=== PATIENT | female | born 1955 | race Caucasian/White ===

== ENCOUNTER → 2020-10-10 11:52 | Outpatient (CLI) | payer OTHER, SELFPAY ==
--- NOTE | ~2020-10-10 | MM_ITS ---
EXAMINATION: MM screening [facility] BI w otis HISTORY: Screening TECHNIQUE: Craniocaudal and mediolateral oblique 3-D tomosynthesis images were obtained and synthetic 2-D images were generated. CAD analysis was submitted and interpreted. COMPARISON: Comparison to multiple prior studies sequentially, with oldest reviewed study dated 05/08. BREAST PARENCHYMAL COMPOSITION: There are scattered areas of fibroglandular density. FINDINGS: Bilateral breast masses are stable or decreased in size compared with prior studies, consis tent with benign masses. There is no evidence of suspicious mass, calcification, or architectural dis tortion to suggest malignancy in either breast. There has been no suspicious interval change. IMPRESSION: 1. No mammographic evidence of malignancy. 2. Recommend routine screening mammography in one year. BI-RADS Category 2: Benign finding(s). Reviewed, dictated and finalized at location A. [employer]ER [employer] POLISHER
== END ==
PROVIDERS: PCP Family Medicine Adolescent Medicine; Visit Provider Family Medicine Adolescent Medicine
DX: Z12.31 Encounter for screening mammogram for malignant neoplasm of breast (principal)
CPT/HCPCS: 77063; 77067

== ENCOUNTER 2021-02-16 10:46 | Outpatient (CLI) | payer OTHER, SELFPAY ==
--- NOTE | ~2021-02-16 | XR_ITS ---
EXAMINATION: XR chest 2V DATE: 02/16/2021 11:40 INDICATION: Dyspnea. Left chest pain. TECHNIQUE: Frontal and lateral views of the chest were obtained. COMPARISON: Chest 2 views 10/03/2017 FINDINGS: There is mild atelectasis at the lung bases. No pleural effusion or pneumothorax. The heart size is normal. There is an old healed fracture of left eighth rib. IMPRESSION: 1. Mild atelectasis at the lung bases. Reviewed, dictated and finalized at location A.
== END 2021-02-16 10:47 ==
PROVIDERS: PCP Family Medicine Adolescent Medicine; Visit Provider Family Medicine Adolescent Medicine
DX: R06.00 Dyspnea, unspecified (principal); J45.909 Unspecified asthma, uncomplicated; M79.89 Other specified soft tissue disorders; J98.11 Atelectasis
CPT/HCPCS: 71046

== ENCOUNTER 2021-06-26 12:03 | Outpatient (CLI) | payer OTHER, SELFPAY ==
--- NOTE | ~2021-06-26 | XR_ITS ---
XR wrist RT w scaphoid DATE: 06/26/2021 13:01 INDICATION: Right wrist injury TECHNIQUE: 5 views COMPARISON: None FINDINGS: The uterus is osteoarthritis at the first carpometacarpal and triscaphe joint. No fracture or dislocation, periosteal reaction or bone destruction, erosive change or chondrocalcino sis. IMPRESSION: Osteoarthritis Reviewed, dictated and finalized at location A. [employer] SALES REPRESENTATIVE IMPRESSION: Osteoarthritis
--- NOTE | ~2021-06-26 | XR_ITS ---
XR hand RT min 3V DATE: 06/26/2021 12:59 INDICATION: Right wrist and hand injury TECHNIQUE: 3 views COMPARISON: None FINDINGS: Diffuse osteopenia. There is osteoarthritic joint space narrowing at the triscaphe joint and joint space narrowing and mi ld spurring at the first carpometacarpal joint. There is osteoarthritic change at some of the interph alangeal joints. No fracture or dislocation, periosteal reaction or bone destruction, erosive change or chondrocalcino sis. IMPRESSION: Osteopenia Polyarticular osteoarthritis No fracture or dislocation Reviewed, dictated and finalized at location A. [employer]
== END 2021-06-26 12:04 ==
PROVIDERS: PCP Family Medicine Adolescent Medicine; Visit Provider Physician Assistant
DX: S69.91XA Unspecified injury of right wrist, hand and finger(s), initial encounter (principal); M19.041 Primary osteoarthritis, right hand; M19.071 Primary osteoarthritis, right ankle and foot; M85.841 Other specified disorders of bone density and structure, right hand
CPT/HCPCS: 73110; 73130

== ENCOUNTER 2021-11-18 13:48 | Outpatient (CLI) | payer OTHER, SELFPAY ==
--- NOTE | ~2021-11-18 | XR_ITS ---
EXAM: XR_[id number]_CR HISTORY: W19.XXXA - Unspecified fall, initial encounter COMPARISON: 02/16/2021 FINDINGS: Bibasilar scarring. Stable cardiomediastinal silhouette. Old healed left eighth posterolat eral rib fracture. No acute rib or other fracture detected. Lumbar scoliosis. Lateral listhesis/rotat ion of L2 on L3. IMPRESSION: No acute rib fracture. Lumbar scoliosis and lateral listhesis/rotation of L2 on L3, presumably on a d egenerative basis, unless accompanied by acute pain or tenderness. Reviewed, dictated and finalized at location K. IMPRESSION: No acute rib fracture. Lumbar scoliosis and lateral listhesis/rotation of L2 on L3, presumably on a degenerative basis, unless accompanied by acute pain or te nderness.
--- NOTE | ~2021-11-18 | XR_ITS ---
EXAM: XR_CERV2-3V_CR HISTORY: W19.XXXA - Unspecified fall, initial encounter COMPARISON: None available FINDINGS: Moderate degenerative change at the atlantoaxial joint. Craniocervical association and tasha antoaxial joint are aligned. No prevertebral soft tissue swelling. 2 mm anterolisthesis of C3 on C4 a nd C4 on C5. 4 mm retrolisthesis of C5 on C6. Multilevel disc space narrowing most severe at C5-6. Mu ltilevel facet hypertrophy. No fracture or dislocation. IMPRESSION: Multilevel grade 1 degenerative listheses. Multilevel degenerative disc disease and facet arthropathy . Reviewed, dictated and finalized at location K. IMPRESSION: Multilevel grade 1 degenerative listheses. Multilevel degenerative disc disease and facet arthropathy.
--- NOTE | ~2021-11-18 | CT_ITS ---
EXAMINATION: CT brain wo con EXAM DATE: 11/18/2021 14:16 INDICATION: W19.XXXA - Unspecified fall, initial encounter , left-sided head injury, left-sided heada jacky. Uterine and cervical cancer. TECHNIQUE: Spiral CT of the head was performed without contrast. Axial, coronal and sagittal images were reviewed. The dose-length product (DLP) for this examination was 599.57 mGy-cm. The exposure w as tailored according to patient size, and iterative reconstruction (ASIR) was used as additional dos e reduction technique. There is no prior study for comparison. FINDINGS: There is no acute intraparenchymal hemorrhage. No evidence of intraparenchymal brain mass lesion. No evidence of acute infarction. Please note that initial head CT has limited sensitivity f or small or acute infarctions. There is mild periventricular and subcortical hypodensity, nonspecific but probably related to small vessel ischemic disease. There is mild prominence of the sulci and v entricles related to cerebral atrophy. There is intracranial carotid arteriosclerosis. There are n o extra-axial collections. There is no mass effect or midline shift. The orbits are unremarkable. Soft tissue is unremarkable. The visualized sinuses and mastoid air cells are well aerated. IMPRESSION: Mild chronic age related findings. Reviewed, dictated and finalized at location B.
== END 2021-11-18 13:49 ==
PROVIDERS: PCP Family Medicine Adolescent Medicine; Visit Provider Physician Assistant
DX: T14.90XA Injury, unspecified, initial encounter (principal); M41.86 Other forms of scoliosis, lumbar region; M50.30 Other cervical disc degeneration, unspecified cervical region
CPT/HCPCS: 70450; 71101; 72040

== ENCOUNTER 2022-03-31 10:09 | Observation (INO) | payer OTHER, SELFPAY ==
[2022-03-31] VITALS (24 sets, daily range): BP systolic 118–162; BP diastolic 56–100; PULSE 77–104; RESP 10–22; TEMP 36.4–37; O2SAT 91–99; BMI 51.6; BMI 52.4
--- NOTE | ~2022-03-31 | XR_ITS ---
EXAMINATION: XR chest 2V DATE: 03/31/2022 10:54 INDICATION: Chest tightness and dizziness TECHNIQUE: frontal and lateral views of the chest were obtained. COMPARISON: Chest radiograph dated 02/16/2021 FINDINGS: Unchanged linear bands of discoid atelectasis/scarring at the bilateral lung bases. No other airspace opacities, pulmonary edema, pleural effusion or pneumothorax. The cardiomediastinal silhouette is no rmal. Mild lower thoracic levocurvature with moderate spondylosis. Old healed left eighth rib fractur e. IMPRESSION: 1. Unchanged discoid atelectasis/scarring at the lung bases. Reviewed, dictated and finalized at location A.
--- NOTE | ~2022-03-31 | CT_ITS ---
EXAMINATION: CT abdomen pelvis w con DATE: 03/31/2022 11:52 INDICATION: Abdominal pain TECHNIQUE: Computed tomography (CT) of the abdomen and pelvis was performed with 100 mL Omnipaque-350 intravenous contrast. Automated exposure control and iterative reconstruction technique were employe d. The dose-length product was 1423.17 mGy-cm. COMPARISON: 07/24/2015 FINDINGS: Atelectasis in the bilateral lower lung zones involving the lingula, right middle lobe and bilateral lower lobes. Heart size is normal. No pericardial or pleural effusion. Cholecystectomy clips at the g allbladder fossa. Liver, spleen, pancreas, bilateral adrenal glands and kidneys are normal. Prominent ventral diastases with portions of the stomach, transverse colon and multiple loops of small bowel e xtending into the widened space between the bilateral rectus abdominis muscles. There are postoperati ve change of prior ventral hernia mesh repair along the left side of the region of the diastases. If further left lung the lateral margin of the region of ventral hernia repair is unchanged large left l ower quadrant ventral hernia arising from the left side of the region of diastases which contains the descending colon and multiple loops of nonobstructed small bowel. The orifice measures approximately 9.8 x 5.1 cm. Anastomotic suture line along one of the loops of herniated small bowel. There is mode rate colonic diverticulosis with sigmoid and descending colon predominance and without adjacent infla mmatory change to suggest diverticulitis. The appendix is not visualized. No pericecal inflammatory c hange to suggest acute appendicitis.. Bladder is normal. The uterus is not identified and has likely been surgically resected. No free intraperitoneal gas or fluid. No pathologically enlarged abdominal or pelvic lymphadenopathy. There is calcified atherosclerosis of the aorta and many of the other art eries. Severe lumbar spondylosis. 6 mm anterolisthesis L2 on L3 and 3 mm anterolisthesis L3 on L4. IMPRESSION: 1. No acute intra-abdominal/pelvic process. 2. Portions of the colon and multiple loops of nonobstructed small bowel extend into a large left low er quadrant ventral hernia which arises from the left side of a large region of ventral diastases. Th is does not appear significantly changed. 3. Diverticulosis. Reviewed, dictated and finalized at location A. IMPRESSION: 1. No acute intra-abdominal/pelvic process. 2. Portions of the colon and multiple loops of nonobstructed small bowel extend into a large left lower quadrant ventral hernia which arises from the left sam e of a large region of ventral diastases. This does not appear significantly ch anged. 3. Diverticulosis.
--- NOTE | ~2022-03-31 | US_ITS ---
EXAMINATION:US venous doppler LE BI INDICATION:Leg edema. TECHNIQUE: Multiple grayscale, color flow and Doppler images of the right and left lower extremity de ep venous systems were obtained and reviewed. COMPARISON:No prior studies for comparison. FINDINGS: The common femoral, superficial femoral and popliteal veins demonstrate normal respiratory variation, augmentation and compressibility. Color flow is also seen within the posterior tibial, pe roneal, greater saphenous and profunda veins. IMPRESSION: 1: No lower extremity deep venous thrombosis. Reviewed, dictated and finalized at location A.
--- NOTE | 2022-03-31 10:26 | ECG_ITS ---
Measurements Intervals [place] Rate: 99 P: 57 WY: 156 QRS: 51 QRSD: 82 T: 51 QT: 354 QTc: 455 Interpretive Statements SINUS RHYTHM NORMAL ECG NO PREVIOUS ECG AVAILABLE FOR COMPARISON Electronically Signed On 03-31-2022 16:08:49 CDT by Faheem Cortez M.D.
[2022-03-31 11:09] LABS: Basophils Absolute Auto 0.1 K/mm3 (0.0-0.1); Basophils Percent Auto 1.5 % (0.2-1.2); Eosinophils Absolute Auto 0.2 K/mm3 (0-0.3); Eosinophils Percent Auto 5.2 % (0-4.4); Hematocrit 44.2 % (37.0-47.0); Hemoglobin 15.3 g/dL (12.0-15.0); Lymphocytes Absolute Auto 1.73 K/mm3 (0.9-3.2); Lymphocytes Percent Auto 37.4 % (18.3-44.2); Mean Corpuscular HGB Conc 34.6 g/dl (32-36); Mean Corpuscular Hemoglobin 35.3 pg (26-34); Mean Corpuscular Volume 102.1 fl (80-100); Mean Platelet Volume 9.7 fl (7.4-10.4); Monocytes Absolute Auto 0.5 K/mm3 (0.1-0.6); Monocytes Percent Auto 11.7 % (2.6-8.5); Neutrophils Absolute Auto 2.1 K/mm3 (1.3-6.7); Neutrophils Percent Auto 44.2 % (45.5-73.1); Platelet Count Result 237 k/mm3 (150-375); Red Blood Count 4.33 M/mm3 (4.2-5.4); Red Cell Distribution Width 13.4 % (11.5-14.5); White Blood Count 4.6 K/mm3 (4.5-10.0)
--- NOTE | 2022-03-31 11:12 | ED.SOB ---
HPI - SOB/Dyspnea General Chief Complaint: Shortness of Breath/Dyspnea Stated Complaint: Shortness of breath Time Seen by Provider: 03/31/22 10:39 History of Present Illness HPI Narrative: This is a 66-year-old female with past medical history of COPD, CHF, who presents to the emergency department complaining of shortness of breath with past several days, associated with epigastric abdominal pain. Patient states has been going on for several days, she has epigastric abdominal pain, described as dull, intermittently sharp, 4 out of 10 at baseline, increasing to 7 out of 10, aggravated by physical and emotional exertion. She also notes some nausea associated with this. But denies vomiting. She states she is passing nonbloody stool and gas without difficulty. Related Data Allergies Allergy/AdvReac Type Severity Reaction Status Date / Time adhesive tape Allergy Intermediate BLISTER/REDNESS/SWELLING Verified 03/31/22 13:26 AT SITE fentanyl Allergy Intermediate Itching Verified 03/31/22 13:26 amoxicillin Allergy Unknown Unknown Verified 03/31/22 13:26 azithromycin Allergy Unknown unknown Verified 03/31/22 13:26 erythromycin base Allergy Unknown unknow Verified 03/31/22 13:26 Penicillins Allergy Unknown unknown Verified 03/31/22 13:26 Review of Systems Review of Systems: CONSTITUTIONAL: Denies fever, chills, or sweats. EYES: Denies visual changes, redness, or discharge. ENT: Denies rhinorrhea, congestion, sore throat, or otalgia. CARDIOVASCULAR: +chest pain, palpitations, Denies edema. RESPIRATORY: +dyspnea. Denies cough or GASTROINTESTINAL: Denies abdominal pain, nausea, vomiting, or diarrhea. GENITOURINARY: Denies dysuria or hematuria. SKIN: Denies rash or itching. MUSCULOSKELETAL: Denies back pain, joint pain, or myalgia. NEUROLOGIC: Denies headache, numbness, dizziness, or weakness. PSYCHIATRIC: Denies anxiety or depression. [facility] Past Medical History Medical History Abdominal pain Adhesive capsulitis Arthritis COPD (chronic obstructive pulmonary disease) Dizziness Hair loss HTN (hypertension) Kidney infection Left shoulder pain Rotator cuff tendinitis SOB (shortness of breath) Vertigo Wheezing Surgical History Surgical History History of appendectomy History of back surgery 1984 and 1985 History of bladder suspension procedure x2 History of History of cholecystectomy History of hernia repair History of total hysterectomy History of total knee arthroplasty bilateral Family History Family History Sibling Family history of thyroid disease Mother Family history of lung cancer Father Family history of heart disease in male family member before age 55 Other Diabetes mellitus Family history of allergic disorder Family history of cardiovascular disease Hypertension Social History Social History (Updated 03/30/22 @ 12:39 by Mandy Pham MA) Smoking packs per day: 2 Smoking cigarettes per day: 40.0 Years smoked: 30 Smoking pack-years: 60.00 Smoking status: Former smoker Tobacco type: cigarettes Second hand tobacco smoke exposure: No Smoking end date: 10/19/06 Alcohol intake: never Substance use: never Substance use type: does not use Gender identity (if verbalized by the patient): Female Sexual Orientation (if Verbalized by the Patient): Straight or Heterosexual Spiritual care concerns: No Agree to blood products: Yes Course Course Emergency Course: Troponins negative. Patient's pain improved with morphine, dyspnea improved slightly with nebs. CT scan not concerning for acute intra-abdominal process. Patient's heart score is 6. Discussed patient with hospitalist, WALT Crawford, who accepts admission. Vital Signs Vital signs: Vital Signs Temperature 97.6 F 03/31/22 10:27
[2022-03-31 11:19] LABS: INR 1.1; Partial Thromboplastin Time 29.1 SECONDS (22.3-36.8); Prothrombin Time 13.6 Seconds (11.1-14.7)
[2022-03-31 11:21] LABS: Alanine Aminotransferase 22 U/L (6-35); Albumin Level 4.6 g/dL (3.5-5.1); Alkaline Phosphatase 77 U/L (38-126); Anion Gap 10 mmol/L (8-16); Aspartate Amino Transferase 31 U/L (14-36); Bilirubin,Total 0.6 mg/dL (0.2-1.3); Blood Urea Nitrogen 18 mg/dL (7-17); Calcium 9.2 mg/dL (8.4-10.2); Carbon Dioxide 24 mmol/L (22-30); Chloride 104 mmol/L (98-107); Estimated Glomerular Filt Rate > 60; Glucose 133 mg/dL (65-110); Lipase 34 U/L (23-300); Potassium 3.9 mmol/L (3.4-5.0); Sodium 138 mmol/L (137-145)
[2022-03-31] MEDS: MORPHINE SULFATE (*CRX) 4 MG/ML INJ IV PUSH (11:30)
[2022-03-31 11:32] LABS: Troponin I < 0.012 ng/mL (0.000-0.034)
[2022-03-31] MEDS: IPRATROPIUM BR 0.02% INH SOLN 0.5 MG/2.5 ML VIAL INHALATION (12:30)
[2022-03-31] MEDS: ALBUTEROL SULFATE NEB 2.5 MG/3 ML INH 5 MG INHALATION ×2 (12:30→14:56)
[2022-03-31 14:02] LABS: Troponin I < 0.012 ng/mL (0.000-0.034)
[2022-03-31] MEDS: ASPIRIN 81 MG CHEWABLE TABLET 324 MG PO (15:07)
[2022-03-31] MEDS: MORPHINE SULFATE (*CRX) 4 MG/ML INJ 8 MG IV PUSH (15:08)
--- NOTE | 2022-03-31 15:30 | PM.IMHP ---
H&P: HPI History of Present Illness Date/Time: 03/31/22 15:30 Chief Complaint: Shortness of breath and chest pain. Narrative: This is a 58-year-old female with morbid obesity, COPD, GERD, and poorly documented history of congestive heart failure who presented to the emergency department from home with complaints of shortness of breath and chest pain. She was previously evaluated by her primary care provider earlier this week which time she had multiple complaints including chronic shortness of breath, dry cough for a month, occasional ?gurgling? all in the chest, frequent episodes of lightheadedness and vertigo with history of falls secondary to poor balance, and more recently she has been experiencing nonradiating and self-limiting midsternal chest pressure. She admits to having quite a bit of anxiety and she has thus far been attributing the chest discomfort to anxiety. An echocardiogram done in December of 2021 showed normal LV systolic size and function with an EF of 71%. Additionally she has a large ventral hernia which seems to be giving her more grief recently, with intermittent pain and occasional nausea but no vomiting. Review of Systems Review of Systems: Twelve systems were reviewed. No fever, chills, or sweats. She denies cold and flu symptoms. She has been having balance issues with intermittent episodes of what sounds like both lightheadedness and vertigo. No vomiting or diarrhea. Except as documented, all other systems were reviewed and are negative. [facility] Past Medical History Medical History (Updated 03/31/22 @ 15:52 by Clarice Crawford PA-C) Aortic atherosclerosis (07/2015) Noted on CT of the abdomen and pelvis. Arthritis Chronic obstructive pulmonary disease Deep venous thrombosis (1973) Following an ankle fracture. Gastroesophageal reflux disease Hiatal hernia Hypertension Ventral hernia Surgical History Surgical History (Updated 03/31/22 @ 15:38 by Clarice Crawford PA-C) History of 2 sections History of appendectomy History of back surgery 1984 and 1985 History of bilateral knee arthroplasty History of bladder suspension procedure x2 History of cholecystectomy History of hernia repair History of total hysterectomy Family History Family History Sibling Family history of thyroid disease Mother Family history of lung cancer Father Family history of heart disease in male family member before age 55 Other Diabetes mellitus Family history of allergic disorder Family history of cardiovascular disease Hypertension Social History Social History (Updated 03/31/22 @ 15:50 by Clarice Crawford PA-C) Social History: Surrogate medical decision maker: Franchesca Bonilla, daughter. Code status: Full code. Smoking packs per day: 2 Smoking cigarettes per day: 40.0 Years smoked: 30 Smoking pack-years: 60.00 Smoking status: Former smoker Tobacco type: cigarettes Second hand tobacco smoke exposure: No Smoking end date: 10/29/16 Alcohol intake: never Substance use: never Substance use type: does not use Spiritual care concerns: No Agree to blood products: Yes Meds Home Medications and Allergies Home Medications Medication Instructions Recorded Confirmed Type baclofen 10 mg tablet 10 mg PO Q8H PRN pain #30 tabs 11/06/21 03/31/22 Rx meclizine 25 mg tablet 25 mg PO TID PRN dizziness #30 tabs 11/19/21 03/31/22 Rx montelukast 10 mg tablet 10 mg PO DAILY #90 tabs 11/19/21 03/31/22 Rx omeprazole 20 mg capsule,delayed 20 mg PO BID #180 caps 11/23/21 03/31/22 Rx release meloxicam 15 mg tablet 15 mg PO DAILY #90 tabs 12/17/21 03/31/22 Rx furosemide 20 mg tablet 20 mg PO DAILY #90 tabs 01/11/22 03/31/22 Rx estradiol 0.5 mg tablet 0.5 mg PO DAILY #30 tabs 03/03/22 03/31/22 Rx lisinopril 20 mg tablet 20 mg PO DAILY #90 tabs 03/03/22 03/31/22 Rx theophylline 300 mg 300 mg PO Q12H #60 tabs 03/26/22
--- NOTE | 2022-03-31 16:20 | ADMGEN ---
This patient, Em Hernandez, was admitted to IMU Room 232-01. Patient/family oriented to hospital policies and general routines including ID bracelet, bed and alarms, visiting hours, pain management, procedures, bathroom and other care routines, personal items, smoking policy, room service/diet, and visiting hours. Information on how to activate the Rapid Response Team has been discussed. Patient/Family are encouraged to report perceived risks to care and to ask questions if they do not understand what they are told or what they should do.
[2022-03-31 17:24] LABS: Troponin I < 0.012 ng/mL (0.000-0.034)
[2022-03-31] MEDS: ALBUTEROL SULFATE (*SP) AEROSOL 1 PUFF INHALATION (21:42)
[2022-03-31] MEDS: THEOPHYLLINE 300 MG ER 12 HR TABLET PO (22:37)
[2022-03-31] MEDS: ACETAMINOPHEN 325 MG TABLET 650 MG PO (23:58)
[2022-04-01] VITALS (10 sets, daily range): BP systolic 115–155; BP diastolic 67–80; PULSE 66–118; RESP 18–20; TEMP 36–36.4; O2SAT 94–97
[2022-04-01 05:25] LABS: Base Excess ABG 0.2 mEq/l (+/-2.0); Carboxyhemoglobin 0.4 % THb (0-2.0); Device ROOM AIR; Fractional Inspired Oxygen 21 %; HCO3 ABG 24.8 mEq/l (22.0-26.0); Methemoglobin ABG 0.1 %THb (0-1.5); Modified Allen's Test Pass; Oxygen Content ABG 20.6 %vol (16.0-22.0); Oxygen Saturation ABG 95.7 % (95.0-100.0); Oxyhemoglobin 94.7 % THb (90.0-100.0); PCO2 ABG 40.3 mmHg (35.0-45.0); PO2 ABG 78.5 mmHg (80.0-100.0); PO2 FiO2 Ratio Arterial Blood 3.74 %; Reduced Hemoglobin 4.8 %THb (0-5.0); Site Drawn LEFT RADIAL; Total Hemoglobin 15.5 g/dL (12.0-18.0); pH ABG 7.407 (7.350-7.450)
[2022-04-01] MEDS: THEOPHYLLINE 300 MG ER 12 HR TABLET PO (10:11)
[2022-04-01] MEDS: MELOXICAM 7.5 MG TABLET 15 MG PO (10:11)
[2022-04-01] MEDS: estradioL 0.5 MG TABLET PO (10:12)
[2022-04-01] MEDS: lisinopriL 20 MG TABLET PO (10:12)
[2022-04-01] MEDS: MONTELUKAST SODIUM 10 MG TABLET PO (10:12)
[2022-04-01] MEDS: FAMOTIDINE 20 MG TABLET PO (10:12)
[2022-04-01] MEDS: FUROSEMIDE 20 MG TABLET PO (10:13)
[2022-04-01] MEDS: ACETAMINOPHEN 325 MG TABLET 650 MG PO (11:03)
--- NOTE | 2022-04-01 11:43 | PM.DS ---
DS: Admitting Diagnosis Discharge Date April 01, 2022 Admitting Diagnosis Chest pain, abdominal pain DS: Discharge Diagnosis Discharge Diagnosis (1) Chest pain: Code(s): R07.9 - Chest pain, unspecified Status: Acute Assessment and Plan: Atypical as this is been ongoing for quite some time. She has rule out for acute coronary syndrome by serial troponins. Echocardiogram in December of 2021 showed normal LV size and function with a EF of 71%. Troponins negative. Chest pain does not sound cardiac. I think this is referral pain from her ventral hernia. (2) Ventral hernia: Code(s): K43.9 - Ventral hernia without obstruction or gangrene Status: Chronic Assessment and Plan: Patient is a follow-up to tertiary care center. There is no emergent need for transfer. She is tolerating a diet and just having some localized abdominal pain. CT noted. (3) Gastroesophageal reflux disease: Code(s): K21.9 - Gastro-esophageal reflux disease without esophagitis Status: Acute (4) Chronic obstructive pulmonary disease: Code(s): J44.9 - Chronic obstructive pulmonary disease, unspecified Status: Acute Assessment and Plan: She has chronic shortness of breath and with mild polycythemia labs today, she may very well have chronic hypoxia thus will check an ABG. She will need a home O2 evaluation prior to discharge. Apnea link ordered for this evening for screening purposes. She likely has underlying sleep apnea with orthopnea and paroxysmal nocturnal dyspnea. (5) Hypertension: Code(s): I10 - Essential (primary) hypertension Status: Acute DS: Summary Hospital Course Hospital Course: Patient was admitted for chest pain abdominal pain. Most likely this was related to her ventral hernia that needs to be repaired. This is a chronic issue and nothing emergent. She can be follow-up with a surgeon as an outpatient. Time Spent with Patient Time attestation: Total time spent providing and/or coordinating discharge services: Exam Narrative: General: Chronically ill-appearing female lying on her left side in bed. Weight: 126 kg. BMI: 52.5. HEENT: PERRL, EOMI. Sclerae anicteric. Oral mucosa moist. Oropharynx is crowded and poorly visualized. Neck: Supple. Exam limited due to neck circumference. No obvious JVD or bruits. Respiratory: She gets a bit short of breath even when moving around in the bed. Lung sounds are diminished due to body habitus but are otherwise clear to auscultation. Cardiovascular: Regular rate and rhythm with S1-S2. Gastrointestinal: Abdomen is morbidly obese with positive bowel sounds. She has scars from multiple prior abdominal surgeries. There is a large ventral hernia that is not tender to palpation. No guarding or rebound tenderness. Skin: Warm and dry. No rash or lesions on limited exam. Extremities: No cyanosis or clubbing. Trace grant ankle edema bilaterally. No palpable knots or cords. Negative Piero sign. Neurological: Alert and oriented Cranial nerves 2-12 are grossly intact. No gross focal deficits to casual conversation. Psychiatric: Pleasant and cooperative. Appropriate mood and affect. DS: Data Data Completed and Pending Labs on day of discharge: Labs from last 24 hours 04/01/22 03/31/22 03/31/22 05:07 16:48 13:32 Puncture Site Left radial ABG pH 7.407 ABG pCO2 40.3 ABG pO2 78.5 L ABG PO2/FiO2 Ratio 3.74 ABG HCO3 24.8 ABG O2 Saturation 95.7 ABG O2 Content 20.6 ABG Base Excess 0.2 A-a Gradient 23.0 Oxyhemoglobin 94.7 Carboxyhemoglobin 0.4 Methemoglobin 0.1 Reduced Hemoglobin 4.8 Total Hemoglobin 15.5 O2 Delivery Device Room air O2 Liters/Min Not Reportable FiO2 21 Troponin I < 0.012 < 0.012 Discharge Plan Discharge Attending physician on discharge: Husam Navarrete Discharging Clinician: Husam Navarrete Patient Disposition: Home, Self-Care
== END 2022-04-01 13:32 | disposition home or self-care (01) ==
LOC: ANHED 14:59 → ANHIMU 15:49
PROVIDERS: Physician Assistant; Admitting Provider Chiropractor; Emergency Provider Preventive Medicine Aerospace Medicine; PCP Family Medicine Adolescent Medicine; Visit Provider Chiropractor
DX: R07.9 Chest pain, unspecified (principal); K43.9 Ventral hernia without obstruction or gangrene; K21.9 Gastro-esophageal reflux disease without esophagitis; J44.9 Chronic obstructive pulmonary disease, unspecified; D75.1 Secondary polycythemia; I11.0 Hypertensive heart disease with heart failure; I50.9 Heart failure, unspecified; R10.13 Epigastric pain; R11.0 Nausea; R00.2 Palpitations; R06.00 Dyspnea, unspecified; J98.11 Atelectasis; I70.0 Atherosclerosis of aorta; R46.89 Other symptoms and signs involving appearance and behavior; M19.90 Unspecified osteoarthritis, unspecified site; E66.01 Morbid (severe) obesity due to excess calories; Z68.43 Body mass index [BMI] 50.0-59.9, adult; Z90.710 Acquired absence of both cervix and uterus; Z90.49 Acquired absence of other specified parts of digestive tract; Z86.718 Personal history of other venous thrombosis and embolism; Z87.891 Personal history of nicotine dependence; Z79.51 Long term (current) use of inhaled steroids; Z79.899 Other long term (current) drug therapy; Z82.49 Family history of ischemic heart disease and other diseases of the circulatory system
CPT/HCPCS: 36415; 36600; 71046; 74177; 80053; 82375; 82805; 83050; 83690; 84484; 85025; 85610; 85730; 93005; 93970; 94618; 94640; 94762; 96374; 96376; 99285; A9270; G0378; J2270; Q9967

== ENCOUNTER 2022-09-08 12:02 | Outpatient (CLI) | payer OTHER, SELFPAY ==
--- NOTE | ~2022-09-08 | CT_ITS ---
EXAMINATION:CT diagnostic chest wo con DATE: 09/08/2022 11:02 INDICATION: Dyspnea. TECHNIQUE: Computed tomography (CT) of the chest was performed without intravenous contrast. Automate d exposure control and iterative reconstruction technique were employed. The dose-length product (DLP ) was 933.18 mGy-cm. COMPARISON: CT abdomen and pelvis 03/31/22 FINDINGS: There is mild emphysema. There is mild atelectasis bilaterally. No pleural effusion. The he art size is normal. There are coronary artery calcifications. No pericardial effusion. There are hurtado ges of cholecystectomy. There is a large ventral hernia containing stomach and bowel. There is modera te thoracic spondylosis and severe lumbar spondylosis. IMPRESSION: 1. Mild emphysema. 2. Mild atelectasis again seen in the lungs bilaterally. Reviewed, dictated and finalized at location A. CIATE PROFESSOR OF SOCIOLOGY
== END 2022-09-08 12:03 | disposition home or self-care (01) ==
PROVIDERS: PCP Emergency Medicine; Visit Provider Physician Assistant
DX: J43.9 Emphysema, unspecified (principal); J98.11 Atelectasis
CPT/HCPCS: 71250

== ENCOUNTER 2022-09-23 09:20 | Outpatient (CLI) | payer OTHER, SELFPAY ==
[2022-09-23 09:30] VITALS: PULSE 92; O2SAT 96
[2022-09-23 09:35] VITALS: PULSE 122; O2SAT 94
[2022-09-23 09:45] VITALS: PULSE 96; O2SAT 96
--- NOTE | 2022-09-23 11:19 | HOMEO2EVAL ---
Evaluation was performed at [facility] Home Oxygen Evaluation RC: Home Oxygen (O2) Evaluation Start: 09/23/22 11:17 Freq: Status: Active Protocol: RPE Activity Type Activity Date Activity User E-sign Co-sign Detail Recorded Client Recorded Date Recorded By Document 09/23/22 09:30 LUKE [email or web address] 09/23/22 11:19 LUKE Document 09/23/22 09:35 LUKE [email or web address] 09/23/22 11:19 LUKE Document 09/23/22 09:45 LUKE [email or web address] 09/23/22 11:19 LUKE 09/23/22 09/23/22 09/23/22 09:30 09:35 09:45 Home O2 Evaluation [Oxygen] -Test Phase Resting Exercise Resting -Oxygen Delivery Room Air Room Air Room Air [Pulse Oximetry] -Pulse Oximetry (90-100 %) 96 94 96 [Pulse Rate] -Pulse Rate (60-100 beats/min) 92 122 H 96 [Exercise] -Ambulation Distance (feet) 100 -Ambulation Distance (meters) 30.47 [Comments] -Home Oxygen Evaluation Comments PT DOES NOT REQUIRE HOME O2 AT THIS TIME. [Charges] -Treatment Charges O2 Evaluation - Outpatient
--- NOTE | 2022-09-23 11:20 | PCRCNOTE ---
HOME O2 EVAL FXED TO OFFICE STAFF, NO HOME O2 NEEDED.
--- NOTE | 2022-09-23 13:26 | WPDPFTINT ---
PFT Procedure Performed PFT Procedure Performed Spirometry with Pre/Post Bronchodilator Plethysmography (Lung Vol) Diffusing Cap (DLCO) Flow Vol Loop PFT Interpretation This is a pulmonary function test with pre and post-bronchodilator spirometry, plethysmography and diffusing capacity. The test was performed and results interpreted in accordance with the 2019 and 2005 ATS/ERS Task Force guidelines respectively using the Global Lung Function Initiative-2012 reference equations. Patient demonstrated good effort and cooperation. Reproducibility criteria were met. The quality of the pre bronchodilator spirometry maneuver was Grade E and post bronchodilator spirometry maneuver was Grade A. Of note only 1 pre bronchodilator spirometry was performed due to pain. Findings: Spirometry: There is decreased maximal expiratory airflow at all lung volumes with concave expiratory flow tracing. The contour the inspiratory flow tracing is normal. The pre bronchodilator FVC is 1.84 L, 71% predicted. The pre bronchodilator FEV1 is 1.17 L, 58% predicted. The pre bronchodilator FEV1: FVC ratio 63%. The post bronchodilator FVC is 1.99 L, representing an 8% increase. The post bronchodilator FEV1 is 1.34 L, representing a 170 mL increase which corresponds to a 15% increase. The post bronchodilator FEV1: FVC ratio 67%. Plethysmography: The total lung capacity is 3.47 L, 76% predicted. The functional residual capacity is 1.79 L, 70% predicted. The residual volume is 1.51 L, 76% predicted. Diffusing capacity: The diffusing capacity unadjusted for hemoglobin and carboxyhemoglobin is 15.9, 82% predicted. The diffusing capacity adjusted for alveolar volume is 5.06, 113% predicted. Impression: Pre bronchodilator spirometry was not reproduced as the patient was having pain. The interpretation used data from this one maneuver and is therefore limited. There is a combined obstructive and restrictive ventilatory abnormality. There are no guidelines to assign the severity of obstruction and restriction with a combined abnormality. In my opinion, given the moderately concave expiratory flow tracing and moderately decreased FEV1:FVC ratio and mild restrictive abnormality, I would state there is a moderate obstructive abnormality and a mild restrictive abnormality resulting in a moderately severe decrease in the FEV1. There is no significant improvement after inhaling a single dose of albuterol as the absolute increase in post bronchodilator FEV1 is less than 200 mL. The diffusing capacity is normal. There are no prior studies for comparison
--- NOTE | 2022-09-24 13:18 | HOMEO2EVAL ---
Evaluation was performed at [facility]
== END 2022-09-23 09:21 | disposition home or self-care (01) ==
LOC: ANHPFT 09:22
PROVIDERS: PCP Emergency Medicine; Visit Provider Physician Assistant
DX: R06.09 Other forms of dyspnea (principal)
CPT/HCPCS: 94060; 94618; 94726; 94729

== ENCOUNTER 2023-03-07 09:56 | Outpatient (CLI) | payer OTHER, SELFPAY ==
--- NOTE | ~2023-03-07 | CT_ITS ---
CT of the Abdomen and Pelvis: Indication: Abdominal hernia Technique: 2.5 mm axial scans were obtained through the abdomen and pelvis following intravenous adm inistration of 100 cc of Omnipaque 350. Dose reduction technique was used on this scan by utilizing a utomated exposure control and iterative reconstruction technique. The dose-length product (DLP) was 1 566.91 mGy-cm. COMPARISON: 03/31/2022 Findings: Scans through the lung bases are unremarkable. The liver, spleen, pancreas, adrenals and kidneys are within normal limits. Cholecystectomy clips are present. There are atherosclerotic calcifications of the aorta. No lymphadenopathy. There is a large left-sided ventral hernia, containing a large portion of the descending colon, large amount of mesenteric fat, as well as numerous small bowel loops. No definite bowel obstruction or ever wel wall thickening seen. There is diastases of the rectus abdominis musculature, with protrusion of portion of the stomach, transverse colon, and small bowel loops into the ventral defect. Images through the pelvis were performed. Urinary bladder unremarkable. Patient is status post hyster ectomy. No adnexal mass seen. Ascites. Impression: Overall, no significant change from prior exam. Large left-sided ventral hernia containing a large portion of the descending colon, as well as eufemia us small bowel loops and large amount of mesenteric fat. Diastasis of the rectus abdominis musculature, with protrusion of portion of the stomach, transverse colon, and small bowel loops into the ventral defect. No bowel wall thickening or bowel obstruction evident. Reviewed, dictated and finalized at [facility]. Impression: Overall, no significant change from prior exam. Large left-sided ventral hernia containing a large portion of the descending co stone, as well as numerous small bowel loops and large amount of mesenteric fat. Diastasis of the rectus abdominis musculature, with protrusion of portion of th e stomach, transverse colon, and small bowel loops into the ventral defect. No bowel wall thickening or bowel obstruction evident.
[2023-03-07 10:27] LABS: Estimated Glomerular Filt Rate > 60
== END 2023-03-07 09:57 ==
LOC: MICIMG 09:58
PROVIDERS: PCP Emergency Medicine; Visit Provider Emergency Medicine
DX: K46.9 Unspecified abdominal hernia without obstruction or gangrene (principal)
CPT/HCPCS: 74177; Q9967

== ENCOUNTER 2023-08-29 13:45 | Outpatient (CLI) | payer OTHER, SELFPAY ==
--- NOTE | ~2023-08-29 | MM_ITS ---
EXAMINATION: MM screening [facility] BI w otis HISTORY: Screening mammogram TECHNIQUE: Craniocaudal and mediolateral oblique 3-D tomosynthesis images were obtained and synthetic 2-D images were generated. CAD analysis was submitted and interpreted. COMPARISON: 10/10/2020, 09/08/2017, 05/29/2015, 05/23/2015 BREAST PARENCHYMAL COMPOSITION: There are scattered areas of fibroglandular density. FINDINGS: RIGHT BREAST: No suspicious mass, calcification, or architectural distortion are identified to sugges t malignancy. There has been no suspicious interval change. LEFT BREAST: An asymmetry is present in the middle third of the outer breast 10 cm from the nipple on the craniocaudal view. IMPRESSION: 1. Left breast asymmetry on the craniocaudal view. 2. Additional mammographic views and possible breast ultrasound are recommended. BI-RADS Category 0: Incomplete: Needs additional imaging evaluation. Reviewed, dictated and finalized at location A. PUMP ATTENDANT IMPRESSION: 1. Left breast asymmetry on the craniocaudal view. 2. Additional mammographic views and possible breast ultrasound are recommended . BI-RADS Category 0: Incomplete: Needs additional imaging evaluation.
== END 2023-08-29 13:46 ==
LOC: MICIMG 13:49
PROVIDERS: PCP Emergency Medicine; Visit Provider Emergency Medicine
DX: Z12.31 Encounter for screening mammogram for malignant neoplasm of breast (principal); R92.8 Other abnormal and inconclusive findings on diagnostic imaging of breast
CPT/HCPCS: 77063; 77067

== ENCOUNTER 2023-09-07 16:03 | Outpatient (CLI) | payer OTHER, SELFPAY ==
--- NOTE | ~2023-09-07 | XR_ITS ---
XR chest 2V DATE: 09/07/2023 16:30 INDICATION: Dyspnea TECHNIQUE: 2 views COMPARISON: September 08, 2022 CT chest March 31, 2022 2 view chest FINDINGS: There is cardiomegaly, pulmonary vascular congestion and redistribution. There are mild inf iltrates in the mid and lower lungs and right basilar discoid atelectasis or scarring. Aortic arch calcification, mild aortic unfolding. Diffuse osteopenia. Diffuse idiopathic skeletal hyperostosis of the thoracic spine. IMPRESSION: Cardiomegaly, congestive heart failure Bibasilar discoid atelectasis or scarring Reviewed, dictated and finalized at location B. DDED SOFTWARE DESIGN ENGINEER
== END 2023-09-07 16:04 ==
LOC: MICIMG 16:04
PROVIDERS: PCP Emergency Medicine; Visit Provider Emergency Medicine
DX: R06.00 Dyspnea, unspecified (principal); I51.7 Cardiomegaly; I50.9 Heart failure, unspecified; R91.8 Other nonspecific abnormal finding of lung field
CPT/HCPCS: 71046

== ENCOUNTER 2023-09-13 10:57 | Outpatient (CLI) | payer OTHER, SELFPAY ==
[2023-09-13 12:09] LABS: NT Pro B Type Natriuretic Pept 542 pg/mL (19.9-100); Troponin I 0.028 ng/mL (0.000-0.034)
== END 2023-09-13 10:58 | disposition home or self-care (01) ==
LOC: ANHGOSHLAB 10:58
PROVIDERS: PCP Emergency Medicine; Visit Provider Emergency Medicine
DX: I50.9 Heart failure, unspecified (principal)
CPT/HCPCS: 36415; 83880; 84484

== ENCOUNTER 2023-09-19 10:51 | Outpatient (CLI) | payer OTHER, SELFPAY ==
--- NOTE | ~2023-09-19 | CT_ITS ---
CT Scan of the Chest without Contrast: Clinical Indication: Lung cancer screening, smoking history Technique: Contiguous sections were acquired throughout the chest without intravenous contrast. Dose reduction technique was used on this scan by utilizing automated exposure control and iterative recon struction technique. The dose-length product (DLP) was 432.34 mGy-cm. COMPARISON: 09/08/2022 Findings: There is no evidence of any significant mediastinal, hilar or axillary lymphadenopathy. The mediastin al soft tissues appear normal. There is no evidence of pleural or pericardial effusion. There is bibasilar scarring or atelectasis. Several subcentimeter irregular nodular densities are pre sent the lung apices bilaterally. There is a 7 mm probable groundglass nodule right upper lobe (axial image 41). Images through the upper abdomen reveal partially imaged upper ventral hernia containing portion of t he stomach. Impression: Lung RADS 3: Probably benign. Six-month follow-up screening CT advised. Reviewed, dictated and finalized at location . ICAL LAW PROFESSOR Impression: Lung RADS 3: Probably benign. Six-month follow-up screening CT advised.
== END 2023-09-19 10:52 | disposition home or self-care (01) ==
PROVIDERS: Visit Provider Physician Assistant
DX: Z12.2 Encounter for screening for malignant neoplasm of respiratory organs (principal); Z87.891 Personal history of nicotine dependence
CPT/HCPCS: 71271

== ENCOUNTER 2023-09-20 09:26 | Outpatient (CLI) | payer OTHER, SELFPAY ==
--- NOTE | ~2023-09-20 | MM_ITS ---
EXAMINATION: MM diagnostic aron LT w otis HISTORY: Left breast asymmetry on screening mammogram TECHNIQUE: Additional 3-D tomosynthesis images of the left breast were performed and synthetic 2-D im ages were generated. CAD analysis was submitted and interpreted. COMPARISON: 08/29/2023, 10/10/2020, 09/08/2017, 05/29/2015, 05/23/2015 FINDINGS: There is a return to baseline fibroglandular appearance with spot compression of the left b reast in the area questioned on screening mammogram. IMPRESSION: 1. No mammographic evidence of malignancy. 2. Recommend routine screening mammography in one year. BI-RADS Category 1: Negative Reviewed, dictated and finalized at location A. E ERECTOR SUPERVISOR
== END 2023-09-20 09:27 ==
LOC: MICIMG 09:27
PROVIDERS: PCP Physician Assistant; Visit Provider Physician Assistant
DX: R92.8 Other abnormal and inconclusive findings on diagnostic imaging of breast (principal)
CPT/HCPCS: 77061; 77065; G0279

== ENCOUNTER 2023-09-28 09:41 | Outpatient (CLI) | payer OTHER, SELFPAY ==
--- NOTE | 2023-09-28 09:49 | ECHO_ITS ---
Patient Info Name: Em Hernandez Age: 67 years : 1955 Gender: Female Ht: 61 in Wt: 285 lbs BSA: 2.45 m2 HR: 95 bpm BP: 142 / 80 mmHg Technical Quality: Fair Exam Date: 09/28/2023 10:00 AM Exam Location: Echo Lab Patient Status: Outpatient Admit Date: 09/28/2023 Staff Ordering Physician: Darnell Almanza MD Electrician Journeyman Wireman: Attending Provider: Darnell Almanza MD Referring Physician: Archie CAMPBELL; Exam Type: CA echo dop color flow w con Study Info Indications I50.9 - Heart failure, unspecified Complete two-dimensional, color flow and Doppler transthoracic echocardiogram is performed with contrast to opacify the left ventricle and to improve the deliniation of the left ventricle endocardial borders. Contrast/Agitated Saline Contrast/Ag. Saline: Definity Amount: 2.00 ml Existing IV Access: Yes IV Access Condition: patent with no signs of infiltration New IV Access: Antecubital Space and Left Site Condition: IV removed Summary 1. Technically difficult study with limited views. 2. Left ventricular chamber dimension is normal. 3. Left ventricular systolic function is moderately reduced, estimated at 35-40%. 4. The left ventricular diastolic function is grade I diastolic dysfunction. 5. Right ventricular systolic function is normal. 6. There is mild mitral valve regurgitation. Left Ventricle Left ventricular chamber dimension is normal. Left ventricular systolic function is moderately reduced, estimated at 35-40%. There is no increased left ventricular wall thickness. The left ventricular diastolic function is grade I diastolic dysfunction. Right Ventricle Right ventricular chamber dimension is normal. Right ventricular systolic function is normal. Left Atria Left atrial chamber dimension is normal. Right Atria Right atrial chamber dimension is normal. Atrial Septum Intact interatrial septum visualized by color flow imaging. Aortic Valve The aortic valve is not well visualized. There is no aortic valve regurgitation. Pulmonic Valve The pulmonic valve is not well visualized. Mitral Valve There is mild mitral valve regurgitation. Tricuspid Valve There is trace tricuspid valve regurgitation. Pericardium/Pleural There is no pericardial effusion. Inferior Vena Cava Dilated inferior vena cava with <50% collapse upon inspiration consistent with elevated right atrial pressure, 15 mmHg. Aorta The aortic root size at the sinus of Valsalva is normal. Left Ventricular Outflow Tract Name Value Normal LVOT 2D LVOT Diameter 1.97 cm LVOT Doppler LVOT Peak Gradient 3 mmHg LVOT Mean Gradient 2 mmHg LVOT VTI 16.46 cm LVOT VTI/AV VTI Ratio 0.44 LVOT Stroke Volume 50.15 ml LVOT CO 3.99 l/min LVOT CI 1.63 L/min/m2 Pulmonic Valve Name Value Normal LUCY Bhatti
--- NOTE | 2023-09-28 11:40 | IVDEFINITY ---
Prior to administration of IV Definity the patient was educated on the risks and benefits of the imaging enhancing agent including potential adverse side effects. The patient verbalized understanding. Allergies were verified. No exclusion criteria were identified and at least one of the following inclusion criteria were met: 1) physician request, 2) patient technically difficult to image (per the [place] [employer] Echocardi[employer] guidelines of two or more segments not discernable within the apical view), or 3) questionable left ventricular function. ?
[2023-09-28] MEDS: PERFLUTREN LIPID MICROSPHERES 1.5 ML VIAL DILUTED TO 10 ML TOTAL VOLUME IV PUSH (11:41)
== END 2023-09-28 09:42 | disposition home or self-care (01) ==
LOC: ANHCARD 09:41
PROVIDERS: PCP Physician Assistant; Visit Provider Emergency Medicine
DX: R93.1 Abnormal findings on diagnostic imaging of heart and coronary circulation (principal); I34.0 Nonrheumatic mitral (valve) insufficiency
CPT/HCPCS: C8929; Q9957

== ENCOUNTER 2023-10-12 10:50 | Inpatient (IN) | payer OTHER, SELFPAY ==
[2023-10-12] VITALS (22 sets, daily range): BP systolic 106–161; BP diastolic 69–116; PULSE 89–106; RESP 14–24; TEMP 36.3–36.9; O2SAT 90–100; BMI 54.0
--- NOTE | 2023-10-12 | ECG_ITS ---
Measurements Intervals [place] Rate: 102 P: 55 WI: 163 QRS: -23 QRSD: 131 T: 95 QT: 408 QTc: 533 Interpretive Statements SINUS TACHYCARDIA ATRIAL AND VENTRICULAR PREMATURE COMPLEXES POSSIBLE LEFT ATRIAL ENLARGEMENT LEFT BUNDLE BRANCH BLOCK ABNORMAL ECG COMPARED TO ECG 10/12/2023 10:57:43 VENTRICULAR ECTOPICS NOW PRESENT Electronically Signed On 10-13-2023 14:04:47 CORROSION CONTROL ENGINEER by Boyd Pina D.O.
--- NOTE | ~2023-10-12 | US_ITS ---
EXAMINATION: US venous doppler [facility] DATE: 10/13/2023 21:39 INDICATION: Lower limb edema. TECHNIQUE: Grayscale ultrasound images without and with compression and Doppler ultrasound images of the bilateral lower extremity veins were obtained. COMPARISON: Ultrasound 04/01/2022 FINDINGS: The visualized portions of right common femoral vein, profunda (deep) femoral vein, femoral vein, pop liteal vein, peroneal veins, posterior tibial veins, and greater saphenous vein outflow are patent. The visualized portions of left common femoral vein, profunda femoral vein, femoral vein, popliteal v ein, peroneal veins, posterior tibial veins, and greater saphenous vein outflow are patent. IMPRESSION: 1. No deep venous thrombosis. Reviewed, dictated and finalized at location E. MECHANICAL ENGINEER
--- NOTE | ~2023-10-12 | XR_ITS ---
EXAMINATION: XR chest 2V DATE: 10/12/2023 13:32 INDICATION: Chest pain and shortness of breath TECHNIQUE: Frontal and lateral views of the chest are obtained COMPARISON: 09/07/2023; CT from today FINDINGS: There is mild atelectasis of the lung bases. No pleural effusion or pneumothorax. Cardiomeg rico is noted. There is severe thoracic spondylosis. IMPRESSION: 1. Mild atelectasis of the lung bases. 2. Cardiomegaly. Reviewed, dictated and finalized at location B. MIGRATION LEAD
--- NOTE | ~2023-10-12 | CT_ITS ---
Clinical Indication: Pulmonary embolus CT Scan of the Chest with Contrast: Technique: Contiguous sections were acquired throughout the chest after intravenous administration of 100 cc of Omnipaque 350. Dose reduction technique was used on this scan by utilizing automated expos ure control and iterative reconstruction technique. The dose-length product (DLP) was 985.87 mGy-cm. COMPARISON: 09/19/2023 Findings: There is no evidence of any significant mediastinal, hilar or axillary lymphadenopathy. There is no f illing defect in the pulmonary arterial tree to suggest pulmonary embolus. There is no evidence of ao rtic dissection or aneurysm. There is no evidence of pleural or pericardial effusion. The lungs are clear, aside from mild bibasilar atelectasis or scarring. Images through the upper abdomen reveal an upper ventral hernia containing a portion of the gastric d istal body and antrum.. Impression: No evidence of pulmonary embolus, aortic dissection, or aortic aneurysm. No significant pulmonary abnormality. Superior ventral hernia containing a portion of the stomach, as detailed above. Reviewed, dictated and finalized at location M. EDITATION MANAGER Impression: No evidence of pulmonary embolus, aortic dissection, or aortic aneurysm. No significant pulmonary abnormality. Superior ventral hernia containing a portion of the stomach, as detailed above.
--- NOTE | 2023-10-12 10:51 | ECG_ITS ---
Measurements Intervals [place] Rate: 103 P: 51 HI: 136 QRS: -45 QRSD: 129 T: 91 QT: 391 QTc: 513 Interpretive Statements SINUS TACHYCARDIA ATRIAL PREMATURE COMPLEX LEFT AXIS DEVIATION LEFT BUNDLE BRANCH BLOCK BASELINE ARTIFACT- AVR ABNORMAL ECG COMPARED TO ECG 03/31/2022 10:22:04 SINUS TACHYCARDIA NOW PRESENT LEFT-AXIS DEVIATION NOW PRESENT LEFT BUNDLE-BRANCH BLOCK NOW PRESENT Electronically Signed On 10-12-2023 11:15:19 PHOTOVOLTAIC POWER SYSTEMS ENGINEER by Boyd Pina D.O.
--- NOTE | 2023-10-12 11:16 | ED.CHESTPAIN ---
HPI - Chest Pain General Chief Complaint: Chest Pain Stated Complaint: SOB, Chest pain Time Seen by Provider: 10/12/23 11:13 History of Present Illness HPI narrative: Patient is a 68-year-old female with history of COPD, CHF, PUD, multiple prior back surgeries here with multiple complaints. She notes that she has been having worsening generalized weakness and fatigue over the last couple of months. This seems to be associated with worsening shortness of breath. She notes that she has difficulty even standing for very long because she gets so short of breath. She did have a recent outpatient echo for these symptoms and was found to have an EF of 35-40%. She was prescribed Lasix which patient endorses that she is taking. She has had continued shortness of breath and lower extremity swelling despite taking her medications. She is additionally complaining of some midsternal chest pain which has been intermittent for several weeks. It is located in the epigastric region and associated with some worsening dyspepsia which began today. She does note a history of prior peptic ulcer disease and is scheduled for an outpatient EGD next month. She has been referred to Cardiology, Gastroenterology, pulmonology through her primary care doctor however given her significantly worsening symptoms and ongoing debility family was concerned about her being safe at their house and waiting for the slow outpatient process. Related Data Home Medications Medication Instructions Recorded Confirmed furosemide 40 mg tablet 20 mg PO QAM 09/22/23 10/12/23 albuterol sulfate 2.5 mg/3 mL 2.5 mg inhalation BID PRN 10/12/23 10/12/23 (0.083 %) solution for nebulization shortness of breath or wheezing Allergies Allergy/AdvReac Type Severity Reaction Status Date / Time adhesive tape Allergy Intermediate BLISTER/REDNESS/SWELLING Verified 10/12/23 09:10 AT SITE fentanyl Allergy Intermediate Itching Verified 10/12/23 09:10 amoxicillin Allergy Unknown Unknown Verified 10/12/23 09:10 azithromycin Allergy Unknown unknown Verified 10/12/23 09:10 erythromycin base Allergy Unknown unknow Verified 10/12/23 09:10 Penicillins Allergy Unknown unknown Verified 10/12/23 09:10 Review of Systems Review of Systems: All systems reviewed & are unremarkable except as noted in HPI and below PMFSH Past Medical History Medical History Aortic atherosclerosis (07/2015) Noted on CT of the abdomen and pelvis. Arthritis Deep venous thrombosis (1973) Following an ankle fracture. Hiatal hernia Hypertension Ventral hernia Surgical History Surgical History History of 2 sections History of appendectomy History of back surgery 1984 and 1985 History of bilateral knee arthroplasty History of bladder suspension procedure x2 History of cholecystectomy History of hernia repair History of total hysterectomy Family History Family History Sibling Family history of thyroid disease Mother Family history of lung cancer Father Family history of heart disease in male family member before age 55 Other Diabetes mellitus Family history of allergic disorder Family history of cardiovascular disease Hypertension Social History Social History Social History: Surrogate medical decision maker: Franchesca Bonilla, daughter. Code status: Full code. Smoking packs per day: 2 Smoking cigarettes per day: 40.0 Years smoked: 30 Smoking pack-years: 60.00 Smoking status: Former smoker (Quit smoking in 2006. Was smoking 1.5-4 ppd for 30+ years) Tobacco type: cigarettes Second hand tobacco smoke exposure: No Smoking end date: 10/29/16 Alcohol intake: never Substance use: never Substance use type: does not use Do You Feel Safe in your Home?: Ye
[2023-10-12] MEDS: ASPIRIN 81 MG CHEWABLE TABLET 324 MG PO (11:41)
[2023-10-12 11:43] LABS: Basophils Absolute Auto 0.1 K/mm3 (0.0-0.1); Basophils Percent Auto 1.1 % (0.2-1.2); Eosinophils Absolute Auto 0.2 K/mm3 (0-0.3); Eosinophils Percent Auto 3.4 % (0-4.4); Hematocrit 42.7 % (37.0-47.0); Hemoglobin 14.4 g/dL (12.0-15.0); Immature Granulocyte Absolute 0.02 K/mm3 (0.00-0.031); Immature Granulocyte Percent A 0.3 % (0-0.5); Lymphocytes Percent Auto 25.7 % (18.3-44.2); Mean Corpuscular HGB Conc 33.7 g/dl (32-36); Mean Corpuscular Hemoglobin 34.8 pg (26-34); Mean Corpuscular Volume 103.1 fl (80-100); Mean Platelet Volume 10.1 fl (7.4-10.4); Monocytes Absolute Auto 0.9 K/mm3 (0.1-0.6); Neutrophils Absolute Auto 3.5 K/mm3 (1.3-6.7); Neutrophils Percent Auto 55.5 % (45.5-73.1); Platelet Count Result 189 k/mm3 (150-375); Red Blood Count 4.14 M/mm3 (4.2-5.4); Red Cell Distribution Width 13.8 % (11.5-14.5); White Blood Count 6.2 K/mm3 (4.5-10.0)
[2023-10-12 11:53] LABS: INR 1.2; Prothrombin Time 15.3 Seconds (11.1-14.7)
[2023-10-12 11:54] LABS: Partial Thromboplastin Time 31.3 SECONDS (22.3-36.8)
[2023-10-12 12:56] LABS: Alanine Aminotransferase 29 U/L (6-35); Albumin Level 4.1 g/dL (3.5-5.1); Alkaline Phosphatase 76 U/L (38-126); Anion Gap 7 mmol/L (8-16); Aspartate Amino Transferase 50 U/L (14-36); Blood Urea Nitrogen 11 mg/dL (7-17); Calcium 9.8 mg/dL (8.4-10.2); Carbon Dioxide 29 mmol/L (22-30); Chloride 105 mmol/L (98-107); Estimated CRCL calculation 91 ml/min; Estimated Glomerular Filt Rate > 60; Glucose 115 mg/dL (65-110); Lipase 38 U/L (23-300); Potassium 2.8 mmol/L (3.4-5.0); Sodium 141 mmol/L (137-145)
[2023-10-12] MEDS: IPRATROPIUM 0.5 MG/ALBUTEROL SULFATE 2.5 MG AMPUL.NEB 3 ML INHALATION (12:59)
[2023-10-12] MEDS: PANTOPRAZOLE SODIUM IV 40 MG VIAL IV PUSH (12:59)
[2023-10-12] MEDS: ONDANSETRON INJ 4 MG/2 ML VIAL IV PUSH (13:00)
[2023-10-12] MEDS: MORPHINE SULFATE (*CRX) 4 MG/ML INJ IV PUSH (13:00)
[2023-10-12 13:06] LABS: NT Pro B Type Natriuretic Pept 490 pg/mL (19.9-100)
[2023-10-12 13:08] LABS: Troponin I 0.042 ng/mL (0.000-0.034)
[2023-10-12 13:45] LABS: Influenza A QL RT-PCR Negative (Negative); Influenza B QL RT-PCR Negative (Negative); RSV RNA, RT-PCR Negative (Negative); SARS-CoV-2 RNA PCR Negative (Negative)
[2023-10-12 15:24] LABS: Appearance Urine Clear (Clear); Bacteria Urine 4+ /hpf; Bilirubin Urine Negative (Negative); Color Urine Dark Yellow (Yellow); Glucose Urine UA Negative (Negative); Ketones Urine Negative (Negative); Leukocyte Esterase Ur Negative LEU/UL (Negative); Nitrate Urine Positive (Negative); Non Pathogenic Casts 0-2; Protein Urine 1+ mg/dL (Negative); Squamous Epithelial Cell Urine None seen /hpf (Few); WBC Urine 0-5 /hpf; pH Urine 6.5 (5.0-9.0)
[2023-10-12 15:27] LABS: Add Urine Microscopic? YES; Specific Grav Ur 1.053 (1.001-1.035)
--- NOTE | 2023-10-12 16:16 | PM.IMHP ---
H&P: HPI History of Present Illness Date/Time: 10/12/23 16:30 Chief Complaint: Chest pain, shortness of breath, weakness. Narrative: This is a 68-year-old female with history of heart failure with reduced ejection fraction, hypertension, chronic obstructive pulmonary disease, deep venous thrombosis, gastroesophageal reflux disease, and morbid obesity who presented to the emergency department for evaluation of chest pain, shortness of breath, and weakness. The patient provides the following history. She saw her doctor at the end of August for routine chronic disease follow-up at which time she reported shortness of breath with exertion, fatigue, and orthopnea. EKG showed findings concerning for congestive heart failure for which she was started on furosemide. Echocardiogram showed an ejection fraction of 35 to 40% and she was referred to a entry level chemist however has not yet had an appointment. It does not sound as though she is totally compliant with the furosemide due to several urinary accidents and she did not take it today. In any event, she had a follow-up appointment with her primary care provider today and was directed to the emergency department given worsening symptomatology. She has had occasional lightheadedness and sweats with intermittent mid chest discomfort which she describes as a weight sitting on her chest. She sees no pattern as to when it occurs and denies alleviating and aggravating factors. She has some nausea tonight which she attributes to the potassium pills that she received.She denies pleuritic pain, racing heart, palpitations, syncope, calf pain, and vomiting. In the ED: She was afebrile on arrival with stable blood pressures. SpO2 has been in the low to mid 90s on room air. Labs were significant for a potassium of 2.8, troponin 0.042, proBNP 490. She tested negative for influenza, RSV, and COVID. Chest x-ray showed mild atelectasis of the lung bases and cardiomegaly. Chest CTA was negative for pulmonary embolus. EKG showed sinus tachycardia, left axis deviation, and a left bundle branch block which is new compared to EKG obtained in March 2022. Potassium was replenished and she was given aspirin 324 mg. She is being admitted in this setting for treatment of CHF exacerbation and Cardiology consultation. Review of Systems Review of Systems: Twelve systems were reviewed and are negative except for as per HPI. [facility] Past Medical History Medical History (Updated 03/06/24 @ 16:30 by Clarice Crawford PA-C) Aortic atherosclerosis (07/2015) Noted on CT of the abdomen and pelvis. Arthritis Chronic obstructive pulmonary disease Deep venous thrombosis (1973) Following an ankle fracture. Heart failure with reduced ejection fraction Echocardiogram in September 2023; moderately reduced LV systolic function with an EF estimated at 35 to 40% and grade 1 diastolic dysfunction. Hiatal hernia Hypertension Ventral hernia Surgical History Surgical History History of 2 sections History of appendectomy History of back surgery 1984 and 1985 History of bilateral knee arthroplasty History of bladder suspension procedure x2 History of cholecystectomy History of hernia repair History of total hysterectomy Family History Family History Sibling Family history of thyroid disease Mother Family history of lung cancer Father Family history of heart disease in male family member before age 55 Other Diabetes mellitus Family history of allergic disorder Family history of cardiovascular disease Hypertension Social History Social History Social History: Surrogate medical decision maker: Franchesca Bonilla, daughter. Code status: Full code. Smoking packs per day: 2.5 Smoking cigarettes per day: 50.0 Years smoked: 35 Smoking pack-years: 87
--- NOTE | 2023-10-12 17:16 | ADMGEN ---
This patient, Em Hernandez, was admitted to IMU Room 214-01. Patient/family oriented to hospital policies and general routines including ID bracelet, bed and alarms, visiting hours, pain management, procedures, bathroom and other care routines, personal items, smoking policy, room service/diet, and visiting hours. Information on how to activate the Rapid Response Team has been discussed. Patient/Family are encouraged to report perceived risks to care and to ask questions if they do not understand what they are told or what they should do.
[2023-10-12] MEDS: KCL 20 MEQ/SW 100 ML 100 ML 50 MEQ IVPB (17:36)
[2023-10-12] MEDS: FUROSEMIDE INJ 40 MG/4 ML VIAL IV PUSH (18:57)
[2023-10-12] MEDS: POTASSIUM BICARBONATE 25 MEQ TABEF 50 MEQ PO (20:49)
[2023-10-12] MEDS: ACETAMINOPHEN 500 MG TABLET 1000 MG PO (21:45)
[2023-10-12 22:08] LABS: Potassium 3.8 mmol/L (3.4-5.0)
[2023-10-12] MEDS: MELOXICAM 7.5 MG TABLET 15 MG PO (23:15)
[2023-10-12] MEDS: THEOPHYLLINE 300 MG ER 12 HR TABLET PO (23:15)
[2023-10-13] VITALS (28 sets, daily range): BP systolic 92–164; BP diastolic 47–100; PULSE 84–108; RESP 14–24; TEMP 36.3–36.8; O2SAT 91–97
[2023-10-13 05:23] LABS: Hematocrit 39.5 % (37.0-47.0); Hemoglobin 13.1 g/dL (12.0-15.0); Mean Corpuscular HGB Conc 33.2 g/dl (32-36); Mean Corpuscular Hemoglobin 34.7 pg (26-34); Mean Corpuscular Volume 104.8 fl (80-100); Mean Platelet Volume 10.5 fl (7.4-10.4); Platelet Count Result 184 k/mm3 (150-375); Red Blood Count 3.77 M/mm3 (4.2-5.4); White Blood Count 5.2 K/mm3 (4.5-10.0)
[2023-10-13 05:51] LABS: Anion Gap 5 mmol/L (8-16); Blood Urea Nitrogen 15 mg/dL (7-17); Carbon Dioxide 31 mmol/L (22-30); Chloride 102 mmol/L (98-107); Cholesterol 152 mg/dL (0-200); Estimated CRCL calculation 57 ml/min; Estimated Glomerular Filt Rate 55; Glucose 114 mg/dL (65-110); HDL Direct 52 mg/dL; Magnesium 1.9 mg/dL (1.6-2.3); Potassium 3.4 mmol/L (3.4-5.0); Sodium 138 mmol/L (137-145); Triglycerides 122 mg/dL (<150)
[2023-10-13 06:04] LABS: LDL Cholesterol Direct 82 mg/dL
[2023-10-13] MEDS: MONTELUKAST SODIUM 10 MG TABLET PO (09:08)
[2023-10-13] MEDS: ASPIRIN 81 MG ENTERIC TABLET PO (09:09)
[2023-10-13] MEDS: PANTOPRAZOLE 40 MG TABLET PO ×2 (09:09→17:13)
[2023-10-13] MEDS: THEOPHYLLINE 300 MG ER 12 HR TABLET PO ×2 (09:09→20:16)
[2023-10-13] MEDS: FAMOTIDINE 20 MG TABLET PO ×2 (09:09→17:13)
[2023-10-13] MEDS: FUROSEMIDE INJ 40 MG/4 ML VIAL IV PUSH ×2 (09:10→17:13)
[2023-10-13] MEDS: ENOXAPARIN 40 MG/0.4 ML SYRINGE SUB-Q (09:10)
[2023-10-13] MEDS: lisinopriL 20 MG TABLET PO (09:11)
[2023-10-13] MEDS: FLUTICASONE/UMECLIDIN/VILANTER 100-62.5-25 MCG ELLIPTA 1 PUFF INHALATION (10:45)
--- NOTE | 2023-10-13 12:02 | PM.CNCAR ---
Assessment and Plan Assessment and plan (1) Heart failure with reduced ejection fraction: Code(s): I50.20 - Unspecified systolic (congestive) heart failure Status: Acute Assessment and Plan: EF recently shows an ejection fraction 35-40%. Uncertain if this is related to ischemia, left bundle-branch block or other nonischemic etiology. Will discontinue her lisinopril and transition to Entresto 24/26 mg 1 tablet p.o. b.i.d.. Given her significant COPD, will hold off on beta-blockade at this point. Will add spironolactone 25 mg p.o. daily. Eventually add Jardiance or Farxiga. Follow BMPs. I talked to her about the risks, benefits alternatives of cardiac catheterization to define her coronary anatomy. She verbalized understanding and is agreeable. Will reduce her furosemide down to 20 mg IV b.i.d.. Continue aspirin 81 mg p.o. daily. Further workup and evaluation depend on the results of her cardiac catheterization. (2) Hypokalemia: Code(s): E87.6 - Hypokalemia Status: Acute Assessment and Plan: Replace KCl 40 mEq p.o. x1 (3) Chronic obstructive pulmonary disease: Code(s): J44.9 - Chronic obstructive pulmonary disease, unspecified Status: Acute (4) Elevated troponin: Code(s): R79.89 - Other specified abnormal findings of blood chemistry Status: Acute Assessment and Plan: Likely related heart failure (5) Left bundle branch block: Code(s): I44.7 - Left bundle-branch block, unspecified Status: Acute Assessment and Plan: New onset as compared to previous ECG (6) Morbid obesity with BMI of 50.0-59.9, adult: Code(s): E66.01 - Morbid (severe) obesity due to excess calories; Z68.43 - Body mass index [BMI] 50.0-59.9, adult Status: Acute Assessment and Plan: Dietary and lifestyle modifications for weight loss (7) Hypertension: Code(s): I10 - Essential (primary) hypertension Status: Acute Assessment and Plan: Up and down History of Present Illness History of Present Illness Consult date/time: 10/13/23 12:02 Requesting physician: Luz Maria Quigley MD Consult reason: congestive heart failure Reason For Visit: HYPOKALEMIA,CHEST PAIN,CHF Narrative: Date of service 10/13/2023 Reason for consultation: CHF Requesting provider: Dr. Quigley: History: Patient is a 68-year-old female with history of cardiomyopathy diagnosed by echocardiogram recently with an ejection fraction 35-40%. Patient has been progressively more short of breath over the past month or so. She describes dyspnea even with laying flat. She has paroxysmal nocturnal dyspnea, orthopnea. She also has been coughing when lying flat. She does have some anterior chest pressure and tightness also is usually worse with exertion better with rest. She has had lower extremity swelling as well. This all progressed to the point that an echocardiogram was ordered as above. Due to worsening symptoms though she came to the hospital for further workup and evaluation. She has been started on diuretics his breathing of little bit easier at this point. Troponins were initially elevated but are unchanged upon subsequent checks. she denies any palpitations, syncope, presyncope Review of Systems Review of Systems: All systems reviewed & are unremarkable except as noted in HPI and below Constitutional: Constitutional: Reports no additional constitutional complaints and Reports difficulty sleeping Eyes: Eyes: Denies blurry vision ENT: Reports Normal hearing present Cardiovascular: Cardiovascular: Reports chest pain and Reports leg edema Respiratory: Respiratory: Reports dyspnea Gastrointestinal: Gastrointestinal: Denies abdominal pain Genitourinary: Genitourinary: Denies hematuria Musculoskeletal: Musculoskeletal: Denies myalgias Integumentary/Breasts: Skin/Breast: Denies erythema Neurologic: Denies Abnormal speech present Psychiatric: Psychiatric: Denie
--- NOTE | 2023-10-13 13:35 | WPDHPUPDATE1 ---
History and Physical Update Update Date/Time: 10/13/23 13:35 History and Physical has been reviewed, including an updated exam of the patient. There are NO changes in the patient's condition. Risks, benefits, and alternatives have been discussed and questions answered. Patient agrees to proceed with procedure.
--- NOTE | 2023-10-13 13:35 | WPDMODSED ---
Moderate Sedation Note-Pt Data Patient Data Diagnosis: Heart failure with reduced ejection fraction Present Complaint: Heart failure with reduced ejection fraction Procedure to be performed/Plan: Coronary angiography, left heart cath, +/- PCI Allergies Allergy/AdvReac Type Severity Reaction Status Date / Time adhesive tape Allergy Intermediate BLISTER/REDNESS/SWELLING Verified 10/12/23 09:10 AT SITE fentanyl Allergy Intermediate Itching Verified 10/12/23 09:10 amoxicillin Allergy Unknown Unknown Verified 10/12/23 09:10 azithromycin Allergy Unknown unknown Verified 10/12/23 09:10 erythromycin base Allergy Unknown unknow Verified 10/12/23 09:10 Penicillins Allergy Unknown unknown Verified 10/12/23 09:10 Home Medications Medication Instructions Recorded Confirmed Type budesonide 160 mcg-glycopyr 9 2 inh inhalation QAM AND QPM #10.7 10/04/22 10/12/23 Rx mcg-formot 4.8 mcg/actuation HFA grams inhaler (Breztri Aerosphere) theophylline 300 mg 300 mg PO Q12H #60 tabs 05/18/23 10/12/23 Rx tablet,extended release,12 hr lisinopril 20 mg tablet 20 mg PO DAILY #90 tabs 07/25/23 10/12/23 Rx albuterol sulfate 90 mcg/actuation 1 puff inhalation QID #18 grams 09/13/23 10/12/23 Rx aerosol inhaler furosemide 40 mg tablet 20 mg PO QAM 09/22/23 10/12/23 History estradiol 0.5 mg tablet 0.5 mg PO DAILY #90 tabs 10/03/23 10/12/23 Rx famotidine 20 mg tablet 20 mg PO BID #180 tabs 10/03/23 10/12/23 Rx acetaminophen 500 mg tablet 100 mg PO QID PRN Pain 10/12/23 10/12/23 History (Tylenol Extra Strength) albuterol sulfate 2.5 mg/3 mL 2.5 mg inhalation BID PRN 10/12/23 10/12/23 History (0.083 %) solution for nebulization shortness of breath or wheezing meloxicam 15 mg tablet 15 mg PO HS 10/12/23 10/12/23 History montelukast 10 mg tablet 10 mg PO DAILY 10/12/23 10/12/23 History omeprazole 20 mg capsule,delayed 20 mg PO BID 10/12/23 10/12/23 History release Current Medications: Active Medications Acetaminophen (Acetaminophen 500 Mg Tablet) 1,000 mg PO Q6H PRN PRN Reason: Pain Last Admin: 10/12/23 21:45 Dose: 1,000 mg Albuterol (Albuterol Sulfate Neb 2.5 Mg/3 Ml Inh) 2.5 mg INHALATION BID PRN PRN Reason: shortness of breath or wheezing Aspirin (Aspirin 81 Mg Enteric Tablet) 81 mg PO QAM [facility] Last Admin: 10/13/23 09:09 Dose: 81 mg Enoxaparin Sodium (Enoxaparin 40 Mg/0.4 Ml Syringe) 40 mg SUB-Q DAILY [facility] Last Admin: 10/13/23 09:10 Dose: 40 mg Famotidine (Famotidine 20 Mg Tablet) 20 mg PO BID [facility] Last Admin: 10/13/23 09:09 Dose: 20 mg Fluticasone/Umeclidinium/Vilanterol (Fluticasone/Umeclidin/Vilanter 100-62.5-25 Mcg Ellipta) 1 puff INHALATION DAILYRT [facility] Last Admin: 10/13/23 10:45 Dose: 1 puff Furosemide (Furosemide Inj 40 Mg/4 Ml Vial) 20 mg IV PUSH BID [facility] Meloxicam (Meloxicam 7.5 Mg Tablet) 15 mg PO HS [facility] Last Admin: 10/12/23 23:15 Dose: 15 mg Montelukast Sodium (Montelukast Sodium 10 Mg Tablet) 10 mg PO DAILY [facility] Last Admin: 10/13/23 09:08 Dose: 10 mg Pantoprazole Sodium (Pantoprazole 40 Mg Tablet) 40 mg PO BID [facility] Last Admin: 10/13/23 09:09 Dose: 40 mg Sacubitril/Valsartan (Sacubitril/Valsartan 24-26 Mg Tablet) 1 tab PO Q12HR [facility] Spironolactone (Spironolactone 25 Mg Tablet) 25 mg PO QAM [facility] Theophylline (Theophylline 300 Mg Er 12 Hr Tablet) 300 mg PO Q12HR [facility] Last Admin: 10/13/23 09:09 Dose: 300 mg Sedation/Anesthesia: No previous sedation/anesthesia problems (including family history). [facility] Past Medical History Medical History Aortic atherosclerosis (07/2015) Noted on CT of the abdomen and pelvis. Arthritis Chronic obstructive pulmonary disease Deep venous thrombosis (1973) Following an ankle fracture. Heart failure with reduced ejection fraction Echocardiogram in September 2023; moderately reduced LV systolic function with an EF estimated at 35 to 40% and grade 1 diastolic dysfunction. Hiatal hernia Hy
--- NOTE | 2023-10-13 13:36 | WPDCARDPROC ---
Cardiac Cath Procedure Note Date of procedure:: 10/13/23 Performing physician:: CATHETERIZATION LABORATORY REPORT Procedure Date: 10/13/2023 Pay Station Department Manager: Cookie Bender M.D., [facility]? Referring Physician: Cleve Schrader M.D. ? Anesthesia: Versed and Fentanyl were ordered and given in my presence at 13:04, procedure ended at 13:31. Supervision of nurse monitored moderate sedation with Versed and Fentanyl was provided for 27 minutes. Total of Versed 1mg and Morphine 1mg were administered by the Band Machine Operator RN Rossy Hill. Pre-op Diagnosis: Coronary artery disease, heart failure with reduced ejection fraction Post-op Diagnosis: 1. Non-obstructive coronary artery disease 2. Left-dominant coronary artery system 3. Severely elevated left ventricular end-diastolic pressure of 31mmHg 4. Non-ischemic cardiomyopathy Procedure(s): 1. Moderate sedation 2. Ultrasound-guided access of the right radial artery 3. Coronary angiography 4. Left heart cath Access Site: Right radial artery Brief History and Clinical Indications: Patient is a 68 year old female who is referred for [facility] for ischemic evaluation for new diagnosis of heart failure with reduced ejection fraction. All risks, benefits and alternatives to left heart catheterization with or without percutaneous coronary intervention was discussed at length with the patient. Risk of complications including but not limited to bleeding, infection, arrhythmia, stroke, worsening kidney function, blood loss, groin hematoma, limb loss, emergency coronary artery bypass grafting, and even were discussed with the patient and all questions were answered. The patient understood and wished to proceed. Time out called, patient name, date of , medical record number, allergies, procedure performed, identify Pay Station Department Manager, patient and staff member concurred with accurate data, procedure carried on. Findings: LEFT HEART CATHETERIZATION FINDINGS: 1. Left main: The left main coronary artery is widely patent without any significant obstructive disease. 2. Left anterior descending: The LAD has luminal irregularities without any significant obstructive angiographic disease. The first diagonal branch is a small caliber vessel with moderate disease in the mid portion. 3. Left circumflex: The left circumflex artery is the dominant vessel. The proximal portion has mild diffuse disease. Remainder of LCX has luminal irregularities. OM-1 has mild diffuse disease in its proximal portion. 4. Right coronary artery: The RCA is the non-dominant vessel. The RCA has luminal irregularities. No significant obstructive angiographic disease. 5. Left ventricle: A. End-diastolic pressure 31 mmHg. B. LV gram deferred. C. No significant gradient across aortic valve on catheter pullback. Description of Procedure: Informed consent signed and placed in the chart. Patient transferred to rn labor and delivery room. Prepped and draped in usual sterile fashion. 2% lidocaine injected subcutaneously in right wrist area. 22-gauge venipuncture catheter used to access the right radial artery under ultrasound guidance. 6-FR slender sheath placed in right radial artery. Nitroglycerine and Verapamil were given intraarterial through the sheath. Versacore wire advanced under fluoroscopy 5F Tig 4 diagnostic catheter engaged Left Main Coronary Artery. 5F Tig 4 diagnostic catheter engaged Right Coronary Artery Multiple orthogonal angiogram obtained and reviewed 5F Pigtail diagnostic catheter crossed aortic valve to obtain LVEDP, LV angiogram deferred. Hemostasis was achieved by application of TR band. Post Operative Condition: Stable No significant blood loss Disposition: Floor Plan: The patient will be monitored in the recovery area. The above findings were discussed with the referring physician. Continue aggressive medical therapy and risk factor modification. ? Cookie Bender M.D. Interventional Cardiology
--- NOTE | 2023-10-13 13:59 | PM.IMPN ---
Progress Note: A&P Assessment and Plan (1) Acute exacerbation of congestive heart failure: Code(s): I50.9 - Heart failure, unspecified Status: Acute (2) Hypokalemia: Code(s): E87.6 - Hypokalemia Status: Acute (3) Chronic obstructive pulmonary disease: Code(s): J44.9 - Chronic obstructive pulmonary disease, unspecified Status: Acute (4) Hypertension: Code(s): I10 - Essential (primary) hypertension Status: Acute (5) Morbid obesity with BMI of 50.0-59.9, adult: Code(s): E66.01 - Morbid (severe) obesity due to excess calories; Z68.43 - Body mass index [BMI] 50.0-59.9, adult Status: Acute Plan The patient presented to the emergency department for evaluation of increasing dyspnea on exertion, orthopnea, and lower extremity edema Her potassium was 2.8 Troponin is mildly elevated but has remained flat. EKG does however show a new left bundle branch block echocardiogram showed an EF of 35 to 40% with no wall motion abnormalities. Cardiology consulted. [facility], 10/13/23 Time Spent With Patient Time: 10/13/23: Underwent a cardiac cath today Time with patient: 25 - 35 minutes Subjective Date/time seen: 10/13/23 13:59 Interval history: 10/13/23: Seen and examined; chest pain is improved. Review of Systems Review of Systems: Twelve systems were reviewed and are negative except for as per HPI. Exam Narrative: General:?Chronically ill-appearing female in the semi-Bell position in bed. Weight: 125.5 kg. BMI: 54. HEENT:???PERRL, EOMI. Sclerae anicteric. Oral mucosa moist.? Oropharynx is crowded and poorly visualized. Neck:??Supple. Exam limited due to neck circumference. No obvious JVD or bruits. Respiratory:?She gets a bit short of breath even when moving around in the bed. Mild conversational dyspnea. Lung sounds are diminished due to body habitus but are otherwise clear to auscultation. Cardiovascular:??Regular rate and rhythm with S1-S2. Gastrointestinal:??Abdomen is morbidly obese with positive bowel sounds. She has scars from multiple prior abdominal surgeries. There is a large, left-sided ventral hernia that is not tender to palpation. No guarding or rebound tenderness. Skin:??Warm and dry.? No rash or lesions on limited exam. Extremities:??No cyanosis or clubbing. 1+ bilateral lower extremity edema, left greater than right. No palpable knots or cords. Negative Piero sign. Neurological:??Alert and oriented? Cranial nerves 2-12 are grossly intact. No gross focal deficits to casual conversation. Psychiatric:?Cooperative with appropriate mood and affect. Objective Data Vital Signs Vital Signs: Vital Signs - 24 hr 10/12/23 14:16 10/12/23 14:31 10/12/23 15:01 Temperature Pulse Rate 100 99 Respiratory Rate 14 14 Blood Pressure 121/71 106/78 117/77 Pulse Oximetry 91 92 Oxygen Delivery 10/12/23 15:15 10/12/23 15:31 10/12/23 17:29 Temperature 98.5 F Pulse Rate 100 97 100 Respiratory Rate 21 H 16 18 Blood Pressure 130/87 127/75 145/94 H Pulse Oximetry 94 92 95 Oxygen Delivery 10/12/23 18:00 10/12/23 20:16 10/12/23 23:21 Temperature 97.7 F 98.0 F Pulse Rate 92 92 99 Respiratory Rate 16 18 Blood Pressure 110/69 122/85 Pulse Oximetry 93 92 Oxygen Delivery 10/12/23 20:00 10/12/23 22:00 10/12/23 20:00 Temperature Pulse Rate 92 89 Respiratory Rate Blood Pressure Pulse Oximetry Oxygen Delivery Room Air 10/13/23 00:00 10/13/23 00:00 10/13/23 02:00 Temperature Pulse Rate 93 86 Respiratory Rate Blood Pressure Pulse Oximetry Oxygen Delivery Room Air 10/13/23 03:42 10/13/23 04:00 10/13/23 04:00 Temperature 98.3 F Pulse Rate 86 85 Respiratory Rate 18 Blood Pressure 92/47 L Pulse Oximetry 91 Oxygen Delivery Room Air 10/13/23 06:00 10/13/23 07:27 10/13/23 10:45 Temperature 98 F Pulse Rate 90 84 Respiratory Rate 18 Blood Pressure 102/47 L Pulse Oxime
[2023-10-13] MEDS: MELOXICAM 7.5 MG TABLET 15 MG PO (20:15)
[2023-10-14] VITALS (20 sets, daily range): BP systolic 113–144; BP diastolic 59–82; PULSE 88–111; RESP 18–22; TEMP 36.3–36.8; O2SAT 92–100
--- NOTE | 2023-10-14 00:11 | ECG_ITS ---
Measurements Intervals [place] Rate: 99 P: 61 FL: 144 QRS: 69 QRSD: 127 T: 76 QT: 389 QTc: 501 Interpretive Statements SINUS RHYTHM LEFT BUNDLE BRANCH BLOCK AND INTERMITTENT NARROW COMPLEX QRS ANTEROSEPTAL INFARCT, AGE INDETERMINATE BASELINE ARTIFACT- I, II, III, AVR, AVL, AVF ABNORMAL ECG COMPARED TO ECG 10/12/2023 13:54:09 SINUS RHYTHM NOW PRESENT Electronically Signed On 10-14-2023 6:38:03 [employer]AM [employer]ATT[employer] by Boyd Pina D.O.
[2023-10-14] MEDS: ONDANSETRON INJ 4 MG/2 ML VIAL IV PUSH ×2 (00:31→10:23)
[2023-10-14] MEDS: MORPHINE SULFATE (*CRX) 2 MG/ML INJ 1 MG IV PUSH (00:31)
--- NOTE | 2023-10-14 00:42 | PC.NURSE ---
Pt called out with radiating pain underneath her left breast and nausea. Ordered EKG. Called Dr. Garrison, ordered 4 mg zofran and 1 mg morphine. Will report to [facility] and monitor for continuing symptoms.
[2023-10-14] MEDS: HYDROmorphone HCL INJ (*CRX) 1 MG/ML SYR IV PUSH (01:23)
[2023-10-14] MEDS: FLUTICASONE/UMECLIDIN/VILANTER 100-62.5-25 MCG ELLIPTA 1 PUFF INHALATION (07:25)
[2023-10-14] MEDS: MONTELUKAST SODIUM 10 MG TABLET PO (08:54)
[2023-10-14] MEDS: SPIRONOLACTONE 25 MG TABLET PO (08:54)
[2023-10-14] MEDS: FUROSEMIDE INJ 40 MG/4 ML VIAL IV PUSH (08:54)
[2023-10-14] MEDS: FAMOTIDINE 20 MG TABLET PO ×2 (08:54→17:11)
[2023-10-14] MEDS: ASPIRIN 81 MG ENTERIC TABLET PO (08:54)
[2023-10-14] MEDS: PANTOPRAZOLE 40 MG TABLET PO ×2 (08:54→17:12)
[2023-10-14] MEDS: THEOPHYLLINE 300 MG ER 12 HR TABLET PO ×2 (08:54→20:29)
[2023-10-14] MEDS: ENOXAPARIN 40 MG/0.4 ML SYRINGE SUB-Q (08:54)
--- NOTE | 2023-10-14 09:21 | PM.PNCARD ---
Progress Note: A&P Assessment and Plan (1) Heart failure with reduced ejection fraction: Code(s): I50.20 - Unspecified systolic (congestive) heart failure Status: Acute Assessment and Plan: EF recently shows an ejection fraction 35-40%. NOCAD on cardiac cath yesterday, nonischemic etiology. GDMT with Entresto (first dose tonight) and spironolactone Will avoid beta leigh given her significant COPD Will add jardiance today. Hopefully this will be affordable LVEDP 31 mmHg, so kept furosemide at 40mg b.i.d. yesterday. Will shift to p.o. furosemide today, 40mg b.i.d. Anticipate discharge in the next 24-48 hours (2) Hypokalemia: Code(s): E87.6 - Hypokalemia Status: Acute Assessment and Plan: Replace KCl 40 mEq p.o. x1 (3) Chronic obstructive pulmonary disease: Code(s): J44.9 - Chronic obstructive pulmonary disease, unspecified Status: Acute (4) Elevated troponin: Code(s): R79.89 - Other specified abnormal findings of blood chemistry Status: Acute Assessment and Plan: Likely related heart failure (5) Left bundle branch block: Code(s): I44.7 - Left bundle-branch block, unspecified Status: Acute Assessment and Plan: New onset as compared to previous ECG (6) Morbid obesity with BMI of 50.0-59.9, adult: Code(s): E66.01 - Morbid (severe) obesity due to excess calories; Z68.43 - Body mass index [BMI] 50.0-59.9, adult Status: Acute Assessment and Plan: Dietary and lifestyle modifications for weight loss (7) Hypertension: Code(s): I10 - Essential (primary) hypertension Status: Acute Assessment and Plan: More stable today. Monitor closely with addition of Entresto today. Subjective Date/time seen: 10/14/23 09:21 Interval history: Cardiology follow up for cardiomyopathy, CHF Date of service 10/14/2023: She feels okay. Had some trouble sleeping last night because of back discomfort. Breathing is better today. Denies chest pain or palpitations. Review of Systems Review of Systems: All systems reviewed & are unremarkable except as noted in HPI and below Constitutional: Constitutional: Reports no additional constitutional complaints, Reports difficulty sleeping and Denies excessive sweating Eyes: Eyes: Denies blurry vision ENT: Reports Normal hearing present Cardiovascular: Cardiovascular: Reports chest pain, Reports leg edema and Reports dyspnea Respiratory: Respiratory: Reports dyspnea Gastrointestinal: Gastrointestinal: Denies abdominal pain Genitourinary: Genitourinary: Denies hematuria Musculoskeletal: Musculoskeletal: Denies myalgias Integumentary/Breasts: Skin/Breast: Denies erythema Neurologic: Reports Normal hearing present and Denies Abnormal speech present Psychiatric: Psychiatric: Denies anxiety Endocrine: Endocrine: Denies excessive sweating Hematologic/Lymphatic: Hematologic/Lymphatic: Denies easy bleeding Allergic/Immunologic: Allergic/Immunologic: Denies GI upset with certain foods Exam Narrative: Awake alert oriented appears stated age Const: General: comfortable HENMT: Face/Nose/Sinus: Normal nares present Mouth: Yes moist mucous membranes Eyes: General: appearance normal, both eyes and all related structures Sclera: sclerae normal Neck: Neck: supple and no JVD Chest: Other: No reproducible chest wall pain to palpation Resp: Effort & Inspection: normal respiratory effort Auscultation: diminished lung sounds Cardio: Rate: regular rate Rhythm: regular rhythm Heart sounds: no murmurs GI: Inspection: non-distended Auscultation: normal bowel sounds Skin: General skin exam: normal color Neuro: Cranial nerves: Yes Normal hearing present Speech: normal speech and No Abnormal speech present Sensory Exam: normal sensation Extrem: General: edema Psych: Mental Status: mental status grossly normal Affect: normal affect O
[2023-10-14] MEDS: POTASSIUM CHLORIDE 20 MEQ PACKET (FOR LIQUID) 40 MEQ PO (10:23)
[2023-10-14] MEDS: ACETAMINOPHEN 500 MG TABLET 1000 MG PO ×2 (14:10→20:29)
--- NOTE | 2023-10-14 17:38 | PM.IMPN ---
Progress Note: A&P Assessment and Plan (1) Acute exacerbation of congestive heart failure: Code(s): I50.9 - Heart failure, unspecified Status: Acute Assessment and Plan: 10/14/23: cardiology: EF recently shows an ejection fraction 35-40%.? NOCAD on cardiac cath yesterday, nonischemic etiology. GDMT with Entresto (first dose tonight) and spironolactone Will avoid beta leigh given her significant COPD Will add jardiance today.? Hopefully this will be affordable LVEDP 31 mmHg, so kept furosemide at 40mg b.i.d. yesterday.? Will shift to p.o. furosemide today, 40mg b.i.d. Anticipate discharge in the next 24-48 hours (2) Hypokalemia: Code(s): E87.6 - Hypokalemia Status: Acute (3) Chronic obstructive pulmonary disease: Code(s): J44.9 - Chronic obstructive pulmonary disease, unspecified Status: Acute Assessment and Plan: Bronchodilators PRN (4) Hypertension: Code(s): I10 - Essential (primary) hypertension Status: Acute Assessment and Plan: On Entresto (5) Morbid obesity with BMI of 50.0-59.9, adult: Code(s): E66.01 - Morbid (severe) obesity due to excess calories; Z68.43 - Body mass index [BMI] 50.0-59.9, adult Status: Acute (6) Elevated troponin: Code(s): R79.89 - Other specified abnormal findings of blood chemistry Status: Acute Assessment and Plan: 10/14/23: cardiology: EF recently shows an ejection fraction 35-40%.? NOCAD on cardiac cath yesterday, nonischemic etiology. GDMT with Entresto (first dose tonight) and spironolactone Will avoid beta leigh given her significant COPD Will add jardiance today.? Hopefully this will be affordable LVEDP 31 mmHg, so kept furosemide at 40mg b.i.d. yesterday.? Will shift to p.o. furosemide today, 40mg b.i.d. Anticipate discharge in the next 24-48 hours (7) Congestive heart failure: Code(s): I50.9 - Heart failure, unspecified Status: Acute Assessment and Plan: 10/14/23: cardiology: EF recently shows an ejection fraction 35-40%.? NOCAD on cardiac cath yesterday, nonischemic etiology. GDMT with Entresto (first dose tonight) and spironolactone Will avoid beta leigh given her significant COPD Will add jardiance today.? Hopefully this will be affordable LVEDP 31 mmHg, so kept furosemide at 40mg b.i.d. yesterday.? Will shift to p.o. furosemide today, 40mg b.i.d. Anticipate discharge in the next 24-48 hours (8) GERD (gastroesophageal reflux disease): Code(s): K21.9 - Gastro-esophageal reflux disease without esophagitis Status: Acute (9) Moderate persistent asthma: Code(s): J45.40 - Moderate persistent asthma, uncomplicated Status: Acute Plan The patient presented to the emergency department for evaluation of increasing dyspnea on exertion, orthopnea, and lower extremity edema Her potassium was 2.8 Troponin is mildly elevated but has remained flat. EKG does however show a new left bundle branch block echocardiogram showed an EF of 35 to 40% with no wall motion abnormalities. Cardiology consulted. [facility], 10/13/23 Time Spent With Patient Time with patient: 25 - 35 minutes Subjective Date/time seen: 10/14/23 17:38 Interval history: 10/13/23: Seen and examined; chest pain is improved. 10/14/23: Chest pain has improved; eager to be discharged Review of Systems Review of Systems: Twelve systems were reviewed and are negative except for as per HPI. Exam Narrative: General:?Chronically ill-appearing female in the semi-Bell position in bed. Weight: 125.5 kg. BMI: 54. HEENT:???PERRL, EOMI. Sclerae anicteric. Oral mucosa moist.? Oropharynx is crowded and poorly visualized. Neck:??Supple. Exam limited due to neck circumference. No obvious JVD or bruits. Respiratory:?She gets a bit short of breath even when moving around in the bed. Mild conversational dyspnea. Lung sounds are diminished due to body habitus but are otherwise cleve
[2023-10-14] MEDS: MELOXICAM 7.5 MG TABLET 15 MG PO (20:29)
[2023-10-14] MEDS: SACUBITRIL/VALSARTAN 24-26 MG TABLET 1 TAB PO (20:29)
[2023-10-15] VITALS (9 sets, daily range): BP systolic 123–131; BP diastolic 75–82; PULSE 86–98; RESP 18; TEMP 36.4–37; O2SAT 92–94
[2023-10-15] MEDS: ONDANSETRON INJ 4 MG/2 ML VIAL IV PUSH (00:09)
[2023-10-15 04:55] LABS: Basophils Absolute Auto 0.1 K/mm3 (0.0-0.1); Basophils Percent Auto 1.1 % (0.2-1.2); Eosinophils Absolute Auto 0.3 K/mm3 (0-0.3); Eosinophils Percent Auto 5.5 % (0-4.4); Hematocrit 40.2 % (37.0-47.0); Hemoglobin 13.4 g/dL (12.0-15.0); Immature Granulocyte Absolute 0.01 K/mm3 (0.00-0.031); Immature Granulocyte Percent A 0.2 % (0-0.5); Lymphocytes Absolute Auto 1.63 K/mm3 (0.9-3.2); Lymphocytes Percent Auto 31.1 % (18.3-44.2); Mean Corpuscular HGB Conc 33.3 g/dl (32-36); Mean Corpuscular Hemoglobin 34.6 pg (26-34); Mean Corpuscular Volume 103.9 fl (80-100); Mean Platelet Volume 10.1 fl (7.4-10.4); Monocytes Absolute Auto 0.6 K/mm3 (0.1-0.6); Monocytes Percent Auto 11.8 % (2.6-8.5); Neutrophils Absolute Auto 2.6 K/mm3 (1.3-6.7); Neutrophils Percent Auto 50.3 % (45.5-73.1); Platelet Count Result 176 k/mm3 (150-375); Red Blood Count 3.87 M/mm3 (4.2-5.4); Red Cell Distribution Width 13.4 % (11.5-14.5); White Blood Count 5.2 K/mm3 (4.5-10.0)
[2023-10-15 05:06] LABS: Alanine Aminotransferase 23 U/L (6-35); Albumin Level 3.6 g/dL (3.5-5.1); Alkaline Phosphatase 65 U/L (38-126); Anion Gap 2 mmol/L (8-16); Aspartate Amino Transferase 40 U/L (14-36); Bilirubin,Total 0.7 mg/dL (0.2-1.3); Blood Urea Nitrogen 14 mg/dL (7-17); Calcium 9.3 mg/dL (8.4-10.2); Carbon Dioxide 33 mmol/L (22-30); Chloride 101 mmol/L (98-107); Estimated CRCL calculation 79 ml/min; Estimated Glomerular Filt Rate > 60; Glucose 117 mg/dL (65-110); Potassium 3.5 mmol/L (3.4-5.0); Sodium 136 mmol/L (137-145)
[2023-10-15] MEDS: FLUTICASONE/UMECLIDIN/VILANTER 100-62.5-25 MCG ELLIPTA 1 PUFF INHALATION (07:48)
[2023-10-15] MEDS: PANTOPRAZOLE 40 MG TABLET PO (08:33)
[2023-10-15] MEDS: SPIRONOLACTONE 25 MG TABLET PO (08:34)
[2023-10-15] MEDS: ASPIRIN 81 MG ENTERIC TABLET PO (08:34)
[2023-10-15] MEDS: SACUBITRIL/VALSARTAN 24-26 MG TABLET 1 TAB PO (08:34)
[2023-10-15] MEDS: EMPAGLIFLOZIN 10 MG TABLET PO (08:34)
[2023-10-15] MEDS: MONTELUKAST SODIUM 10 MG TABLET PO (08:34)
[2023-10-15] MEDS: ENOXAPARIN 40 MG/0.4 ML SYRINGE SUB-Q (08:34)
[2023-10-15] MEDS: FAMOTIDINE 20 MG TABLET PO (08:34)
[2023-10-15] MEDS: THEOPHYLLINE 300 MG ER 12 HR TABLET PO (08:35)
--- NOTE | 2023-10-15 09:30 | PM.PNCARD ---
Progress Note: A&P Assessment and Plan (1) Heart failure with reduced ejection fraction: Code(s): I50.20 - Unspecified systolic (congestive) heart failure Status: Acute Assessment and Plan: EF recently shows an ejection fraction 35-40%. NOCAD on cardiac cath yesterday, nonischemic etiology. GDMT with Entresto, Spironolactone, Jardiance. Will avoid beta leigh given her significant COPD LVEDP 31 mmHg, will have her on Lasix 40mg BID. Okay to discharge home today. (2) Hypokalemia: Code(s): E87.6 - Hypokalemia Status: Acute Assessment and Plan: Replace as needed (3) Chronic obstructive pulmonary disease: Code(s): J44.9 - Chronic obstructive pulmonary disease, unspecified Status: Acute Assessment and Plan: Management as per primary team (4) Elevated troponin: Code(s): R79.89 - Other specified abnormal findings of blood chemistry Status: Acute Assessment and Plan: Likely related heart failure (5) Left bundle branch block: Code(s): I44.7 - Left bundle-branch block, unspecified Status: Acute Assessment and Plan: New onset as compared to previous ECG (6) Morbid obesity with BMI of 50.0-59.9, adult: Code(s): E66.01 - Morbid (severe) obesity due to excess calories; Z68.43 - Body mass index [BMI] 50.0-59.9, adult Status: Acute Assessment and Plan: Dietary and lifestyle modifications for weight loss (7) Hypertension: Code(s): I10 - Essential (primary) hypertension Status: Acute Assessment and Plan: Stable. Subjective Date/time seen: 10/15/23 09:30 Interval history: Reason for visit: Heart failure with reduced ejection fraction Patient is feeling well today. No chest pain, shortness of breath. Review of Systems Review of Systems: All systems reviewed & are unremarkable except as noted in HPI and below (HPI) Exam Const: General: comfortable and no acute distress HENMT: Mouth: Yes moist mucous membranes Eyes: General: appearance normal, both eyes and all related structures Sclera: sclerae normal Neck: Neck: supple Resp: Effort & Inspection: normal respiratory effort Cardio: Rate: regular rate Rhythm: regular rhythm Skin: General skin exam: normal color Neuro: Speech: normal speech Psych: Mental Status: mental status grossly normal Affect: normal affect Objective Data Vital Signs Vital Signs: Vital Signs - 24 hr 10/14/23 10:00 10/14/23 12:17 10/14/23 12:00 Temperature 36.3 C L Pulse Rate 92 105 H 109 H Respiratory Rate 22 H Blood Pressure 143/81 H Pulse Oximetry 95 Oxygen Delivery 10/14/23 12:00 10/14/23 14:00 10/14/23 16:33 Temperature 36.8 C Pulse Rate 111 H 100 Respiratory Rate 18 Blood Pressure 144/78 H Pulse Oximetry 93 Oxygen Delivery Room Air 10/14/23 16:00 10/14/23 16:00 10/14/23 18:00 Temperature Pulse Rate 96 103 H Respiratory Rate Blood Pressure Pulse Oximetry Oxygen Delivery Room Air 10/14/23 20:22 10/14/23 20:00 10/14/23 22:59 Temperature 36.6 C 36.7 C Pulse Rate 94 97 Respiratory Rate 18 18 Blood Pressure 122/59 L 125/66 Pulse Oximetry 100 100 Oxygen Delivery Room Air 10/15/23 00:00 10/14/23 20:00 10/14/23 22:00 Temperature Pulse Rate 97 92 Respiratory Rate Blood Pressure Pulse Oximetry Oxygen Delivery Room Air 10/15/23 00:00 10/15/23 02:00 10/15/23 04:15 Temperature 36.6 C Pulse Rate 98 94 98 Respiratory Rate 18 Blood Pressure 123/75 Pulse Oximetry 92 Oxygen Delivery 10/15/23 04:00 10/15/23 04:00 10/15/23 06:00 Temperature Pulse Rate 86 90 Respiratory Rate Blood Pressure Pulse Oximetry Oxygen Delivery Room Air 10/15/23 07:18 10/15/23 07:50 10/15/23 08:00 Temperature 36.4 C Pulse Rate 95 95 Respiratory Rate 18 Blood Pressure 128/82 Pulse Oximetry 93 93 Oxygen Delivery Room
--- NOTE | 2023-10-15 11:16 | PM.DS ---
DS: Admitting Diagnosis Discharge Date 10/15/23 Admitting Diagnosis Acute CHF exacerbation with reduced ejection fraction DS: Discharge Diagnosis Discharge Diagnosis (1) Left bundle branch block: Code(s): I44.7 - Left bundle-branch block, unspecified Status: Acute (2) Elevated troponin: Code(s): R79.89 - Other specified abnormal findings of blood chemistry Status: Acute (3) Chronic obstructive pulmonary disease: Code(s): J44.9 - Chronic obstructive pulmonary disease, unspecified Status: Acute (4) Acute exacerbation of congestive heart failure: Code(s): I50.9 - Heart failure, unspecified Status: Acute (5) Heart failure with reduced ejection fraction: Code(s): I50.20 - Unspecified systolic (congestive) heart failure Status: Acute (6) Nonischemic cardiomyopathy: Code(s): I42.8 - Other cardiomyopathies Status: Acute DS: Summary Hospital Course Reason for hospitalization: Heart failure exacerbation, dyspnea, elevated troponin Hospital Course: Patient is a 68-year-old woman with past medical history of heart failure reduced ejection fraction EF 35-40%, isn't hypertension, COPD, DVT history, GERD, morbid obesity presents the ED complaints of chest pain and dyspnea. Chest x-ray shows some mild atelectasis, CTA negative for PE. She had a mildly elevated troponin and what appeared to be a new left bundle-branch block on EKG. Patient had heart catheterization 10/13/[address] Bender with no CAD finding. Patient's cardiomyopathy is likely nonischemic. Recommendation from principal android developer for goal-directed medical therapy. She has been started on Entresto, Jardiance, spironolactone, increase Lasix to 40 mg b.i.d., started on aspirin 81mg. She needed some potassium repleted. Cardiology would like to avoid beta-leigh with her COPD history. She will follow-up with cardiology clinic for ongoing management heart failure. Patient follow-up PCP in 1 week for post hospital visit. At time of discharge patient's labs are stable, vitals stable, patient is stable for discharge home. Patient understands and agrees with plan. Status at Discharge Cognitive/behavioral status at discharge: Stable, improved Time Spent with Patient Time attestation: Total time spent providing and/or coordinating discharge services: 40 minutes Exam Narrative: - GENERAL: Pleasant obese woman in no acute distress. - EYES: EOMI. Anicteric. - HENT: Moist mucous membranes. - LUNGS: Clear to auscultation bilaterally, no wheezing, rhonchi, or rales. - CARDIOVASCULAR: Regular rate and rhythm. No murmur. No JVD. - ABDOMEN: Soft, non-tender and non-distended. No palpable masses. - EXTREMITIES: No edema. Peripheral pulses 2+. Non-tender. - NEUROLOGIC: No focal neurological deficits. CN II-XII grossly intact. - PSYCHIATRIC: Awake, Alert and oriented x 3. Appropriate mood and affect. - SKIN: No rashes or lesions. Warm. - LYMPH: No cervical lymphadenopathy. DS: Data Data Completed and Pending Labs on day of discharge: Labs from last 24 hours 10/15/23 04:46 WBC 5.2 RBC 3.87 L Hgb 13.4 Hct 40.2 MCV 103.9 H MCH 34.6 H MCHC 33.3 RDW 13.4 Plt Count 176 MPV 10.1 Immature Gran % (Auto) 0.2 Neut % (Auto) 50.3 Lymph % (Auto) 31.1 [place] % (Auto) 11.8 H Eos % (Auto) 5.5 H Baso % (Auto) 1.1 Lymph # (Auto) 1.63 [place] # (Auto) 0.6 Eos # (Auto) 0.3 Baso # (Auto) 0.1 Abs Immat Gran (auto) 0.01 Absolute Neuts (auto) 2.6 Absolute Nucleated RBC 0.0 Nucleated RBC % 0.0 Sodium 136 L Potassium 3.5 Chloride 101 Carbon Dioxide 33 H Anion Gap 2 L BUN 14 Creatinine 0.70 Estim Creat Clear Calc 79 Estimated GFR > 60 Glucose 117 H Calcium 9.3 Total Bilirubin 0.7 AST 40 H ALT 23 Alkaline Phosphatase 65 Total Protein 6.0 L Albumin 3.6 Procedures/Treatments: [facility] 10/13/[address] Cookie Bender LEFT HEART CATHETERIZATION FINDINGS: 1. Left main: The left ma
[2023-10-15] MEDS: FUROSEMIDE 40 MG TABLET PO (12:58)
== END 2023-10-15 11:08 | disposition home or self-care (01) | DRG 286 ==
LOC: ANHED 15:27 → ANHIMU 17:05
PROVIDERS: Internal Medicine; Physician Assistant; Admitting Provider Internal Medicine; Emergency Provider Student in an Organized Health Care Education/Training Program; PCP Internal Medicine; Visit Provider Student in an Organized Health Care Education/Training Program
PROC: 4A023N7 Measurement of Cardiac Sampling and Pressure, Left Heart, Percutaneous Approach (ICD-10-PCS; CPT 93452; principal; 2023-10-13 12:00)
DX: I11.0 Hypertensive heart disease with heart failure (principal); I50.23 Acute on chronic systolic (congestive) heart failure; Z68.43 Body mass index [BMI] 50.0-59.9, adult; I42.8 Other cardiomyopathies; I25.10 Atherosclerotic heart disease of native coronary artery without angina pectoris; I44.7 Left bundle-branch block, unspecified; I70.0 Atherosclerosis of aorta; J44.9 Chronic obstructive pulmonary disease, unspecified; E87.6 Hypokalemia; E66.01 Morbid (severe) obesity due to excess calories; K43.9 Ventral hernia without obstruction or gangrene; K27.9 Peptic ulcer, site unspecified, unspecified as acute or chronic, without hemorrhage or perforation; M19.90 Unspecified osteoarthritis, unspecified site; K44.9 Diaphragmatic hernia without obstruction or gangrene; Z96.653 Presence of artificial knee joint, bilateral; Z20.822 Contact with and (suspected) exposure to COVID-19; Z87.891 Personal history of nicotine dependence
CPT/HCPCS: 36415; 71046; 71275; 80048; 80053; 80061; 81001; 83690; 83735; 83880; 84132; 84484; 85025; 85027; 85610; 85730; 87637; 93005; 93458; 93970; 94640; 96365; 96366; 96372; 96375; 99285; A9270; C1769; C1887; C1894; C9113; G0378; J1170; J1644; J1650; J1940; J2250; J2270; J2305; J2405; J3480; J7040; Q9967

== ENCOUNTER 2023-10-31 13:33 | Emergency (ER) | payer OTHER, SELFPAY ==
[2023-10-31] VITALS (19 sets, daily range): BP systolic 104–147; BP diastolic 69–93; PULSE 82–97; RESP 17–31; TEMP 36.4–36.6; O2SAT 96–100
--- NOTE | ~2023-10-31 | XR_ITS ---
XR chest 2V 10/31/2023 14:15 Indication: Shortness of breath. CHF. Procedure: 2 view chest Comparison: 10/12/2023 Findings: Heart size normal. Bibasilar atelectasis. No focal pneumonia, edema, pleural effusion or pn eumothorax. No acute osseous abnormality. The lungs are hyperinflated which is consistent with, but not diagnostic of chronic obstructive pulmo nary disease. Impression: 1: Bibasilar atelectasis. Reviewed, dictated and finalized at location B. Impression: 1: Bibasilar atelectasis.
--- NOTE | 2023-10-31 13:36 | ECG_ITS ---
Measurements Intervals [place] Rate: 97 P: 57 DC: 154 QRS: 34 QRSD: 83 T: 73 QT: 371 QTc: 471 Interpretive Statements SINUS RHYTHM POSSIBLE LEFT ATRIAL ENLARGEMENT ANTEROSEPTAL INFARCT, AGE INDETERMINATE BASELINE ARTIFACT- I, II, III, AVR, AVL, AVF, V1 ABNORMAL ECG COMPARED TO ECG 10/14/2023 00:22:27 NO SIGNIFICANT CHANGES Electronically Signed On 10-31-2023 13:48:23 CDT by Boyd Pina D.O.
[2023-10-31 14:17] LABS: Basophils Absolute Auto 0.1 K/mm3 (0.0-0.1); Basophils Percent Auto 1.3 % (0.2-1.2); Eosinophils Absolute Auto 0.2 K/mm3 (0-0.3); Eosinophils Percent Auto 3.3 % (0-4.4); Immature Granulocyte Absolute 0.01 K/mm3 (0.00-0.031); Immature Granulocyte Percent A 0.2 % (0-0.5); Lymphocytes Absolute Auto 1.84 K/mm3 (0.9-3.2); Lymphocytes Percent Auto 29.9 % (18.3-44.2); Mean Corpuscular HGB Conc 33.3 g/dl (32-36); Mean Corpuscular Hemoglobin 34.1 pg (26-34); Mean Corpuscular Volume 102.4 fl (80-100); Mean Platelet Volume 9.9 fl (7.4-10.4); Monocytes Absolute Auto 0.7 K/mm3 (0.1-0.6); Monocytes Percent Auto 11.5 % (2.6-8.5); Neutrophils Absolute Auto 3.3 K/mm3 (1.3-6.7); Neutrophils Percent Auto 53.8 % (45.5-73.1); Platelet Count Result 244 k/mm3 (150-375); Red Blood Count 4.98 M/mm3 (4.2-5.4); Red Cell Distribution Width 13.4 % (11.5-14.5); White Blood Count 6.2 K/mm3 (4.5-10.0)
[2023-10-31 14:32] LABS: Alanine Aminotransferase 27 U/L (6-35); Albumin Level 4.5 g/dL (3.5-5.1); Alkaline Phosphatase 92 U/L (38-126); Anion Gap 9 mmol/L (8-16); Aspartate Amino Transferase 45 U/L (14-36); Bilirubin,Total 0.9 mg/dL (0.2-1.3); Blood Urea Nitrogen 15 mg/dL (7-17); Carbon Dioxide 27 mmol/L (22-30); Chloride 101 mmol/L (98-107); Estimated CRCL calculation 87 ml/min; Estimated Glomerular Filt Rate > 60; Glucose 99 mg/dL (65-110); Potassium 3.9 mmol/L (3.4-5.0); Sodium 137 mmol/L (137-145)
[2023-10-31 17:20] LABS: NT Pro B Type Natriuretic Pept 109 pg/mL (19.9-100); Troponin I < 0.012 ng/mL (0.000-0.034)
--- NOTE | 2023-10-31 18:31 | ED.GENADULT ---
HPI - General Adult General Chief complaint: Shortness of Breath/Dyspnea Stated complaint: SOB/back pain Time Seen by Provider: 10/31/23 16:25 History of Present Illness HPI narrative: 68-year-old female presenting to the emergency department for evaluation of left shoulder and left trapezius pain. Patient had a recent hospital admission for anterior chest pain last week. At that time patient had elevated troponins. Patient had a negative cardiac cath at that time. Patient states over last 2 days she has developed left shoulder left trapezius pain that is worsened with movement. Related Data Home Medications Medication Instructions Recorded Confirmed acetaminophen 500 mg tablet 100 mg PO QID PRN Pain 10/12/23 10/31/23 (Tylenol Extra Strength) albuterol sulfate 2.5 mg/3 mL 2.5 mg inhalation BID PRN 10/12/23 10/31/23 (0.083 %) solution for nebulization shortness of breath or wheezing montelukast 10 mg tablet 10 mg PO DAILY 10/12/23 10/31/23 omeprazole 20 mg capsule,delayed 20 mg PO BID 10/12/23 10/31/23 release furosemide 40 mg tablet 40 mg PO DAILY 10/31/23 10/31/23 Allergies Allergy/AdvReac Type Severity Reaction Status Date / Time adhesive tape Allergy Intermediate BLISTER/REDNESS/SWELLING Verified 10/27/23 09:13 AT SITE fentanyl Allergy Intermediate Itching Verified 10/27/23 09:13 amoxicillin Allergy Unknown Unknown Verified 10/27/23 09:13 azithromycin Allergy Unknown unknown Verified 10/27/23 09:13 erythromycin base Allergy Unknown unknow Verified 10/27/23 09:13 Penicillins Allergy Unknown unknown Verified 10/27/23 09:13 Review of Systems Review of Systems: All systems reviewed & are unremarkable except as noted in HPI and below PMFSH Past Medical History Medical History Aortic atherosclerosis (07/2015) Noted on CT of the abdomen and pelvis. Arthritis Chronic obstructive pulmonary disease Deep venous thrombosis (1973) Following an ankle fracture. Heart failure with reduced ejection fraction Echocardiogram in September 2023; moderately reduced LV systolic function with an EF estimated at 35 to 40% and grade 1 diastolic dysfunction. Hiatal hernia Hypertension Ventral hernia Surgical History Surgical History History of 2 sections History of appendectomy History of back surgery 1984 and 1985 History of bilateral knee arthroplasty History of bladder suspension procedure x2 History of cholecystectomy History of hernia repair History of total hysterectomy Family History Family History Sibling Family history of thyroid disease Mother Family history of lung cancer Father Family history of heart disease in male family member before age 55 Other Diabetes mellitus Family history of allergic disorder Family history of cardiovascular disease Hypertension Social History Social History Social History: Surrogate medical decision maker: Franchesca Bonilla, daughter. Code status: Full code. Smoking packs per day: 2.5 Smoking cigarettes per day: 50.0 Years smoked: 35 Smoking pack-years: 87.50 Smoking status: Former smoker Tobacco type: cigarettes Second hand tobacco smoke exposure: No Smoking end date: 10/29/16 Alcohol intake: never Substance use: never Substance use type: does not use Do You Feel Safe in your Home?: Yes Lack of Transportation: No Lack of Food: Never True Current Housing: I Have Housing Concerned About Future Housing: No Difficulty Paying Gas/Electric Bills: No Difficulty Paying for Meds: No Currently Unemployed: No Education: Associate Degree Difficulty w/ Childcare or Family Care: No Living arrangements: alone Occupation/Education: retired Spiritual care concerns: No Agree to blood pro
[2023-10-31 18:54] LABS: Troponin I 0.013 ng/mL (0.000-0.034)
== END 2023-10-31 19:36 | disposition home or self-care (01) ==
PROVIDERS: Emergency Medicine; Emergency Provider Emergency Medicine; PCP Internal Medicine
DX: M25.512 Pain in left shoulder (principal); S16.1XXA Strain of muscle, fascia and tendon at neck level, initial encounter; I70.0 Atherosclerosis of aorta; I50.9 Heart failure, unspecified; I11.0 Hypertensive heart disease with heart failure; J44.9 Chronic obstructive pulmonary disease, unspecified; M19.90 Unspecified osteoarthritis, unspecified site; Z96.653 Presence of artificial knee joint, bilateral; Z86.718 Personal history of other venous thrombosis and embolism; Z87.891 Personal history of nicotine dependence; Z90.49 Acquired absence of other specified parts of digestive tract; Z90.710 Acquired absence of both cervix and uterus; Z79.82 Long term (current) use of aspirin; Z79.84 Long term (current) use of oral hypoglycemic drugs; R94.31 Abnormal electrocardiogram [ECG] [EKG]; X58.XXXA Exposure to other specified factors, initial encounter
CPT/HCPCS: 36415; 71046; 80053; 83880; 84484; 85025; 93005; 99284

== ENCOUNTER 2023-11-16 00:45 | Day surgery (SDC) | payer OTHER, SELFPAY ==
[2023-11-01 11:13] VITALS: BMI 48.9
[2023-11-16 10:19] VITALS: BP 144/91; PULSE 91; RESP 26; TEMP 36.1; O2SAT 98; BMI 49.8
[2023-11-16 10:38] LABS: Glucose Point of Care 114 mg/dl (65-105)
--- NOTE | 2023-11-16 10:45 | WPDANESEPPF ---
Anes - Initial Pre Proc Eval Procedure: Operation Date: 11/16/23 11:30 Proposed Procedures p Esophagogastroduodenoscopy - Hakeem Garcia MD Date/Time: 11/16/23 10:45 Surgeon: Hakeem Garcia MD Pre Op Diagnosis: GERD,hx peptic ulcer disease Patient Data Age: 68 Gender: F Height: 1.55 m Weight: 119.6 kg Last Vital Signs Temp 96.9 F L 11/16/23 10:19 Pulse 91 11/16/23 10:19 Resp 26 H 11/16/23 10:19 BP 144/91 H 11/16/23 10:19 Pulse Ox 98 11/16/23 10:19 O2 Del Method Room Air 11/16/23 10:19 Allergies Allergy/AdvReac Type Severity Reaction Status Date / Time adhesive tape Allergy Intermediate BLISTER/REDNESS/SWELLING Verified 11/16/23 10:14 AT SITE amoxicillin Allergy Unknown Unknown Verified 11/16/23 10:14 azithromycin Allergy Unknown unknown Verified 11/16/23 10:14 erythromycin base Allergy Unknown unknow Verified 11/16/23 10:14 Penicillins Allergy Unknown unknown Verified 11/16/23 10:14 morphine AdvReac Itching Verified 11/16/23 10:14 Home Medications Medication Instructions Recorded Confirmed Type budesonide 160 mcg-glycopyr 9 2 inh inhalation QAM AND QPM #10.7 10/04/22 11/16/23 Rx mcg-formot 4.8 mcg/actuation HFA grams inhaler (Breztri Aerosphere) albuterol sulfate 90 mcg/actuation 1 puff inhalation QID #18 grams 09/13/23 11/16/23 Rx aerosol inhaler estradiol 0.5 mg tablet 0.5 mg PO DAILY #90 tabs 10/03/23 11/16/23 Rx acetaminophen 500 mg tablet 100 mg PO QID PRN Pain 10/12/23 11/16/23 History (Tylenol Extra Strength) aspirin 81 mg chewable tablet 81 mg PO DAILY 30 days #30 tabs 10/15/23 11/16/23 Rx empagliflozin 10 mg tablet 10 mg PO DAILY CHrEF 35% 30 days 10/15/23 11/16/23 Rx (Jardiance) #30 tabs spironolactone 25 mg tablet 25 mg PO QAM 30 days #30 tabs 10/15/23 11/16/23 Rx meloxicam 15 mg tablet 15 mg PO HS #90 tabs 10/21/23 11/16/23 Rx furosemide 40 mg tablet 40 mg PO DAILY 10/31/23 11/16/23 History sacubitril 24 mg-valsartan 26 mg 1 tablet PO Q12H heart failure 11/01/23 11/16/23 History tablet (Entresto) cyclobenzaprine 5 mg tablet 5 mg PO TID PRN muscle spasm #20 11/11/23 11/16/23 Rx tabs famotidine 20 mg tablet 20 mg PO BID #180 tabs 11/11/23 11/16/23 Rx montelukast 10 mg tablet 10 mg PO DAILY #90 tabs 11/11/23 11/16/23 Rx omeprazole 20 mg capsule,delayed 20 mg PO BID #180 caps 11/11/23 11/16/23 Rx release theophylline 300 mg 300 mg PO Q12H #180 tabs 11/11/23 11/16/23 Rx tablet,extended release,12 hr levalbuterol HCl 1.25 mg/3 mL 1.25 mg (3 mL) inhalation Q6H PRN 11/14/23 11/16/23 Rx solution for nebulization shortness of breath or wheezing #180 mL Laboratory Tests 11/16/23 10:35 POC Capillary Glucose 114 H mg/dl (65-105) Patient hx anesthesia problems: none Family hx anesthesia problems: none Results Review: All pre-operative results and documents have been reviewed as part of the pre-operative evaluation. [facility] Past Medical History Medical History Aortic atherosclerosis (07/2015) Noted on CT of the abdomen and pelvis. Arthritis Chronic obstructive pulmonary disease Deep venous thrombosis (1973) Following an ankle fracture. Heart failure with reduced ejection fraction Echocardiogram in September 2023; moderately reduced LV systolic function with an EF estimated at 35 to 40% and grade 1 diastolic dysfunction. Hiatal hernia Hypertension Ventral hernia Surgical History Surgical History History of 2 sections History of appendectomy History of back surgery 1984 and 1985 History of bilateral knee arthroplasty History of bladder suspension procedure x2 History of cholecystectomy History of hernia repair History of total hysterectomy Family History Family History Sibling Family history of
[2023-11-16] MEDS: LACTATED RINGERS 1,000 ML 150 ML IV CONT (10:52)
--- NOTE | 2023-11-16 11:01 | PM.HPGS ---
History of Present Illness History of Present Illness Consent: Risks, benefits, and alternatives have been discussed and questions answered. Patient agrees to proceed with procedure. Chief complaint: GERD,hx peptic ulcer disease Narrative: Em Hernandez is a 68 year old female here for egd, morbid obesity with poor mobility using WC, previous abdominal surgeries with ventral hernias, GERD. She is here because GERD symptoms much worse lately, she has been taking omeprazole bid for over 7 years and famotidine, egd but years ago. Review of Systems Review of Systems: All systems reviewed & are unremarkable except as noted in HPI and below PMFSH Past Medical History Medical History (Updated 11/16/23 @ 11:03 by Hakeem Garcia MD) Aortic atherosclerosis (07/2015) Noted on CT of the abdomen and pelvis. Arthritis Chronic obstructive pulmonary disease Deep venous thrombosis (1973) Following an ankle fracture. Heart failure with reduced ejection fraction Echocardiogram in September 2023; moderately reduced LV systolic function with an EF estimated at 35 to 40% and grade 1 diastolic dysfunction. Hiatal hernia Hypertension Morbid obesity Ventral hernia Surgical History Surgical History History of 2 sections History of appendectomy History of back surgery 1984 and 1985 History of bilateral knee arthroplasty History of bladder suspension procedure x2 History of cholecystectomy History of hernia repair History of total hysterectomy Family History Family History Sibling Family history of thyroid disease Mother Family history of lung cancer Father Family history of heart disease in male family member before age 55 Other Diabetes mellitus Family history of allergic disorder Family history of cardiovascular disease Hypertension Social History Social History Social History: Surrogate medical decision maker: Franchesca Bonilla, daughter. Code status: Full code. Smoking packs per day: 2.5 Smoking cigarettes per day: 50.0 Years smoked: 35 Smoking pack-years: 87.50 Smoking status: Former smoker Tobacco type: cigarettes Second hand tobacco smoke exposure: No Smoking end date: 10/29/16 Alcohol intake: never Substance use: never Substance use type: does not use Do You Feel Safe in your Home?: Yes Lack of Transportation: No Lack of Food: Never True Current Housing: I Have Housing Concerned About Future Housing: No Difficulty Paying Gas/Electric Bills: No Difficulty Paying for Meds: No Currently Unemployed: No Education: Associate Degree Difficulty w/ Childcare or Family Care: No Living arrangements: with family Occupation/Education: retired Spiritual care concerns: No Agree to blood products: Yes Meds Home Medications and Allergies Home Medications Medication Instructions Recorded Confirmed Type budesonide 160 mcg-glycopyr 9 2 inh inhalation QAM AND QPM #10.7 10/04/22 11/16/23 Rx mcg-formot 4.8 mcg/actuation HFA grams inhaler (Breztri Aerosphere) albuterol sulfate 90 mcg/actuation 1 puff inhalation QID #18 grams 09/13/23 11/16/23 Rx aerosol inhaler estradiol 0.5 mg tablet 0.5 mg PO DAILY #90 tabs 10/03/23 11/16/23 Rx acetaminophen 500 mg tablet 100 mg PO QID PRN Pain 10/12/23 11/16/23 History (Tylenol Extra Strength) aspirin 81 mg chewable tablet 81 mg PO DAILY 30 days #30 tabs 10/15/23 11/16/23 Rx empagliflozin 10 mg tablet 10 mg PO DAILY CHrEF 35% 30 days 10/15/23 11/16/23 Rx (Jardiance) #30 tabs spironolactone 25 mg tablet 25 mg PO QAM 30 days #30 tabs 10/15/23 11/16/23 Rx meloxicam 15 mg tablet 15 mg PO HS #90 tabs 10/21/23 11/16/23 Rx furosemide 40 mg tablet 40 mg PO DAILY 10/31/23 11/16/23 History sacubitril 24 mg-valsartan 26 mg 1 table
[2023-11-16] MEDS: BENZOCAINE (*SP) 60 ML SPRAY CAN (HURRICAINE) 1 SPRAY MUCOUS MEM (11:11)
[2023-11-16 11:21] VITALS: BP 134/65; PULSE 88; RESP 16; O2SAT 97
[2023-11-16 11:31] VITALS: BP 127/68; PULSE 90; RESP 18; O2SAT 98
[2023-11-16 11:41] VITALS: BP 126/89; PULSE 81; RESP 18; O2SAT 99
== END 2023-11-16 11:54 | disposition home or self-care (01) ==
PROVIDERS: PCP Internal Medicine; Visit Provider Internal Medicine Gastroenterology
PROC: 0DJ08ZZ Inspection of Upper Intestinal Tract, Via Natural or Artificial Opening Endoscopic (ICD-10-PCS; CPT 43235; principal; 2023-11-16 11:30)
DX: K29.50 Unspecified chronic gastritis without bleeding (principal); K21.9 Gastro-esophageal reflux disease without esophagitis; J44.9 Chronic obstructive pulmonary disease, unspecified; I11.0 Hypertensive heart disease with heart failure; Z86.718 Personal history of other venous thrombosis and embolism; Z87.891 Personal history of nicotine dependence; E66.01 Morbid (severe) obesity due to excess calories; Z68.42 Body mass index [BMI] 45.0-49.9, adult; Z79.51 Long term (current) use of inhaled steroids; Z79.84 Long term (current) use of oral hypoglycemic drugs; Z79.82 Long term (current) use of aspirin
CPT/HCPCS: 43239; 82948; 88305; J2704; J7120

== ENCOUNTER 2024-02-27 12:10 | Outpatient (CLI) | payer OTHER, SELFPAY ==
--- NOTE | ~2024-02-27 | XR_ITS ---
XR ankle RT min 3V Ordering provider: RASHAWN Corona History: . No injury ankle pain for 2 weeks . Comparison: None. FINDINGS: BONES: No acute fracture or dislocation. Calcaneus spur. JOINT SPACES: Narrowing more medially. SOFT TISSUES: Normal. IMPRESSION: No acute osseous abnormality of the right ankle. Reviewed, dictated and finalized at location A.
== END 2024-02-27 12:11 ==
PROVIDERS: PCP Internal Medicine; Visit Provider Clinical Nurse Specialist
DX: M25.571 Pain in right ankle and joints of right foot (principal)
CPT/HCPCS: 73610

== ENCOUNTER 2024-05-10 11:57 | Outpatient (CLI) | payer OTHER, SELFPAY ==
--- NOTE | ~2024-05-10 | XR_ITS ---
XR wrist LT 2V Ordering provider: KEVIN Corona-C History: . no injury ulnar side pain for a couple months . Comparison: None. FINDINGS: BONES: No acute fracture or dislocation. No definite scaphoid fracture. JOINT SPACES: Well maintained. Chondrocalcinosis in the TFCC. SOFT TISSUES: Normal. IMPRESSION: No acute osseous abnormality left wrist. Reviewed, dictated and finalized at location A.
== END 2024-05-10 11:58 | disposition home or self-care (01) ==
PROVIDERS: PCP Internal Medicine; Visit Provider Clinical Nurse Specialist
DX: M25.532 Pain in left wrist (principal)
CPT/HCPCS: 73100

== ENCOUNTER 2024-07-24 16:34 | Emergency (ER) | payer OTHER, SELFPAY ==
[2024-07-24] VITALS (12 sets, daily range): BP systolic 108–149; BP diastolic 56–91; PULSE 0–100; RESP 8–21; TEMP 36.5; O2SAT 95–99
--- NOTE | ~2024-07-24 | XR_ITS ---
EXAMINATION: XR chest 1V portable DATE: 07/24/2024 17:39 INDICATION: Chest pain. TECHNIQUE: A single frontal view of the chest was obtained. COMPARISON: Chest 2 views 10/31/2023, chest CT 10/12/2023 FINDINGS: There is mild atelectasis at the lung bases. No pleural effusion or pneumothorax. Cardiomeg rico is noted. IMPRESSION: 1. Mild atelectasis at the lung bases. 2. Cardiomegaly. Reviewed, dictated and finalized at location A. NING AND DEVELOPMENT HEAD
--- NOTE | ~2024-07-24 | CT_ITS ---
EXAMINATION: CTA chest abdomen pelvis DATE: 07/24/2024 20:27 INDICATION: Dyspnea. TECHNIQUE: Computed tomographic angiography (CTA) of the chest, abdomen, and pelvis was performed wit h 100 mL Omnipaque-350 intravenous contrast. Automated exposure control and iterative reconstruction technique were employed. The dose-length product was 1755.74 mGy-cm. Maximum intensity projection 3D- reconstructions of the aorta and other arteries were constructed by the technologist on a separate wo rkstation. COMPARISON: Chest CT 10/12/23, CT abdomen and pelvis 03/07/2023 FINDINGS: CHEST CTA: The lungs demonstrate mild atelectasis. No pleural effusion. Cardiomegaly is noted. There are coronar y artery calcifications. No pericardial effusion. There is no pulmonary embolus. Aortic atheroscleros is is noted. There is severe cervical and thoracic spondylosis. ABDOMEN AND PELVIS CTA: The liver demonstrates surface nodularity, consistent with cirrhosis. There are changes of cholecyste ctomy. The spleen, pancreas, adrenal glands, and kidneys are normal. There is a large ventral hernia containing nonobstructed small and large bowel. There is diverticulosis of the colon without evidence of diverticulitis. The appendix is not visualized. There are no pathologically enlarged lymph nodes. There is no free intraperitoneal fluid. Aortic atherosclerosis is noted. There is no significant jose nosis of celiac axis, superior mesenteric artery, the renal arteries, or inferior mesenteric artery. There is severe lumbar spondylosis. IMPRESSION: 1. Cirrhosis of the liver. 2. Large ventral hernia containing nonobstructed small and large bowel. 3. Aortic atherosclerosis. No aneurysm or dissection. Reviewed, dictated and finalized at location A. HANDLER
--- NOTE | 2024-07-24 16:35 | ECG_ITS ---
Test Date: 2024-07-24 16:49:31 Measurements Intervals [place] Rate: 70 P: 46 NE: 173 QRS: 30 QRSD: 140 T: 74 QT: 412 QTc: 445 Interpretive Statements SINUS RHYTHM LEFT BUNDLE BRANCH BLOCK [120+ ms QRS DURATION, 80+ ms Q/S IN V1/V2, 85+ ms R IN I/aVL/V5/V6] No previous ECG available for comparison Electronically Signed On 07-25-2024 14:18:37 BANKING SPECIALIST by Cookie Bender M.D.
[2024-07-24 17:53] LABS: Basophils Absolute Auto 0.1 K/mm3 (0.0-0.1); Basophils Percent Auto 1.6 % (0.2-1.2); Eosinophils Absolute Auto 0.2 K/mm3 (0-0.3); Eosinophils Percent Auto 3.8 % (0-4.4); Hemoglobin 15.8 g/dL (12.0-15.0); Immature Granulocyte Absolute 0.01 K/mm3 (0.00-0.031); Immature Granulocyte Percent A 0.2 % (0-0.5); Lymphocytes Absolute Auto 1.93 K/mm3 (0.9-3.2); Lymphocytes Percent Auto 31.5 % (18.3-44.2); Mean Corpuscular HGB Conc 34.3 g/dl (32-36); Mean Corpuscular Hemoglobin 35.9 pg (26-34); Mean Corpuscular Volume 104.5 fl (80-100); Monocytes Absolute Auto 0.8 K/mm3 (0.1-0.6); Monocytes Percent Auto 13.1 % (2.6-8.5); Neutrophils Absolute Auto 3.1 K/mm3 (1.3-6.7); Neutrophils Percent Auto 49.8 % (45.5-73.1); Platelet Count Result 219 k/mm3 (150-375); Red Cell Distribution Width 13.9 % (11.5-14.5); White Blood Count 6.1 K/mm3 (4.5-10.0)
[2024-07-24 18:07] LABS: Alanine Aminotransferase 30 U/L (6-35); Albumin Level 4.4 g/dL (3.5-5.1); Alkaline Phosphatase 80 U/L (38-126); Anion Gap 3 mmol/L (4-12); Aspartate Amino Transferase 44 U/L (14-36); Bilirubin,Total 0.8 mg/dL (0.2-1.3); Blood Urea Nitrogen 21 mg/dL (7-17); Calcium 9.6 mg/dL (8.4-10.2); Carbon Dioxide 30 mmol/L (22-30); Chloride 104 mmol/L (98-107); Estimated CRCL calculation 75 ml/min; Estimated Glomerular Filt Rate > 60; Glucose 99 mg/dL (65-110); Sodium 137 mmol/L (137-145)
[2024-07-24 18:10] LABS: INR 1.1; Prothrombin Time 14.4 Seconds (11.1-14.7)
[2024-07-24 18:11] LABS: Partial Thromboplastin Time 30.9 Seconds (22.3-36.8)
[2024-07-24 18:17] LABS: NT Pro B Type Natriuretic Pept 41 pg/mL (19.9-100); Troponin I < 0.012 ng/mL (0.000-0.034)
[2024-07-24 19:51] LABS: Troponin I < 0.012 ng/mL (0.000-0.034)
[2024-07-24 20:10] LABS: Influenza A QL RT-PCR Negative (Negative); Influenza B QL RT-PCR Negative (Negative); RSV RNA, RT-PCR Negative (Negative); SARS-CoV-2 RNA PCR Negative (Negative)
--- NOTE | 2024-07-24 22:10 | ED_ITS ---
HPI - General Adult General Chief complaint: Shortness of Breath/Dyspnea Stated complaint: multiple complaints Time Seen by Provider: 07/24/24 16:54 History of Present Illness HPI narrative: This is a 68-year-old female with history of CHF, COPD, depression, anxiety, large ventral hernia and morbid obesity presenting for chest pain and shortness of breath. She went and saw her primary care physician earlier today. After she had walked into the room she was very winded having trouble catching her breath. She is also concerned because she gained 5 lb over the last week. She has not developed any edema of her lower extremities, and she has been taking all her medications as directed. patient states she has been having intermittent sharp pain in the center of her chest that has been going on and off for quite some time. She does not have any fevers, productive cough, lower extremity edema or abdominal pain. Related Data Home Medications ?Medication ?Instructions ?Recorded ?Confirmed ?Last Taken ?Type acetaminophen 500 mg tablet 100 mg PO QID PRN Pain 10/12/23 07/24/24 11/15/23 History (Tylenol Extra Strength) furosemide 40 mg tablet 40 mg PO DAILY 10/31/23 07/24/24 11/15/23 History sacubitril 49 mg-valsartan 51 mg 1 tablet PO BID 03/12/24 07/24/24 Unknown History tablet Allergies Allergy/AdvReac Type Severity Reaction Status Date / Time adhesive tape Allergy Intermediate BLISTER/REDNESS/SWELLING Verified 07/24/24 15:13 AT SITE amoxicillin Allergy Unknown Unknown Verified 07/24/24 15:13 azithromycin Allergy Unknown unknown Verified 07/24/24 15:13 erythromycin base Allergy Unknown unknow Verified 07/24/24 15:13 Penicillins Allergy Unknown unknown Verified 07/24/24 15:13 morphine AdvReac Itching Verified 07/24/24 15:13 [facility] Past Medical History Medical History Morbid obesity Chronic obstructive pulmonary disease Heart failure with reduced ejection fraction Echocardiogram in September 2023; moderately reduced LV systolic function with an EF estimated at 35 to 40% and grade 1 diastolic dysfunction. Deep venous thrombosis (1973) Following an ankle fracture. Hiatal hernia Hypertension Aortic atherosclerosis (07/2015) Noted on CT of the abdomen and pelvis. Ventral hernia Arthritis Surgical History Surgical History History of 2 sections History of bilateral knee arthroplasty History of back surgery 1984 and 1985 History of appendectomy History of bladder suspension procedure x2 History of total hysterectomy History of cholecystectomy History of hernia repair Family History Family History Sibling Family history of thyroid disease Mother Family history of lung cancer Father Family history of heart disease in male family member before age 55 Other Diabetes mellitus Family history of allergic disorder Family history of cardiovascular disease Hypertension Social History Social History Social History: Surrogate medical decision maker: Franchesca Bonilla, daughter. Code status: Full code. Smoking packs per day: 2.5 Smoking cigarettes per day: 50.0 Years smoked: 35 Smoking pack-years: 87.50 Smoking status: Former smoker Tobacco type: cigarettes Second hand tobacco smoke exposure: No Smoking end date: 10/29/16 Alcohol intake: never Substance use: never Substance use type: does not use Do You Feel Safe in your Home?: Yes Lack of Transportation: No Lack of Food: Never True Current Housing: I Have Housing Concerned About Future Housing: No Difficulty Paying Gas/Electric Bills: No Difficulty Paying for Meds: No Currently Unemployed: No Education: Associate Degree Difficulty w/ Childcare or Family Care: No Living arrangements: with family Occupation/Education: retired Spiritual care concerns: No Agree to blood products: Yes Exam 2 Narrative: APPEARANCE: No apparent distress. Head: atraumatic. EYES: EOMI, NOSE: Atraumatic NECK: Trachea midline RESPIRATORY: 98% on room air, normal respiratory rate, clear lung sounds w/ minimal rales in the bases CARDIOVASCULAR: RRR, no peripheral edema ABDOMINAL: large ventral hernia, nontender Skin changes MUSCULOSKELETAl: No obvious deformities NEURO: Alert. Moving 4/4 extremities SKIN:: Warm, dry. Normal color PSYCHIATRIC: Normal affect Course Vital Signs Vital signs: Vital Signs Temperature 97.7 F 07/24/24 16:25 Pulse Rate 89 07/24/24 16:25 Respiratory Rate 16 07/24/24 16:25 Blood Pressure 149/91 H 07/24/24 16:25 Pulse Oximetry 98 07/24/24 16:25 Oxygen Delivery Room Air 07/24/24 16:25 Temperature 97.7 F 07/24/24 16:25 Pulse Rate 85 07/24/24 20:02 Respiratory Rate 19 07/24/24 20:02 Blood Pressure 139/61 07/24/24 20:02 Pulse Oximetry 96 07/24/24 20:02 Oxygen Delivery Room Air 07/24/24 16:30 Medical Decision Making MDM Narrative Medical decision making narrative: -Course: 68-year-old female sent in the ED for chest pain and shortness of breath. Call patient does have some subjective dyspnea when she walks I can find no objective signs of dyspnea. She has normal respiratory rate, she is saturating well on room air. Her lungs are clear. patient is speaking in full sentences and appears to be in good spirits. Chest x-ray showed cardiomegaly but no significant fluid overload. BNP 49. Trop negative x2. CTA chest abdomen pelvis did not reveal any causative findings. Review of her primary care office visits and her air hammer stripper office visit shows that she has very poor respiratory status at baseline which is complicated by her COPD/CHF/morbid obesity/ventral hernia. I discussed all this with the patient and her family. Shared decision making: Discussed the risks and benefits of admission versus discharge and patient will go home. She will return if anything is to worsen. Family is in agreement with the plan. -DDX includes but is not limited to: COPD, CHF, viral syndrome, pneumonia, COPD exacerbation -Co-morbidities complicating care:COPD, CHF, morbid obesity -External Chart Review: review of primary care visit and pulmonary office visits. -Hx from independent Sources:Family at bedside -Independent interpretation of studies: labs and imaging reviewed Independent EKG interpretation: Rhythm [sinus], Rate [70], [place] -[normal], ID -[normal], QRS [wide], QTC [normal], T waves -[negative for concerning inversions], ST Segments -no concerning elevations Final interpretations: NSR w/ lbbb -Shared decision making / Disposition:discharged Vital Signs Vital Signs: Vital Signs Temperature 97.7 F 07/24/24 16:25 Pulse Rate 89 07/24/24 16:25 Respiratory Rate 16 07/24/24 16:25 Blood Pressure 149/91 H 07/24/24 16:25 Pulse Oximetry 98 07/24/24 16:25 Oxygen Delivery Room Air 07/24/24 16:25 Temperature 97.7 F 07/24/24 16:25 Pulse Rate 85 07/24/24 20:02 Respiratory Rate 19 07/24/24 20:02 Blood Pressure 139/61 07/24/24 20:02 Pulse Oximetry 96 07/24/24 20:02 Oxygen Delivery Room Air 07/24/24 16:30 Lab Data 07/24/24 17:35 07/24/24 17:35 Labs: Lab Results 07/24/24 07/24/24 Range/Units 17:35 19:13 WBC 6.1 (4.5-10.0) K/mm3 RBC 4.40 (4.2-5.4) M/mm3 Hgb 15.8 H (12.0-15.0) g/dL Hct 46.0 (37.0-47.0) % MCV 104.5 H (80-100) fl MCH 35.9 H (26-34) pg MCHC 34.3 (32-36) g/dl RDW 13.9 (11.5-14.5) % Plt Count 219 (150-375) k/mm3 MPV 10.0 (7.4-10.4) fl Immature Gran % (Auto) 0.2 (0-0.5) % Neut % (Auto) 49.8 (45.5-73.1) % Lymph % (Auto) 31.5 (18.3-44.2) % [place] % (Auto) 13.1 H (2.6-8.5) % Eos % (Auto) 3.8 (0-4.4) % Baso % (Auto) 1.6 H (0.2-1.2) % Lymph # (Auto) 1.93 (0.9-3.2) K/mm3 [place] # (Auto) 0.8 H (0.1-0.6) K/mm3 Eos # (Auto) 0.2 (0-0.3) K/mm3 Baso # (Auto) 0.1 (0.0-0.1) K/mm3 Abs Immat Gran (auto) 0.01 (0.00-0.031) K/mm3 Absolute Neuts (auto) 3.1 (1.3-6.7) K/mm3 Absolute Nucleated RBC 0.000 (0.0-0.012) K/mm3 Nucleated RBC % 0.0 (0.0-0.2) % PT 14.4 (11.1-14.7) Seconds INR 1.1 APTT 30.9 (22.3-36.8) Seconds Sodium 137 (137-145) mmol/L Potassium 4.0 (3.4-5.0) mmol/L Chloride 104 (98-107) mmol/L Carbon Dioxide 30 (22-30) mmol/L Anion Gap 3 L (4-12) mmol/L BUN 21 H (7-17) mg/dL Creatinine 0.70 (0.7-1.0) mg/dL Estim Creat Clear Calc 75 ml/min Estimated GFR > 60 (59 - ) Glucose 99 (65-110) mg/dL Calcium 9.6 (8.4-10.2) mg/dL Total Bilirubin 0.8 (0.2-1.3) mg/dL AST 44 H (14-36) U/L ALT 30 (6-35) U/L Alkaline Phosphatase 80 (38-126) U/L Troponin I < 0.012 < 0.012 (0.000-0.034) ng/mL NT-Pro-B Natriuret Pep 41 (19.9-100) pg/mL Total Protein 7.0 (6.3-8.2) g/dL Albumin 4.4 (3.5-5.1) g/dL Influenza A (RT-PCR) Negative (Negative) Influenza B (RT-PCR) Negative (Negative) RSV (RT-PCR) Negative (Negative) SARS-CoV-2 RNA (RT-PCR) Negative (Negative) Discharge Plan Discharge Clinical Impression: IRIZARRY (dyspnea on exertion) Patient Disposition: Home, Self-Care Condition: Stable Instructions: Antibiotic Form, Dyspnea (ED) Additional Instructions: You were seen in the emergency department for dyspnea on exertion. Your workup here was reassuring. please follow-up with your primary care physician and your air hammer stripper for further management. If you develop fevers, chest pain worsening shortness of breath please return to the ED immediately. Patient Language: Lithuanian Prescriptions: No Action escitalopram oxalate [Lexapro] 5 mg tablet 5 mg PO DAILY Qty: 30 1RF furosemide 40 mg tablet 40 mg PO DAILY Patient Comments: Prescribed by cardiology. sacubitril-valsartan 49-51 mg tablet 1 tablet PO BID albuterol sulfate 90 mcg/actuation HFA aerosol inhaler 1 - 2 puff inhalation Q4-6H PRN (Reason: shortness of breath or wheezing) Qty: 8.5 3RF levalbuterol HCl 1.25 mg/3 mL solution for nebulization 1.25 mg inhalation Q6H PRN (Reason: shortness of breath or wheezing) Qty: 180 3RF prednisone 10 mg tablet See Rx Instructions PO DAILY Qty: 34 0RF Rx Instructions: 4 tabs daily x 4 days; then 3 tabs daily x 3 days, then 2 tabs daily x 3 days, then 1 tab daily x 3 days. acetaminophen [Tylenol Extra Strength] 500 mg Tablet 100 mg PO QID PRN (Reason: Pain) Jardiance 10 mg Tablet 10 mg PO DAILY 30 Days Qty: 30 0RF aspirin 81 mg tablet,chewable 81 mg PO DAILY 30 Days Qty: 30 0RF spironolactone 25 mg Tablet 25 mg PO QAM 30 Days Qty: 30 0RF (DME) blood-glucose meter Misc See Rx Instructions .ROUTE .MEDSUPPLY Qty: 1 0RF Rx Instructions: To check glucose three times daily (DME) lancets 31 gauge misc See Rx Instructions .ROUTE .MEDSUPPLY Qty: 100 0RF Rx Instructions: To check glucose three time per day Brekathietri Aerosphere 160-9-4.8 mcg/actuation HFA aerosol inhaler See Rx Instructions .ROUTE .COMPLEX Qty: 10.7 11RF Dose Instruction: INHALE 2 PUFFS EVERY DAY IN THE MORNING AND IN THE EVENING RINSE AND SPIT. Rx Instructions: INHALE 2 PUFFS EVERY DAY IN THE MORNING AND IN THE EVENING RINSE AND SPIT. (DME) Blood Glucose Test Strip See Rx Instructions .ROUTE .MEDSUPPLY Qty: 50 0RF Rx Instructions: To check glucose three times per day estradiol 0.5 mg tablet 0.5 mg PO DAILY Qty: 90 1RF theophylline 300 mg tablet extended release 12 hr 300 mg PO Q12H Qty: 180 1RF famotidine 20 mg tablet 20 mg PO BID Qty: 180 1RF montelukast 10 mg tablet 10 mg PO DAILY Qty: 90 1RF omeprazole 20 mg capsule,delayed release(DR/EC) 20 mg PO BID Qty: 180 0RF meloxicam 15 mg tablet 15 mg PO HS Qty: 90 1RF Follow-up/Referrals: Aayush Contreras DO [Primary Care Provider] -
== END 2024-07-24 22:42 | disposition home or self-care (01) ==
PROVIDERS: Emergency Medicine; Emergency Provider Emergency Medicine; PCP Internal Medicine
DX: R06.00 Dyspnea, unspecified (principal); Z20.822 Contact with and (suspected) exposure to COVID-19; J44.9 Chronic obstructive pulmonary disease, unspecified; I11.0 Hypertensive heart disease with heart failure; I50.9 Heart failure, unspecified; I70.0 Atherosclerosis of aorta; E66.01 Morbid (severe) obesity due to excess calories; Z68.43 Body mass index [BMI] 50.0-59.9, adult; K43.9 Ventral hernia without obstruction or gangrene; M19.90 Unspecified osteoarthritis, unspecified site; Z86.718 Personal history of other venous thrombosis and embolism; Z87.891 Personal history of nicotine dependence; Z96.653 Presence of artificial knee joint, bilateral; Z90.710 Acquired absence of both cervix and uterus; Z90.49 Acquired absence of other specified parts of digestive tract; I44.7 Left bundle-branch block, unspecified
CPT/HCPCS: 36415; 71045; 71275; 74174; 80053; 83880; 84484; 85025; 85610; 85730; 87637; 93005; 99284; Q9967

== ENCOUNTER 2024-11-24 11:07 | Outpatient (CLI) | payer OTHER, SELFPAY ==
--- NOTE | ~2024-11-24 | CT_ITS ---
CT Scan of the Chest without Contrast: Clinical Indication: Nicotine dependence Technique: Contiguous sections were acquired throughout the chest without intravenous contrast. Dose reduction technique was used on this scan by utilizing automated exposure control and iterative recon struction technique. The dose-length product (DLP) was 245.00 mGy-cm. COMPARISON: 07/24/2024 Findings: There is no evidence of any significant mediastinal, hilar or axillary lymphadenopathy. The mediastin al soft tissues appear normal. There is no evidence of pleural or pericardial effusion. There is curvilinear bibasilar atelectasis or scarring. No discrete pulmonary nodule evident. Images through the upper abdomen reveal no abnormalities. Impression: Curvilinear bibasilar atelectasis or scarring. No discrete pulmonary nodule seen. Reviewed, dictated and finalized at [facility]. Impression: Curvilinear bibasilar atelectasis or scarring. No discrete pulmonary nodule see n.
--- OUTSIDE RECORDS SUMMARY | 2024-11-24 11:12 | XMS_ITS | Clinical Summary ---
Author Organization [facility] Address [address] [place] [address] Care Team Providers Care Rehabilitation Services Aide Name Role Phone Aayush Contreras DO Primary Care Provider [phone] Allergies Active Allergy Reactions Criticality Noted Date Comments Amoxicillin Shortness of breath High 04/27/2023 Azithromycin Shortness of breath High 04/27/2023 Erythromycin Shortness of breath High 04/27/2023 Iodine Headache Low 12/08/2021 Penicillin G Shortness of breath High 04/27/2023 Medications albuterol HFA (PROVENTIL HFA,VENTOLIN HFA,PROAIR HFA) 90 mcg/actuation inhaler INHALE 1 PUFF FOUR TIMES DAILY 3 Active albuterol 2.5 mg /3 mL (0.083 %) nebulizer solution 2.5 MG (3 ML) INHALED EVERY 4 - 6 HOURS NEEDED FOR SHORTNESS OF BREATH OR WHEEZING 3 Active Breztri Aerosphere 160-9-4.8 mcg/actuation HFA aerosol inhaler INHALE 2 PUFFS EVERY DAY IN THE MORNING AND IN THE EVENING RINSE AND SPIT. 3 Active estradioL (ESTRACE) 0.5 mg tablet Take 1 tablet (0.5 mg total) by mouth daily 3 Active famotidine (PEPCID) 20 mg tablet 20 MG ORALLY TWICE A DAY 3 Active meloxicam (MOBIC) 15 mg tablet Take 1 tablet (15 mg total) by mouth daily 3 Active montelukast (SINGULAIR) 10 mg tablet Take 1 tablet (10 mg total) by mouth daily 3 Active omeprazole (PriLOSEC) 20 mg capsule Take 1 capsule (20 mg total) by mouth 2 (two) times a day 3 Active theophylline (THEODUR) 300 mg 12 hr tablet Take 1 tablet (300 mg total) by mouth every 12 (twelve) hours 3 Active ascorbic acid, vitamin C, (VITAMIN C) 1,000 mg CR tablet Take 1 tablet (1,000 mg total) by mouth daily Active calcium carbonate-vitam in D3 1,500 mg (600mg elemental) -800 unit per tablet Take 1 tablet by mouth daily Active multivit with min-folic acid 200 mcg tablet,chewable Take by mouth Active vitamin B complex capsule Take 1 capsule by mouth daily Active vitamin E 400 unit capsule Take 1 capsule (400 Units total) by mouth Active cholecalciferol (VITAMIN D-3) 5,000 unit tablet Active sacubitriL-vals maxwell (ENTRESTO) 49-51 mg tabletIndicatio ns:chronic heart failure Take 1 tablet by mouth 2 (two) times a day 60 tablet 11 4 Active furosemide (LASIX) 40 mg tablet Take 1 tablet (40 mg total) by mouth daily 90 tablet 2 4 Active spironolactone (ALDACTONE) 25 mg tablet TAKE 1 TABLET (25 MG TOTAL) BY MOUTH DAILY. 90 tablet 3 4 Active aspirin 81 mg chewable tablet TAKE 1 TABLET BY MOUTH EVERY DAY 90 tablet 3 4 Active Jardiance 10 mg tabletIndicatio ns:Unspecified systolic (congestive) heart failure (HCC) TAKE 1 TABLET BY MOUTH EVERY DAY 90 tablet 3 5 Active Active Problems Problem Noted Date Diagnosed Date Essential hypertension 03/06/2024 Nonischemic cardiomyopathy 03/06/2024 LBBB (left bundle branch block) 03/06/2024 Chronic obstructive pulmonary disease 03/06/2024 Heart failure with reduced e jection fraction due to cardiomyopathy 03/06/2024 Body mass index (BMI) of 50-59.9 in adult 2023 Morbidly obese 03/06/2024 Surgical History Surgery Date Site/Laterality Comments SECTION HYSTERECTOMY HERNIA REPAIR ADHESIOLYSIS Medical History Medical History Date Comments COPD (chronic obstructive pulmonary disease) (HC C) Morbid obesity (HCC) GERD (gastroesophageal reflux disease) Hypertension Cervical cancer (HCC) Social History Tobacco Use Types Packs/Day Years Used Date Smoking Tobacco: Former Cigarettes 2 30 0 10/19/1976 - 10/19/2006 Smokeless Tobacco: Never Tobacco Cessation:Counseling Given: Not Answered Personal Safety Answer Date Recorded Getting School Help Needed Not on file 09/14 Comments Unknown Sex and Gender Information Value Date Recorded Sex Assigned at Not on file 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 Gender Identity Not on file Sexual Orientation Not on file Obstetrics History Last Filed Vital Signs Vital Sign Reading Time Taken Comments Blood Pressure 120/78 03/06/2024 1:42 PM CDT Pulse 84 03/06/2024 1:42 PM CDT Temperature - - Respiratory Rate 16 03/06/2024 1:42 PM CDT Oxygen Saturation 95% 10/20/2023 10:07 AM CDT Inhaled Oxygen Concentration - - Weight 117 kg (258 lb) 03/06/2024 1:42 PM CDT Height 152.4 cm (5') 03/06/2024 1:42 PM CDT Body Mass Index 50.39 03/06/2024 1:42 PM CDT Plan of Treatment Health Maintenance Due Date Last Done Comments Breast Cancer Screening-Mammogram 1953 Colon Cancer Screening-Colonoscopy 1953 Depression Screening 1953 Fall Risk Assessment 1953 Hepatitis C Screening 1953 Osteoporosis Screening-Bone Density Scan 1953 DTaP/Tdap/Td Vaccine (1 - Tdap) 1964 Hepatitis B Screening 1971 Pneumococcal vaccine 65+ (1 of 2 - PCV) 1972 Zoster Vaccine (1 of 2) 2003 Well Visit 65+ 2018 Covid-19 Vaccine (3 - season) 2024, 10/14/2020 Influenza Vaccine (Season Ended) 2025 Insurance [facility] Care Teams Rehabilitation Services Aide Relationship Specialty Start Date End Date Aayush Contreras DO PCP - General Internal Medicine 10/20/23
--- OUTSIDE RECORDS SUMMARY | 2024-11-24 11:12 | XMS_ITS | Clinical Summary ---
Author Organization [facility] Address [address] [place] [address] Care Team Providers Care Heater Tender Name Role Phone Unavailable Primary Care Provider Unavailabl e Source Comments [facility],non-owned Affiliates and Associated Physician Practices is amultiple site organization consisting of ambulatory clinics and hospital sitesin [place], [place], [place] and [place]. This disclosure is being madepursuant to the Care Everywhere program and may not contain all information available regarding this patient. 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 Gender Identity Not on file Sexual Orientation Not on file Plan of Treatment Health Maintenance Due Date Last Done Comments BONE DENSITY TESTING 1953 COLOGUARD (AGES 45-75) - COL ON CA SCREENING 1953 COLON MONITORING 1953 COLONOSCOPY - COLON CA SCREENING 1953 CT COLONOGRAPHY - COLON CA SCREENING 1953 Colorectal Cancer Screening 1953 FIT - COLON CA SCREENING 1953 FLEX SIG - COLON CA SCREENING 1953 LIPID TESTING 1953 MAMMOGRAM 1953 MEDICARE AWV 12 MONTHS 1953 HEPATITIS C SCREENING 09/25/1971 DTAP/TDAP/TD VACCINES (1 - Tdap) 1972 PNEUMOCOCCAL VACCINE 50+ (1 of 1 - PCV) 2003 ZOSTER VACCINE (1 of 2) 2003 COVID-19 VACCINE ( - 2023-2 5 season) 2024 DEPRESSION SCREENING 08/08/2024 INFLUENZA VACCINE (Season Ended) 2025 Respiratory Syncytial Virus (RSV) Vaccine Pt: or over 60 yrs (1 - 1-dose 75+ series) 2028 HEPATITIS B VACCINE Aged Out No longe r eligible based on patient's age to complete this topic HIB VACCINE Aged Out No longer eligi ble based on patient's age to complete this topic HPV VACCINE Aged Out No longer eligi ble based on patient's age to complete this topic MENINGOCOCCAL (Group B) VACC INE SHARED DECISION-MAKING Aged Out No longer eligibl e based on patient's age to complete this topic MENINGOCOCCAL GROUPS A/C/Y/W VACCINE Aged Out No longer eligible b ased on patient's age to complete this topic Insurance [facility] [place]IC[place] [address] [address] [place] [phone] SELF PAY NO INSURANCE Member Subscriber Plan / Payer (Ef fective for All Dates) Name:Jordy Hernandez Member ID:Not on file Relation to Subscriber:Not on file Name:JORDY HERNANDEZ Subscriber ID:Not on file Address: [address] [place] [address] Payer ID:Not on file Group ID:Not on file Type:Self Pay Address: [place], [place] [facility] SELF PAY NO INSURANCE Member Subscriber Plan / Payer (Ef fective for All Dates) Name:MaryJordy thurston Member ID:Not on file Relation to Subscriber:Not on file Name:MARYJORDY TUHRSTON Subscriber ID:Not on file Address: [address] [place] [address] Payer ID:Not on file Group ID:Not on file Type:Self Pay Address: [place], [place] [facility] MED[facility] SELF PAY NO INSURANCE Member Subscriber Plan / Payer (Ef fective for All Dates) Name:Jordy Hernandez Member ID:Not on file Relation to Subscriber:Not on file Name:JORDY HERNANDEZ Subscriber ID:Not on file Address: [address] [place] [address] Payer ID:Not on file Group ID:Not on file Type:Self Pay Address: [place], [place]
--- OUTSIDE RECORDS SUMMARY | 2024-11-24 11:12 | XMS_ITS | Referral Summary ---
Author Organization [facility] Address [address] [place] [address] Care Team Providers Care Certified Hearing Instrument Dispenser Name Role Phone Aayush Contreras DO Primary Care Provider [phone]- [phone] Allergies Active Allergy Reactions Criticality Noted Date [...] 50-59.9 in adult 2023 Morbidly obese 03/06/2024 Social History Tobacco Use Types Packs/Day Years Used Date Smoking Tobacco: Former Cigarettes 2 30 0 10/19/1976 - 10/19/2006 Smokeless Tobacco: Never Tobacco Cessation:Counseling Given: Not Answered Personal Safety Answer Date Recorded Getting School Help Needed Not on file 09/14 Comments Unknown Sex and Gender Information Value Date Recorded Sex Assigned at Not on file 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
== END 2024-11-24 11:08 | disposition home or self-care (01) ==
PROVIDERS: PCP Internal Medicine; Visit Provider Physician Assistant
DX: R91.8 Other nonspecific abnormal finding of lung field (principal); Z87.891 Personal history of nicotine dependence
CPT/HCPCS: 71250

== ENCOUNTER 2024-12-13 11:59 | Outpatient (CLI) | payer OTHER, SELFPAY ==
--- NOTE | ~2024-12-13 | MM_ITS ---
EXAMINATION: MM screening aron BI w otis HISTORY: Screening TECHNIQUE: Craniocaudal and mediolateral oblique 3-D tomosynthesis images were obtained and synthetic 2-D images were generated. CAD analysis was submitted and interpreted. COMPARISON: Comparison to multiple prior studies sequentially, with oldest reviewed study dated 05/08. BREAST PARENCHYMAL COMPOSITION: Not dense: There are scattered areas of fibroglandular density. FINDINGS: There is no evidence of suspicious mass, calcification, or architectural distortion to sugg est malignancy in either breast. There has been no suspicious interval change. IMPRESSION: 1. No mammographic evidence of malignancy. 2. Recommend routine screening mammography in one year. BI-RADS Category 1: Negative Reviewed, dictated and finalized at location A.
== END 2024-12-13 12:00 | disposition home or self-care (01) ==
LOC: MICIMG 11:59
PROVIDERS: PCP Internal Medicine; Visit Provider Clinical Nurse Specialist
DX: Z12.31 Encounter for screening mammogram for malignant neoplasm of breast (principal)
CPT/HCPCS: 77063; 77067

== ENCOUNTER 2024-12-25 09:10 | Outpatient (CLI) | payer OTHER, SELFPAY ==
--- NOTE | ~2024-12-25 | US_ITS ---
EXAM: ABDOMEN ULTRASOUND HISTORY: K74.60 - Unspecified cirrhosis of liver COMPARISON: Reference is made to CT examination of the chest abdomen and pelvis dated 07/24/2024 FINDINGS: LIVER: The liver is increased in echogenicity and size. What is designated on the submitted images as the portal vein is patent, demonstrating markedly phasi c, hepatopedal flow. The contour of the liver surface is smooth. GALLBLADDER: The gallbladder is surgically absent. BILE DUCTS: Common bile duct measures 7.3mm. PANCREAS: Limited evaluation of the pancreas secondary to overlying bowel gas IMPRESSION: Fatty infiltration of an enlarged liver. Reviewed, dictated and finalized at location A.
== END 2024-12-25 09:11 | disposition home or self-care (01) ==
LOC: MICIMG 09:10
PROVIDERS: PCP Internal Medicine; Visit Provider Clinical Nurse Specialist
DX: K76.0 Fatty (change of) liver, not elsewhere classified (principal); K74.60 Unspecified cirrhosis of liver
CPT/HCPCS: 76705

== ENCOUNTER 2025-02-11 12:11 | Emergency (ER) | payer OTHER, SELFPAY ==
[2025-02-11] VITALS (13 sets, daily range): BP systolic 109–135; BP diastolic 46–75; PULSE 69–91; RESP 13–20; TEMP 36.5; O2SAT 94–98
--- NOTE | ~2025-02-11 | XR_ITS ---
EXAM/PROCEDURE: XR chest 2V - 02/11/2025 13:15 CDT HISTORY: 69 years old Female with chest pain TECHNIQUE: Two view(s) of the chest. COMPARISON: None available. FINDINGS: LUNGS/ PLEURA: No focal consolidation. No appreciable pneumothorax or large pleural effusion. HEART/ MEDIASTINUM: Heart appears normal in size. Atherosclerotic calcifications are seen. BONES: Degenerative changes. OTHER: Visualized upper abdomen is unremarkable. IMPRESSION: No acute process. Reviewed, dictated and finalized at location A. IMPRESSION: No acute process.
--- NOTE | ~2025-02-11 | CT_ITS ---
EXAMINATION: CT brain wo con DATE: 02/11/2025 13:15 INDICATION: confusion . TECHNIQUE: Computed tomography (CT) of the head was performed without intravenous contrast. The mA wa s adjusted according to patient size. Iterative reconstruction technique was employed. The dose-lengt h product was 605.33 mGy-cm. COMPARISON: 11/18/2021. FINDINGS: Notified by Adilia Mendiola about a late report on this examination. This examination was ordered/ performed under routine status. Although showing on the work list as dictated, I could not find a rep ort in the dictating Radiologist's cue, and therefore will dictate now. Technical issues were occurri ng with work lists and transverse speeds at that time. No acute intracranial hemorrhage or extra-axial fluid collection. No hydrocephalus, mass, or herniation. No acute ischemic infarct. Unremarkable dural venous sinus attenuation. No acute osseous abnormality. The aerated spaces are clear. Mild atrophy and chronic white matter change. Atherosclerotic intracranial calcification. IMPRESSION: No acute intracranial process. Results reported telephonically to SALINA Mirza by Dr. Sims at 6:53 PM on 02/11/2025. Reviewed, dictated and finalized at location K. IMPRESSION: No acute intracranial process. Results reported telephonically to SALINA Mirza by Dr. Sims at 6:5 3 PM on 02/11/2025.
--- OUTSIDE RECORDS SUMMARY | 2025-02-11 12:14 | XMS_ITS | Clinical Summary ---
Author Organization [facility] Address [address] [place] [address] Care Team Providers Care Cinder Dump Crane Operator Name Role Phone Aayush Contreras DO Primary Care Provider [phone] Allergies Active Allergy Reactions Criticality Noted Date Comments Amoxicillin Shortness of breath High 04/27/2023 Azithromycin Shortness of breath High 04/27/2023 Erythromycin Shortness of breath High 04/27/2023 Iodine Headache Low 12/08/2021 Penicillin G Shortness of breath High 04/27/2023 Medications albuterol HFA (PROVENTIL HFA,VENTOLIN HFA,PROAIR HFA) 90 mcg/actuation inhaler INHALE 1 PUFF FOUR TIMES DAILY 04/12/20 23 Active albuterol 2.5 mg /3 mL (0.083 %) nebulizer solution 2.5 MG (3 ML) INHALED EVERY 4 - 6 HOURS NEEDED FOR SHORTNESS OF BREATH OR WHEEZING 04/13/20 23 Active Breztri Aerosphere 160-9-4.8 mcg/actuation HFA aerosol inhaler INHALE 2 PUFFS EVERY DAY IN THE MORNING AND IN THE EVENING RINSE AND SPIT. 04/09/20 23 Active estradioL (ESTRACE) 0.5 mg tablet Take 1 tablet (0.5 mg total) by mouth daily 04/12/20 23 Active famotidine (PEPCID) 20 mg tablet 20 MG ORALLY TWICE A DAY 04/12/20 23 Active meloxicam (MOBIC) 15 mg tablet Take 1 tablet (15 mg total) by mouth daily 03/27/20 23 Active montelukast (SINGULAIR) 10 mg tablet Take 1 tablet (10 mg total) by mouth daily 03/27/20 23 Active theophylline (THEODUR) 300 mg 12 hr tablet Take 1 tablet (300 mg total) by mouth every 12 (twelve) hours 02/21/20 23 Active ascorbic acid, vitamin C, (VITAMIN C) 1,000 mg CR tablet Take 1 tablet (1,000 mg total) by mouth daily Active calcium carbonate-brittni min D3 1,500 mg (600mg elemental) -800 unit per tablet Take 1 tablet by mouth daily Active multivit with min-folic acid 200 mcg tablet,chewabl e Take by mouth Active vitamin B complex capsule Take 1 capsule by mouth daily Active vitamin E 400 unit capsule Take 1 capsule (400 Units total) by mouth Active cholecalcifero l (VITAMIN D-3) 5,000 unit tablet Active spironolactone (ALDACTONE) 25 mg tablet TAKE 1 TABLET (25 MG TOTAL) BY MOUTH DAILY. 90 tablet 3 06/11/20 24 Active aspirin 81 mg chewable tablet TAKE 1 TABLET BY MOUTH EVERY DAY 90 tablet 3 06/11/20 24 Active Jardiance 10 mg tabletIndicati ons:Unspecifie d systolic (congestive) heart failure (HCC) TAKE 1 TABLET BY MOUTH EVERY DAY 90 tablet 3 08/21/19 25 Active furosemide (LASIX) 40 mg tablet TAKE 1 TABLET BY MOUTH EVERY DAY 90 tablet 2 01/02/[address] (PROTONIX) 40 mg EC tablet Take 1 tablet (40 mg total) by mouth daily 01/16/20 25 Active escitalopram (LEXAPRO) 5 mg tablet Take 1 tablet (5 mg total) by mouth daily 01/05/20 25 Active Entresto 49-51 mg tablet TAKE 1 TABLET BY MOUTH TWICE A DAY 180 tablet 3 01/18/20 25 Active omeprazole (PriLOSEC) 20 mg capsule Take 1 capsule (20 mg total) by mouth 2 (two) times a day 03/02/20 23 025 Discontinued( erapy completed) sacubitriL-dodie sartan (ENTRESTO) 49-51 mg tabletIndicati ons:chronic heart failure Take 1 tablet by mouth 2 (two) times a day 60 tablet 11 01/23/20 24 025 Discontinued Active Problems Problem Noted Date Diagnosed Date Hypersomnolence 01/15/2025 Morbid obesity with BMI of 45.0-49.9, adult 01/06 Essential hypertension 03/06/2024 Nonischemic cardiomyopathy 03/06/2024 LBBB (left bundle branch block) 03/06/2024 Chronic obstructive pulmonary disease 03/06/2024 Heart failure with reduced e jection fraction due to cardiomyopathy 03/06/2024 Morbidly obese 03/06/2024 Resolved Problems Problem Noted Date Diagnosed Date Resolved Date Body mass index (BMI) of 50-59.9 in adult 03/06/2024 01/15/2025 Encounters Date Type Department Care Team Description 01/15/2025 11:15 AM CDT Office Visit [facility] Cardiology at [address] [place] [address] Amadeo Schrader MD Heart failure with reduced ejection fraction due to cardiomyopathy (HCC) (Primary Dx); Heart failure, unspecified (HCC); LBBB (left bundle branch block); Nonischemic cardiomyopathy (HCC); Hypersomnolence; Morbid obesity with BMI of 45.0-49.9, adult (HCC) from Last 3 Months Surgical History Surgery Date Site/Laterality Comments SECTION HYSTERECTOMY HERNIA REPAIR ADHESIOLYSIS Medical History Medical History Date Comments COPD (chronic obstructive pulmonary disease) (HC C) Morbid obesity (HCC) GERD (gastroesophageal reflux disease) Hypertension Cervical cancer (HCC) Social History Tobacco Use Types Packs/Day Years Used Date Smoking Tobacco: Former Cigarettes 2 30 0 10/19/1976 - 10/19/2006 Smokeless Tobacco: Never Tobacco Cessation:Counseling Given: Not Answered Comments Unknown Sex and Gender Information Value Date Recorded Sex Assigned at Not on file 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 Gender Identity Not on file Sexual Orientation Not on file Obstetrics History Last Filed Vital Signs Vital Sign Reading Time Taken Comments Blood Pressure 108/72 01/15/2025 11:38 AM CDT Pulse 98 01/15/2025 11:38 AM CDT Temperature - - Respiratory Rate 16 03/06/2024 1:42 PM CDT Oxygen Saturation 98% 01/15/2025 11:38 AM CDT Inhaled Oxygen Concentration - - Weight 112.5 kg (248 lb) 01/15/2025 11:38 AM CDT Height 152.4 cm (5') 01/15/2025 11:38 AM CDT Body Mass Index 48.43 01/15/2025 11:38 AM CDT Plan of Treatment Health Maintenance Due [...] (3 - season) 2024, 10/14/2020 Influenza Vaccine (#1) 2025 Procedures Procedure Name Priority Date/Time Associated Diagnosis Comments POCT LIPID PANEL Routine 01/15/2025 11:3 8 AM CDT Heart failure with reduced ejection fraction due to cardiomyopathy (HCC) from Last 3 Months Results * POCT lipid panel (01/15/2025 11:38 AM CDT) Cholesterol, POC 160 <200 MG/DL Triglycerides, POC 135 <=149 mg/dL Cholesterol Total, POC 160 30 - 199 mg/dL Capillary blood 01/15/2025 1 1:38 AM CDT us Amadeo Schrader MD POINT OF CARE TEST ORDERA BLES Final Result from Last 3 Months Insurance [facility] Member Subscriber Plan / Payer (Ef fective 2022-Present) Name:Em Hernandez Relation to Subscriber:Self Name:Em Hernandez Payer ID:[id number] (NAIC) Type:MEDICARE RISK OTHER Address: [address] [place] [id number] [facility] Care Teams Cinder Dump Crane Operator Relationship Specialty Start Date End Date Aayush Contreras DO PCP - General Internal Medicine 10/20/23
--- OUTSIDE RECORDS SUMMARY | 2025-02-11 12:14 | XMS_ITS | Referral Summary ---
Author Organization [facility] Address [address] [place] [address] Care Team Providers Care Pit Shovel Operator Name Role Phone Aayush Contreras DO Primary Care Provider [phone]- [phone] Encounters Date Type Department Care Team Description 01/15/2025 11:15 AM CDT Office Visit [facility] Cardiology at [address] [place] [address] Amadeo Schrader MD Heart failure with reduced ejection fraction due to cardiomyopathy (HCC) (Primary Dx); Heart failure, unspecified (HCC); LBBB (left bundle branch block); Nonischemic cardiomyopathy (HCC); Hypersomnolence; Morbid obesity with BMI of 45.0-49.9, adult (HCC) from Last 3 Months Allergies Active Allergy Reactions Criticality Noted Date [...] NEEDED FOR SHORTNESS OF BREATH OR WHEEZING 09/06/20 23 Active Breztri Aerosphere 160-9-4.8 mcg/actuation HFA aerosol inhaler INHALE 2 PUFFS EVERY DAY IN THE MORNING AND IN THE EVENING RINSE AND SPIT. 04/09/20 Active estradioL (ESTRACE) 0.5 mg tablet Take 1 tablet (0.5 mg total) by mouth daily 04/12/20 Active famotidine (PEPCID) 20 mg tablet 20 MG ORALLY TWICE A DAY 04/12/20 Active meloxicam (MOBIC) 15 mg tablet Take 1 tablet (15 mg total) by mouth daily 03/27/20 Active montelukast (SINGULAIR) 10 mg tablet Take 1 tablet (10 mg total) by mouth daily 03/27/20 Active theophylline (THEODUR) 300 mg 12 hr tablet Take 1 tablet (300 mg total) by mouth every 12 (twelve) hours 02/21/20 Active ascorbic acid, vitamin C, (VITAMIN C) [...] (two) times a day 03/02/20 23 025 Discontinued(Th erapy completed) sacubitriL-dodie sartan (ENTRESTO) 49-51 mg [...] (BMI) of 50-59.9 in adult 03/06/2024 01/15/2025 Social History Tobacco Use Types Packs/Day Years Used Date Smoking Tobacco: Former Cigarettes 2 30 0 10/19/1976 - 10/19/2006 Smokeless Tobacco: Never Tobacco Cessation:Counseling Given: Not Answered Comments Unknown Sex and Gender Information Value Date Recorded Sex Assigned at Not on file 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 Care Teams Pit Shovel Operator Relationship Specialty Start Date End Date Aayush Contreras DO PCP - General Internal Medicine 10/20/23
--- OUTSIDE RECORDS SUMMARY | 2025-02-11 12:14 | XMS_ITS | Clinical Summary ---
Author Organization [facility] Address [address] [place] [address] Care Team Providers Care Security System Sales Consultant Name Role Phone Unavailable Primary Care Provider Unavailabl e Source Comments [facility],non-owned Affiliates and Associated Physician Practices is amultiple site organization consisting of ambulatory clinics and hospital sitesin [place], [place], [place] and [place]. This disclosure is being madepursuant to the Care Everywhere program and may not contain all information available regarding this patient. Last updated 18.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 SELF PAY NO INSURANCE Member Subscriber Plan / Payer (Ef fective for All Dates) Name:Jordy Hernandez Member ID:Not on file Relation to Subscriber:Not on file Name:JORDY HERNANDEZ Subscriber ID:Not on file Address: [address] [place] [address] Payer ID:Not on file Group ID:Not on file Type:Self Pay Address: [place], [place] [facility] SELF PAY NO INSURANCE Member Subscriber Plan / Payer (Ef fective for All Dates) Name:MaryJordy thurston Member ID:Not on file Relation to Subscriber:Not on file Name:MARYJORDY THURSTON Subscriber ID:Not on file Address: [address] [place] [address] Payer ID:Not on file Group ID:Not on file Type:Self Pay Address: [place], [place] [facility] SELF PAY NO INSURANCE Member Subscriber Plan / Payer (Ef fective for All Dates) Name:Jordy Hernandez Member ID:Not on file Relation to Subscriber:Not on file Name:JORDY HERNANDEZ Subscriber ID:Not on file Address: [address] [place] [address] Payer ID:Not on file Group ID:Not on file Type:Self Pay Address: [place], [place]
--- NOTE | 2025-02-11 12:36 | ECG_ITS ---
Test Date: 2025-02-11 12:54:14 Measurements Intervals [place] Rate: 89 P: 52 [place]: 161 QRS: 15 QRSD: 134 T: 78 QT: 395 QTc: 481 Interpretive Statements SINUS RHYTHM LEFT BUNDLE BRANCH BLOCK [120+ ms QRS DURATION, 80+ ms Q/S IN V1/V2, 85+ ms R IN I/aVL/V5/V6] Compared to ECG 07/24/2024 16:49:31 No significant changes Electronically Signed On 02-11-2025 22:15:28 CDT by Perry Yi M.D.
--- NOTE | 2025-02-11 12:38 | ED.AMS ---
HPI - Altered Mental Status General Chief Complaint: Altered Mental Status <Lynsey Ham PA-C - Last Filed: 02/12/25 09:34> Stated Complaint: I've been sleeping all weekend, balance trouble <Lynsey Ham PA-C - Last Filed: 02/12/25 09:34> Time Seen by Provider: 02/11/25 12:38 <SARAH Erazo Last Filed: 02/12/25 09:34> Focused HPI: This is a 69 year old female that presents to the ER for weakness. Reports decreased appetite. Reports chest tightness. Reports left shoulder pain. Reports her family members feel she has been slurring her speech. She has been having these symptoms for the last 4 days. Family reports she has been confused. She has been off balance. GENERAL: Elderly, well-nourished, and in no acute distress. HEAD: Normocephalic, atraumatic. CHEST: Clear to auscultation. ?No respiratory distress. HEART: Regular rate and rhythm.? NEURO: ?Alert and oriented x3. Patient screened in triage and initial orders placed.? ?Additional care and disposition to be based upon?diagnostic testing and treatment. <Lynsey Ham PA-C - Last Filed: 02/12/25 09:34> Focused HPI: This is a 69 year old female that presents to the ER for weakness. Reports decreased appetite. Reports chest tightness. Reports left shoulder pain. Reports her family members feel she has been slurring her speech. She has been having these symptoms for the last 4 days. Family reports she has been confused. She has been off balance. GENERAL: Elderly, well-nourished, and in no acute distress. HEAD: Normocephalic, atraumatic. CHEST: Clear to auscultation. ?No respiratory distress. HEART: Regular rate and rhythm.? NEURO: ?Alert and oriented x3. Patient screened in triage and initial orders placed.? ?Additional care and disposition to be based upon?diagnostic testing and treatment. <SARAH Mccullough Last Filed: 02/11/25 19:44> Source: patient <SARAH Mccullough Last Filed: 02/11/25 19:44> Mode of arrival: ambulatory <SARAH Mccullough Last Filed: 02/11/25 19:44> Limitations: no limitations <SARAH Mccullough Last Filed: 02/11/25 19:44> History of Present Illness HPI narrative: Agree with above HPI. Daughter at bedside assisted in providing information. Patient lives with daughter. Patient uses a walker for assistance with ambulation. Patient denies focal numbness or weakness. She states she has been getting up to use the bathroom and has been eating/drinking when she is awake. She states she just feels tired. She also reports having intermittent chest pain and shortness of breath since Tuesday. Has history of congestive heart failure, COPD. Supposed to see her neurology teacher, Dr. Schrader, tomorrow. She is also supposed to have a sleep study performed soon. Denies lower extremity swelling, cough, fevers. <SARAH Mccullough Last Filed: 02/11/25 19:44> Related Data Home Medications: Home Medications ?Medication ?Instructions ?Recorded ?Confirmed ?Last Taken ?Type acetaminophen 500 mg tablet 100 mg PO QID PRN Pain 10/12/23 02/07/25 11/15/23 History (Tylenol Extra Strength) furosemide 40 mg tablet 40 mg PO DAILY 10/31/23 02/07/25 11/15/23 History sacubitril 49 mg-valsartan 51 mg 1 tablet PO BID 03/12/24 02/07/25 Unknown History tablet <SARAH Erazo Last Filed: 02/12/25 09:34> Allergies/Adverse Reactions: Allergies Allergy/AdvReac Type Severity Reaction Status Date / Time adhesive tape Allergy Intermediate BLISTER/REDNESS/SWELLING Verified 02/07/25 12:57 AT SITE amoxicillin Allergy Unknown Unknown Verified 02/07/25 12:57 azithromycin Allergy Unknown unknown Verified 02/07/25 12:57 erythromycin base Allergy Unknown unknow Verified 02/07/25 12:57 Penicillins Allergy Unknown unknown Verified 02/07/25 12:57 doxycycline AdvReac Mild Diarrhea Verified 02/07/25 12:57 morphine AdvReac Itching Verified 02/07/25 12:57 <SARAH Erazo Last Filed: 02/12/25 09:34> Review of Systems Review of Systems: All systems reviewed & are unremarkable except as noted in HPI. <China Mendiola PA-C - Last Filed: 02/11/25 19:44> All systems reviewed & are unremarkable except as noted in HPI and below <China Mendiola PA-C - Last Filed: 02/11/25 19:44> [facility] Past Medical History Medical History: Medical History (Updated 02/12/25 @ 09:34 by Lynsey Ham PA-C) Cirrhosis Cirrhosis of liver without ascites Personal history of nicotine dependence Hospital discharge follow-up Encounter to establish care Dizziness Localized swelling, mass and lump, left upper limb Right ankle pain Hypokalemia Urinary frequency Abdominal pain, epigastric Morbid obesity with BMI of 50.0-59.9, adult Hyperglycemia Bruising, spontaneous Left bundle branch block Chest pain Elevated troponin Chest pain Heart failure, unspecified Acute exacerbation of congestive heart failure Morbid obesity Chronic obstructive pulmonary disease Heart failure with reduced ejection fraction Echocardiogram in September 2023; moderately reduced LV systolic function with an EF estimated at 35 to 40% and grade 1 diastolic dysfunction. Deep venous thrombosis (1973) Following an ankle fracture. Hiatal hernia Hypertension Aortic atherosclerosis (07/2015) Noted on CT of the abdomen and pelvis. Ventral hernia Arthritis <Lynsey Ham PA-C - Last Filed: 02/12/25 09:34> Surgical History Surgical History: Surgical History History of 2 sections History of bilateral knee arthroplasty History of back surgery 1984 and 1985 History of appendectomy History of bladder suspension procedure x2 History of total hysterectomy History of cholecystectomy History of hernia repair <Lynsey Ham PA-C - Last Filed: 02/12/25 09:34> Family History Family History: Family History Sibling Family history of thyroid disease Lung cancer Mother Family history of lung cancer Father Family history of heart disease in male family member before age 55 Other Diabetes mellitus Family history of allergic disorder Family history of cardiovascular disease Hypertension <Lynsey Ham PA-C - Last Filed: 02/12/25 09:34> Social History Social History: Social History Social History: Caffeine-diet soda/coffee Surrogate medical decision maker: Franchesca Bonilla, daughter. Code status: Full code. Smoking packs per day: 2.5 Smoking cigarettes per day: 50.0 Years smoked: 35 Smoking pack-years: 87.50 Smoking status: Former smoker Tobacco type: cigarettes Second hand tobacco smoke exposure: No Smoking end date: 10/29/16 Alcohol intake: never Substance use: never Substance use type: does not use Do You Feel Safe in your Home?: Yes Lack of Transportation: No Lack of Food: Never True Current Housing: I Have Housing Concerned About Future Housing: No Difficulty Paying Gas/Electric Bills: No Difficulty Paying for Meds: No Currently Unemployed: No Education: Associate Degree Difficulty w/ Childcare or Family Care: No Living arrangements: with family Occupation/Education: retired Spiritual care concerns: No Agree to blood products: Yes <Lynsey Ham PA-C - Last Filed: 02/12/25 09:34> Exam Narrative: GENERAL: Chronically ill-appearing, elderly, morbidly obese with BMI of 48.1, non-toxic, in no acute distress. HEAD: Normocephalic, atraumatic. RESPIRATORY: Airway patent, respirations nonlabored. Clear to auscultation bilaterally, no rales, rhonchi, wheezing. No significant focal lung sounds. CARDIOVASCULAR: Regular rate and rhythm without murmurs, rubs, or gallops. ABDOMINAL: Soft, nontender, nondistended. Normoactive BS. MUSCULOSKELETAL: Moves all extremities. No gross deformities. No significant peripheral edema. SKIN: Warm, dry, normal color. NEURO: A&O X3. Speech clear. Cranial nerves II-XII grossly intact. Steady gait. No ataxic movements. Strength 5 of 5 in upper and lower extremities bilaterally. Equal utility operator strength bilaterally. No pronator drift. PSYCHIATRIC: Appropriate mood and affect. Normal interaction. <China Mendiola PA-C - Last Filed: 02/11/25 19:44> Course Vital Signs Vital signs: Vital Signs Temperature 97.7 F 02/11/25 12:29 Pulse Rate 91 02/11/25 12:29 Respiratory Rate 17 02/11/25 12:29 Blood Pressure 124/75 02/11/25 12:29 Pulse Oximetry 96 02/11/25 12:29 Temperature 97.7 F 02/11/25 12:29 Pulse Rate 83 02/11/25 19:17 Respiratory Rate 16 02/11/25 19:17 Blood Pressure 135/51 L 02/11/25 19:17 Pulse Oximetry 96 02/11/25 19:17 Oxygen Delivery Room Air 02/11/25 17:20 <Lynsey Ham PA-C - Last Filed: 02/12/25 09:34> Vital Signs Temperature 97.7 F 02/11/25 12:29 Pulse Rate 91 02/11/25 12:29 Respiratory Rate 17 02/11/25 12:29 Blood Pressure 124/75 02/11/25 12:29 Pulse Oximetry 96 02/11/25 12:29 Temperature 97.7 F 02/11/25 12:29 Pulse Rate 83 02/11/25 19:17 Respiratory Rate 16 02/11/25 19:17 Blood Pressure 135/51 L 02/11/25 19:17 Pulse Oximetry 96 02/11/25 19:17 Oxygen Delivery Room Air 02/11/25 17:20 <China Mendiola PA-C - Last Filed: 02/11/25 19:44> MDM - Altered Mental Status MDM Narrative Medical decision making narrative: Patient presented to ED with several day history of lethargy, fatigue, intermittent chest pain. Vital signs are stable upon arrival. Patient is in no acute distress. Neurologically intact. No appreciable focal deficits. No slurred speech or dysarthria. Strength equal. CT brain w/o acute findings. Laboratory studies are otherwise fairly unremarkable. No leukocytosis. Hemoglobin 16.3. Possibly hemoconcentrated, though this appears consistent with previous records. Given small amount of fluids in the ED. CMP is unremarkable. Stable electrolytes. Stable kidney function. Blood glucose within normal range. TSH WNL. UA is clear, no signs of infection. Viral swabs negative. Chest x-ray is clear. EKG with chronic left bundle, no concerning ST changes. Troponin negative x3. Very low suspicion for ACS at this time. BNP WNL. D-dimer WNL. Overall workup is reassuring/non revealing. Discussed lab and imaging findings extensively with patient and family at bedside. Utilized shared decision-making regarding discharge versus admission for further workup. Patient would prefer to go home. Does not want to be admitted at this time. Feels comfortable going home. Family is in agreement with this plan. I encouraged very close follow-up with her primary care doctor, neurology teacher, and follow-up with her sleep study. Discussed possibility of VALENTINA causing less restful sleep throughout the night, increased fatigue throughout the day. Discussed very strict return precautions. Patient and family voiced understanding. They are in agreement with plan. Discharged in stable condition. <China Mendiola PA-C - Last Filed: 02/11/25 19:44> Medical Records Attestation: I reviewed the patient's medical records. <SARAH Mccullough Last Filed: 02/11/25 19:44> Lab Data Attestation: I reviewed the patient's lab results. <China Mendiola PA-C - Last Filed: 02/11/25 19:44> Result diagrams: 02/11/25 13:01 02/11/25 13:01 <Lynsey Ham PA-C - Last Filed: 02/12/25 09:34> Labs: Lab Results 02/11/25 02/11/25 02/11/25 Range/Units 13:00 13:01 15:43 WBC 4.4 L (4.5-10.0) K/mm3 RBC 4.69 (4.2-5.4) M/mm3 Hgb 16.3 H (12.0-15.0) g/dL Hct 47.7 H (37.0-47.0) % MCV 101.7 H (80-100) fl MCH 34.8 H (26-34) pg MCHC 34.2 (32-36) g/dl RDW 13.2 (11.5-14.5) % Plt Count 229 (150-375) k/mm3 MPV 10.1 (7.4-10.4) fl Immature Gran % (Auto) 0.2 (0-0.5) % Neut % (Auto) 32.0 L (45.5-73.1) % Lymph % (Auto) 44.8 H (18.3-44.2) % [place] % (Auto) 12.8 H (2.6-8.5) % Eos % (Auto) 7.9 H (0-4.4) % Baso % (Auto) 2.3 H (0.2-1.2) % Lymph # (Auto) 1.99 (0.9-3.2) K/mm3 [place] # (Auto) 0.6 (0.1-0.6) K/mm3 Eos # (Auto) 0.4 H (0-0.3) K/mm3 Baso # (Auto) 0.1 (0.0-0.1) K/mm3 Abs Immat Gran (auto) 0.01 (0.00-0.031) K/mm3 Absolute Neuts (auto) 1.4 (1.3-6.7) K/mm3 Absolute Nucleated RBC 0.000 (0.0-0.012) K/mm3 Nucleated RBC % 0.0 (0.0-0.2) % PT 14.6 (11.1-14.7) Seconds INR 1.2 APTT 26.9 (22.3-36.8) Seconds D-Dimer (<0.48) ug/mL Sodium 138 (137-145) mmol/L Potassium 3.9 (3.4-5.0) mmol/L Chloride 101 (98-107) mmol/L Carbon Dioxide 27 (22-30) mmol/L Anion Gap 10 (4-12) mmol/L BUN 18 H (7-17) mg/dL Creatinine 0.83 (0.7-1.0) mg/dL Estim Creat Clear Calc 62 ml/min Estimated GFR > 60 (59 - ) Glucose 122 H (65-110) mg/dL Calcium 10.0 (8.4-10.2) mg/dL Magnesium 2.2 (1.6-2.3) mg/dL Total Bilirubin 0.8 (0.2-1.3) mg/dL AST 38 H (14-36) U/L ALT 22 (6-35) U/L Alkaline Phosphatase 76 (38-126) U/L Troponin I < 0.012 < 0.012 (0.000-0.034) ng/mL NT-Pro-B Natriuret Pep 34 (19.9-100) pg/mL Total Protein 7.7 (6.3-8.2) g/dL Albumin 4.3 (3.5-5.1) g/dL Lipase 40 (23-300) U/L TSH (Reflex) 3.430 (0.465-4.68) uIU/mL Urine Color Yellow (Yellow) Urine Appearance Clear (Clear) Urine pH 7.0 (5.0-9.0) Ur Specific [place] 1.007 (1.001-1.035) Urine Protein Negative (Negative) mg/dL Urine Glucose (UA) 1+ H (Negative) mg/dL Urine Ketones Negative (Negative) mg/dL Ur Blood (Man) Negative (Negative) Urine Nitrate Negative (Negative) Urine Bilirubin Negative (Negative) Urine Urobilinogen 0.2 (<2.0) mg/dL Leukocyte Esterase Rfl Negative (Negative) MATTHEW/UL Influenza A (RT-PCR) (Negative) Influenza B (RT-PCR) (Negative) RSV (RT-PCR) (Negative) SARS-CoV-2 RNA (RT-PCR) (Negative) 02/11/25 02/11/25 Range/Units 17:58 18:37 WBC (4.5-10.0) K/mm3 RBC (4.2-5.4) M/mm3 Hgb (12.0-15.0) g/dL Hct (37.0-47.0) % MCV (80-100) fl MCH (26-34) pg MCHC (32-36) g/dl RDW (11.5-14.5) % Plt Count (150-375) k/mm3 MPV (7.4-10.4) fl Immature Gran % (Auto) (0-0.5) % Neut % (Auto) (45.5-73.1) % Lymph % (Auto) (18.3-44.2) % [place] % (Auto) (2.6-8.5) % Eos % (Auto) (0-4.4) % Baso % (Auto) (0.2-1.2) % Lymph # (Auto) (0.9-3.2) K/mm3 [place] # (Auto) (0.1-0.6) K/mm3 Eos # (Auto) (0-0.3) K/mm3 Baso # (Auto) (0.0-0.1) K/mm3 Abs Immat Gran (auto) (0.00-0.031) K/mm3 Absolute Neuts (auto) (1.3-6.7) K/mm3 Absolute Nucleated RBC (0.0-0.012) K/mm3 Nucleated RBC % (0.0-0.2) % PT (11.1-14.7) Seconds INR APTT (22.3-36.8) Seconds D-Dimer 0.43 (<0.48) ug/mL Sodium (137-145) mmol/L Potassium (3.4-5.0) mmol/L Chloride (98-107) mmol/L Carbon Dioxide (22-30) mmol/L Anion Gap (4-12) mmol/L BUN (7-17) mg/dL Creatinine (0.7-1.0) mg/dL Estim Creat Clear Calc ml/min Estimated GFR (59 - ) Glucose (65-110) mg/dL Calcium (8.4-10.2) mg/dL Magnesium (1.6-2.3) mg/dL Total Bilirubin (0.2-1.3) mg/dL AST (14-36) U/L ALT (6-35) U/L Alkaline Phosphatase (38-126) U/L Troponin I < 0.012 (0.000-0.034) ng/mL NT-Pro-B Natriuret Pep (19.9-100) pg/mL Total Protein (6.3-8.2) g/dL Albumin (3.5-5.1) g/dL Lipase (23-300) U/L TSH (Reflex) (0.465-4.68) uIU/mL Urine Color (Yellow) Urine Appearance (Clear) Urine pH (5.0-9.0) Ur Specific [place] (1.001-1.035) Urine Protein (Negative) mg/dL Urine Glucose (UA) (Negative) mg/dL Urine Ketones (Negative) mg/dL Ur Blood (Man) (Negative) Urine Nitrate (Negative) Urine Bilirubin (Negative) Urine Urobilinogen (<2.0) mg/dL Leukocyte Esterase Rfl (Negative) MATTHEW/UL Influenza A (RT-PCR) Negative (Negative) Influenza B (RT-PCR) Negative (Negative) RSV (RT-PCR) Negative (Negative) SARS-CoV-2 RNA (RT-PCR) Negative (Negative) <Lynsey Ham PA-C - Last Filed: 02/12/25 09:34> Lab Results 02/11/25 02/11/25 02/11/25 Range/Units 13:00 13:01 15:43 WBC 4.4 L (4.5-10.0) K/mm3 RBC 4.69 (4.2-5.4) M/mm3 Hgb 16.3 H (12.0-15.0) g/dL Hct 47.7 H (37.0-47.0) % MCV 101.7 H (80-100) fl MCH 34.8 H (26-34) pg MCHC 34.2 (32-36) g/dl RDW 13.2 (11.5-14.5) % Plt Count 229 (150-375) k/mm3 MPV 10.1 (7.4-10.4) fl Immature Gran % (Auto) 0.2 (0-0.5) % Neut % (Auto) 32.0 L (45.5-73.1) % Lymph % (Auto) 44.8 H (18.3-44.2) % [place] % (Auto) 12.8 H (2.6-8.5) % Eos % (Auto) 7.9 H (0-4.4) % Baso % (Auto) 2.3 H (0.2-1.2) % Lymph # (Auto) 1.99 (0.9-3.2) K/mm3 [place] # (Auto) 0.6 (0.1-0.6) K/mm3 Eos # (Auto) 0.4 H (0-0.3) K/mm3 Baso # (Auto) 0.1 (0.0-0.1) K/mm3 Abs Immat Gran (auto) 0.01 (0.00-0.031) K/mm3 Absolute Neuts (auto) 1.4 (1.3-6.7) K/mm3 Absolute Nucleated RBC 0.000 (0.0-0.012) K/mm3 Nucleated RBC % 0.0 (0.0-0.2) % PT 14.6 (11.1-14.7) Seconds INR 1.2 APTT 26.9 (22.3-36.8) Seconds D-Dimer (<0.48) ug/mL Sodium 138 (137-145) mmol/L Potassium 3.9 (3.4-5.0) mmol/L Chloride 101 (98-107) mmol/L Carbon Dioxide 27 (22-30) mmol/L Anion Gap 10 (4-12) mmol/L BUN 18 H (7-17) mg/dL Creatinine 0.83 (0.7-1.0) mg/dL Estim Creat Clear Calc 62 ml/min Estimated GFR > 60 (59 - ) Glucose 122 H (65-110) mg/dL Calcium 10.0 (8.4-10.2) mg/dL Magnesium 2.2 (1.6-2.3) mg/dL Total Bilirubin 0.8 (0.2-1.3) mg/dL AST 38 H (14-36) U/L ALT 22 (6-35) U/L Alkaline Phosphatase 76 (38-126) U/L Troponin I < 0.012 < 0.012 (0.000-0.034) ng/mL NT-Pro-B Natriuret Pep 34 (19.9-100) pg/mL Total Protein 7.7 (6.3-8.2) g/dL Albumin 4.3 (3.5-5.1) g/dL Lipase 40 (23-300) U/L TSH (Reflex) 3.430 (0.465-4.68) uIU/mL Urine Color Yellow (Yellow) Urine Appearance Clear (Clear) Urine pH 7.0 (5.0-9.0) Ur Specific [place] 1.007 (1.001-1.035) Urine Protein Negative (Negative) mg/dL Urine Glucose (UA) 1+ H (Negative) mg/dL Urine Ketones Negative (Negative) mg/dL Ur Blood (Man) Negative (Negative) Urine Nitrate Negative (Negative) Urine Bilirubin Negative (Negative) Urine Urobilinogen 0.2 (<2.0) mg/dL Leukocyte Esterase Rfl Negative (Negative) MATTHEW/UL Influenza A (RT-PCR) (Negative) Influenza B (RT-PCR) (Negative) RSV (RT-PCR) (Negative) SARS-CoV-2 RNA (RT-PCR) (Negative) 02/11/25 02/11/25 Range/Units 17:58 18:37 WBC (4.5-10.0) K/mm3 RBC (4.2-5.4) M/mm3 Hgb (12.0-15.0) g/dL Hct (37.0-47.0) % MCV (80-100) fl MCH (26-34) pg MCHC (32-36) g/dl RDW (11.5-14.5) % Plt Count (150-375) k/mm3 MPV (7.4-10.4) fl Immature Gran % (Auto) (0-0.5) % Neut % (Auto) (45.5-73.1) % Lymph % (Auto) (18.3-44.2) % [place] % (Auto) (2.6-8.5) % Eos % (Auto) (0-4.4) % Baso % (Auto) (0.2-1.2) % Lymph # (Auto) (0.9-3.2) K/mm3 [place] # (Auto) (0.1-0.6) K/mm3 Eos # (Auto) (0-0.3) K/mm3 Baso # (Auto) (0.0-0.1) K/mm3 Abs Immat Gran (auto) (0.00-0.031) K/mm3 Absolute Neuts (auto) (1.3-6.7) K/mm3 Absolute Nucleated RBC (0.0-0.012) K/mm3 Nucleated RBC % (0.0-0.2) % PT (11.1-14.7) Seconds INR APTT (22.3-36.8) Seconds D-Dimer 0.43 (<0.48) ug/mL Sodium (137-145) mmol/L Potassium (3.4-5.0) mmol/L Chloride (98-107) mmol/L Carbon Dioxide (22-30) mmol/L Anion Gap (4-12) mmol/L BUN (7-17) mg/dL Creatinine (0.7-1.0) mg/dL Estim Creat Clear Calc ml/min Estimated GFR (59 - ) Glucose (65-110) mg/dL Calcium (8.4-10.2) mg/dL Magnesium (1.6-2.3) mg/dL Total Bilirubin (0.2-1.3) mg/dL AST (14-36) U/L ALT (6-35) U/L Alkaline Phosphatase (38-126) U/L Troponin I < 0.012 (0.000-0.034) ng/mL NT-Pro-B Natriuret Pep (19.9-100) pg/mL Total Protein (6.3-8.2) g/dL Albumin (3.5-5.1) g/dL Lipase (23-300) U/L TSH (Reflex) (0.465-4.68) uIU/mL Urine Color (Yellow) Urine Appearance (Clear) Urine pH (5.0-9.0) Ur Specific [place] (1.001-1.035) Urine Protein (Negative) mg/dL Urine Glucose (UA) (Negative) mg/dL Urine Ketones (Negative) mg/dL Ur Blood (Man) (Negative) Urine Nitrate (Negative) Urine Bilirubin (Negative) Urine Urobilinogen (<2.0) mg/dL Leukocyte Esterase Rfl (Negative) MATTHEW/UL Influenza A (RT-PCR) Negative (Negative) Influenza B (RT-PCR) Negative (Negative) RSV (RT-PCR) Negative (Negative) SARS-CoV-2 RNA (RT-PCR) Negative (Negative) <China Mendiola PA-C - Last Filed: 02/11/25 19:44> Imaging Data Attestation: I personally reviewed and interpreted this imaging study as follows: <SARAH Mccullough Last Filed: 02/11/25 19:44> Radiologist's impression: ITS Impressions Chest X-Ray 02/11/25 13:49 IMPRESSION: No acute process. Head CT 02/11/25 18:48 IMPRESSION: No acute intracranial process. Results reported telephonically to SALINA Mirza by Dr. Sims at 6:53 PM on 02/11/2025. <SARAH Mccullough Last Filed: 02/11/25 19:44> ECG Data EKG #1: Attestation: I personally reviewed and interpreted this ECG as follows: <SARAH Mccullough Last Filed: 02/11/25 19:44> ECG completion date: 02/11/25 <SARAH Mccullough Last Filed: 02/11/25 19:44> ECG completion time: 12:54 <SARAH Mccullough Last Filed: 02/11/25 19:44> EKG Interpretation: normal rate (89), sinus rhythm, non-specific ST changes and LBBB (Chronic) <SARAH Mccullough Last Filed: 02/11/25 19:44> Discharge Plan Discharge Clinical Impression: Atypical chest pain Fatigue Qualifiers: Fatigue type: unspecified Qualified Code(s): R53.83 - Other fatigue <SARAH Erazo Last Filed: 02/12/25 09:34> Patient Disposition: Home <SARAH Erazo Last Filed: 02/12/25 09:34> Condition: Stable <SARAH Erazo Last Filed: 02/12/25 09:34> Instructions: Antibiotic Form, Chest Pain (ED), Dehydration (ED), Fatigue (ED) <SARAH Erazo Last Filed: 02/12/25 09:34> Additional Instructions: Your workup here was overall reassuring. There were no concerning findings on your workup. Continue to follow-up with your primary care doctor, your neurology teacher, and with your sleep study. Return to the ED if you experience worsening or severe symptoms, fall or injury, numbness or weakness of one-sided arm or leg, severe dizziness, passing out, worsening or severe chest pain or shortness of breath, unable to keep down food or drink, persistent fevers, severe swelling in legs, slurred speech, confusion, or any other symptoms of concern. <SARAH Erazo Last Filed: 02/12/25 09:34> Patient Language: Samoan <SARAH Erazo Last Filed: 02/12/25 09:34> Prescriptions: No Action furosemide 40 mg tablet 40 mg PO DAILY Patient Comments: Prescribed by cardiology. sacubitril-valsartan 49-51 mg tablet 1 tablet PO BID albuterol sulfate 90 mcg/actuation HFA aerosol inhaler 1 - 2 puff inhalation Q4-6H PRN (Reason: shortness of breath or wheezing) Qty: 8.5 3RF levalbuterol HCl 1.25 mg/3 mL solution for nebulization 1.25 mg inhalation Q6H PRN (Reason: shortness of breath or wheezing) Qty: 180 3RF acetaminophen [Tylenol Extra Strength] 500 mg Tablet 100 mg PO QID PRN (Reason: Pain) Jardiance 10 mg Tablet 10 mg PO DAILY 30 Days Qty: 30 0RF aspirin 81 mg tablet,chewable 81 mg PO DAILY 30 Days Qty: 30 0RF spironolactone 25 mg Tablet 25 mg PO QAM 30 Days Qty: 30 0RF Breztri Aerosphere 160-9-4.8 mcg/actuation HFA aerosol inhaler See Rx Instructions .ROUTE .COMPLEX Qty: 10.7 11RF Dose Instruction: INHALE 2 PUFFS EVERY DAY IN THE MORNING AND IN THE EVENING RINSE AND SPIT. Rx Instructions: INHALE 2 PUFFS EVERY DAY IN THE MORNING AND IN THE EVENING RINSE AND SPIT. (DME) blood-glucose meter [FreeStyle Lite Meter] Kit See Rx Instructions .Route Qty: 1 0RF Rx Instructions: Use to check BS BID (DME) FreeStyle Lite Strips Strip See Rx Instructions .Route Qty: 100 3RF Rx Instructions: Use to check BS BID (DME) lancets [FreeStyle Lancets] 28 gauge misc See Rx Instructions .Route Qty: 100 3RF Rx Instructions: Use to check BS BID theophylline 300 mg tablet extended release 12 hr 300 mg PO Q12H Qty: 180 1RF famotidine 20 mg tablet 20 mg PO BID Qty: 180 1RF montelukast 10 mg tablet 10 mg PO DAILY Qty: 90 1RF escitalopram oxalate [Lexapro] 5 mg tablet 5 mg PO DAILY Qty: 90 1RF furosemide 20 mg tablet 20 mg PO QAM PRN (Reason: fluid rentention) Qty: 90 0RF Rx Instructions: Take as directed meloxicam 15 mg tablet 15 mg PO HS Qty: 90 1RF pantoprazole [Protonix] 40 mg tablet,delayed release (DR/EC) 40 mg PO QAM Qty: 90 1RF <Lynsey Ham PA-C - Last Filed: 02/12/25 09:34> Follow-up/Referrals: Aayush Contreras, DO [Primary Care Provider] - <Lynsey Ham PA-C - Last Filed: 02/12/25 09:34> Time of Disposition: 19:43 <Lynsey Ham PA-C - Last Filed: 02/12/25 09:34> 19:43 <China Mendiola PA-C - Last Filed: 02/11/25 19:44>
--- OUTSIDE RECORDS SUMMARY | 2025-02-11 13:05 | XMS_ITS | Referral Summary ---
Author Organization [facility] Address [address] [place] [address] Care Team Providers Care Subsorter Name Role Phone Aayush Contreras DO Primary Care Provider [phone] Encounters Date Type Department Care Team Description 01/15/2025 11:15 AM CDT Office Visit [facility] Cardiology at [address] [place] [address] Amadeo Schrader MD Heart failure with reduced [...] on file Legal Sex Female 8:35 AM [employer] Gender Identity Not on file Sexual Orientation [...] Final Result from Last 3 Months Insurance [facility] Care Teams Subsorter Relationship Specialty Start Date End Date Aayush Contreras DO PCP - General Internal Medicine 10/20/23
--- OUTSIDE RECORDS SUMMARY | 2025-02-11 13:05 | XMS_ITS | Clinical Summary ---
Author Organization 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
--- OUTSIDE RECORDS SUMMARY | 2025-02-11 13:05 | XMS_ITS | Clinical Summary ---
Author Organization [facility] Address [address] [place] [address] Care Team Providers Care Air Grinder Name Role Phone Unavailable Primary Care Provider Unavailabl e Source Comments [facility],non-owned Affiliates and Associated Physician Practices is amultiple site organization consisting of ambulatory clinics and hospital sitesin [place], [place], [place] and [place]. This disclosure is being madepursuant to the Care Everywhere program and may not contain all information available regarding this patient. 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 Gender Identity Not on file Sexual Orientation [...] patient's age to complete this topic Insurance MEDICARE SELF PAY NO INSURANCE Member Subscriber Plan / Payer (Ef fective for All Dates) Name:Jordy Hernandez Member ID:Not on file Relation to Subscriber:Not on file Name:JORDY HERNANDEZ Subscriber ID:Not on file Address: [address] [place] [place] [address] Payer ID:Not on file Group ID:Not on file Type:Self Pay Address: [place], [place] MEDICARE SELF PAY NO INSURANCE Member Subscriber Plan / Payer (Ef fective for All Dates) Name:MaryJordy thurston Member ID:Not on file Relation to Subscriber:Not on file Name:MARYJORDY THURSTON Subscriber ID:Not on file Address: [address] [place] [address] Payer ID:Not on file Group ID:Not on file Type:Self Pay Address: [place], [place] MEDICARE SELF PAY NO INSURANCE Member Subscriber Plan / Payer (Ef fective for All Dates) Name:Jordy Hernandez Member ID:Not on file Relation to Subscriber:Not on file Name:JORDY HERNANDEZ Subscriber ID:Not on file Address: [address] [place] [address] Payer ID:Not on file Group ID:Not on file Type:Self Pay Address: [place], [place]
[2025-02-11 13:18] LABS: Add Urine Microscopic? NO; Appearance Urine Clear (Clear); Glucose Urine UA 1+ mg/dL (Negative); Leukocyte Esterase Ur Negative LEU/UL (Negative); Nitrate Urine Negative (Negative); Specific Grav Ur 1.007 (1.001-1.035)
[2025-02-11 13:19] LABS: Hematocrit 47.7 % (37.0-47.0); Hemoglobin 16.3 g/dL (12.0-15.0); Immature Granulocyte Percent A 0.2 % (0-0.5); Lymphocytes Absolute Auto 1.99 K/mm3 (0.9-3.2); Mean Corpuscular HGB Conc 34.2 g/dl (32-36); Mean Corpuscular Hemoglobin 34.8 pg (26-34); Mean Corpuscular Volume 101.7 fl (80-100); Nucleated Red Blood Cells Absolute Auto 0.000 K/mm3 (0.0-0.012); Nucleated Red Blood Cells Perc 0.0 % (0.0-0.2); Platelet Count Result 229 k/mm3 (150-375); Red Blood Count 4.69 M/mm3 (4.2-5.4); White Blood Count 4.4 K/mm3 (4.5-10.0)
[2025-02-11 13:26] LABS: Alanine Aminotransferase 22 U/L (6-35); Albumin Level 4.3 g/dL (3.5-5.1); Alkaline Phosphatase 76 U/L (38-126); Anion Gap 10 mmol/L (4-12); Aspartate Amino Transferase 38 U/L (14-36); Bilirubin,Total 0.8 mg/dL (0.2-1.3); Blood Urea Nitrogen 18 mg/dL (7-17); Calcium 10.0 mg/dL (8.4-10.2); Carbon Dioxide 27 mmol/L (22-30); Chloride 101 mmol/L (98-107); Estimated CRCL calculation 62 ml/min; Estimated Glomerular Filt Rate > 60; Glucose 122 mg/dL (65-110); Lipase 40 U/L (23-300); Potassium 3.9 mmol/L (3.4-5.0); Sodium 138 mmol/L (137-145); Total Protein 7.7 g/dL (6.3-8.2)
[2025-02-11 13:35] LABS: INR 1.2; Prothrombin Time 14.6 Seconds (11.1-14.7)
[2025-02-11 13:36] LABS: Partial Thromboplastin Time 26.9 Seconds (22.3-36.8)
[2025-02-11 13:37] LABS: Troponin I < 0.012 ng/mL (0.000-0.034)
--- NOTE | 2025-02-11 15:29 | ECG_ITS ---
Test Date: 2025-02-11 15:40:13 Measurements Intervals [place] Rate: 73 P: 53 NH: 157 QRS: 25 QRSD: 131 T: 67 QT: 427 QTc: 473 Interpretive Statements SINUS RHYTHM LEFT BUNDLE BRANCH BLOCK [120+ ms QRS DURATION, 80+ ms Q/S IN V1/V2, 85+ ms R IN I/aVL/V5/V6] Compared to ECG 02/11/2025 12:54:14 No significant changes Electronically Signed On 02-11-2025 22:11:15 CDT by Perry Yi M.D.
[2025-02-11 16:10] LABS: Troponin I < 0.012 ng/mL (0.000-0.034)
[2025-02-11] MEDS: ASPIRIN 81 MG CHEWABLE TABLET 324 MG PO (17:19)
--- NOTE | 2025-02-11 17:49 | ED_ITS ---
HPI - Altered Mental Status General Chief Complaint: Altered Mental Status Stated Complaint: I've been sleeping all weekend, balance trouble Time Seen by Provider: 02/11/25 12:38 Source: patient and family Mode of arrival: ambulatory Related Data Home Medications ?Medication ?Instructions ?Recorded ?Confirmed ?Last Taken ?Type acetaminophen 500 mg tablet 100 mg PO QID PRN Pain 10/12/23 02/07/25 11/15/23 History (Tylenol Extra Strength) furosemide 40 mg tablet 40 mg PO DAILY 10/31/23 02/07/25 11/15/23 History sacubitril 49 mg-valsartan 51 mg 1 tablet PO BID 03/12/24 02/07/25 Unknown History tablet Allergies Allergy/AdvReac Type Severity Reaction Status Date / Time adhesive tape Allergy Intermediate BLISTER/REDNESS/SWELLING Verified 02/07/25 12:57 AT SITE amoxicillin Allergy Unknown Unknown Verified 02/07/25 12:57 azithromycin Allergy Unknown unknown Verified 02/07/25 12:57 erythromycin base Allergy Unknown unknow Verified 02/07/25 12:57 Penicillins Allergy Unknown unknown Verified 02/07/25 12:57 doxycycline AdvReac Mild Diarrhea Verified 02/07/25 12:57 morphine AdvReac Itching Verified 02/07/25 12:57 PMFSH Past Medical History Medical History Personal history of nicotine dependence Hospital discharge follow-up Encounter to establish care Dizziness Localized swelling, mass and lump, left upper limb Right ankle pain Hypokalemia Urinary frequency Abdominal pain, epigastric Morbid obesity with BMI of 50.0-59.9, adult Hyperglycemia Bruising, spontaneous Left bundle branch block Chest pain Elevated troponin Chest pain Heart failure, unspecified Acute exacerbation of congestive heart failure Morbid obesity Chronic obstructive pulmonary disease Heart failure with reduced ejection fraction Echocardiogram in September 2023; moderately reduced LV systolic function with an EF estimated at 35 to 40% and grade 1 diastolic dysfunction. Deep venous thrombosis (1973) Following an ankle fracture. Hiatal hernia Hypertension Aortic atherosclerosis (07/2015) Noted on CT of the abdomen and pelvis. Ventral hernia Arthritis Surgical History Surgical History History of 2 sections History of bilateral knee arthroplasty History of back surgery 1984 and 1985 History of appendectomy History of bladder suspension procedure x2 History of total hysterectomy History of cholecystectomy History of hernia repair Family History Family History (Updated 02/07/25 @ 13:04 by Edyta Lynn MA) Sibling Family history of thyroid disease Lung cancer Mother Family history of lung cancer Father Family history of heart disease in male family member before age 55 Other Diabetes mellitus Family history of allergic disorder Family history of cardiovascular disease Hypertension Social History Social History Social History: Caffeine-diet soda/coffee Surrogate medical decision maker: Franchesca Bonilla, daughter. Code status: Full code. Smoking packs per day: 2.5 Smoking cigarettes per day: 50.0 Years smoked: 35 Smoking pack-years: 87.50 Smoking status: Former smoker Tobacco type: cigarettes Second hand tobacco smoke exposure: No Smoking end date: 10/29/16 Alcohol intake: never Substance use: never Substance use type: does not use Do You Feel Safe in your Home?: Yes Lack of Transportation: No Lack of Food: Never True Current Housing: I Have Housing Concerned About Future Housing: No Difficulty Paying Gas/Electric Bills: No Difficulty Paying for Meds: No Currently Unemployed: No Education: Associate Degree Difficulty w/ Childcare or Family Care: No Living arrangements: with family Occupation/Education: retired Spiritual care concerns: No Agree to blood products: Yes Course Vital Signs Vital signs: Vital Signs Temperature 97.7 F 02/11/25 12:29 Pulse Rate 91 02/11/25 12:29 Respiratory Rate 17 02/11/25 12:29 Blood Pressure 124/75 02/11/25 12:29 Pulse Oximetry 96 02/11/25 12:29 Temperature 97.7 F 02/11/25 12:29 Pulse Rate 77 02/11/25 17:25 Respiratory Rate 14 02/11/25 17:01 Blood Pressure 109/63 02/11/25 17:01 Pulse Oximetry 96 02/11/25 17:20 Oxygen Delivery Room Air 02/11/25 17:20 MDM - Altered Mental Status Lab Data 02/11/25 13:01 02/11/25 13:01 Labs: Lab Results 02/11/25 02/11/25 02/11/25 Range/Units 13:00 13:01 15:43 WBC 4.4 L (4.5-10.0) K/mm3 RBC 4.69 (4.2-5.4) M/mm3 Hgb 16.3 H (12.0-15.0) g/dL Hct 47.7 H (37.0-47.0) % MCV 101.7 H (80-100) fl MCH 34.8 H (26-34) pg MCHC 34.2 (32-36) g/dl RDW 13.2 (11.5-14.5) % Plt Count 229 (150-375) k/mm3 MPV 10.1 (7.4-10.4) fl Immature Gran % (Auto) 0.2 (0-0.5) % Neut % (Auto) 32.0 L (45.5-73.1) % Lymph % (Auto) 44.8 H (18.3-44.2) % [place] % (Auto) 12.8 H (2.6-8.5) % Eos % (Auto) 7.9 H (0-4.4) % Baso % (Auto) 2.3 H (0.2-1.2) % Lymph # (Auto) 1.99 (0.9-3.2) K/mm3 [place] # (Auto) 0.6 (0.1-0.6) K/mm3 Eos # (Auto) 0.4 H (0-0.3) K/mm3 Baso # (Auto) 0.1 (0.0-0.1) K/mm3 Abs Immat Gran (auto) 0.01 (0.00-0.031) K/mm3 Absolute Neuts (auto) 1.4 (1.3-6.7) K/mm3 Absolute Nucleated RBC 0.000 (0.0-0.012) K/mm3 Nucleated RBC % 0.0 (0.0-0.2) % PT 14.6 (11.1-14.7) Seconds INR 1.2 APTT 26.9 (22.3-36.8) Seconds Sodium 138 (137-145) mmol/L Potassium 3.9 (3.4-5.0) mmol/L Chloride 101 (98-107) mmol/L Carbon Dioxide 27 (22-30) mmol/L Anion Gap 10 (4-12) mmol/L BUN 18 H (7-17) mg/dL Creatinine 0.83 (0.7-1.0) mg/dL Estim Creat Clear Calc 62 ml/min Estimated GFR > 60 (59 - ) Glucose 122 H (65-110) mg/dL Calcium 10.0 (8.4-10.2) mg/dL Magnesium Pending Total Bilirubin 0.8 (0.2-1.3) mg/dL AST 38 H (14-36) U/L ALT 22 (6-35) U/L Alkaline Phosphatase 76 (38-126) U/L Troponin I < 0.012 < 0.012 (0.000-0.034) ng/mL NT-Pro-B Natriuret Pep Pending Total Protein 7.7 (6.3-8.2) g/dL Albumin 4.3 (3.5-5.1) g/dL Lipase 40 (23-300) U/L TSH (Reflex) Pending Urine Color Yellow (Yellow) Urine Appearance Clear (Clear) Urine pH 7.0 (5.0-9.0) Ur Specific [place] 1.007 (1.001-1.035) Urine Protein Negative (Negative) mg/dL Urine Glucose (UA) 1+ H (Negative) mg/dL Urine Ketones Negative (Negative) mg/dL Ur Blood (Man) Negative (Negative) Urine Nitrate Negative (Negative) Urine Bilirubin Negative (Negative) Urine Urobilinogen 0.2 (<2.0) mg/dL Leukocyte Esterase Rfl Negative (Negative) MATTHEW/UL Discharge Plan Discharge Patient Language: St Helenian Prescriptions: No Action furosemide 40 mg tablet 40 mg PO DAILY Patient Comments: Prescribed by cardiology. sacubitril-valsartan 49-51 mg tablet 1 tablet PO BID albuterol sulfate 90 mcg/actuation HFA aerosol inhaler 1 - 2 puff inhalation Q4-6H PRN (Reason: shortness of breath or wheezing) Qty: 8.5 3RF levalbuterol HCl 1.25 mg/3 mL solution for nebulization 1.25 mg inhalation Q6H PRN (Reason: shortness of breath or wheezing) Qty: 180 3RF acetaminophen [Tylenol Extra Strength] 500 mg Tablet 100 mg PO QID PRN (Reason: Pain) Jardiance 10 mg Tablet 10 mg PO DAILY 30 Days Qty: 30 0RF aspirin 81 mg tablet,chewable 81 mg PO DAILY 30 Days Qty: 30 0RF spironolactone 25 mg Tablet 25 mg PO QAM 30 Days Qty: 30 0RF Breztri Aerosphere 160-9-4.8 mcg/actuation HFA aerosol inhaler See Rx Instructions .ROUTE .COMPLEX Qty: 10.7 11RF Dose Instruction: INHALE 2 PUFFS EVERY DAY IN THE MORNING AND IN THE EVENING RINSE AND SPIT. Rx Instructions: INHALE 2 PUFFS EVERY DAY IN THE MORNING AND IN THE EVENING RINSE AND SPIT. (DME) blood-glucose meter [FreeStyle Lite Meter] Kit See Rx Instructions .Route Qty: 1 0RF Rx Instructions: Use to check BS BID (DME) FreeStyle Lite Strips Strip See Rx Instructions .Route Qty: 100 3RF Rx Instructions: Use to check BS BID (DME) lancets [FreeStyle Lancets] 28 gauge misc See Rx Instructions .Route Qty: 100 3RF Rx Instructions: Use to check BS BID theophylline 300 mg tablet extended release 12 hr 300 mg PO Q12H Qty: 180 1RF famotidine 20 mg tablet 20 mg PO BID Qty: 180 1RF montelukast 10 mg tablet 10 mg PO DAILY Qty: 90 1RF escitalopram oxalate [Lexapro] 5 mg tablet 5 mg PO DAILY Qty: 90 1RF furosemide 20 mg tablet 20 mg PO QAM PRN (Reason: fluid rentention) Qty: 90 0RF Rx Instructions: Take as directed meloxicam 15 mg tablet 15 mg PO HS Qty: 90 1RF pantoprazole [Protonix] 40 mg tablet,delayed release (DR/EC) 40 mg PO QAM Qty: 90 1RF Follow-up/Referrals: Aayush Contreras DO [Primary Care Provider] -
[2025-02-11 17:50] LABS: Magnesium 2.2 mg/dL (1.6-2.3)
[2025-02-11] MEDS: SODIUM CHLORIDE 0.9% IV 500 ML 999 ML IV CONT (17:57)
[2025-02-11 18:01] LABS: NT Pro B Type Natriuretic Pept 34 pg/mL (19.9-100)
[2025-02-11 18:11] LABS: Thyroid Stimulating Hormone Reflex 3.430 uIU/mL (0.465-4.68)
--- NOTE | 2025-02-11 18:37 | ECG_ITS ---
Test Date: 2025-02-11 19:27:17 Measurements Intervals [place] Rate: 75 P: 59 TX: 162 QRS: 42 QRSD: 130 T: 88 QT: 440 QTc: 492 Interpretive Statements SINUS RHYTHM LEFT BUNDLE BRANCH BLOCK [120+ ms QRS DURATION, 80+ ms Q/S IN V1/V2, 85+ ms R IN I/aVL/V5/V6] Compared to ECG 02/11/2025 15:40:13 No significant changes Electronically Signed On 02-11-2025 22:09:03 CDT by Perry Yi M.D.
[2025-02-11 18:43] LABS: Influenza A QL RT-PCR Negative (Negative); Influenza B QL RT-PCR Negative (Negative); RSV RNA, RT-PCR Negative (Negative); SARS-CoV-2 RNA PCR Negative (Negative)
[2025-02-11 19:08] LABS: Troponin I < 0.012 ng/mL (0.000-0.034)
== END 2025-02-11 19:50 | disposition home or self-care (01) ==
PROVIDERS: Emergency Medicine; Physician Assistant; Emergency Provider Physician Assistant; PCP Internal Medicine
DX: R07.89 Other chest pain (principal); R53.83 Other fatigue; Z20.822 Contact with and (suspected) exposure to COVID-19; I50.9 Heart failure, unspecified; I11.0 Hypertensive heart disease with heart failure; I70.0 Atherosclerosis of aorta; E66.01 Morbid (severe) obesity due to excess calories; Z68.42 Body mass index [BMI] 45.0-49.9, adult; J44.9 Chronic obstructive pulmonary disease, unspecified; K74.60 Unspecified cirrhosis of liver; M19.90 Unspecified osteoarthritis, unspecified site; Z96.653 Presence of artificial knee joint, bilateral; Z86.718 Personal history of other venous thrombosis and embolism; Z87.81 Personal history of (healed) traumatic fracture; Z90.710 Acquired absence of both cervix and uterus; Z90.49 Acquired absence of other specified parts of digestive tract
CPT/HCPCS: 36415; 70450; 71046; 80053; 81003; 83690; 83735; 83880; 84443; 84484; 85025; 85380; 85610; 85730; 87637; 93005; 99284; A9270; J7040

== ENCOUNTER 2025-03-20 08:09 | Outpatient (CLI) | payer OTHER, SELFPAY ==
--- OUTSIDE RECORDS SUMMARY | 2025-03-20 08:13 | XMS_ITS | Clinical Summary ---
Author Organization [facility] Address [address] [place] [address] Care Team Providers Care Warehouse General Laborer Name Role Phone Unavailable Primary Care Provider Unavailabl e Source Comments [facility],non-owned Affiliates and Associated Physician Practices is amultiple site organization consisting of ambulatory clinics and hospital sitesin [place], [place], [place] and [place]. This disclosure is being madepursuant to the Care Everywhere program and may not contain all information available regarding this patient. 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 Gender Identity Not on file Sexual Orientation [...] season) 2024 DEPRESSION SCREENING 08/08/2024 INFLUENZA VACCINE (#1) 2025 Respiratory Syncytial Virus (RSV) Vaccine Pt: [...] patient's age to complete this topic Insurance [facility] MEDICARE SELF PAY NO INSURANCE Member Subscriber Plan / Payer (Ef fective for All Dates) Name:Jordy Hernandez Member ID:Not on file Relation to Subscriber:Not on file Name:JORDY HERNANDEZ Subscriber ID:Not on file Address: [address] [place] [address] Payer ID:Not on file Group ID:Not on file Type:Self Pay Address: [place], [place] [facility] MEDICARE SELF PAY NO INSURANCE Member Subscriber Plan / Payer (Ef fective for All Dates) Name:MaryJordy thurston Member ID:Not on file Relation to Subscriber:Not on file Name:MARYJORDY THURSTON Subscriber ID:Not on file Address: [address] [place] [address] Payer ID:Not on file Group ID:Not on file Type:Self Pay Address: [place], [place] [facility] MEDICARE SELF PAY NO INSURANCE Member Subscriber Plan / Payer (Ef fective for All Dates) Name:Jordy Hernandez Member ID:Not on file Relation to Subscriber:Not on file Name:JORDY HERNANDEZ Subscriber ID:Not on file Address: [address] [place] [address] Payer ID:Not on file Group ID:Not on file Type:Self Pay Address: [place], [place]
--- OUTSIDE RECORDS SUMMARY | 2025-03-20 08:13 | XMS_ITS | Clinical Summary ---
Author Organization [facility] Address [address] [place] [address] Care Team Providers [facility] Name Role Phone Aayush Contreras DO Primary Care Provider [phone] Allergies Active Allergy Reactions Criticality Noted Date [...] mg total) by mouth daily 3 Active theophylline (THEODUR) 300 mg 12 [...] cholecalciferol (VITAMIN D-3) 5,000 unit tablet Active spironolactone [...] EVERY DAY 90 tablet 3 5 Active furosemide (LASIX) 40 mg tablet TAKE 1 TABLET BY MOUTH EVERY DAY 90 tablet [address] (PROTONIX) 40 mg EC tablet Take 1 tablet (40 mg total) by mouth daily 5 Active escitalopram (LEXAPRO) 5 mg tablet Take 1 tablet (5 mg total) by mouth daily 5 Active Entresto 49-51 mg tablet TAKE 1 TABLET BY MOUTH TWICE A DAY 180 tablet 3 5 Active Active Problems Problem [...] Encounters Date Type Department Care Team Description 02/12/2025 1:00 PM CDT Ancillary Procedure [facility] at [address] [phone] Heart failure with reduced ejection fraction due to cardiomyopathy (HCC); LBBB (left bundle branch block); Nonischemic cardiomyopathy (HCC) 02/12/2025 Results Follow-Up [facility] [address] [phone] Susan Castillo MD Transthoracic Echo (TTE) Complete W Doppler/CF 01/15/2025 11:15 AM CDT Office Visit [facility] at [address] [phone] Susan Castillo MD Heart failure with reduced ejection fraction due to cardiomyopathy (HCC) (Primary Dx); Heart failure, unspecified (HCC); LBBB (left bundle branch block); Nonischemic cardiomyopathy (HCC); Hypersomnolence; Morbid obesity with BMI of 45.0-49.9, adult (HCC) from Last 3 Months Surgical History Surgery Date Site/Laterality Comments SECTION HYSTERECTOMY HERNIA REPAIR ADHESIOLYSIS Medical History Medical History Date Comments COPD (chronic obstructive pulmonary disease) Morbid obesity (HCC) GERD (gastroesophageal reflux disease) Hypertension Cervical cancer (HCC) Social History Tobacco Use Types Packs/Day Years Used Date Smoking Tobacco: Former Cigarettes 2 30 0 10/19/1976 - 10/19/2006 Smokeless Tobacco: Never Tobacco Cessation:Counseling Given: Not Answered Comments Unknown Sex and Gender Information Value Date Recorded Sex Assigned at Not on file Legal Sex Female 8:35 AM [employer] Gender Identity Not on file Sexual Orientation [...] 2003 Well Visit 65+ 2018 Covid-19 Vaccine ( season) 2024, 10/14/2020 Influenza Vaccine (#1) 2025 Procedures Procedure Name Priority Date/Time Associated Diagnosis Comments TRANSTHORACIC ECHO (TTE) COMPLETE W DOPPLER/CF Routine 02/12/2025 1:42 PM CDT Heart failure with reduced ejection fraction due to cardiomyopathy (HCC) LBBB (left bundle branch block) Nonischemic cardiomyopathy (HCC) POCT LIPID PANEL Routine 01/15/2025 11:3 8 AM CDT Heart failure with reduced ejection fraction due to cardiomyopathy (HCC) from Last 3 Months Results * TRANSTHORACIC ECHO (TTE) COMPLETE W DOPPLER/CF WO CONTRAST (02/12/2025 1:42 PM CDT) Estimated EF 50 % CONS SCIMAGE EF Mod BP 42 % CONS SCIMAGE Anatomical Region Laterality Modality Ultrasound 02/12/2025 1:04 PM CDT Narrative 02/12/2025 3:12 PM CDT [facility] [address], [address], [place] [address] P:[phone] P:[phone] Echocardiographic Report Patient Name: JORDY HERNANDEZ A : 1955 Study Date: 02/12/2025 1:04:22 PM Gender: F Teletype Operator: CONNOR Location: [facility] Ref Provider: SUSAN CASTILLO Height(Cm): 152 BSA: 2.18 Weight(Kg): 112.5 Heart Rate: 84 BP: 108 / 72 Quality: Good Order Provider: SUSAN CASTILLO PROCEDURES: Echocardiographic Report: Transthoracic echocardiogram with complete 2D, M-Mode, color Doppler examination and Definity contrast. INDICATIONS: I50.20 Unspecified systolic (congestive) heart failure, I42.9 Cardiomyopathy, unspecified, I44.7 Left bundle-branch block, unspecified, and I42.8 Other cardiomyopathies. MEASUREMENTS: 2D/MM Value Range Doppler Value Range EF Mod BP 42 % [ 54 - 74 ] GULSHAN Vmax 2.53 cm2 [ 2.00 - 4.00 ] Estimated EF 50 % AV Mean PG 6 mmHg LVIDd 2D 4.23 cm [ 3.80 - 5.20 ] AV Peak Nii 1.63 m/s [ 1.00 - 1.70 ] LVIDd MM 5.75 cm [ 3.80 - 5.20 ] AV Peak PG 11 mmHg LVIDs 2D 3.38 cm [ 2.20 - 3.50 ] AV VTI 29.80 cm LVIDs MM 3.90 cm [ 2.20 - 3.50 ] LVOT Diam 1.96 cm [ 1.70 - 2.10 ] LVPWd 2D 1.05 cm [ 0.60 - 0.90 ] LVOT Peak Nii 1.36 m/s [ 0.70 - 1.10 ] LVPWd MM 0.96 cm [ 0.60 - 0.90 ] LVOT VTI 24.84 cm IVSd 2D 0.82 cm [ 0.60 - 0.90 ] MV E Peak Nii 0.70 m/s [ 0.60 - 1.30 ] IVSd MM 0.92 cm [ 0.60 - 0.90 ] MV A Peak Nii 1.00 m/s [ 1.00 - 1.20 ] LA Dimension MM 2.60 cm [ 2.70 - 3.80 ] MV Decel Time 191 msec [ 104 - 258 ] AoR Diam MM 3.60 cm [ 2.70 - 3.70 ] PV Peak Nii 0.97 m/s [ 0.40 - 0.80 ] LA Volume 25.66 ml [ 22.00 - 52.00 ] TR Peak Nii 2.55 m/s [ 1.00 - 2.80 ] LA Volume Index 12 cc/m2 [ 16 - 28 ] TR Peak PG 26 mmHg RA Volume 31.98 ml RVSP 34.00 mmHg [ 10.00 - 36.00 ] RV S` 0.14 m/s Lateral E` 0.06 m/s [ 0.10 - 0.15 ] Septal E` 0.04 m/s [ 0.08 - 0.15 ] E` 0.05 m/s E/E` 15 Tapse 1.84 cm [ 1.71 - 5.00 ] 2D/MM Value Range Doppler Value Range - FINDINGS: Interpretation Site: Exam was interpreted at [facility]. Left Ventricle: Normal left ventricular size. Definity contrast agent used to visually enhance endocardial wall motion and contractility. Lot Number: [id number]. Left ventricular systolic function at the lower limit of normal. Impaired diastolic relaxation Grade I. Ejection fraction is measured at 42 %. Ejection Fraction is visually estimated to be 50 %. These segments of the LV are hypokinetic: basal inferior segment and mid inferior segment. Right Ventricle: Normal right ventricular size. Left Atrium: There is mild enlargement of left atrium. Right Atrium: The right atrium is normal in size. Atrial Septum: Normal atrial septum. Mitral Valve: Mitral valve leaflets appear mildly thickened. Mild mitral annular calcification. Trivial regurgitation of the mitral valve. Aortic Valve: Aortic cusps appear mildly sclerotic. Trileaflet aortic valve. Tricuspid Valve: Normal appearance of the tricuspid valve. Estimated peak RVSP is 34 mmHg. Mild tricuspid regurgitation. Pulmonic Valve: Pulmonic valve not well visualized. Pericardium: Normal pericardium with no significant pericardial effusion. Aorta: Normal aortic root. IVC: Normal size and normal respiratory collapse consistent with normal right atrial pressure (<5 mmHg). Pulmonary Artery: Normal pulmonary artery size. CONCLUSIONS: Normal left ventricular size. Definity contrast agent used to visually enhance endocardial wall motion and contractility. Lot Number: [id number]. Left ventricular systolic function at the lower limit of normal. Impaired diastolic relaxation Grade I. Ejection fraction is measured at 42 %. Ejection Fraction is visually estimated to be 50 %. These segments of the LV are hypokinetic: basal inferior segment and mid inferior segment. There is mild enlargement of left atrium. Mitral valve leaflets appear mildly thickened. Mild mitral annular calcification. Trivial regurgitation of the mitral valve. Aortic cusps appear mildly sclerotic. Trileaflet aortic valve. Normal sinus rhythm. Compared with the exam from 1 year ago left ventricular systolic function is improved and significantly less mitral regurgitation is seen. Electronically Signed By: Husam Kpalan MD, [facility] 02/12/2025 3:12:01 PM CDT Procedure Note Husam Kaplan MD - 02/12/2025 [facility] [address] [place] [address], [address], [place] [address] P:[phone] P:[phone] Echocardiographic Report Patient Name: JORDY HERNANDEZ A : 1955 Study Date: 02/12/2025 1:04:22 PM Gender: F Teletype Operator: CONNOR Location: [facility] Ref Provider: SUSAN CASTILLO Height(Cm): 152 BSA: 2.18 Weight(Kg): 112.5 Heart Rate: 84 BP: 108 / 72 Quality: Good Order Provider: SUSAN CASTILLO PROCEDURES: Echocardiographic Report: Transthoracic echocardiogram with complete 2D, M-Mode, color Dopplerexamination and Definity contrast. INDICATIONS: I50.20 Unspecified systolic (congestive) heart failure, I42.9Cardiomyopathy, unspecified, I44.7 Left bundle-branch block, unspecified, and I42.8 Other cardiomyopathies. MEASUREMENTS: 2D/MM Value Range Doppler ValueRange EF Mod BP 42 % [ 54 - 74 ] GULSHAN Vmax 2.53cm2 [ 2.00 - 4.00 ] Estimated EF 50 % AV Mean PG 6mmHg LVIDd 2D 4.23 cm [ 3.80 - 5.20 ] AV Peak Nii 1.63m/s [ 1.00 - 1.70 ] LVIDd MM 5.75 cm [ 3.80 - 5.20 ] AV Peak PG 11mmHg LVIDs 2D 3.38 cm [ 2.20 - 3.50 ] AV VTI 29.80cm LVIDs MM 3.90 cm [ 2.20 - 3.50 ] LVOT Diam 1.96cm [ 1.70 - 2.10 ] LVPWd 2D 1.05 cm [ 0.60 - 0.90 ] LVOT Peak Nii 1.36m/s [ 0.70 - 1.10 ] LVPWd MM 0.96 cm [ 0.60 - 0.90 ] LVOT VTI 24.84cm IVSd 2D 0.82 cm [ 0.60 - 0.90 ] MV E Peak Nii 0.70m/s [ 0.60 - 1.30 ] IVSd MM 0.92 cm [ 0.60 - 0.90 ] MV A Peak Nii 1.00m/s [ 1.00 - 1.20 ] LA Dimension MM 2.60 cm [ 2.70 - 3.80 ] MV Decel Time 191msec [ 104 - 258 ] AoR Diam MM 3.60 cm [ 2.70 - 3.70 ] PV Peak Nii 0.97m/s [ 0.40 - 0.80 ] LA Volume 25.66 ml [ 22.00 - 52.00 ] TR Peak Nii 2.55m/s [ 1.00 - 2.80 ] LA Volume Index 12 cc/m2 [ 16 - 28 ] TR Peak PG 26mmHg RA Volume 31.98 ml RVSP 34.00mmHg [ 10.00 - 36.00 ] RV S` 0.14 m/s Lateral E` 0.06 m/s [ 0.10 - 0.15 ] Septal E` 0.04 m/s [ 0.08 - 0.15 ] E` 0.05 m/s E/E` 15 Tapse 1.84 cm [ 1.71 - 5.00 ] 2D/MM Value Range Doppler ValueRange - FINDINGS: Interpretation Site: Exam was interpreted at [facility]. Left Ventricle: Normal left ventricular size. Definity contrast agent used to visuallyenhance endocardial wall motion and contractility. Lot Number: [id number]. Leftventricular systolic function at the lower limit of normal. Impaired diastolic relaxation GradeI. Ejection fraction is measured at 42 %. Ejection Fraction is visually estimated yg 50 %. These segments of the LV are hypokinetic: basal inferior segment and midinferior segment. Right Ventricle: Normal right ventricular size. Left Atrium: There is mild enlargement of left atrium. Right Atrium: The right atrium is normal in size. Atrial Septum: Normal atrial septum. Mitral Valve: Mitral valve leaflets appear mildly thickened. Mild mitral annularcalcification. Trivial regurgitation of the mitral valve. Aortic Valve: Aortic cusps appear mildly sclerotic. Trileaflet aortic valve. Tricuspid Valve: Normal appearance of the tricuspid valve. Estimated peak RVSP is 34 mmHg.Mild tricuspid regurgitation. Pulmonic Valve: Pulmonic valve not well visualized. Pericardium: Normal pericardium with no significant pericardial effusion. Aorta: Normal aortic root. IVC: Normal size and normal respiratory collapse consistent with normal rightatrial pressure (<5 mmHg). Pulmonary Artery: Normal pulmonary artery size. CONCLUSIONS: Normal left ventricular size. Definity contrast agent used to visuallyenhance endocardial wall motion and contractility. Lot Number: [id number]. Leftventricular systolic function at the lower limit of normal. Impaired diastolic relaxation GradeI. Ejection fraction is measured at 42 %. Ejection Fraction is visually estimated yg 50 %. These segments of the LV are hypokinetic: basal inferior segment and midinferior segment. There is mild enlargement of left atrium. Mitral valve leaflets appear mildly thickened. Mild mitral annularcalcification. Trivial regurgitation of the mitral valve. Aortic cusps appear mildly sclerotic. Trileaflet aortic valve. Normal sinus rhythm. Compared with the exam from 1 year ago left ventricular systolic functionis improved and significantly less mitral regurgitation is seen. Electronically Signed By: Husam Kaplan MD, [facility] 02/12/2025 3:12:01 PM CDT Susan Castillo MD CV ECHO PROCEDURES Final Result * POCT lipid panel (01/15/2025 11:38 AM CDT) Cholesterol, POC 160 <200 MG/DL Triglycerides, POC 135 <=149 mg/dL Cholesterol Total, POC 160 30 - 199 mg/dL Capillary blood 01/15/2025 1 1:38 AM CDT Susan Castillo MD POINT OF CARE TEST ORDERA BLES Final Result from Last 3 Months Insurance [facility] Care Teams Rn Surgical [facility] Relationship Specialty Start Date End Date Aayush Contreras DO PCP - General Internal Medicine 10/20/23
[2025-04-16 18:27] VITALS: BMI 47.0
--- NOTE | 2025-04-16 18:27 | WPDSLEEPSTUD ---
Sleep Study Date of Study: 03/20/25 Ordering Provider: RASHAWN Corona Interpreting Physician: Bren Ward, Sleep Study Type: Polysomnogram Height: 1.52 m Weight: 109.316 kg Body Mass Index: 47.0 Neck Circumference (inches): 17 [place]: 19 Reason for Sleep Study Excessive daytime sleepiness Sleep History The patient is a 69-year-old female that had a sleep study ordered for evaluation of sleep apnea.? The patient frequently awakens from sleep short of breath.? She constantly awakens at night with heartburn, belching or cough.? She occasionally snores and it is occasionally loud enough that others complain.? She frequently has trouble sleeping when she has a cold.? She frequently wakes up gasping for air throughout the night.? She frequently has breathing problems at night observed by herself or others.? She occasionally sweats excessively at night.? She frequently has heart palpitations or irregular heartbeats during the night.? She frequently falls asleep during the day.? She rarely experiences loss of muscle tone when extremely emotional.? She denies having trouble at school or work due to sleepiness.? She occasionally feels unable to move while waking up or falling asleep.? She occasionally experiences vivid dreamlike scenes upon awakening or falling asleep.? She occasionally feels afraid of going to sleep.? She rarely has nightmares.? She occasionally remembers her dreams.? She occasionally has thoughts racing through her mind.? She occasionally feels sad, depressed and anxious.? She occasionally has muscular tension.? She frequently notices parts of her body jerk.? She constantly kicks during the night.? She constantly has crawling and aching feelings in her legs and frequently has leg pain during the night.? She occasionally awakens with jaw pain in the morning.? She is occasionally bothered by pain during the day and occasionally awakened by pain during the night.? She occasionally wakes up feeling stiff in the morning.? She frequently wakes up with sore or achy muscles.? She occasionally wakes up with pain in the neck, spine and other joints. She goes to bed between 9 to 10:30 p.m. on weekdays and weekends.? It takes her 5-15 minutes to fall asleep.? She wakes up 3-4 times throughout the night to urinate.? The amount of time it takes for her to fall back asleep is variable.? She wakes up at 11:00 a.m. on weekdays and between 11:00 a.m. to noon on the weekends.? She will stay in bed for 10-15 minutes after waking up in the morning.? She currently lives with her adult daughter.? She denies consuming any caffeinated beverages within 2 hours of bedtime.? She will watch television before falling asleep.? She will take naps in afternoon or the evening but they are not refreshing.? She has 1 cup of caffeinated beverage per day. ?She quit smoking cigarettes 18 years ago.? She denies alcohol and recreational drug use. [facility] Past Medical History Medical History Cirrhosis Cirrhosis of liver without ascites Personal history of nicotine dependence Hospital discharge follow-up Encounter to establish care Dizziness Localized swelling, mass and lump, left upper limb Right ankle pain Hypokalemia Urinary frequency Abdominal pain, epigastric Morbid obesity with BMI of 50.0-59.9, adult Hyperglycemia Bruising, spontaneous Left bundle branch block Chest pain Elevated troponin Chest pain Heart failure, unspecified Acute exacerbation of congestive heart failure Morbid obesity Chronic obstructive pulmonary disease Heart failure with reduced ejection fraction Echocardiogram in September 2023; moderately reduced LV systolic function with an EF estimated at 35 to 40% and grade 1 diastolic dysfunction. Deep venous thrombosis (1973) Following an ankle fracture. Hiatal hernia Hypertension Aortic atherosclerosis (07/2015) Noted on CT of the abdomen and pelvis. Ventral hernia Arthritis Surgical History Surgical History History of 2 sections History of bilateral knee arthroplasty History of back surgery 1984 and 1985 History of appendectomy History of bladder suspension procedure x2 History of total hysterectomy History of cholecystectomy History of hernia repair Family History Family History Sibling Family history of thyroid disease Lung cancer Mother Family history of lung cancer Father Family history of heart disease in male family member before age 55 Other Diabetes mellitus Family history of allergic disorder Family history of cardiovascular disease Hypertension Social History Social History Social History: Caffeine-diet soda/coffee Surrogate medical decision maker: Franchesca Bonilla, daughter. Code status: Full code. Smoking packs per day: 2.5 Smoking cigarettes per day: 50.0 Years smoked: 35 Smoking pack-years: 87.50 Smoking status: Former smoker Tobacco type: cigarettes Second hand tobacco smoke exposure: No Smoking end date: 10/29/16 Alcohol intake: never Substance use: never Substance use type: does not use Do You Feel Safe in your Home?: Yes Lack of Transportation: No Lack of Food: Never True Current Housing: I Have Housing Concerned About Future Housing: No Difficulty Paying Gas/Electric Bills: No Difficulty Paying for Meds: No Currently Unemployed: No Education: Associate Degree Difficulty w/ Childcare or Family Care: No Living arrangements: with family Occupation/Education: retired Spiritual care concerns: No Agree to blood products: Yes Medications Home Medications ?Medication ?Instructions ?Recorded ?Confirmed ?Type acetaminophen 500 mg tablet 100 mg PO QID PRN Pain 10/12/23 02/07/25 History (Tylenol Extra Strength) aspirin 81 mg chewable tablet 81 mg PO DAILY 30 days #30 tabs 10/15/23 02/07/25 Rx empagliflozin 10 mg tablet 10 mg PO DAILY CHrEF 35% 30 days 10/15/23 02/07/25 Rx (Jardiance) #30 tabs spironolactone 25 mg tablet 25 mg PO QAM 30 days #30 tabs 10/15/23 02/07/25 Rx furosemide 40 mg tablet 40 mg PO DAILY 10/31/23 02/07/25 History sacubitril 49 mg-valsartan 51 mg 1 tablet PO BID 03/12/24 02/07/25 History tablet blood sugar diagnostic (FreeStyle #100 ea 08/24/24 02/07/25 Rx Lite Strips) blood-glucose meter (FreeStyle #1 ea 08/24/24 02/07/25 Rx Lite Meter kit) lancets 28 gauge (FreeStyle #100 ea 08/24/24 02/07/25 Rx Lancets) theophylline 300 mg 300 mg PO Q12H #180 tabs 10/09/24 02/07/25 Rx tablet,extended release,12 hr famotidine 20 mg tablet 20 mg PO BID #180 tabs 01/01/25 02/07/25 Rx montelukast 10 mg tablet 10 mg PO DAILY #90 tabs 01/04/25 02/07/25 Rx meloxicam 15 mg tablet 15 mg PO HS #90 tabs 01/14/25 02/07/25 Rx pantoprazole 40 mg tablet,delayed 40 mg PO QAM #90 tabs 01/15/25 02/07/25 Rx release (Protonix) albuterol sulfate 90 mcg/actuation 1 - 2 puff inhalation Q4-6H PRN 02/18/25 Rx aerosol inhaler shortness of breath or wheezing #8.5 grams budesonide 160 mcg-glycopyr 9 See Rx Instructions .Route 02/18/25 Rx mcg-formot 4.8 mcg/actuation HFA .COMPLEX #10.7 ea inhaler (Breztri Aerosphere) levalbuterol HCl 1.25 mg/3 mL 1.25 mg (3 mL) inhalation Q6H PRN 02/18/25 Rx solution for nebulization shortness of breath or wheezing #180 mL eszopiclone 2 mg tablet (Lunesta) 2 mg PO QHS #1 tablet 03/19/25 Rx duloxetine 30 mg capsule,delayed 30 mg PO DAILY #30 caps 04/02/25 Rx release furosemide 20 mg tablet 20 mg PO QAM PRN fluid rentention 04/09/25 Rx #90 tabs Sleep Procedure A full night polysomnogram using the Brndstr multi-channel system recorded the standard physiologic parameters including EEG, EOG, submentalis EMG, anterior tibialis EMG, EKG, body position, nasal and oral airflow using nasal pressure sensor and thermistor.? Respiratory parameters of chest and abdominal movements were recorded with Respiratory Inductance Plethysmography belts. Oxygen saturation was recorded by pulse oximetry. Video monitoring was also performed. Sleep stages, periodic limb movements, and EEG arousals were scored in 30 second epochs according to the criteria of the AASM Scoring Manual. The Apnea-Hypopnea Index was calculated using CMS guidelines for definition of hypopnea with 4% O2 desaturations while scoring respiratory events. Sleep Architecture The total recording time was 497.4 minutes.? The total sleep time was 294.0 minutes. Sleep latency was 1.5 minutes. REM latency was 209.5 minutes. Sleep efficiency was 59.1%. The patient had 56 awakenings for an awakening index of 11.4. Wake after sleep onset time was 201.5 minutes. The patient spent 70.5 minutes, 24.0% of total sleep time in Stage N1. The patient spent 153.0 minutes, 52.0% in Stage N2. The patient spent 68.5 minutes, 23.3% in Stage N3. The patient spent 2.0 minutes, 0.7% in Stage REM sleep. Respiratory Analysis The patient had 11 hypopneas and 6 obstructive apneas for an overall Apnea Hypopnea Index of 3.5. The REM Apnea Hypopnea Index was 90.0. The NREM Apnea Hypopnea Index was 2.9. The patient had a Central Apnea Hypopnea Index of 0. There was no evidence of Gerry-Wolfe Respirations. Arousals There were 268 total arousals for an arousal index of 54.7. There were 72 spontaneous arousals for an index of 14.7. There were 2 arousals due to respiratory events for an index of 0.4. There were 178 arousals due to periodic limb movements for an index of 36.3.? There were 16 arousals due to isolated limb movements for an index of 3.3. Periodic Limb Movements The patient had 54 isolated limb movements with an index of 11.0. The patient had 387 periodic limb movements with an index of 79.0, which is elevated (normal < 15). Patient had a total of 441 limb movements with a total limb movement index of 90.0. Oximetry Data The patient had an average oxygen saturation of 91.9% in sleep with a minimum oxygen saturation of 84.0% and a maximum oxygen saturation of 98.0%. The patient had 19 oxygen desaturations that were 4% or greater resulting in an Oxygen Desaturation Index of 3.9.? The patient spent 2.1 minutes, 0.4% of total sleep time with an oxygen saturation below 88%. Snoring Profile Mild to moderate snoring was present throughout the study. Cardiac Profile The EKG showed normal sinus rhythm with sinus arrhythmia and occasional PACs/PVCs.?The patient had an average pulse rate of 69.5 bpm with a minimum pulse of rate of 60.0 bpm and a maximum pulse rate of 88.0 bpm.? EEG Profile No signs of seizure activity seen. Assessment and Plan Assessment and Plan (1) PLMD (periodic limb movement disorder): Code(s): G47.61 - Periodic limb movement disorder Status: Acute Assessment and Plan: The patient had an overall AHI of 3.5 with desaturation down to 84%. This is not consistent with sleep-disordered breathing. The patient had a significant number of limb movements during the study with the majority being periodic in nature. Approximately 50% of the periodic limb movements caused arousals in the patient's sleep. The patient's sleep history is highly suggestive of Restless Leg Syndrome. I recommend that the patient have a serum ferritin drawn for evaluation of iron deficiency anemia. If the patient has a serum ferritin less than 75 ng/mL, I recommend starting a daily iron supplement and a Vitamin C supplement for better absorption. If the serum ferritin is greater than 75 ng/mL, I recommend starting a dopamine agonist and titrating the dose until symptoms resolve. There are nonpharmacological methods to treat limb movements including daily exercise, stretching calf muscles before bed, avoiding excessive amounts of caffeine and alcohol, vitamin B supplementation, magnesium lotion massaged into legs before bed, and use of a weighted blanket. I would highly consider repeating the patient's sleep study after resolving her Restless Legs Syndrome and PLMD. The patient will likely get into deeper levels of sleep and may qualify for CPAP. Data The data obtained during this sleep study is adequate for interpretation. Certification This sleep study has been reviewed by a board certified sleep medicine physician.
== END 2025-03-21 07:03 | disposition home or self-care (01) ==
LOC: ANHCSM 08:10
PROVIDERS: PCP Internal Medicine; Visit Provider Clinical Nurse Specialist
DX: G47.61 Periodic limb movement disorder (principal); G47.10 Hypersomnia, unspecified
CPT/HCPCS: 95810

== ENCOUNTER 2025-05-09 12:33 | Inpatient (IN) | payer OTHER, MEDICAID, SELFPAY ==
[2025-05-09] VITALS (11 sets, daily range): BP systolic 77–125; BP diastolic 56–74; PULSE 74–120; RESP 14–24; TEMP 36.7; O2SAT 95–97; BMI 45.4
--- NOTE | ~2025-05-09 | US_ITS ---
EXAMINATION: US venous doppler [facility], 05/09/2025 14:50 CDT HISTORY: LLE Swelling, CP, SOB COMPARISON: None Technique: Hodge-scale and color Doppler images were attempted of the lower saphenofemoral junction, common femoral vein,superficial femoral vein, proximal deep femoral vein, proximal deep femoral vein, popliteal vein and posterior tibial veins. Findings: Deep Venous System:Normal flow, augmentation and compressibility. No echogenic thrombus identified. Superficial Venous SystemNo superficial thrombophlebitis. Soft tissues: Soft tissues are unremarkable. Impression: Negative for DVT. Reviewed, dictated and finalized at location P. Impression: Negative for DVT.
--- NOTE | ~2025-05-09 | CT_ITS ---
EXAMINATION: CTA chest PE protocol DATE: 05/09/2025 14:42 INDICATION: Chest pain. Shortness of breath. TECHNIQUE: Computed tomography angiography (CTA) of the chest was performed with 100 mL Omnipaque-350 intravenous contrast timed to evaluate the pulmonary arteries. Coronal maximum intensity projection 3D-reconstructions were created by the technologist. Automated exposure control and iterative reconstruction technique were employed. The dose-length product was 838.01 mGy-cm. COMPARISON: Chest CT 11/24/2024 FINDINGS: There is mild emphysema. There is mild atelectasis bilaterally. No pleural effusion. The heart size is normal. There are coronary artery calcifications. No pericardial effusion. There is no pulmonary embolus. There are changes of cholecystectomy. There is severe cervical, thoracic, and lumbar spondylosis. IMPRESSION: 1. No pulmonary embolus. Sensitivity is moderately decreased by motion artifact and obesity. 2. Mild emphysema. Reviewed, dictated and finalized at location E.
--- NOTE | ~2025-05-09 | XR_ITS ---
Examination: XR chest 2V Clinical History: SOB Comparison: 02/11/2025 Technique: PA and Lateral Findings: Heart size upper limit of normal. Lungs clear. Chronic bibasilar scarring. No acute bony abnormality. Osteopenia. IMPRESSION: 1. No acute cardiopulmonary findings. Reviewed, dictated and finalized at location R.
--- NOTE | 2025-05-09 12:35 | ECG_ITS ---
Test Date: 2025-05-09 12:41:09 Measurements Intervals [place] Rate: 102 P: 47 WI: 172 QRS: 8 QRSD: 128 T: 113 QT: 372 QTc: 485 Interpretive Statements SINUS TACHYCARDIA WITH OCCASIONAL VENTRICULAR PREMATURE COMPLEXES WITH OCCASIONAL SUPRAVENTRICULAR PREMATURE COMPLEXES POSSIBLE LEFT ATRIAL ENLARGEMENT LEFT BUNDLE BRANCH BLOCK ABNORMAL ECG Compared to ECG 02/11/2025 19:27:17 HEART RATE HAS INCREASED Ventricular premature complex(es) now present Electronically Signed On 05-09-2025 12:53:15 CDT by Boyd Pina D.O.
--- OUTSIDE RECORDS SUMMARY | 2025-05-09 12:35 | XMS_ITS | Clinical Summary ---
Author Organization [facility] Address [address] [place] [address] Care Team Providers Care Hull Drafter Name Role Phone Unavailable Primary Care Provider Unavailabl e Source Comments [facility],non-owned Affiliates and Associated Physician Practices is amultiple site organization consisting of ambulatory clinics and hospital sitesin [place], [place], [place] and [place]. This disclosure is being madepursuant to the Care Everywhere program and may not contain all information available regarding this patient. 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 Gender Identity Not on file Sexual Orientation [...] 2003 ZOSTER VACCINE (1 of 2) 2003 DEPRESSION SCREENING 08/08/2024 COVID-19 VACCINE ( - 2023-2 5 season) 2025 INFLUENZA VACCINE (#1) 2025 Respiratory Syncytial Virus [...] patient's age to complete this topic Insurance [facility] MEDICARE SELF PAY NO INSURANCE Member Subscriber Plan / Payer (Ef fective for All Dates) Name:Jordy Hernandez Member ID:Not on file Relation to Subscriber:Not on file Name:JORDY HERNANDEZ Subscriber ID:Not on file Address: [address] [place] [address] Payer ID:Not on file Group ID:Not on file Type:Self Pay Address: [place], [place] [facility] MEDICARE SELF PAY NO INSURANCE Member Subscriber Plan / Payer (Ef fective for All Dates) Name:MaryJordy thurston Member ID:Not on file Relation to Subscriber:Not on file Name:MARYJORDY THURSTON Subscriber ID:Not on file Address: [address] [place] [address] Payer ID:Not on file Group ID:Not on file Type:Self Pay Address: [place], [place] [facility] MEDICARE SELF PAY NO INSURANCE Member Subscriber Plan / Payer (Ef fective for All Dates) Name:Jordy Hernandez Member ID:Not on file Relation to Subscriber:Not on file Name:JORDY HERNANDEZ Subscriber ID:Not on file Address: [address] [place] [address] Payer ID:Not on file Group ID:Not on file Type:Self Pay Address: [place], [place]
--- OUTSIDE RECORDS SUMMARY | 2025-05-09 12:35 | XMS_ITS | Clinical Summary ---
Author Organization [facility] Address [address] [place] [address] Care Team Providers Care National Expansion Recruiter Name Role Phone Aayush Contreras DO Primary Care Provider [phone]- [phone] Allergies Active Allergy Reactions Criticality Noted Date [...] Description 02/12/2025 1:00 PM CDT Ancillary Procedure [facility] Cardiology at [address] [place] [address] Heart failure with reduced ejection fraction due to cardiomyopathy (HCC); LBBB (left bundle branch block); Nonischemic cardiomyopathy (HCC) 02/12/2025 Results Follow-Up [facility] [address] [place] [id number] Susan Castillo MD Transthoracic Echo (TTE) Complete W Doppler/CF from Last 3 Months Surgical History Surgery [...] on file 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 Gender Identity Not on file Sexual Orientation [...] 65+ 2018 Covid-19 Vaccine (3 - season) 2025, 10/14/2020 Influenza Vaccine (#1) 2025 Procedures Procedure Name Priority Date/Time Associated Diagnosis Comments TRANSTHORACIC ECHO (TTE) COMPLETE W DOPPLER/CF Routine 02/12/2025 1:42 PM CDT Heart failure with reduced ejection fraction due to cardiomyopathy (HCC) LBBB (left bundle branch block) Nonischemic cardiomyopathy (HCC) from Last 3 Months Results * TRANSTHORACIC ECHO (TTE) COMPLETE W DOPPLER/CF WO CONTRAST (02/12/2025 1:42 PM CDT) Estimated EF 50 % CONS SCIMAGE EF Mod BP 42 % CONS SCIMAGE Anatomical Region Laterality Modality Ultrasound 02/12/2025 1:04 PM CDT Narrative 02/12/2025 3:12 PM CDT [facility] [address], [address], [place] [address] P:[phone] P:[phone] Echocardiographic Report Patient Name: JORDY HERNANDEZ A : 1955 Study Date: 02/12/2025 1:04:22 PM Gender: F Chronic Manager: CONNOR Location: [facility] Ref Provider: SUSAN CASTILLO [...] FINDINGS: Interpretation Site: Exam was interpreted at [facility]. Left Ventricle: Normal left ventricular size. Definity [...] seen. Electronically Signed By: Husam Kaplan MD, [facility] 02/12/2025 3:12:01 PM CDT Procedure Note Husam Kaplan MD - 02/12/2025 [facility] [address], [address], [place] [address] P:[phone] P:[phone] Echocardiographic Report Patient Name: JORDY HERNANDEZ A : 1955 Study Date: 02/12/2025 1:04:22 PM Gender: F Chronic Manager: Location: [facility] Ref Provider: SUSAN CASTILLO Height(Cm): [...] FINDINGS: Interpretation Site: Exam was interpreted at [facility]. Left Ventricle: Normal left ventricular size. Definity [...] seen. Electronically Signed By: Husam Kaplan MD, [facility] 02/12/2025 3:12:01 PM CDT us Susan Castillo MD CV ECHO PROCEDURES Final Result from Last 3 Months Insurance [facility] Care Teams National Expansion Recruiter Relationship Specialty Start Date End Date Aayush Contreras DO PCP - General Internal Medicine 10/20/23
[2025-05-09 13:00] LABS: Hematocrit 47.7 % (37.0-47.0); Hemoglobin 16.6 g/dL (12.0-15.0); Immature Granulocyte Percent A 0.2 % (0-0.5); Lymphocytes Absolute Auto 2.43 K/mm3 (0.9-3.2); Mean Corpuscular HGB Conc 34.8 g/dl (32-36); Mean Corpuscular Hemoglobin 34.4 pg (26-34); Mean Corpuscular Volume 98.8 fl (80-100); Nucleated Red Blood Cells Absolute Auto 0.000 K/mm3 (0.0-0.012); Nucleated Red Blood Cells Perc 0.0 % (0.0-0.2); Platelet Count Result 247 k/mm3 (150-375); Red Blood Count 4.83 M/mm3 (4.2-5.4); White Blood Count 5.3 K/mm3 (4.5-10.0)
[2025-05-09 13:27] LABS: INR 1.1; Prothrombin Time 14.1 Seconds (11.1-14.7)
[2025-05-09 13:28] LABS: Partial Thromboplastin Time 29.8 Seconds (22.3-36.8)
[2025-05-09] MEDS: ASPIRIN 81 MG CHEWABLE TABLET 324 MG PO (13:39)
[2025-05-09 13:43] LABS: Alanine Aminotransferase 23 U/L (6-35); Albumin Level 4.5 g/dL (3.5-5.1); Alkaline Phosphatase 86 U/L (38-126); Anion Gap 13 mmol/L (4-12); Aspartate Amino Transferase 36 U/L (14-36); Bilirubin,Total 1.1 mg/dL (0.2-1.3); Blood Urea Nitrogen 15 mg/dL (7-17); Calcium 9.9 mg/dL (8.4-10.2); Carbon Dioxide 23 mmol/L (22-30); Chloride 101 mmol/L (98-107); Estimated Glomerular Filt Rate > 60; Glucose 149 mg/dL (65-110); Lipase 40 U/L (23-300); Potassium 3.1 mmol/L (3.4-5.0); Sodium 137 mmol/L (137-145); Total Protein 8.0 g/dL (6.3-8.2)
[2025-05-09] MEDS: SODIUM CHLORIDE 0.9% IV 500 ML 999 ML (13:57)
--- OUTSIDE RECORDS SUMMARY | 2025-05-09 14:09 | XMS_ITS | Clinical Summary ---
Author Organization [facility] Address [address] [place] [address] Care Team Providers Care Pan Dumper Name Role Phone Aayush Cotnreras DO Primary Care Provider [phone]- [phone] Allergies Active Allergy Reactions Criticality Noted Date [...] Description 02/12/2025 1:00 PM CDT Ancillary Procedure [facility] Cardiology at [address] [place] [address] Heart failure with reduced ejection fraction due to cardiomyopathy (HCC); LBBB (left bundle branch block); Nonischemic cardiomyopathy (HCC) 02/12/2025 Results Follow-Up [facility] [address] 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. Left Ventricle: Normal left ventricular size. Definity [...] seen. Electronically Signed By: Husam Kaplan MD, [facility] 02/12/2025 3:12:01 PM CDT Procedure Note Husam Kaplan MD - 02/12/2025 [facility] [address], [address], [place] [address] P:[phone] P:[phone] Echocardiographic Report Patient Name: JORDY HERNANDEZ A : 1955 Study Date: 02/12/2025 1:04:22 PM Gender: F Budget Engineer: Location: [facility] Ref Provider: SUSAN CASTILLO Height(Cm): [...] FINDINGS: Interpretation Site: Exam was interpreted at [facility]. Left Ventricle: Normal left ventricular size. Definity [...] seen. Electronically Signed By: Husam Kaplan MD, [facility] 02/12/2025 3:12:01 PM CDT us Susan Castillo MD CV ECHO PROCEDURES Final Result from Last 3 Months Insurance [facility] Care Teams Pan Dumper Relationship Specialty Start Date End Date Aayush Contreras DO PCP - General Internal Medicine 10/20/23
--- OUTSIDE RECORDS SUMMARY | 2025-05-09 14:09 | XMS_ITS | Clinical Summary ---
Author Organization [facility] Address [address] [place] [address] Care Team Providers Care Ship Fastener Name Role Phone Unavailable Primary Care Provider Unavailabl e Source Comments [facility],non-owned Affiliates and Associated Physician Practices is amultiple site organization consisting of ambulatory clinics and hospital sitesin [place], [place] and [place]. This disclosure is being madepursuant to the Care Everywhere program and may not contain all information available regarding this patient. 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 Gender Identity Not on file Sexual [...] patient's age to complete this topic Insurance [facility] MEDICARE SELF PAY NO INSURANCE Member Subscriber Plan / Payer (Ef fective for All Dates) Name:Jordy Hernandez Member ID:Not on file Relation to Subscriber:Not on file Name:JORDY HERNANDEZ Subscriber ID:Not on file Address: [address] [place] [place] [address] Payer ID:Not on file Group ID:Not on file Type:Self Pay Address: [place], [place] [facility] MEDICARE SELF PAY NO INSURANCE Member Subscriber Plan / Payer (Ef fective for All Dates) Name:MaryJordy thurston Member ID:Not on file Relation to Subscriber:Not on file Name:MARYJORDY THURSTON Subscriber ID:Not on file Address: [address] [place] [address] Payer ID:Not on file Group ID:Not on file Type:Self Pay Address: [place], [place] [facility] MEDICARE SELF PAY NO INSURANCE Member Subscriber Plan / Payer (Ef fective for All Dates) Name:Jordy Hernandez Member ID:Not on file Relation to Subscriber:Not on file Name:JORDY HERNANDEZ Subscriber ID:Not on file Address: [address] [place] [address] Payer ID:Not on file Group ID:Not on file Type:Self Pay Address: [place], [place]
[2025-05-09] MEDS: POTASSIUM CHLORIDE 20 MEQ PACKET (FOR LIQUID) 40 MEQ PO (14:12)
[2025-05-09 14:40] LABS: NT Pro B Type Natriuretic Pept 35 pg/mL (19.9-100)
[2025-05-09 15:12] LABS: Influenza A QL RT-PCR Negative (Negative); Influenza B QL RT-PCR Negative (Negative); RSV RNA, RT-PCR Negative (Negative); SARS-CoV-2 RNA PCR Negative (Negative)
--- NOTE | 2025-05-09 15:32 | ED.GENADULT ---
HPI - General Adult General Chief complaint: Arrhythmia/Palpitations Stated complaint: Shortness of breath/Afib Time Seen by Provider: 05/09/25 13:19 History of Present Illness HPI narrative: This is a 69-year-old female with history heart failure with reduced ejection fraction COPD presenting for palpitations. Patient says that she feels like her heart has been racing for the last 2 weeks. She says she is having heart rates as high as 120-140 and as low as 40. Patient said that when her heart rate got to 40 she became very sleepy and 'fell asleep' for 3 hours. She has also developed dyspnea on exertion as well as a chest discomfort which he describes as a knot in the center of her chest. The chest discomfort comes and goes. Patient been taking her medications as directed. She denies any new lower extremity edema. She denies any fevers or productive cough. Related Data Home Medications ?Medication ?Instructions ?Recorded ?Confirmed ?Last Taken ?Type acetaminophen 500 mg tablet 100 mg PO QID PRN Pain 10/12/23 05/09/25 11/15/23 History (Tylenol Extra Strength) furosemide 40 mg tablet 40 mg PO DAILY 10/31/23 05/09/25 11/15/23 History sacubitril 49 mg-valsartan 51 mg 1 tablet PO BID 03/12/24 05/09/25 Unknown History tablet Allergies Allergy/AdvReac Type Severity Reaction Status Date / Time adhesive tape Allergy Intermediate BLISTER/REDNESS/SWELLING Verified 05/09/25 12:34 AT SITE amoxicillin Allergy Unknown Unknown Verified 05/09/25 12:34 azithromycin Allergy Unknown unknown Verified 05/09/25 12:34 erythromycin base Allergy Unknown unknow Verified 05/09/25 12:34 Penicillins Allergy Unknown unknown Verified 05/09/25 12:34 doxycycline AdvReac Mild Diarrhea Verified 05/09/25 12:34 morphine AdvReac Itching Verified 05/09/25 12:34 [facility] Past Medical History Medical History Cirrhosis Cirrhosis of liver without ascites Personal history of nicotine dependence Hospital discharge follow-up Encounter to establish care Dizziness Localized swelling, mass and lump, left upper limb Right ankle pain Hypokalemia Urinary frequency Abdominal pain, epigastric Morbid obesity with BMI of 50.0-59.9, adult Hyperglycemia Bruising, spontaneous Left bundle branch block Chest pain Elevated troponin Chest pain Heart failure, unspecified Acute exacerbation of congestive heart failure Morbid obesity Chronic obstructive pulmonary disease Heart failure with reduced ejection fraction Echocardiogram in September 2023; moderately reduced LV systolic function with an EF estimated at 35 to 40% and grade 1 diastolic dysfunction. Deep venous thrombosis (1973) Following an ankle fracture. Hiatal hernia Hypertension Aortic atherosclerosis (07/2015) Noted on CT of the abdomen and pelvis. Ventral hernia Arthritis Surgical History Surgical History History of 2 sections History of bilateral knee arthroplasty History of back surgery 1984 and 1985 History of appendectomy History of bladder suspension procedure x2 History of total hysterectomy History of cholecystectomy History of hernia repair Family History Family History Sibling Family history of thyroid disease Lung cancer Mother Family history of lung cancer Father Family history of heart disease in male family member before age 55 Other Diabetes mellitus Family history of allergic disorder Family history of cardiovascular disease Hypertension Social History Social History Social History: Caffeine-diet soda/coffee Surrogate medical decision maker: Franchesca Bonilla, daughter. Code status: Full code. Smoking packs per day: 2.5 Smoking cigarettes per day: 50.0 Years smoked: 35 Smoking pack-years: 87.50 Smoking status: Former smoker Tobacco type: cigarettes Second hand tobacco smoke exposure: No Smoking end date: 10/29/16 Alcohol intake: never Substance use: never Substance use type: does not use Do You Feel Safe in your Home?: Yes Lack of Transportation: No Lack of Food: Never True Current Housing: I Have Housing Concerned About Future Housing: No Difficulty Paying Gas/Electric Bills: No Difficulty Paying for Meds: No Currently Unemployed: No Education: Associate Degree Difficulty w/ Childcare or Family Care: No Living arrangements: with family Occupation/Education: retired Spiritual care concerns: No Agree to blood products: Yes Exam Narrative: APPEARANCE: No apparent distress. Head: atraumatic. EYES: EOMI, NOSE: Atraumatic NECK: Trachea midline RESPIRATORY: No increased rate of breathing, CTAB CARDIOVASCULAR: Tachycardic, left calf greater in diameter than the right ABDOMINAL: Non-distended MUSCULOSKELETAl: No obvious deformities NEURO: Alert. Moving 4/4 extremities SKIN:: Warm, dry. Normal color PSYCHIATRIC: Normal affect Course Vital Signs Vital signs: Vital Signs Temperature 98.0 F 05/09/25 12:42 Pulse Rate 103 H 05/09/25 12:42 Respiratory Rate 20 05/09/25 12:42 Blood Pressure 119/74 05/09/25 12:42 Pulse Oximetry 95 05/09/25 12:42 Temperature 98.0 F 05/09/25 12:42 Pulse Rate 120 H 05/09/25 17:00 Respiratory Rate 17 05/09/25 17:00 Blood Pressure 101/56 L 05/09/25 17:00 Pulse Oximetry 96 05/09/25 17:00 Medical Decision Making MDM Narrative Medical decision making narrative: -Course: 69-year-old female presenting palpitations and variable heart rate at home. In the emergency department the patient is tachycardic as high as the 120 is although it was not documented by nursing staff. EKG shows sinus tachycardia with frequent PVCs. Patient says she is short of breath although she has clear lung sounds. She is saturating well on room air. Patient given an hour long breathing treatment given her history of COPD. CT PE negative for PE/PNA. Mild emphysema. Her left calf is larger in diameter than her right although she says this is chronic. Venous ultrasound negative for DVT. Point of care cardiothoracic ultrasound showed a completely flat IVC indicating dehydration. Given her history of reduced ejection fraction she was given a 500 cc bolus with some improvement in her heart rate. Given another 1 L. Patient was re-evaluated and is still having runs of tachycardia in the 120s. Additionally blood pressures are still soft 101/56. Workup significant for an initial troponin of 0.035 which then down trended to undetectable. Initial Troponin was very delayed and we had to call the lab to have them re-run the test. Unclear if there has been some sort of lab error but a 6 hour will also be obtained. Potassium was low 3.1 which is repleted orally. On re-evaluation the patient is still having fluctuating heart rate. She has not been bradycardic in our emergency department but given her report of bradycardia at home and tachycardiac here there is concern for sick sinus syndrome. Patient will be admitted to telemetry floor for cardiology evaluation. Independent EKG interpretation: Rhythm [sinus], Rate [102], [place] -[normal], [place] -[normal], QRS [wide], QTC [normal], T waves -[negative for concerning inversions], ST Segments - [Negative for concerning elevations] Final interpretations: Sinus tachycardia with left bundle-branch block -DDX includes but is not limited to: Sick sinus syndrome, atrial fibrillation/atrial flutter, CHF, COPD, malignant dysrhythmia Vital Signs Vital Signs: Vital Signs Temperature 98.0 F 05/09/25 12:42 Pulse Rate 103 H 05/09/25 12:42 Respiratory Rate 20 05/09/25 12:42 Blood Pressure 119/74 05/09/25 12:42 Pulse Oximetry 95 05/09/25 12:42 Temperature 98.0 F 05/09/25 12:42 Pulse Rate 120 H 05/09/25 17:00 Respiratory Rate 17 05/09/25 17:00 Blood Pressure 101/56 L 05/09/25 17:00 Pulse Oximetry 96 05/09/25 17:00 Lab Data 05/09/25 12:48 05/09/25 12:48 Labs: Lab Results 05/09/25 05/09/25 05/09/25 Range/Units 12:48 14:15 15:48 WBC 5.3 (4.5-10.0) K/mm3 RBC 4.83 (4.2-5.4) M/mm3 Hgb 16.6 H (12.0-15.0) g/dL Hct 47.7 H (37.0-47.0) % MCV 98.8 (80-100) fl MCH 34.4 H (26-34) pg MCHC 34.8 (32-36) g/dl RDW 13.6 (11.5-14.5) % Plt Count 247 (150-375) k/mm3 MPV 10.2 (7.4-10.4) fl Immature Gran % (Auto) 0.2 (0-0.5) % Neut % (Auto) 31.6 L (45.5-73.1) % Lymph % (Auto) 45.8 H (18.3-44.2) % [place]herty % (Auto) 11.3 H (2.6-8.5) % Eos % (Auto) 9.2 H (0-4.4) % Baso % (Auto) 1.9 H (0.2-1.2) % Lymph # (Auto) 2.43 (0.9-3.2) K/mm3 [place] # (Auto) 0.6 (0.1-0.6) K/mm3 Eos # (Auto) 0.5 H (0-0.3) K/mm3 Baso # (Auto) 0.1 (0.0-0.1) K/mm3 Abs Immat Gran (auto) 0.01 (0.00-0.031) K/mm3 Absolute Neuts (auto) 1.7 (1.3-6.7) K/mm3 Absolute Nucleated RBC 0.000 (0.0-0.012) K/mm3 Nucleated RBC % 0.0 (0.0-0.2) % PT 14.1 (11.1-14.7) Seconds INR 1.1 APTT 29.8 (22.3-36.8) Seconds Sodium 137 (137-145) mmol/L Potassium 3.1 L (3.4-5.0) mmol/L Chloride 101 (98-107) mmol/L Carbon Dioxide 23 (22-30) mmol/L Anion Gap 13 H (4-12) mmol/L BUN 15 (7-17) mg/dL Creatinine 0.75 (0.7-1.0) mg/dL Estim Creat Clear Calc Not Reportable Estimated GFR > 60 (59 - ) Glucose 149 H (65-110) mg/dL Calcium 9.9 (8.4-10.2) mg/dL Total Bilirubin 1.1 (0.2-1.3) mg/dL AST 36 (14-36) U/L ALT 23 (6-35) U/L Alkaline Phosphatase 86 (38-126) U/L Troponin I 0.034 < 0.012 D (0.000-0.034) ng/mL NT-Pro-B Natriuret Pep 35 (19.9-100) pg/mL Total Protein 8.0 (6.3-8.2) g/dL Albumin 4.5 (3.5-5.1) g/dL Lipase 40 (23-300) U/L Influenza A (RT-PCR) Negative (Negative) Influenza B (RT-PCR) Negative (Negative) RSV (RT-PCR) Negative (Negative) SARS-CoV-2 RNA (RT-PCR) Negative (Negative) Discharge Plan Discharge Clinical Impression: Dyspnea, Tachycardia Patient Disposition: Still a Patient Condition: Stable Patient Language: Macanese Prescriptions: No Action furosemide 40 mg tablet 40 mg PO DAILY Patient Comments: Prescribed by cardiology. sacubitril-valsartan 49-51 mg tablet 1 tablet PO BID acetaminophen [Tylenol Extra Strength] 500 mg Tablet 100 mg PO QID PRN (Reason: Pain) Jardiance 10 mg Tablet 10 mg PO DAILY 30 Days Qty: 30 0RF aspirin 81 mg tablet,chewable 81 mg PO DAILY 30 Days Qty: 30 0RF spironolactone 25 mg Tablet 25 mg PO QAM 30 Days Qty: 30 0RF (DME) blood-glucose meter [FreeStyle Lite Meter] Kit See Rx Instructions .Route Qty: 1 0RF Rx Instructions: Use to check BS BID (DME) FreeStyle Lite Strips Strip See Rx Instructions .Route Qty: 100 3RF Rx Instructions: Use to check BS BID (DME) lancets [FreeStyle Lancets] 28 gauge misc See Rx Instructions .Route Qty: 100 3RF Rx Instructions: Use to check BS BID theophylline 300 mg tablet extended release 12 hr 300 mg PO Q12H Qty: 180 1RF montelukast 10 mg tablet 10 mg PO DAILY Qty: 90 1RF meloxicam 15 mg tablet 15 mg PO HS Qty: 90 1RF pantoprazole [Protonix] 40 mg tablet,delayed release (DR/EC) 40 mg PO QAM Qty: 90 1RF levalbuterol HCl 1.25 mg/3 mL solution for nebulization 1.25 mg inhalation Q6H PRN (Reason: shortness of breath or wheezing) Qty: 180 3RF Breztri Aerosphere 160-9-4.8 mcg/actuation HFA aerosol inhaler See Rx Instructions .ROUTE .COMPLEX Qty: 10.7 11RF Dose Instruction: INHALE 2 PUFFS EVERY DAY IN THE MORNING AND IN THE EVENING RINSE AND SPIT. Rx Instructions: INHALE 2 PUFFS EVERY DAY IN THE MORNING AND IN THE EVENING RINSE AND SPIT. albuterol sulfate 90 mcg/actuation HFA aerosol inhaler 1 - 2 puff inhalation Q4-6H PRN (Reason: shortness of breath or wheezing) Qty: 8.5 3RF furosemide 20 mg tablet 20 mg PO QAM PRN (Reason: fluid rentention) Qty: 90 1RF Rx Instructions: Take as directed duloxetine 30 mg capsule,delayed release(DR/EC) 30 mg PO DAILY Qty: 90 0RF pramipexole 0.125 mg tablet 0.125 mg PO QHS Qty: 30 0RF Rx Instructions: Take 2 hours before bedtime. Ok to increase by one tablet at 4-7 days. Please call office before increasing any further. Follow-up/Referrals: Aayush Contreras DO [Primary Care Provider, Internal Medicine]
[2025-05-09 15:37] LABS: Troponin I 0.034 ng/mL (0.000-0.034)
[2025-05-09] MEDS: IPRATROPIUM 0.5 MG/ALBUTEROL SULFATE 2.5 MG (BASE) AMPUL.NEB 3 ML 12 ML INHALATION (15:41)
[2025-05-09] MEDS: LACTATED RINGERS 1,000 ML 999 ML IV CONT ×2 (15:43→19:04)
[2025-05-09 16:16] LABS: Troponin I < 0.012 ng/mL (0.000-0.034)
--- NOTE | 2025-05-09 16:36 | ECG_ITS ---
Test Date: 2025-05-09 16:41:03 Measurements Intervals [place] Rate: 109 P: 56 [place]: 136 QRS: 40 QRSD: 127 T: 87 QT: 368 QTc: 496 Interpretive Statements SINUS TACHYCARDIA POSSIBLE LEFT ATRIAL ENLARGEMENT LEFT BUNDLE BRANCH BLOCK BASELINE ARTIFACT- I, II, III, AVR, AVL, AVF, V1 ABNORMAL ECG Compared to ECG 05/09/2025 12:41:09 Ventricular premature complex(es) no longer present Electronically Signed On 05-09-2025 16:42:49 CDT by Boyd Pina D.O.
--- NOTE | 2025-05-09 16:37 | ECG_ITS ---
Test Date: 2025-05-09 18:26:44 Measurements Intervals [place] Rate: 106 P: 44 MN: 136 QRS: 37 QRSD: 134 T: 97 QT: 382 QTc: 509 Interpretive Statements SINUS TACHYCARDIA WITH FREQUENT VENTRICULAR PREMATURE COMPLEXES LEFT BUNDLE BRANCH BLOCK BASELINE ARTIFACT- I, II, III, AVR, AVL, AVF, V1-V6 ABNORMAL ECG Compared to ECG 05/09/2025 16:41:03 VENTRICULAR PREMATURE COMPLEXES NOW PRESENT Electronically Signed On 05-09-2025 19:30:05 CDT by Boyd Pina D.O.
[2025-05-09 17:35] LABS: Fractional Inspired Oxygen 32 %; HCO3 VBG 21.8 mEq/l (24.0-30.0); PCO2 VBG 37.3 mmHg (42.0-48.0); PO2 VBG 70.8 mmHg (35.0-45.0); pH VBG 7.384 (7.300-7.400)
[2025-05-09 19:04] LABS: Magnesium 1.9 mg/dL (1.6-2.3)
[2025-05-09 19:15] LABS: Troponin I < 0.012 ng/mL (0.000-0.034)
--- OUTSIDE RECORDS SUMMARY | 2025-05-09 19:20 | XMS_ITS | Clinical Summary ---
Author Organization [facility] Address [address] [place] [address] Care Team Providers Care Wirer Passenger Car Name Role Phone Unavailable Primary Care Provider Unavailabl e Source Comments [facility],non-owned Affiliates and Associated Physician Practices is amultiple site organization consisting of ambulatory clinics and hospital sitesin [place], [place] and [place]. This disclosure is being madepursuant to the Care Everywhere program and may not contain all information available regarding this patient. Last updated 18.[facility] [email or web address] Social History Tobacco Use Types Packs/Day Years Used Date Smoking Tobacco: Never Assessed Comments Unknown Sex and Gender Information Value Date Recorded Sex Assigned at Not on file Legal Sex Female 5:58 AM [employer] Gender Identity Not on file Sexual [...] patient's age to complete this topic Insurance [facility] MED[facility] SELF PAY NO INSURANCE Member Subscriber Plan / Payer (Ef fective for All Dates) Name:Jordy Hernandez Member ID:Not on file Relation to Subscriber:Not on file Name:JORDY HERNANDEZ Subscriber ID:Not on file Address[address] [place] [address] Payer ID:Not on file Group ID:Not on file Type:Self Pay Address: [place], [place] [facility] MED[facility] SELF PAY NO INSURANCE Member Subscriber Plan / Payer (Ef fective for All Dates) Name:MaryJordy thurston Member ID:Not on file Relation to Subscriber:Not on file Name:MARYJORDY THURSTON Subscriber ID:Not on file Address: [address] [place] [address] Payer ID:Not on file Group ID:Not on file Type:Self Pay Address: [place], [place] [facility] MEDIC[facility] SELF PAY NO INSURANCE Member Subscriber Plan / Payer (Ef fective for All Dates) Name:Jordy Hernandez Member ID:Not on file Relation to Subscriber:Not on file Name:JORDY HERNANDEZ Subscriber ID:Not on file Address: [address] [place] [address] Payer ID:Not on file Group ID:Not on file Type:Self Pay Address: [place], [place]
[2025-05-09] MEDS: METOPROLOL TARTRATE INJ 5 MG/5 ML VIAL IV PUSH (20:17)
[2025-05-09] MEDS: MIDODRINE HCL 10 MG TABLET PO (20:28)
--- NOTE | 2025-05-09 21:05 | ADMGEN ---
This patient, Em Hernandez, was admitted to Intensive Care Unit-4. Patient/family oriented to hospital policies and general routines including ID bracelet, bed and alarms, visiting hours, pain management, procedures, bathroom and other care routines, personal items, smoking policy, room service/diet, and visiting hours. Information on how to activate the Rapid Response Team has been discussed. Patient/Family are encouraged to report perceived risks to care and to ask questions if they do not understand what they are told or what they should do.
--- NOTE | 2025-05-09 22:33 | PM.IMHP ---
H&P: HPI History of Present Illness Date/Time: 05/09/25 22:33 Chief Complaint: Arrhythmia Narrative: This is a 69-year-old female patient with an extensive health history including diabetes, heart failure, and COPD. The patient was sent to the emergency room from her primary care doctor's office. This morning when she presented to her primary care doctor's office the patient was having some chest pain, shortness a breath, dizziness and headaches. The patient stated that she felt short of breath yesterday and her oxygen level was 92%. She also noticed that her heart rate was going from 40 to 120s. This is when she felt some chest pressure. Yesterday she noticed slurred speech and felt like her arm was weak. Her last echo was 42% EF back in February. When she presented to the emergency room she was having episodes of tachycardia with a heart rate in the 130s. During these episodes her blood pressures would drop from systolic 100 stay 80s. Her point of care ultrasound showed a flat IVC. She did receive 1.5 L of fluid. She was given 5 mL of IV Lopressor when her blood pressure was stable for the tachycardia. ER physician spoke to the transplanter who agreed with the admission to ICU. Her H&H is 16.6 and 47.7 which is her baseline. Her potassium was 3.1. Anion gap 13. Her blood sugars 149. Troponins were negative. Viral serology is negative. Chest x-ray was read as no acute cardiopulmonary findings. CTA was read as no pulmonary embolus. Sensitivity is moderately decreased by motion artifact and obesity. Mild emphysema. Her venous Dopplers were negative for DVT. The patient was substituted with potassium in the emergency room and started on midodrine. She was also given 2 L of fluids and Lopressor in the emergency room. The patient has been admitted to ICU as inpatient on the date of service of 05/09/2025. Review of Systems Constitutional: Constitutional: Reports as per HPI and Reports no additional constitutional complaints Eyes: Eyes: Reports as per HPI and Reports no additional eye complaints ENT: Reports system reviewed and no additional complaints, except as documented and Reports Normal hearing present Cardiovascular: Cardiovascular: Reports no additional cardiovascular complaints Respiratory: Respiratory: Reports as per HPI and Reports no additional respiratory complaints Gastrointestinal: Gastrointestinal: Reports as per HPI and Reports no additional gastrointestinal complaints Genitourinary: Genitourinary: Reports no additional female genitourinary complaints Musculoskeletal: Musculoskeletal: Reports no additional musculoskeletal complaints Integumentary/Breasts: Skin/Breast: Reports system reviewed and no additional complaints, except as docu Neurologic: Reports system reviewed and no additional complaints, except as documented and Reports Normal hearing present Psychiatric: Psychiatric: Reports no additional psychiatric complaints and Reports as per HPI Hematologic/Lymphatic: Hematologic/Lymphatic: Reports no additional hematologic/lymphatic complaints Allergic/Immunologic: Allergic/Immunologic: Reports no additional allergic/immunologic complaints [facility] Past Medical History Medical History Hypokalemia Cirrhosis Cirrhosis of liver without ascites Personal history of nicotine dependence Hospital discharge follow-up Encounter to establish care Dizziness Localized swelling, mass and lump, left upper limb Right ankle pain Urinary frequency Abdominal pain, epigastric Morbid obesity with BMI of 50.0-59.9, adult Hyperglycemia Bruising, spontaneous Left bundle branch block Chest pain Elevated troponin Chest pain Heart failure, unspecified Acute exacerbation of congestive heart failure Morbid obesity Chronic obstructive pulmonary disease Heart failure with reduced ejection fraction Echocardiogram in September 2023; moderately reduced LV systolic function with an EF estimated at 35 to 40% and grade 1 diastolic dysfunction. Deep venous thrombosis (1973) Following an ankle fracture. Hiatal hernia Hypertension Aortic atherosclerosis (07/2015) Noted on CT of the abdomen and pelvis. Ventral hernia Arthritis Surgical History Surgical History History of 2 sections History of bilateral knee arthroplasty History of back surgery 1984 and 1985 History of appendectomy History of bladder suspension procedure x2 History of total hysterectomy History of cholecystectomy History of hernia repair Family History Family History Sibling Family history of thyroid disease Lung cancer Mother Family history of lung cancer Family history of cardiovascular disease Father Family history of heart disease in male family member before age 55 Family history of cardiovascular disease Hypertension Grandparent Diabetes mellitus Other Family history of allergic disorder Social History Social History Social History: Caffeine-diet soda/coffee. She is retired from [employer]. Surrogate medical decision maker: Franchesca Bonilla, daughter. Code status: Full code. Smoking packs per day: 2.0 Smoking cigarettes per day: 40.0 Years smoked: 37 Smoking pack-years: 74.00 Smoking status: Former smoker Tobacco type: cigarettes Second hand tobacco smoke exposure: No Smoking end date: 10/29/16 Alcohol intake: never Substance use: never Substance use type: does not use Do You Feel Safe in your Home?: Yes Lack of Transportation: No Lack of Food: Never True Current Housing: I Have Housing Concerned About Future Housing: No Difficulty Paying Gas/Electric Bills: No Difficulty Paying for Meds: No Currently Unemployed: No Education: High School Diploma/GED Difficulty w/ Childcare or Family Care: No Living arrangements: with family Occupation/Education: retired Spiritual care concerns: No Agree to blood products: Yes Meds Home Medications and Allergies Home Medications ?Medication ?Instructions ?Recorded ?Confirmed ?Type acetaminophen 500 mg tablet 1,000 mg PO QID PRN Pain 10/12/23 05/09/25 History (Tylenol Extra Strength) aspirin 81 mg chewable tablet 81 mg PO DAILY 30 days #30 tabs 10/15/23 05/09/25 Rx empagliflozin 10 mg tablet 10 mg PO DAILY CHrEF 35% 30 days 10/15/23 05/09/25 Rx (Jardiance) #30 tabs spironolactone 25 mg tablet 25 mg PO QAM 30 days #30 tabs 10/15/23 05/09/25 Rx furosemide 40 mg tablet 40 mg PO DAILY 10/31/23 05/09/25 History sacubitril 49 mg-valsartan 51 mg 1 tablet PO BID 03/12/24 05/09/25 History tablet blood sugar diagnostic (FreeStyle #100 ea 08/24/24 05/09/25 Rx Lite Strips) blood-glucose meter (FreeStyle #1 ea 08/24/24 05/09/25 Rx Lite Meter kit) lancets 28 gauge (FreeStyle #100 ea 08/24/24 05/09/25 Rx Lancets) theophylline 300 mg 300 mg PO Q12H #180 tabs 10/09/24 05/09/25 Rx tablet,extended release,12 hr meloxicam 15 mg tablet 15 mg PO HS #90 tabs 01/14/25 05/09/25 Rx pantoprazole 40 mg tablet,delayed 40 mg PO QAM #90 tabs 01/15/25 05/09/25 Rx release (Protonix) albuterol sulfate 90 mcg/actuation 1 - 2 puff inhalation Q4-6H PRN 02/18/25 05/09/25 Rx aerosol inhaler shortness of breath or wheezing #8.5 grams budesonide 160 mcg-glycopyr 9 See Rx Instructions .Route 02/18/25 05/09/25 Rx mcg-formot 4.8 mcg/actuation HFA .COMPLEX #10.7 ea inhaler (Breztri Aerosphere) levalbuterol HCl 1.25 mg/3 mL 1.25 mg (3 mL) inhalation Q6H PRN 02/18/25 05/09/25 Rx solution for nebulization shortness of breath or wheezing #180 mL furosemide 20 mg tablet 20 mg PO QAM PRN fluid rentention 04/09/25 05/09/25 Rx #90 tabs duloxetine 30 mg capsule,delayed 30 mg PO DAILY #90 caps 04/24/25 05/09/25 Rx release montelukast 10 mg tablet 10 mg PO HS 05/09/25 05/09/25 History pramipexole 0.125 mg tablet 0.25 mg PO QHS 05/09/25 05/09/25 History Allergies Allergy/AdvReac Type Severity Reaction Status Date / Time adhesive tape Allergy Intermediate BLISTER/REDNESS/SWELLING Verified 05/09/25 21:15 AT SITE amoxicillin Allergy Unknown Unknown Verified 05/09/25 21:15 azithromycin Allergy Unknown unknown Verified 05/09/25 21:15 erythromycin base Allergy Unknown unknow Verified 05/09/25 21:15 Penicillins Allergy Unknown unknown Verified 05/09/25 21:15 doxycycline AdvReac Mild Diarrhea Verified 05/09/25 21:15 morphine AdvReac Itching Verified 05/09/25 21:15 Vital Signs Vital Signs - 24 hr 05/09/25 12:42 05/09/25 13:36 05/09/25 13:57 Temperature 98.0 F Pulse Rate 103 H 105 H 104 H Respiratory Rate 20 17 24 H Blood Pressure 119/74 77/58 L Pulse Oximetry 95 96 95 05/09/25 14:17 05/09/25 14:17 05/09/25 15:36 Temperature Pulse Rate 106 H 106 H 102 H Respiratory Rate 15 14 Blood Pressure 113/70 Pulse Oximetry 96 05/09/25 17:00 05/09/25 20:17 05/09/25 21:01 Temperature Pulse Rate 120 H 103 H 97 Respiratory Rate 17 20 Blood Pressure 101/56 L 111/67 Pulse Oximetry 96 97 05/09/25 22:00 05/09/25 22:00 Temperature 98.0 F Pulse Rate 91 91 Respiratory Rate 22 H Blood Pressure 111/58 L Pulse Oximetry 95 Exam Const: General: cooperative, comfortable, no acute distress, well developed, awake and Physically active Orientation/consciousness: oriented to person, oriented to place, oriented to time and patient oriented x3 Limitations: no limitations HENMT: Head: normal to inspection, No palpable skull fracture present, normocephalic, atraumatic and abrasion Ears: hearing grossly normal bilaterally Eyes: General: appearance normal, both eyes and all related structures Alignment and Position: alignment normal Periorbital: periorbital findings normal Eyelids: eyelids normal Neck: Neck: normal visual inspection, full ROM, no lymphadenopathy, trachea midline and supple Chest: Chest palpation & inspection: normal inspection of the chest Resp: Effort & Inspection: normal respiratory effort Auscultation: clear to auscultation bilaterally Percussion: percussion normal Cardio: Palpation: normal PMI Rate: regular rate Rhythm: regular rhythm Heart sounds: S1 normal heart sound present and S2 normal heart sound present Peripheral pulses: Peripheral pulses 2+ throughout GI: Inspection: normal to inspection Percussion: Yes normal to percussion Auscultation: normal bowel sounds Rectal Exam: deferred Other: Large hernia noted to the left mid upper abdomen that is soft and pliable. The hernia is reducible and Nontender. : General: Yes no CVA tenderness Back/Spine/Pelvis: Back: no CVA tenderness Skin: General skin exam: normal color Lesions: no lesions Rashes: no rashes Trauma: no lacerations or abrasions Wounds: no wounds Hair: normal Nails: normal Neuro: General: oriented to person, oriented to place, oriented to time and patient oriented x3 Cranial nerves: Yes Normal hearing present Cognition (Neuro): normal cognition Speech: normal speech Gait exam (Neuro): Normal gait present Motor exam (neuro): 5/5 motor strength present throughout Sensory Exam: normal sensation Extrem: General: normal to inspection Right upper extremity: normal to inspection and shoulder/upper arm Left upper extremity: normal to inspection and shoulder/upper arm Right lower extremity: normal to inspection Left lower extremity: normal to inspection Psych: Appearance: grossly normal Mental Status: mental status grossly normal Speech and movement: Normal speech and movement present Affect: normal affect Attitude: cooperative Thought process: Normal thought process present Thought content: Yes Normal thought content present Insight: Good insight present (Psych) Judgement: Good judgement present (Psych) H&P: Results Labs Labs: Short CBC 05/09/25 Range/Units 12:48 WBC 5.3 (4.5-10.0) K/mm3 Hgb 16.6 H (12.0-15.0) g/dL Hct 47.7 H (37.0-47.0) % Plt Count 247 (150-375) k/mm3 BMP 05/09/25 12:48 Sodium 137 Potassium 3.1 L Chloride 101 Carbon Dioxide 23 BUN 15 Creatinine 0.75 Glucose 149 H Calcium 9.9 Cardiac Enzymes 05/09/25 05/09/25 05/09/25 Range/Units 12:48 15:48 18:25 Troponin I 0.034 < 0.012 D < 0.012 (0.000-0.034) ng/mL Liver Function 05/09/25 Range/Units 12:48 Total Bilirubin 1.1 (0.2-1.3) mg/dL AST 36 (14-36) U/L ALT 23 (6-35) U/L Alkaline Phosphatase 86 (38-126) U/L Albumin 4.5 (3.5-5.1) g/dL ECG Interpretation: Test Date: 2025-05-09 18:26:44 Measurements Intervals [place] Rate: 106 P: 44 WA: 136 QRS: 37 QRSD: 134 T: 97 QT: 382 QTc: 509 Interpretive Statements SINUS TACHYCARDIA WITH FREQUENT VENTRICULAR PREMATURE COMPLEXES LEFT BUNDLE BRANCH BLOCK BASELINE ARTIFACT- I, II, III, AVR, AVL, AVF, V1-V6 ABNORMAL ECG Compared to ECG 05/09/2025 16:41:03 VENTRICULAR PREMATURE COMPLEXES NOW PRESENT Electronically Signed On 05-09-2025 19:30:05 CDT by [facility] Chest x-ray: Radiologist's impression: Impressions Chest X-Ray 05/09/25 12:56 IMPRESSION: 1. No acute cardiopulmonary findings. Chest CTA 05/09/25 14:44 IMPRESSION: 1. No pulmonary embolus. Sensitivity is moderately decreased by motion artifact and obesity. 2. Mild emphysema. Venous Doppler Study 05/09/25 15:21 Impression: Negative for DVT. Assessment and Plan Assessment and plan (1) Tachycardia: Code(s): R00.0 - Tachycardia, unspecified Status: Acute Assessment and Plan: -the patient's heart rate appears to be responding to hypotensive episodes. The patient gets tachycardic when her blood pressure is low. -midodrine has been started. -check cheetah. Which was fluid responsive -the patient was given 2 L of fluid in the emergency room. -at this time the patient's heart rate is in the 70s with maintain blood pressure of 125/59. -the patient had been complaining of chest pain shortness breast and dizziness in her PCPs office today. -her CTA and Dopplers were found to be negative. -check thyroid level (2) CHF (congestive heart failure): Qualifiers: Heart failure chronicity: unspecified Heart failure type: unspecified Qualified Code(s): I50.9 - Heart failure, unspecified Code(s): I50.9 - Heart failure, unspecified Status: Acute Assessment and Plan: -due to her low blood pressure her spironolactone and Entresto were placed on hold tonight. Please re-evaluate in the a.m. if her blood pressure remains stable may consider restarting at half the dose.. -last echo here was in 2021 which shows an EF of 71% and impaired diastolic relaxation grade 1. -chest x-ray shows no acute cardiopulmonary disease. -continue Jardiance -EF noted to be 42% as per PCP note today. (3) Hypertension: Code(s): I10 - Essential (primary) hypertension Status: Acute Assessment and Plan: -patient is on Entresto for her CHF. However she has been hypotensive therefore her Entresto is on hold at this time. -will check a cheetah. Which is fluid responsive -check orthostatic blood pressures daily. -the patient had been hypotensive with tachycardia. (4) Anxiety: Code(s): F41.9 - Anxiety disorder, unspecified Status: Acute Assessment and Plan: -continue with duloxetine (5) Type 2 diabetes mellitus: Qualifiers: Diabetes mellitus complication status: without complication Diabetes mellitus buttermaker insulin use: without buttermaker use Qualified Code(s): E11.9 - Type 2 diabetes mellitus without complications Code(s): E11.9 - Type 2 diabetes mellitus without complications Status: Acute Assessment and Plan: -Accu-Cheks AC and HS with sliding scale insulin. -check A1c if not last 3 months.(6.1 on February 04, 2025) -continue Jardiance (6) Hypokalemia: Code(s): E87.6 - Hypokalemia Status: Acute Assessment and Plan: -patient's potassium is 3.1 and was supplemented in the emergency room. -daily BMP -the patient is on Lasix and may need to have a daily potassium supplement. Quality VTE Prophylaxis VTE prophylaxis: pharmacologic ordered
[2025-05-09 23:07] LABS: Thyroid Stimulating Hormone Reflex 3.960 uIU/mL (0.465-4.68)
[2025-05-09 23:09] LABS: Cholesterol 232 mg/dL (0-200); HDL Direct 78 mg/dL; Triglycerides 113 mg/dL (<150)
[2025-05-09 23:15] LABS: Hemoglobin A1C 5.7 % (<5.7)
[2025-05-10] VITALS (20 sets, daily range): BP systolic 91–154; BP diastolic 42–115; PULSE 66–98; RESP 12–23; TEMP 36.1–36.8; O2SAT 92–98
--- NOTE | 2025-05-10 | ECHO_ITS ---
Patient Info Name: Em Hernandez Age: 69 years : 1955 Gender: Female Ht: 61 in Wt: 239 lbs BSA: 2.23 m2 HR: 87 bpm BP: 115 / 42 mmHg Technical Quality: Fair Exam Date: 05/10/2025 12:28 PM Patient Status: I Admit Date: 05/09/2025 Exam Type: CA echo doppler color flow Complete two-dimensional, color flow and Doppler transthoracic echocardiogram is performed. Staff Referring Physician: Willy Zhu Courtesy Booth Cashier: Leroy Maldonado III Attending Provider: Jc Monteiro Summary 1. Complete two-dimensional, color flow and Doppler transthoracic echocardiogram is performed. 2. Left ventricular systolic function is lower end of normal, estimated at 50%. 3. The left ventricular diastolic function is grade I diastolic dysfunction. 4. There is mild mitral valve regurgitation. 5. There is mild tricuspid valve regurgitation. 6. No pulmonary hypertension, estimated pulmonary arterial systolic pressure is 35 mmHg. Left Ventricle Left ventricular chamber dimension is normal. Left ventricular systolic function is lower end of normal, estimated at 50%. There is no increased left ventricular wall thickness. Left ventricular septal wall motion is normal. The left ventricular diastolic function is grade I diastolic dysfunction. Right Ventricle Right ventricular chamber dimension is normal. Right ventricular systolic function is normal. Left Atria Left atrial chamber dimension is normal. Right Atria Right atrial chamber dimension is normal. Aortic Valve The aortic valve is probable trileaflet. There is mild aortic valve sclerosis. There is no aortic valve stenosis. There is no aortic valve regurgitation. Pulmonic Valve The pulmonic valve is normal. There is no pulmonic valve stenosis. There is no pulmonic regurgitation. Mitral Valve The mitral valve has normal leaflets. There is no mitral valve stenosis. There is mild mitral valve regurgitation. There is mild mitral valve calcification. Tricuspid Valve The tricuspid valve leaflets are normal. There is no significant tricuspid valve stenosis. There is mild tricuspid valve regurgitation. No pulmonary hypertension, estimated pulmonary arterial systolic pressure is 35 mmHg. Pericardium/Pleural The pericardium appears normal. There is no pericardial effusion. Inferior Vena Cava Not well visualized inferior vena cava. Aorta The aortic root size at the sinus of Valsalva is normal. The prox ascending aorta size is normal. Left Ventricular Outflow Tract Name Value Normal LVOT 2D LVOT Diameter 2.1 cm LVOT Doppler LVOT Peak Velocity 126 cm/s LVOT Peak Gradient 6 mmHg LVOT Mean Gradient 3 mmHg LVOT VTI 24 cm LVOT VTI/AV VTI Ratio 0.7 LVOT Stroke Volume 80 ml LVOT CO 6.9 l/min LVOT CI 3.1 l/min/m2 Pulmonic Valve Name Value Normal PV Doppler PV Peak Velocity 107 cm/s PV Peak Gradient 5 mmHg PV Mean Gradient 2 mmHg Mitral Valve Name Value Normal MV Doppler MV Peak Gradient 10 mmHg MV Mean Gradient 5 mmHg MV Area (Cont Eq VTI) 2.9 cm2 MV Regurgitation Doppler MR Peak Gradient 95 mmHg MV Diastolic Function MV E Peak Velocity 114 cm/s MV A Peak Velocity 158 cm/s MV E/A 0.7 MV Decel Time (PW) 136 ms MV Annular TDI MV E/e' (Septal) 20.6 MV E/e' (Lateral) 12.9 MV E/e' (Average) 16.8 Tricuspid Valve Name Value Normal TV Regurgitation Doppler TR Peak Velocity 251 cm/s TR Peak Gradient 25 mmHg Estimated PAP/RSVP RA Pressure 10 mmHg <=5 PA Systolic Pressure 35 mmHg <36 RV Systolic Pressure 35 mmHg <36 TV Annular TDI TV Lateral Regina s' Velocity 15.7 cm/s >=9.5 Aortic Valve Name Value Normal AV Doppler AV Peak Velocity 175 cm/s AV Peak Gradient 12 mmHg AV Mean Gradient 7 mmHg AV VTI 35 cm AV Area (Cont Eq VTI) 2.2 cm2 >=3.0 AV Area (Cont Eq Nii) 2.4 cm2 AV DI (Nii) 0.72 AV Regurgitation 2D LVOT Area 3.4 cm2 Ventricles Name Value Normal LV Dimensions 2D/MM IVS Diastolic Thickness (2D) 0.8 cm 0.6-1.0 LVID Diastole (2D) 4.5 cm 3.8-5.2 LVIW Diastolic Thickness (2D) 0.9 cm 0.6-0.9 LVID Systole (2D) 3.6 cm 2.2-3.5 LVOT Diameter 2.1 cm LV Mass (2D Cubed) 124.07 g 67.00-162.00 LV Mass Index (2D Cubed) 56 g/m2 43-95 Relative Wall Thickness (2D) 0.39 <=0.42 LV Fractional Shortening/Ejection Fraction 2D/MM LV Fractional Shortening (2D) 21 % 27-45 LV EF (2D Teichholz) 43 % LV Diastolic Volume (4C MOD) 114 ml LV EF (4C MOD) 50 % LV Diastolic Volume (2C MOD) 122 ml LV EF (2C MOD) 62 % LV Diastolic Volume (BP MOD) 123 ml 46-106 LV Diastolic Volume Index (BP MOD) 55 ml/m2 29-61 LV Systolic Volume (BP MOD) 54 ml 14-42 LV Systolic Volume Index (BP MOD) 24 ml/m2 8-24 LV EF (BP MOD) 56 % 54-74 LV Diastolic Length (4C) 7.9 cm LV Systolic Length (4C) 6.6 cm LV Stroke Volume (4C MOD) 57 ml Atria Name Value Normal LA Dimensions LA Volume (4C A-L) 50 ml LA Volume (BP A-L) 54 ml Report Signatures
[2025-05-10 00:06] LABS: MRSA (PCR) NOT DETECTED (NOT DETECTE)
[2025-05-10 00:34] LABS: Add Urine Microscopic? NO; Appearance Urine Clear (Clear); Glucose Urine UA 3+ mg/dL (Negative); Leukocyte Esterase Ur Negative LEU/UL (Negative); Nitrate Urine Negative (Negative); Specific Grav Ur > 1.045 (1.001-1.035)
[2025-05-10 00:50] LABS: Cannabinoid Screen Urine Negative (Negative)
[2025-05-10 05:47] LABS: Hematocrit 40.4 % (37.0-47.0); Hemoglobin 13.8 g/dL (12.0-15.0); Immature Granulocyte Percent A 0.0 % (0-0.5); Lymphocytes Absolute Auto 2.41 K/mm3 (0.9-3.2); Mean Corpuscular HGB Conc 34.2 g/dl (32-36); Mean Corpuscular Hemoglobin 34.8 pg (26-34); Mean Corpuscular Volume 102.0 fl (80-100); Nucleated Red Blood Cells Absolute Auto 0.000 K/mm3 (0.0-0.012); Nucleated Red Blood Cells Perc 0.0 % (0.0-0.2); Platelet Count Result 204 k/mm3 (150-375); Red Blood Count 3.96 M/mm3 (4.2-5.4); White Blood Count 5.0 K/mm3 (4.5-10.0)
[2025-05-10 05:56] LABS: Hemoglobin A1C 5.8 % (<5.7)
[2025-05-10 05:59] LABS: Anion Gap 4 mmol/L (4-12); Blood Urea Nitrogen 16 mg/dL (7-17); Calcium 9.1 mg/dL (8.4-10.2); Carbon Dioxide 27 mmol/L (22-30); Chloride 105 mmol/L (98-107); Estimated CRCL calculation 69 ml/min; Estimated Glomerular Filt Rate > 60; Glucose 102 mg/dL (65-110); Magnesium 2.0 mg/dL (1.6-2.3); Potassium 3.5 mmol/L (3.4-5.0); Sodium 136 mmol/L (137-145)
[2025-05-10] MEDS: FLUTICASONE/UMECLIDIN/VILANTER 100-62.5-25 MCG ELLIPTA 1 PUFF INHALATION (07:35)
--- NOTE | 2025-05-10 08:29 | WPDCNINT ---
Assessment and Plan Assessment and plan (1) Palpitation: Code(s): R00.2 - Palpitations Status: Acute Assessment and Plan: Patient appears to have palpitations and symptomatic tachycardia at the time of presentation. Etiology appears to be multifactorial. Patient could be intravascular dehydrated as evidenced by bedside ultrasound done in the ER patient is on diuretics and has limited p.o. intake. She was given IV fluids and tachycardia is improved. TSH and cortisol level were unremarkable She also is on extended release theophylline which can cause tachycardia as a side effect and is currently on hold. DuoNebs will only be used as p.r.n. Echo has been ordered Continue cautious IV fluids. Hold diuretics Cardiology consult has been requested Patient did had cardiac catheterization last year which was essentially unremarkable for any significant coronary disease Telemetry and blood pressure monitoring (2) Tachycardia: Code(s): R00.0 - Tachycardia, unspecified Status: Acute (3) Heart failure with reduced ejection fraction: Code(s): I50.20 - Unspecified systolic (congestive) heart failure Status: Acute Assessment and Plan: Echo 10/01 1. Technically difficult study with limited views. 2. Left ventricular chamber dimension is normal. 3. Left ventricular systolic function is moderately reduced, estimated at 35-40%. 4. The left ventricular diastolic function is grade I diastolic dysfunction. 5. Right ventricular systolic function is normal. 6. There is mild mitral valve regurgitation. Hold diuretics and heart failure medications at this time due to soft blood pressure Repeat echocardiogram (4) Hypertension: Code(s): I10 - Essential (primary) hypertension Status: Acute Assessment and Plan: Hold antihypertensive medications at this time (5) Hypokalemia: Code(s): E87.6 - Hypokalemia Status: Acute Assessment and Plan: Potassium replacement ordered (6) COPD (chronic obstructive pulmonary disease): Qualifiers: COPD type: unspecified COPD Qualified Code(s): J44.9 - Chronic obstructive pulmonary disease, unspecified Code(s): J44.9 - Chronic obstructive pulmonary disease, unspecified Status: Acute Assessment and Plan: Not in exacerbation DuoNeb only p.r.n. Plan DVT prophylaxis -Lovenox Nutrition -diet ordered Code Status - Full Code Airworthiness Safety Inspector Consult Note Consult date: 05/10/25 Reason for consult: Palpitations, tachycardia, hypotension HPI: Em Hernandez is a 69 year old female with past medical history of congestive heart failure with decreased EF, COPD/emphysema, abdominal wall hernia, obesity presented to ER yesterday with chief complaint of palpitations. Patient states that last few days she has been noticing that her heart was racing fast every time she exerted. She was monitoring and the heart rate will go up to 130s and will take time to come down. During this time patient felt palpitations, sometimes chest discomfort and dizziness. She feels that once she passed out briefly while sitting in bed talking on the phone and her heart rate was up. She denies any fever, abdominal pain. She had nausea but no vomiting. She did had no dysuria hematuria hematochezia melena. No constipation or diarrhea. She has abdominal wall hernia which is chronic and unchanged. She has not noticed any correlation between episodes of tachycardia and the bronchodilator she uses twice a day. She claims compliance with the medications the which includes 40 mg of furosemide daily. She denies any lower extremity swelling. She states she had sleep study done recently and was found negative for sleep apnea. All other systems were reviewed and were negative. In ER patient was found to be having sinus tachycardia and was hypotensive whenever she gets tachycardic. She was given IV fluids and bedside ultrasound showed flat IVC despite receiving initial bolus of fluid. Patient was given additional IV fluid bolus. Otherwise the workup was essentially negative with negative chest x-ray, venous Dopplers and chest CTA UA was negative for UTI, WBC was normal at 5 hemoglobin 13.8 Coags normal Potassium was low at 3.1 HbA1c 5.7 Lactic acid was normal Troponin was negative TSH was normal Cortisol levels in acceptable range This morning when I evaluated the patient her heart rate is improved and she is into 80s. She states she feels better and denies any complaints. She would like to get out of bed and go to the bathroom. Review of Systems Review of Systems: All systems reviewed & are unremarkable except as noted in HPI and below (HPI) [facility] Past Medical History Medical History Hypokalemia Cirrhosis Cirrhosis of liver without ascites Personal history of nicotine dependence Hospital discharge follow-up Encounter to establish care Dizziness Localized swelling, mass and lump, left upper limb Right ankle pain Urinary frequency Abdominal pain, epigastric Morbid obesity with BMI of 50.0-59.9, adult Hyperglycemia Bruising, spontaneous Left bundle branch block Chest pain Elevated troponin Chest pain Heart failure, unspecified Acute exacerbation of congestive heart failure Morbid obesity Chronic obstructive pulmonary disease Heart failure with reduced ejection fraction Echocardiogram in September 2023; moderately reduced LV systolic function with an EF estimated at 35 to 40% and grade 1 diastolic dysfunction. Deep venous thrombosis (1973) Following an ankle fracture. Hiatal hernia Hypertension Aortic atherosclerosis (07/2015) Noted on CT of the abdomen and pelvis. Ventral hernia Arthritis Surgical History Surgical History History of 2 sections History of bilateral knee arthroplasty History of back surgery 1984 and 1985 History of appendectomy History of bladder suspension procedure x2 History of total hysterectomy History of cholecystectomy History of hernia repair Family History Family History Sibling Family history of thyroid disease Lung cancer Mother Family history of lung cancer Family history of cardiovascular disease Father Family history of heart disease in male family member before age 55 Family history of cardiovascular disease Hypertension Grandparent Diabetes mellitus Other Family history of allergic disorder Social History Social History Social History: Caffeine-diet soda/coffee. She is retired from [employer]. Surrogate medical decision maker: Franchesca Bonilla, daughter. Code status: Full code. Smoking packs per day: 2.0 Smoking cigarettes per day: 40.0 Years smoked: 37 Smoking pack-years: 74.00 Smoking status: Former smoker Tobacco type: cigarettes Second hand tobacco smoke exposure: No Smoking end date: 10/29/16 Alcohol intake: never Substance use: never Substance use type: does not use Do You Feel Safe in your Home?: Yes Lack of Transportation: No Lack of Food: Never True Current Housing: I Have Housing Concerned About Future Housing: No Difficulty Paying Gas/Electric Bills: No Difficulty Paying for Meds: No Currently Unemployed: No Education: High School Diploma/GED Difficulty w/ Childcare or Family Care: No Living arrangements: with family Occupation/Education: retired Spiritual care concerns: No Agree to blood products: Yes Meds Home Medications and Allergies Home Medications ?Medication ?Instructions ?Recorded ?Confirmed ?Type acetaminophen 500 mg tablet 1,000 mg PO QID PRN Pain 10/12/23 05/09/25 History (Tylenol Extra Strength) aspirin 81 mg chewable tablet 81 mg PO DAILY 30 days #30 tabs 10/15/23 05/09/25 Rx empagliflozin 10 mg tablet 10 mg PO DAILY CHrEF 35% 30 days 10/15/23 05/09/25 Rx (Jardiance) #30 tabs spironolactone 25 mg tablet 25 mg PO QAM 30 days #30 tabs 10/15/23 05/09/25 Rx furosemide 40 mg tablet 40 mg PO DAILY 10/31/23 05/09/25 History sacubitril 49 mg-valsartan 51 mg 1 tablet PO BID 03/12/24 05/09/25 History tablet blood sugar diagnostic (FreeStyle #100 ea 08/24/24 05/09/25 Rx Lite Strips) blood-glucose meter (FreeStyle #1 ea 08/24/24 05/09/25 Rx Lite Meter kit) lancets 28 gauge (FreeStyle #100 ea 08/24/24 05/09/25 Rx Lancets) theophylline 300 mg 300 mg PO Q12H #180 tabs 10/09/24 05/09/25 Rx tablet,extended release,12 hr meloxicam 15 mg tablet 15 mg PO HS #90 tabs 01/14/25 05/09/25 Rx pantoprazole 40 mg tablet,delayed 40 mg PO QAM #90 tabs 01/15/25 05/09/25 Rx release (Protonix) albuterol sulfate 90 mcg/actuation 1 - 2 puff inhalation Q4-6H PRN 02/18/25 05/09/25 Rx aerosol inhaler shortness of breath or wheezing #8.5 grams budesonide 160 mcg-glycopyr 9 See Rx Instructions .Route 02/18/25 05/09/25 Rx mcg-formot 4.8 mcg/actuation HFA .COMPLEX #10.7 ea inhaler (Breztri Aerosphere) levalbuterol HCl 1.25 mg/3 mL 1.25 mg (3 mL) inhalation Q6H PRN 02/18/25 05/09/25 Rx solution for nebulization shortness of breath or wheezing #180 mL furosemide 20 mg tablet 20 mg PO QAM PRN fluid rentention 04/09/25 05/09/25 Rx #90 tabs duloxetine 30 mg capsule,delayed 30 mg PO DAILY #90 caps 04/24/25 05/09/25 Rx release montelukast 10 mg tablet 10 mg PO HS 05/09/25 05/09/25 History pramipexole 0.125 mg tablet 0.25 mg PO QHS 05/09/25 05/09/25 History Allergies Allergy/AdvReac Type Severity Reaction Status Date / Time adhesive tape Allergy Intermediate BLISTER/REDNESS/SWELLING Verified 05/09/25 21:15 AT SITE amoxicillin Allergy Unknown Unknown Verified 05/09/25 21:15 azithromycin Allergy Unknown unknown Verified 05/09/25 21:15 erythromycin base Allergy Unknown unknow Verified 05/09/25 21:15 Penicillins Allergy Unknown unknown Verified 05/09/25 21:15 doxycycline AdvReac Mild Diarrhea Verified 05/09/25 21:15 morphine AdvReac Itching Verified 05/09/25 21:15 Vital Signs Vital Signs - 24 hr 05/09/25 12:42 05/09/25 13:36 05/09/25 13:57 Temperature 36.7 C Pulse Rate 103 H 105 H 104 H Respiratory Rate 20 17 24 H Blood Pressure 119/74 77/58 L Pulse Oximetry 95 96 95 Oxygen Delivery 05/09/25 14:17 05/09/25 14:17 05/09/25 15:36 Temperature Pulse Rate 106 H 106 H 102 H Respiratory Rate 15 14 Blood Pressure 113/70 Pulse Oximetry 96 Oxygen Delivery 05/09/25 17:00 05/09/25 20:17 05/09/25 21:01 Temperature Pulse Rate 120 H 103 H 97 Respiratory Rate 17 20 Blood Pressure 101/56 L 111/67 Pulse Oximetry 96 97 Oxygen Delivery 05/09/25 22:00 05/09/25 22:00 05/09/25 22:57 Temperature 36.7 C Pulse Rate 91 91 80 Respiratory Rate 22 H Blood Pressure 111/58 L 125/59 L Pulse Oximetry 95 Oxygen Delivery 05/09/25 23:00 05/09/25 23:04 05/10/25 00:00 Temperature 36.8 C Pulse Rate 74 85 Respiratory Rate 18 18 Blood Pressure 120/58 L 136/70 Pulse Oximetry 96 98 Oxygen Delivery Room Air 05/10/25 00:00 05/10/25 00:00 05/10/25 01:00 Temperature Pulse Rate 78 85 Respiratory Rate 18 Blood Pressure 125/60 Pulse Oximetry 93 Oxygen Delivery Room Air 05/10/25 02:00 05/10/25 02:00 05/10/25 03:00 Temperature Pulse Rate 86 86 85 Respiratory Rate 16 13 Blood Pressure 118/60 116/56 L Pulse Oximetry 92 93 Oxygen Delivery 05/10/25 04:00 05/10/25 04:00 05/10/25 04:00 Temperature 36.7 C Pulse Rate 80 66 Respiratory Rate 12 Blood Pressure 107/53 L Pulse Oximetry 92 Oxygen Delivery Room Air 05/10/25 05:00 05/10/25 06:00 05/10/25 06:00 Temperature Pulse Rate 71 79 79 Respiratory Rate 14 16 Blood Pressure 91/50 L 115/42 L Pulse Oximetry 92 94 Oxygen Delivery 05/10/25 07:36 05/10/25 07:38 Temperature Pulse Rate 85 87 Respiratory Rate 19 18 Blood Pressure Pulse Oximetry 95 Oxygen Delivery Room Air Exam Narrative: General: Pt is alert awake and in NAD Lungs/Chest: Trachea central Clear BS B/L, No crackles or wheezing. Cardiac: RRR. Normal S1 S2. No murmurs Circulation: Pedal pulses are intact and symmetrical. Abdomen: Normal bowel sounds.. Soft. NT. ND. Abdominal wall hernia Extremities: No clubbing, cyanosis or edema. Warm : Hernandez in place Neurologic: Follows commands. Moves all 4 extremities PERRL AO x3 Skin: No Rash Results Labs 05/10/25 05:40 05/10/25 05:40 Labs: Impressions Chest X-Ray 05/09/25 12:56 IMPRESSION: 1. No acute cardiopulmonary findings. Chest CTA 05/09/25 14:44 IMPRESSION: 1. No pulmonary embolus. Sensitivity is moderately decreased by motion artifact and obesity. 2. Mild emphysema. Venous Doppler Study 05/09/25 15:21 Impression: Negative for DVT. Short CBC 05/09/25 05/10/25 Range/Units 12:48 05:40 WBC 5.3 5.0 (4.5-10.0) K/mm3 Hgb 16.6 H 13.8 (12.0-15.0) g/dL Hct 47.7 H 40.4 (37.0-47.0) % Plt Count 247 204 (150-375) k/mm3 BMP 10/02/25 10/03/25 12:48 05:40 Sodium 137 136 L Potassium 3.1 L 3.5 Chloride 101 105 Carbon Dioxide 23 27 BUN 15 16 Creatinine 0.75 0.74 Glucose 149 H 102 Calcium 9.9 9.1 Cardiac Enzymes 05/09/25 05/09/25 05/09/25 Range/Units 12:48 15:48 18:25 Troponin I 0.034 < 0.012 D < 0.012 (0.000-0.034) ng/mL Liver Function 05/09/25 Range/Units 12:48 Total Bilirubin 1.1 (0.2-1.3) mg/dL AST 36 (14-36) U/L ALT 23 (6-35) U/L Alkaline Phosphatase 86 (38-126) U/L Albumin 4.5 (3.5-5.1) g/dL Urine 05/10/25 Range/Units 00:20 Urine Color Yellow (Yellow) Urine Appearance Clear (Clear) Urine pH 5.5 (5.0-9.0) Ur Specific [place] > 1.045 H (1.001-1.035) Urine Protein Negative (Negative) mg/dL Urine Glucose (UA) 3+ H (Negative) mg/dL Quality VTE Prophylaxis VTE prophylaxis: pharmacologic ordered Hospitalist MIPS Advance Care Plan I have confirmed that the patient's Advanced Care Plan is present, code status is documented, or surrogate decision maker is listed in patient medical record.: Yes Medication Reconciliation I have utilized all available resources to obtain, update and review the patients current medications (includes all prescriptions, OTC, herbals, cannabis, and nutritional supplements).: Yes
[2025-05-10] MEDS: EMPAGLIFLOZIN 10 MG TABLET PO (09:22)
[2025-05-10] MEDS: ENOXAPARIN 40 MG/0.4 ML SYRINGE SUB-Q (09:22)
[2025-05-10] MEDS: POTASSIUM CHLORIDE 20 MEQ PACKET (FOR LIQUID) 40 MEQ PO (09:22)
[2025-05-10] MEDS: ASPIRIN 81 MG CHEWABLE TABLET PO (09:22)
[2025-05-10] MEDS: PANTOPRAZOLE 40 MG TABLET PO (09:22)
[2025-05-10] MEDS: LACTATED RINGERS 1,000 ML 100 ML IV CONT (09:23)
--- NOTE | 2025-05-10 10:07 | P.CONCA_ITS ---
Assessment and Plan Assessment and plan (1) Hypotension: Code(s): I95.9 - Hypotension, unspecified Status: Acute (2) Palpitation: Code(s): R00.2 - Palpitations Status: Acute (3) Hypokalemia: Code(s): E87.6 - Hypokalemia Status: Acute (4) Nonischemic dilated cardiomyopathy: Code(s): I42.0 - Dilated cardiomyopathy Status: Acute (5) Chronic systolic heart failure: Code(s): I50.22 - Chronic systolic (congestive) heart failure Status: Acute Plan Assessment: 1. Patient known history of a nonischemic dilated cardiomyopathy and mildly reduced systolic function in range of 42% thyroid. Patient is followed by cryptologic linguist at all patient had an echocardiogram in February of 2025 which showed ejection fraction of 42% with normal left ventricular size. There is a mid inferior mid and apical inferior hypokinesis. Left atrium is mildly enlarged with mitral annular calcification and IVC is normal. No suggestion of right- sided chambers enlargement or pulmonary hypertension. Patient is on guideline directed medical therapy and higher doses of Entresto which may be causing hypotension. -previous echocardiogram reviewed from 09/28/2023 which showed normal left ventricular size and reduced systolic function in range of 35-40%. The suggestion of right-sided heart failure IVC enlargement. 2. Cardiac catheterization in November of 2023. Could not find that detail information but who cardiology follow-up report says no coronary artery disease and therefore nonischemic etiology. LVEDP was 31 suggesting significantly increased left ventricular end-diastolic pressure. Patient is on diuretics. 3. Morbid obesity with BMI of 45 without any suggestion for obstructive sleep apnea on sleep study per patient and no suggestion for right-sided enlargement or pulmonary hypertension. 4. Chronic systolic heart failure with reduced ejection fraction in the range of 35-40%, improved on guideline directed medical therapy. Patient also has left bundle-branch block. 5. Chronic obstructive lung disease. Recommendations: 1. Home medications reviewed. Patient is currently on aspirin 81 mg daily, Jardiance 10 mg daily, Entresto 49/51 but b.i.d., spironolactone 25 mg daily and Theophylin. In view of low blood pressure Entresto will be decreased to half the dose. Continue with spironolactone and increase to 25 mg b.i.d. Consider adding beta selective beta-leigh like metoprolol succinate 25 mg daily. Discontinue theophyllin, as that will cause tachycardia for this patient. 2. Echocardiogram reviewed from February of 2025 and new echocardiogram is not needed. 3. Continue with Lasix 40 mg daily. 4. Increase activity to bedside. Check for orthostatic hypotension. Thank you again for allowing us to participate in care of this patient. History of Present Illness History of Present Illness Consult date/time: 05/10/25 10:07 Requesting physician: Ameena Barriga APRN Consult reason: Other (Tachycardia and hypotension.) Reason For Visit: tachycardia Narrative: Patient is a 69-year-old morbidly obese female admitted via emergency room on 05/09/2025 with episodes of tachycardia in the 100 and 30s. During this tachycardia patient noted to have low blood pressure. Patient uses oximetry monitoring at home and was able to note the tachycardia. No complaints of chest pain. Patient did have mild leg edema. No complaints of shortness of breath, abdominal pain nausea or vomiting. No complaints of fever or chills. Patient is morbidly obese and weighs 108.6 kg with BMI of 45.2. Admitting blood pressure was 119/74 and heart rate 103 per minute. Patient was noted to have hypotension with blood pressure and in the 90s for several episodes. The surgery patient did receive to 1.5 L of fluid and blood pressure was stable on the floor. Patient is afebrile and O2 saturation is 96%. Admitting laboratory data revealed Visken 5.3, hemoglobin is 16.6. Sodium 137, potassium 3.1, BUN is 15 and creatinine 0.75. Admitting EKG was reviewed and showed sinus tachycardia with left bundle branch block and no significant changes. Heart rate was 103 per minute the Patient has history of morbid obesity and negative workup for sleep apnea per patient. Patient has known history of nonischemic dilated cardiomyopathy with ejection fraction in the range of 42%. Patient had a recent echocardiogram in February of 2025 at her cryptologic linguist's office. Patient has known history of congestive heart failure with reduced systolic function. Patient also history of deep venous thrombosis and history of hypertension. Patient was examined at the bedside. Patient is awake alert answering all the questions oriented x3. No apparent shortness of breath orthopnea. Heart rate fluctuates from 80-105 per minute. Minimal leg edema is noted. Review of Systems 2 Review of Systems: Twelve point review of system was completed. Pertinent positive and negative findings per HPI. Constitutional positive for morbid this ED negative for fever and chills . Head and neck review of system is neg ative. Pulmonary system is negative for shortness of breath, cough or hemoptysis there are Cardiovascular put negative for chest pain or shortness of breath. Positive for palpitations. Gastrointestinal negative for abdominal pain, nausea vomiting or diarrhea. Neurovascular, genitourinary system are negative. Skin and musculoskeletal system are negative. COUNTS INCLUDE 234 BEDS AT THE [facility] Past Medical History Medical History Hypokalemia Cirrhosis Cirrhosis of liver without ascites Personal history of nicotine dependence Hospital discharge follow-up Encounter to establish care Dizziness Localized swelling, mass and lump, left upper limb Right ankle pain Urinary frequency Abdominal pain, epigastric Morbid obesity with BMI of 50.0-59.9, adult Hyperglycemia Bruising, spontaneous Left bundle branch block Chest pain Elevated troponin Chest pain Heart failure, unspecified Acute exacerbation of congestive heart failure Morbid obesity Chronic obstructive pulmonary disease Heart failure with reduced ejection fraction Echocardiogram in September 2023; moderately reduced LV systolic function with an EF estimated at 35 to 40% and grade 1 diastolic dysfunction. Deep venous thrombosis (1973) Following an ankle fracture. Hiatal hernia Hypertension Aortic atherosclerosis (07/2015) Noted on CT of the abdomen and pelvis. Ventral hernia Arthritis Surgical History Surgical History History of 2 sections History of bilateral knee arthroplasty History of back surgery 1984 and 1985 History of appendectomy History of bladder suspension procedure x2 History of total hysterectomy History of cholecystectomy History of hernia repair Family History Family History Sibling Family history of thyroid disease Lung cancer Mother Family history of lung cancer Family history of cardiovascular disease Father Family history of heart disease in male family member before age 55 Family history of cardiovascular disease Hypertension Grandparent Diabetes mellitus Other Family history of allergic disorder Social History Social History Social History: Caffeine-diet soda/coffee. She is retired from [employer]. Surrogate medical decision maker: Franchesca Bonilla, daughter. Code status: Full code. Smoking packs per day: 2.0 Smoking cigarettes per day: 40.0 Years smoked: 37 Smoking pack-years: 74.00 Smoking status: Former smoker Tobacco type: cigarettes Second hand tobacco smoke exposure: No Smoking end date: 10/29/16 Alcohol intake: never Substance use: never Substance use type: does not use Do You Feel Safe in your Home?: Yes Lack of Transportation: No Lack of Food: Never True Current Housing: I Have Housing Concerned About Future Housing: No Difficulty Paying Gas/Electric Bills: No Difficulty Paying for Meds: No Currently Unemployed: No Education: High School Diploma/GED Difficulty w/ Childcare or Family Care: No Living arrangements: with family Occupation/Education: retired Spiritual care concerns: No Agree to blood products: Yes Meds Home Medications and Allergies Home Medications ?Medication ?Instructions ?Recorded ?Confirmed ?Type acetaminophen 500 mg tablet 1,000 mg PO QID PRN Pain 0 10/12/23 05/09/25 History (Tylenol Extra Strength) aspirin 81 mg chewable tablet 81 mg PO DAILY 30 days # 30 tabs 10/15/23 05/09/25 Rx empagliflozin 10 mg tablet 10 mg PO DAILY CHrEF 35% 30 days 10/15/23 05/09/25 Rx (Jardiance) #30 tabs spironolactone 25 mg tablet 25 mg PO QAM 30 days #30 t abs 10/15/23 05/09/25 Rx furosemide 40 mg tablet 40 mg PO DAILY 10/31/2310/02 History sacubitril 49 mg-valsartan 51 mg 1 tablet PO BID 03/1205/09/25 History tablet blood sugar diagnostic (FreeStyle #100 ea 08/24/2410/02 Rx Lite Strips) blood-glucose meter (FreeStyle #1 ea 08/24/24 05/09/25 Rx Lite Meter kit) lancets 28 gauge (FreeStyle #100 ea 08/24/24 05/09/25 Rx Lancets) theophylline 300 mg 300 mg PO Q12H #180 tabs 11/3005/09/25 Rx tablet,extended release,12 hr meloxicam 15 mg tablet 15 mg PO HS #90 tabs 5 05/09/25 Rx pantoprazole 40 mg tablet,delayed 40 mg PO QAM #90 tab s 01/15/25 05/09/25 Rx release (Protonix) albuterol sulfate 90 mcg/actuation 1 - 2 puff inhalati on Q4-6H PRN 02/18/25 05/09/25 Rx aerosol inhaler shortness of breath or wheez ing #8.5 grams budesonide 160 mcg-glycopyr 9 See Rx Instructions .Rou te 02/18/25 05/09/25 Rx mcg-formot 4.8 mcg/actuation HFA .COMPLEX #10.7 ea inhaler (Breztri Aerosphere) levalbuterol HCl 1.25 mg/3 mL 1.25 mg (3 mL) inhalatio n Q6H PRN 02/18/25 05/09/25 Rx solution for nebulization shortness of breath or wheez ing #180 mL furosemide 20 mg tablet 20 mg PO QAM PRN fluid rente ntion 04/09/25 05/09/25 Rx #90 tabs duloxetine 30 mg capsule,delayed 30 mg PO DAILY #90 ca ps 04/24/25 05/09/25 Rx release montelukast 10 mg tablet 10 mg PO HS 05/09/25 5 History pramipexole 0.125 mg tablet 0.25 mg PO QHS 05/09/25 History Allergies Allergy/AdvReac Type Severity Reaction Status Date / Time adhesive tape Allergy Intermediate BLISTER/REDNESS/SWELLING Verified 05/09/25 21:15 AT SITE amoxicillin Allergy Unknown Unknown Verified 05/09/25 21:15 azithromycin Allergy Unknown unknown Verified 05/09/25 21:15 erythromycin base Allergy Unknown unknow Verified 05/09/25 21:15 Penicillins Allergy Unknown unknown Verified 05/09/25 21:15 doxycycline AdvReac Mild Diarrhea Verified 05/09/25 21:15 morphine AdvReac Itching Verified 05/09/25 21:15 Vital Signs Vital Signs - 24 hr 05/09/25 12:42 05/09/25 13:36 05/09/25 13:57 Temperature 36.7 C Pulse Rate 103 H 105 H 104 H Respiratory Rate 20 17 24 H Blood Pressure 119/74 77/58 L Pulse Oximetry 95 96 95 Oxygen Delivery 05/09/25 14:17 05/09/25 14:17 05/09/25 15:36 Temperature Pulse Rate 106 H 106 H 102 H Respiratory Rate 15 14 Blood Pressure 113/70 Pulse Oximetry 96 Oxygen Delivery 05/09/25 17:00 05/09/25 20:17 05/09/25 21:01 Temperature Pulse Rate 120 H 103 H 97 Respiratory Rate 17 20 Blood Pressure 101/56 L 111/67 Pulse Oximetry 96 97 Oxygen Delivery 05/09/25 22:00 05/09/25 22:00 05/09/25 22:57 Temperature 36.7 C Pulse Rate 91 91 80 Respiratory Rate 22 H Blood Pressure 111/58 L 125/59 L Pulse Oximetry 95 Oxygen Delivery 05/09/25 23:00 05/09/25 23:04 05/10/25 00:00 Temperature 36.8 C Pulse Rate 74 85 Respiratory Rate 18 18 Blood Pressure 120/58 L 136/70 Pulse Oximetry 96 98 Oxygen Delivery Room Air 05/10/25 00:00 05/10/25 00:00 05/10/25 01:00 Temperature Pulse Rate 78 85 Respiratory Rate 18 Blood Pressure 125/60 Pulse Oximetry 93 Oxygen Delivery Room Air 05/10/25 02:00 05/10/25 02:00 05/10/25 03:00 Temperature Pulse Rate 86 86 85 Respiratory Rate 16 13 Blood Pressure 118/60 116/56 L Pulse Oximetry 92 93 Oxygen Delivery 05/10/25 04:00 05/10/25 04:00 05/10/25 04:00 Temperature 36.7 C Pulse Rate 80 66 Respiratory Rate 12 Blood Pressure 107/53 L Pulse Oximetry 92 Oxygen Delivery Room Air 05/10/25 05:00 05/10/25 06:00 05/10/25 06:00 Temperature Pulse Rate 71 79 79 Respiratory Rate 14 16 Blood Pressure 91/50 L 115/42 L Pulse Oximetry 92 94 Oxygen Delivery 05/10/25 07:00 05/10/25 07:36 05/10/25 07:38 Temperature 36.6 C Pulse Rate 78 85 87 Respiratory Rate 23 H 19 18 Blood Pressure 118/62 Pulse Oximetry 95 95 Oxygen Delivery Room Air 05/10/25 08:00 Temperature 36.1 C L Pulse Rate 85 Respiratory Rate 19 Blood Pressure 123/67 Pulse Oximetry 96 Oxygen Delivery Exam 2 Narrative: Patient was examined at the bedside. Patient is awake and alert oriented x3. Head and neck examination is unremarkable. Sclerae nonicteric. ENT examination is negative. Neck is supple. There is no JVD or carotid bruit. Thyroid not enlarged. There is no cervical lymphadenopathy. Lungs are clear to auscultation percussion. There is decreased air entry bilaterally. There is no wheezing or crepitations. Heart sounds reveal normal S1-S2. No significant murmurs S3 or S4 appreciated. Abdomen is obese without any distention or ascites. It is nontender. There is no hepatosplenomegaly. Bowel sounds are present there Extremities reveal minimal leg edema bilaterally. Neurological exam is intact but Skin musculoskeletal is also intact but Results Labs and Meds 05/10/25 05:40 05/10/25 05:40 Lab results: Cardiac Enzymes 05/09/25 05/09/25 05/09/25 Range/Units 12:48 15:48 18:25 AST 36 (14-36) U/L Troponin I 0.034 < 0.012 D < 0.012 (0.000-0.034) ng/mL Coagulation 05/09/25 Range/Units 12:48 PT 14.1 (11.1-14.7) Seconds APTT 29.8 (22.3-36.8) Seconds Lipids 05/09/25 Range/Units 19:39 Triglycerides 113 (<150) mg/dL Cholesterol 232 H (0-200) mg/dL CBC 05/09/25 05/10/25 Range/Units 12:48 05:40 WBC 5.3 5.0 (4.5-10.0) K/mm3 RBC 4.83 3.96 L (4.2-5.4) M/mm3 Hgb 16.6 H 13.8 (12.0-15.0) g/dL Hct 47.7 H 40.4 (37.0-47.0) % Plt Count 247 204 (150-375) k/mm3 Lymph # (Auto) 2.43 2.41 (0.9-3.2) K/mm3 [place] # (Auto) 0.6 0.5 (0.1-0.6) K/mm3 Eos # (Auto) 0.5 H 0.4 H (0-0.3) K/mm3 Baso # (Auto) 0.1 0.1 (0.0-0.1) K/mm3 Comprehensive Metabolic Panel 05/09/25 05/10/25 Range/Units 12:48 05:40 Sodium 137 136 L (137-145) mmol/L Potassium 3.1 L 3.5 (3.4-5.0) mmol/L Chloride 101 105 (98-107) mmol/L Carbon Dioxide 23 27 (22-30) mmol/L BUN 15 16 (7-17) mg/dL Creatinine 0.75 0.74 (0.7-1.0) mg/dL Glucose 149 H 102 (65-110) mg/dL Calcium 9.9 9.1 (8.4-10.2) mg/dL AST 36 (14-36) U/L ALT 23 (6-35) U/L Alkaline Phosphatase 86 (38-126) U/L Total Protein 8.0 (6.3-8.2) g/dL Albumin 4.5 (3.5-5.1) g/dL Intake and Output 05/09/25 05/10/25 05/10/25 23:59 07:59 15:59 Intake Total 2000 200 Output Total 300 Balance 1999 - Intake: IV 2000 Lactated Ringers 1,000 ml @ 999 2000 mls/hr IV CONT .Q1H1M STA Rx#: [id number] Oral 200 Output: Urine 300 Patient Weight 05/10/25 23:59 Weight 108.6 kg
[2025-05-10] MEDS: METOPROLOL SUCCINATE EXT REL 25 MG TABCR PO (11:48)
[2025-05-10] MEDS: SACUBITRIL/VALSARTAN 12-13 MG TABLET 1 TAB PO ×2 (11:49→20:17)
--- NOTE | 2025-05-10 16:58 | PM.IMPN ---
Progress Note: A&P Assessment and Plan (1) Hypertension: Code(s): I10 - Essential (primary) hypertension Status: Acute (2) Hypotension: Code(s): I95.9 - Hypotension, unspecified Status: Acute (3) CHF (congestive heart failure): Qualifiers: Heart failure chronicity: unspecified Heart failure type: unspecified Qualified Code(s): I50.9 - Heart failure, unspecified Code(s): I50.9 - Heart failure, unspecified Status: Acute (4) Tachycardia: Code(s): R00.0 - Tachycardia, unspecified Status: Acute (5) Palpitation: Code(s): R00.2 - Palpitations Status: Acute (6) Type 2 diabetes mellitus: Qualifiers: Diabetes mellitus fdc insulin use: without terminal operations supervisor use Diabetes mellitus complication status: without complication Qualified Code(s): E11.9 - Type 2 diabetes mellitus without complications Code(s): E11.9 - Type 2 diabetes mellitus without complications Status: Acute Plan Patient has stabilized. Cardiology assisting. This time, institute heart failure medications but at a steady and progressive rate due to her hypotension on arrival. Hypokalemia is resolved status post replacement. Okay to transfer out of ICU, medical floor with telemetry. Patient wishes to be full code. Time Spent With Patient Time with patient: 25 - 35 minutes Subjective Date/time seen: 05/10/25 16:58 Interval history: Patient resting comfortably. She denies any further palpitations. Review of Systems Review of Systems: All systems reviewed & are unremarkable except as noted in HPI and below (Subjective) Exam Const: General: comfortable and no acute distress HENMT: Mouth: Yes moist mucous membranes Eyes: Pupils: Equal, round and reactive pupils present Neck: Neck: supple Resp: Effort & Inspection: normal respiratory effort Auscultation: clear to auscultation bilaterally Cardio: Rate: regular rate Rhythm: regular rhythm GI: Inspection: non-distended GI Palp: Yes Soft to palpation Neuro: Motor exam (neuro): 5/5 motor strength present throughout Extrem: General: no edema Objective Data Vital Signs Vital Signs: Vital Signs - 24 hr 05/09/25 17:00 05/09/25 20:17 05/09/25 21:01 Temperature Pulse Rate 120 H 103 H 97 Respiratory Rate 17 20 Blood Pressure 101/56 L 111/67 Pulse Oximetry 96 97 Oxygen Delivery 05/09/25 22:00 05/09/25 22:00 05/09/25 22:57 Temperature 98.0 F Pulse Rate 91 91 80 Respiratory Rate 22 H Blood Pressure 111/58 L 125/59 L Pulse Oximetry 95 Oxygen Delivery 05/09/25 23:00 05/09/25 23:04 05/10/25 00:00 Temperature 98.2 F Pulse Rate 74 85 Respiratory Rate 18 18 Blood Pressure 120/58 L 136/70 Pulse Oximetry 96 98 Oxygen Delivery Room Air 05/10/25 00:00 05/10/25 00:00 05/10/25 01:00 Temperature Pulse Rate 78 85 Respiratory Rate 18 Blood Pressure 125/60 Pulse Oximetry 93 Oxygen Delivery Room Air 05/10/25 02:00 05/10/25 02:00 05/10/25 03:00 Temperature Pulse Rate 86 86 85 Respiratory Rate 16 13 Blood Pressure 118/60 116/56 L Pulse Oximetry 92 93 Oxygen Delivery 05/10/25 04:00 05/10/25 04:00 05/10/25 04:00 Temperature 98.1 F Pulse Rate 80 66 Respiratory Rate 12 Blood Pressure 107/53 L Pulse Oximetry 92 Oxygen Delivery Room Air 05/10/25 05:00 05/10/25 06:00 05/10/25 06:00 Temperature Pulse Rate 71 79 79 Respiratory Rate 14 16 Blood Pressure 91/50 L 115/42 L Pulse Oximetry 92 94 Oxygen Delivery 05/10/25 07:00 05/10/25 07:36 05/10/25 07:38 Temperature 97.9 F Pulse Rate 78 85 87 Respiratory Rate 23 H 19 18 Blood Pressure 118/62 Pulse Oximetry 95 95 Oxygen Delivery Room Air 05/10/25 08:00 05/10/25 08:00 05/10/25 08:00 Temperature 97.0 F L Pulse Rate 85 88 Respiratory Rate 19 Blood Pressure 123/67 Pulse Oximetry 96 96 Oxygen Delivery Room Air 05/10/25 09:00 05/10/25 10:00 05/10/25 10:00 Temperature 97.0 F L 97.9 F Pulse Rate 98 87 87 Respiratory Rate 20 19 Blood Pressure 136/58 L 102/65 Pulse Oximetry 95 94 Oxygen Delivery 05/10/25 11:00 05/10/25 11:48 05/10/25 11:59 Temperature 97.9 F Pulse Rate 82 87 92 Respiratory Rate 18 22 H Blood Pressure 136/65 154/76 H Pulse Oximetry 94 Oxygen Delivery 05/10/25 11:59 05/10/25 12:00 05/10/25 12:00 Temperature 97.9 F Pulse Rate 87 75 Respiratory Rate 22 H 16 Blood Pressure 123/60 147/115 H Pulse Oximetry 96 96 Oxygen Delivery Room Air 05/10/25 12:00 Temperature Pulse Rate 92 Respiratory Rate Blood Pressure Pulse Oximetry Oxygen Delivery Intake/Output Intake/Output: Intake & Output 05/07/25 05/08/25 05/09/25 05/10/25 23:59 23:59 23:59 23:59 Intake Total 2500 560 Output Total 300 Balance 2500 260 Meds/Results Medications: Active Medications Generic Name Dose Route Start Last Admin Trade Name Freq PRN Reason Stop Dose Admin Acetaminophen 1,000 mg 05/09/25 22:41 Acetaminophen 500 Mg Tablet PO QID PRN Pain Albuterol/Ipratropium 3 ml 05/10/25 08:35 Ipratropium 0.5 Mg/Albuterol Sulfate 2.5 Mg (Base) Ampul.Neb 3 Ml INHALATION Q6HRT PRN Wheezing Aspirin 81 mg 05/10/25 09:00 05/10/25 09:22 Aspirin 81 Mg Chewable Tablet PO 81 mg DAILY RIZWAN Administration Dextrose 12.5 gm 05/09/25 22:43 Dextrose 50% 25 Gm/50 Ml Syringe IV PUSH PRN PRN Hypoglycemia Protocol Duloxetine HCl 30 mg 05/10/25 09:00 05/10/25 09:22 Duloxetine Hcl 30 Mg Capsule.Dr PO 30 mg DAILY RIZWAN Administration Empagliflozin 10 mg 05/10/25 09:00 05/10/25 09:22 Empagliflozin 10 Mg Tablet PO 10 mg DAILY RIZWAN Administration Enoxaparin Sodium 40 mg 05/10/25 09:00 05/10/25 09:22 Enoxaparin 40 Mg/0.4 Ml Syringe SUB-Q 40 mg DAILY RIZWAN Administration Fluticasone/Umeclidinium/Vilanterol 1 puff 05/10/25 08:00 05/10/25 07:35 Fluticasone/Umeclidin/Vilanter 100-62.5-25 Mcg Ellipta INHALATION 1 puff DAILYRT RIZWAN Administration Glucagon 1 mg 05/09/25 22:43 Glucagon For Inj 1 Mg Vial IM PRN PRN Hypoglycemia Protocol Glucose 15 gm 05/09/25 22:43 Glucose Oral Gel 15 Gm Of Glucse In 37.5 Gm Tube PO PRN PRN Hypoglycemia Protocol Dextrose 1,000 mls @ 100 mls/hr 05/09/25 22:43 Dextrose 5% 1,000 Ml IVPB PRN PRN Hypoglycemia Protocol Lactated Ringer's 1,000 mls @ 100 mls/hr 05/10/25 08:40 05/10/25 09:23 Lr - Lactated Ringers Iv IV CONT 05/10/25 18:39 100 mls/hr .Q10H RIZWAN Administration Insulin Aspart 2 - 5 units 05/10/25 08:00 05/10/25 11:49 Insulin Aspart (*Bkc) 100 Units/Ml SUB-Q Not Given TIDWM RIZWAN Protocol Metoprolol Succinate 25 mg 05/10/25 11:00 05/10/25 11:48 Metoprolol Succinate Ext Rel 25 Mg Tabcr PO 25 mg QAM RIZWAN Administration Montelukast Sodium 10 mg 05/10/25 21:00 Montelukast Sodium 10 Mg Tablet PO HS RIZWAN Pantoprazole Sodium 40 mg 05/10/25 09:00 05/10/25 09:22 Pantoprazole 40 Mg Tablet PO 40 mg QAM RIZWAN Administration Perflutren Lipid Microsphere 0 ml 05/10/25 08:14 Perflutren Lipid Microspheres 1.5 Ml Vial Diluted To 10 Ml Total Volume IV PUSH 05/13/25 08:15 ONCE PRN adequate visualization Protocol Potassium Chloride 10 meq 05/11/25 08:00 Potassium Chloride 10 Meq Er Tablet PO DAILY@0800 RIZWAN Pramipexole Dihydrochloride 0.25 mg 05/10/25 21:00 Pramipexole 0.25 Mg Tablet PO QHS RIZWAN Sacubitril/Valsartan 1 tab 05/10/25 11:00 05/10/25 11:49 Sacubitril/Valsartan 12-13 Mg Tablet PO 1 tab Q12HR RIZWAN Administration Radiology Results: ITS Impressions Chest X-Ray 05/09/25 12:56 IMPRESSION: 1. No acute cardiopulmonary findings. Chest CTA 05/09/25 14:44 IMPRESSION: 1. No pulmonary embolus. Sensitivity is moderately decreased by motion artifact and obesity. 2. Mild emphysema. Venous Doppler Study 05/09/25 15:21 Impression: Negative for DVT. Labs Labs: Laboratory Results - last 24 hr 05/09/25 05/09/25 05/09/25 12:48 16:51 18:25 WBC RBC Hgb Hct MCV MCH MCHC RDW Plt Count MPV Immature Gran % (Auto) Neut % (Auto) Lymph % (Auto) Howell % (Auto) Eos % (Auto) Baso % (Auto) Lymph # (Auto) Howell # (Auto) Eos # (Auto) Baso # (Auto) Abs Immat Gran (auto) Absolute Neuts (auto) Absolute Nucleated RBC Nucleated RBC % VBG pH 7.384 VBG pCO2 37.3 L VBG pO2 70.8 H VBG HCO3 21.8 L O2 Delivery Device Not Reportable O2 Liters/Min Not Reportable FiO2 32 Sodium Potassium Chloride Carbon Dioxide Anion Gap BUN Creatinine Estim Creat Clear Calc Estimated GFR Glucose POC Capillary Glucose Hemoglobin A1c 5.7 Lactic Acid Calcium Magnesium 1.9 Troponin I < 0.012 Triglycerides Cholesterol LDL Cholesterol Direct HDL Direct TSH (Reflex) Random Cortisol 14.30 Urine Color Urine Appearance Urine pH Ur Specific [place] Urine Protein Urine Glucose (UA) Urine Ketones Ur Blood (Man) Urine Nitrate Urine Bilirubin Urine Urobilinogen Leukocyte Esterase Rfl Nasal MRSA (PCR) Urine Opiates Screen Urine Methadone Screen Ur Barbiturates Screen Ur Phencyclidine Scrn Ur Amphetamine Screen U Benzodiazepines Scrn Urine Cocaine Screen U Cannabinoids Screen 05/09/25 05/09/25 05/10/25 19:39 22:47 00:20 WBC RBC Hgb Hct MCV MCH MCHC RDW Plt Count MPV Immature Gran % (Auto) Neut % (Auto) Lymph % (Auto) Howell % (Auto) Eos % (Auto) Baso % (Auto) Lymph # (Auto) Howell # (Auto) Eos # (Auto) Baso # (Auto) Abs Immat Gran (auto) Absolute Neuts (auto) Absolute Nucleated RBC Nucleated RBC % VBG pH VBG pCO2 VBG pO2 VBG HCO3 O2 Delivery Device O2 Liters/Min FiO2 Sodium Potassium Chloride Carbon Dioxide Anion Gap BUN Creatinine Estim Creat Clear Calc Estimated GFR Glucose POC Capillary Glucose Hemoglobin A1c Lactic Acid Calcium Magnesium Troponin I Triglycerides 113 Cholesterol 232 H LDL Cholesterol Direct 122 HDL Direct 78 TSH (Reflex) 3.960 Random Cortisol Urine Color Yellow Urine Appearance Clear Urine pH 5.5 Ur Specific [place] > 1.045 H Urine Protein Negative Urine Glucose (UA) 3+ H Urine Ketones Trace H Ur Blood (Man) Negative Urine Nitrate Negative Urine Bilirubin Negative Urine Urobilinogen 1.0 Leukocyte Esterase Rfl Negative Nasal MRSA (PCR) Not detected Urine Opiates Screen Negative Urine Methadone Screen Negative Ur Barbiturates Screen Negative Ur Phencyclidine Scrn Negative Ur Amphetamine Screen Negative U Benzodiazepines Scrn Negative Urine Cocaine Screen Negative U Cannabinoids Screen Negative 05/10/25 05/10/25 05/10/25 05:40 09:25 11:48 WBC 5.0 RBC 3.96 L Hgb 13.8 Hct 40.4 MCV 102.0 H MCH 34.8 H MCHC 34.2 RDW 13.9 Plt Count 204 MPV 10.2 Immature Gran % (Auto) 0.0 Neut % (Auto) 31.7 L Lymph % (Auto) 48.3 H Howell % (Auto) 10.4 H Eos % (Auto) 8.2 H Baso % (Auto) 1.4 H Lymph # (Auto) 2.41 Howell # (Auto) 0.5 Eos # (Auto) 0.4 H Baso # (Auto) 0.1 Abs Immat Gran (auto) 0.00 Absolute Neuts (auto) 1.6 Absolute Nucleated RBC 0.000 Nucleated RBC % 0.0 VBG pH VBG pCO2 VBG pO2 VBG HCO3 O2 Delivery Device O2 Liters/Min FiO2 Sodium 136 L Potassium 3.5 Chloride 105 Carbon Dioxide 27 Anion Gap 4 BUN 16 Creatinine 0.74 Estim Creat Clear Calc 69 Estimated GFR > 60 Glucose 102 POC Capillary Glucose 129 H 102 Hemoglobin A1c 5.8 H Lactic Acid 1.1 Calcium 9.1 Magnesium 2.0 Troponin I Triglycerides Cholesterol LDL Cholesterol Direct HDL Direct TSH (Reflex) Random Cortisol Urine Color Urine Appearance Urine pH Ur Specific [place] Urine Protein Urine Glucose (UA) Urine Ketones Ur Blood (Man) Urine Nitrate Urine Bilirubin Urine Urobilinogen Leukocyte Esterase Rfl Nasal MRSA (PCR) Urine Opiates Screen Urine Methadone Screen Ur Barbiturates Screen Ur Phencyclidine Scrn Ur Amphetamine Screen U Benzodiazepines Scrn Urine Cocaine Screen U Cannabinoids Screen 05/10/25 16:47 WBC RBC Hgb Hct MCV MCH MCHC RDW Plt Count MPV Immature Gran % (Auto) Neut % (Auto) Lymph % (Auto) Howell % (Auto) Eos % (Auto) Baso % (Auto) Lymph # (Auto) Howell # (Auto) Eos # (Auto) Baso # (Auto) Abs Immat Gran (auto) Absolute Neuts (auto) Absolute Nucleated RBC Nucleated RBC % VBG pH VBG pCO2 VBG pO2 VBG HCO3 O2 Delivery Device O2 Liters/Min FiO2 Sodium Potassium Chloride Carbon Dioxide Anion Gap BUN Creatinine Estim Creat Clear Calc Estimated GFR Glucose POC Capillary Glucose 112 H Hemoglobin A1c Lactic Acid Calcium Magnesium Troponin I Triglycerides Cholesterol LDL Cholesterol Direct HDL Direct TSH (Reflex) Random Cortisol Urine Color Urine Appearance Urine pH Ur Specific [place] Urine Protein Urine Glucose (UA) Urine Ketones Ur Blood (Man) Urine Nitrate Urine Bilirubin Urine Urobilinogen Leukocyte Esterase Rfl Nasal MRSA (PCR) Urine Opiates Screen Urine Methadone Screen Ur Barbiturates Screen Ur Phencyclidine Scrn Ur Amphetamine Screen U Benzodiazepines Scrn Urine Cocaine Screen U Cannabinoids Screen
[2025-05-10] MEDS: PRAMIPEXOLE 0.25 MG TABLET PO (20:17)
[2025-05-10] MEDS: MONTELUKAST SODIUM 10 MG TABLET PO (20:17)
[2025-05-11] VITALS (12 sets, daily range): BP systolic 103–144; BP diastolic 47–82; PULSE 68–83; RESP 12–23; TEMP 36.4–36.6; O2SAT 92–98
[2025-05-11] MEDS: ACETAMINOPHEN 500 MG TABLET 1000 MG PO (00:36)
[2025-05-11] MEDS: IPRATROPIUM 0.5 MG/ALBUTEROL SULFATE 2.5 MG (BASE) AMPUL.NEB 3 ML INHALATION (00:44)
--- NOTE | 2025-05-11 02:10 | ECG_ITS ---
Test Date: 2025-05-11 02:18:37 Measurements Intervals [place] Rate: 70 P: 57 WA: 175 QRS: 61 QRSD: 131 T: 88 QT: 430 QTc: 466 Interpretive Statements SINUS RHYTHM LEFT BUNDLE BRANCH BLOCK BASELINE ARTIFACT- I, II, III, AVL, AVF ABNORMAL ECG Compared to ECG 05/09/2025 18:26:44 HEART RATE HAS DECREASED Electronically Signed On 05-11-2025 07:16:43 CDT by Boyd Pina D.O.
[2025-05-11 03:54] LABS: Hematocrit 40.4 % (37.0-47.0); Hemoglobin 13.6 g/dL (12.0-15.0); Mean Corpuscular HGB Conc 33.7 g/dl (32-36); Mean Corpuscular Hemoglobin 34.2 pg (26-34); Mean Corpuscular Volume 101.5 fl (80-100); Platelet Count Result 185 k/mm3 (150-375); Red Blood Count 3.98 M/mm3 (4.2-5.4); White Blood Count 4.8 K/mm3 (4.5-10.0)
[2025-05-11 04:07] LABS: Alanine Aminotransferase 17 U/L (6-35); Albumin Level 3.4 g/dL (3.5-5.1); Alkaline Phosphatase 72 U/L (38-126); Anion Gap 4 mmol/L (4-12); Aspartate Amino Transferase 29 U/L (14-36); Bilirubin,Total 0.8 mg/dL (0.2-1.3); Blood Urea Nitrogen 16 mg/dL (7-17); Calcium 9.5 mg/dL (8.4-10.2); Carbon Dioxide 26 mmol/L (22-30); Chloride 105 mmol/L (98-107); Estimated CRCL calculation 71 ml/min; Estimated Glomerular Filt Rate > 60; Glucose 109 mg/dL (65-110); Magnesium 2.0 mg/dL (1.6-2.3); Potassium 4.1 mmol/L (3.4-5.0); Sodium 135 mmol/L (137-145); Total Protein 5.9 g/dL (6.3-8.2)
[2025-05-11] MEDS: FLUTICASONE/UMECLIDIN/VILANTER 100-62.5-25 MCG ELLIPTA 1 PUFF INHALATION (07:39)
[2025-05-11] MEDS: ASPIRIN 81 MG CHEWABLE TABLET PO (08:43)
[2025-05-11] MEDS: ENOXAPARIN 40 MG/0.4 ML SYRINGE SUB-Q (08:44)
[2025-05-11] MEDS: POTASSIUM CHLORIDE 10 MEQ ER TABLET PO (08:44)
[2025-05-11] MEDS: METOPROLOL SUCCINATE EXT REL 25 MG TABCR PO (08:44)
[2025-05-11] MEDS: SACUBITRIL/VALSARTAN 12-13 MG TABLET 1 TAB PO (08:44)
[2025-05-11] MEDS: PANTOPRAZOLE 40 MG TABLET PO (08:44)
[2025-05-11] MEDS: EMPAGLIFLOZIN 10 MG TABLET PO (08:44)
[2025-05-11 09:08] LABS: Theophylline 11.5 ug/mL (10.0-20.0)
--- NOTE | 2025-05-11 11:34 | P.PNCA_ITS ---
Progress Note: A&P Assessment and Plan (1) Nonischemic dilated cardiomyopathy: Code(s): I42.0 - Dilated cardiomyopathy Status: Acute (2) Hypotension: Code(s): I95.9 - Hypotension, unspecified Status: Acute (3) Hypokalemia: Code(s): E87.6 - Hypokalemia Status: Acute (4) Tachycardia: Code(s): R00.0 - Tachycardia, unspecified Status: Acute (5) Hypersomnia: Code(s): G47.10 - Hypersomnia, unspecified Status: Acute (6) Type 2 diabetes mellitus: Qualifiers: Diabetes mellitus correction insulin use: without correction use Diabetes mellitus complication status: without complication Qualified Code(s): E11.9 - Type 2 diabetes mellitus without complications Code(s): E11.9 - Type 2 diabetes mellitus without complications Status: Acute Plan Assessment: 1. Patient known history of a nonischemic dilated cardiomyopathy and mildly reduced systolic function in range of 42% thyroid. Patient is followed by biomedical engineering technician at all patient had an echocardiogram in February of 2025 which showed ejection fraction of 42% with normal left ventricular size. There is a mid inferior mid and apical inferior hypokinesis. Left atrium is mildly enlarged with mitral annular calcification and IVC is normal. No suggestion of right- sided chambers enlargement or pulmonary hypertension. Patient is on guideline directed medical therapy and higher doses of Entresto which may be causing hypotension. -previous echocardiogram reviewed from 09/28/2023 which showed normal left ventricular size and reduced systolic function in range of 35-40%. The suggestion of right-sided heart failure IVC enlargement. 2. Cardiac catheterization in November of 2023. Could not find that detail information but who cardiology follow-up report says no coronary artery disease and therefore nonischemic etiology. LVEDP was 31 suggesting significantly increased left ventricular end-diastolic pressure. Patient is on diuretics. 3. Morbid obesity with BMI of 45 without any suggestion for obstructive sleep apnea on sleep study per patient and no suggestion for right-sided enlargement or pulmonary hypertension. 4. Chronic systolic heart failure with reduced ejection fraction in the range of 35-40%, improved on guideline directed medical therapy. Patient also has left bundle-branch block. 5. Chronic obstructive lung disease. Recommendations: 1. Home medications reviewed. Patient is currently on aspirin 81 mg daily, Jardiance 10 mg daily, Entresto 49/51 but b.i.d., spironolactone 25 mg daily and Theophylin. Entresto was decreased to low dose and overall blood pressure has improved. Heart rate also decreased on beta-leigh. -no cardiac arrhythmias or bradycardia noted. Patient is tolerating medications well. - Discontinue theophyllin, as that will cause tachycardia for this patient. 2. Echocardiogram reviewed from February of 2025 and new echocardiogram is not needed. 3. Continue with Lasix 40 mg daily. 4. Increase activity to bedside. Check for orthostatic hypotension. Overall improvement with stable blood pressure and heart rate. Blood pressure 137/76 and heart rate 77 per minute. Will increase Entresto to 24-25 mg b.i.d.. Potassium is 4.1 now. Patient is on potassium supplement at 10 mEq of potassium. Patient has been ambulated up to chair without problems. Okay to transfer patient to intermediate medical unit. Subjective Date/time seen: 05/11/25 11:34 Interval history: Patient was examined at bedside. Patient is feeling much better without any tachycardia on current medication. Breathing is stable. Blood pressure improved since we cut down on the Entresto per No complaints of chest pain, shortness of breath orthopnea. Review of Systems Review of Systems: 12 point review of system was completed. Pertinent positive and negative findings per HPI. Constitutional positive for morbid obesity Cardiovascular negative for shortness of breath, chest pain orthopnea Pred Pulmonary negative for shortness of breath cough or hemoptysis Pred Neurovascular intact. Exam Narrative: Patient was examined at the bedside. Patient is awake and alert oriented x3. Head and neck examination is unremarkable. Sclerae nonicteric. ENT examination is negative. Neck is supple. There is no JVD or carotid bruit. Thyroid not enlarged. There is no cervical lymphadenopathy. Lungs are clear to auscultation percussion. There is decreased air entry bilaterally. There is no wheezing or crepitations. Heart sounds reveal normal S1-S2. No significant murmurs S3 or S4 appreciated. Abdomen is obese without any distention or ascites. It is nontender. There is no hepatosplenomegaly. Bowel sounds are present there Extremities reveal minimal leg edema bilaterally. Neurological exam is intact but Skin musculoskeletal is also intact but Objective Data Vital Signs Vital Signs: Vital Signs - 24 hr 05/10/25 11:48 05/10/25 11:59 05/10/25 11:59 Temperature Pulse Rate 87 92 87 Respiratory Rate 22 H 22 H Blood Pressure 154/76 H 123/60 Pulse Oximetry Oxygen Delivery 05/10/25 12:00 05/10/25 12:00 05/10/25 12:00 Temperature 36.6 C Pulse Rate 75 92 Respiratory Rate 16 Blood Pressure 147/115 H Pulse Oximetry 96 96 Oxygen Delivery Room Air 05/10/25 16:00 05/10/25 16:00 05/10/25 20:00 Temperature 36.8 C Pulse Rate 71 66 Respiratory Rate 13 Blood Pressure 105/57 L Pulse Oximetry 94 Oxygen Delivery Room Air 05/10/25 20:00 05/10/25 20:00 05/10/25 20:00 Temperature 36.6 C 36.6 C Pulse Rate 71 71 70 Respiratory Rate 19 22 H Blood Pressure 98/55 L 114/57 L Pulse Oximetry 95 95 Oxygen Delivery 05/10/25 20:01 05/11/25 00:00 05/11/25 00:00 Temperature 36.6 C Pulse Rate 70 80 80 Respiratory Rate 22 H 16 Blood Pressure 114/57 L 110/54 L Pulse Oximetry 95 93 Oxygen Delivery 05/11/25 00:44 05/11/25 00:50 05/11/25 04:00 Temperature Pulse Rate 81 83 68 Respiratory Rate 17 15 Blood Pressure Pulse Oximetry Oxygen Delivery 05/11/25 04:00 05/11/25 07:40 05/11/25 08:00 Temperature 36.5 C 36.5 C Pulse Rate 68 78 70 Respiratory Rate 14 16 16 Blood Pressure 103/71 109/47 L Pulse Oximetry 92 98 Oxygen Delivery 05/11/25 08:00 05/11/25 08:00 05/11/25 08:00 Temperature 36.5 C Pulse Rate 70 70 70 Respiratory Rate 16 16 Blood Pressure 109/47 L Pulse Oximetry 98 97 Oxygen Delivery Room Air 05/11/25 08:27 05/11/25 08:39 05/11/25 08:44 Temperature 36.5 C 36.5 C Pulse Rate 70 77 68 Respiratory Rate 23 H 20 Blood Pressure 144/76 H 137/76 Pulse Oximetry 96 97 Oxygen Delivery Intake/Output Intake/Output: Intake & Output 05/08/25 05/09/25 05/10/25 05/11/25 23:59 23:59 23:59 23:59 Intake Total 2500 2150 730 Output Total 650 700 Balance 2500 1500 30 Meds/Results Medications: Active Medications Generic Name Dose Route Start Last Admin Trade Name Radha PRN Reason Stop Dose Admin Acetaminophen 1,000 mg 05/09/25 22:41 05/11/25 00:36 Acetaminophen 500 Mg Tablet PO 1,000 mg QID PRN Administration Pain Albuterol/Ipratropium 3 ml 05/10/25 08:35 05/11/25 00:44 Ipratropium 0.5 Mg/Albuterol Sulfate 2.5 Mg (Base) Ampul.Neb 3 Ml INHALATION 3 ml Q6HRT PRN Administration Wheezing Aspirin 81 mg 05/10/25 09:00 05/11/25 08:43 Aspirin 81 Mg Chewable Tablet PO 81 mg DAILY RIZWAN Administration Dextrose 12.5 gm 05/09/25 22:43 Dextrose 50% 25 Gm/50 Ml Syringe IV PUSH PRN PRN Hypoglycemia Protocol Duloxetine HCl 30 mg 05/10/25 09:00 05/11/25 11:33 Duloxetine Hcl 30 Mg Capsule.Dr PO 30 mg DAILY RIZWAN Administration Empagliflozin 10 mg 05/10/25 09:00 05/11/25 08:44 Empagliflozin 10 Mg Tablet PO 10 mg DAILY RIZWAN Administration Enoxaparin Sodium 40 mg 05/10/25 09:00 05/11/25 08:44 Enoxaparin 40 Mg/0.4 Ml Syringe SUB-Q 40 mg DAILY RIZWAN Administration Fluticasone/Umeclidinium/Vilanterol 1 puff 05/10/25 08:00 05/11/25 07:39 Fluticasone/Umeclidin/Vilanter 100-62.5-25 Mcg Ellipta INHALATION 1 puff DAILYRT RIZWAN Administration Glucagon 1 mg 05/09/25 22:43 Glucagon For Inj 1 Mg Vial IM PRN PRN Hypoglycemia Protocol Glucose 15 gm 05/09/25 22:43 Glucose Oral Gel 15 Gm Of Glucse In 37.5 Gm Tube PO PRN PRN Hypoglycemia Protocol Dextrose 1,000 mls @ 100 mls/hr 05/09/25 22:43 Dextrose 5% 1,000 Ml IVPB PRN PRN Hypoglycemia Protocol Insulin Aspart 2 - 5 units 05/10/25 08:00 05/11/25 11:33 Insulin Aspart (*Bkc) 100 Units/Ml SUB-Q Not Given TIDWM [facility] Protocol Metoprolol Succinate 25 mg 05/10/25 11:00 05/11/25 08:44 Metoprolol Succinate Ext Rel 25 Mg Tabcr PO 25 mg QAM RIZWAN Administration Montelukast Sodium 10 mg 05/10/25 21:00 05/10/25 20:17 Montelukast Sodium 10 Mg Tablet PO 10 mg HS RIZWAN Administration Pantoprazole Sodium 40 mg 05/10/25 09:00 05/11/25 08:44 Pantoprazole 40 Mg Tablet PO 40 mg QAM RIZWAN Administration Perflutren Lipid Microsphere 0 ml 05/10/25 08:14 Perflutren Lipid Microspheres 1.5 Ml Vial Diluted To 10 Ml Total Volume IV PUSH 05/13/25 08:15 ONCE PRN adequate visualization Protocol Potassium Chloride 10 meq 05/11/25 08:00 05/11/25 08:44 Potassium Chloride 10 Meq Er Tablet PO 10 meq DAILY@0800 RIZWAN Administration Pramipexole Dihydrochloride 0.25 mg 05/10/25 21:00 05/10/25 20:17 Pramipexole 0.25 Mg Tablet PO 0.25 mg QHS RIZWAN Administration Sacubitril/Valsartan 1 tab 05/10/25 11:00 05/11/25 08:44 Sacubitril/Valsartan 12-13 Mg Tablet PO 1 tab Q12HR RIZWAN Administration Radiology Results: ITS Impressions Chest X-Ray 05/09/25 12:56 IMPRESSION: 1. No acute cardiopulmonary findings. Chest CTA 05/09/25 14:44 IMPRESSION: 1. No pulmonary embolus. Sensitivity is moderately decreased by motion artifact and obesity. 2. Mild emphysema. Venous Doppler Study 05/09/25 15:21 Impression: Negative for DVT. Labs Labs: Laboratory Results - last 24 hr 05/10/25 05/10/25 05/10/25 05:40 11:48 16:47 WBC RBC Hgb Hct MCV MCH MCHC RDW Plt Count MPV Sodium Potassium Chloride Carbon Dioxide Anion Gap BUN Creatinine Estim Creat Clear Calc Estimated GFR Glucose POC Capillary Glucose 102 112 H Calcium Magnesium Total Bilirubin AST ALT Alkaline Phosphatase Total Protein Albumin Theophylline 11.5 05/10/25 05/11/25 05/11/25 20:16 03:42 07:22 WBC 4.8 RBC 3.98 L Hgb 13.6 Hct 40.4 MCV 101.5 H MCH 34.2 H MCHC 33.7 RDW 14.0 Plt Count 185 MPV 10.0 Sodium 135 L Potassium 4.1 Chloride 105 Carbon Dioxide 26 Anion Gap 4 BUN 16 Creatinine 0.71 Estim Creat Clear Calc 71 Estimated GFR > 60 Glucose 109 POC Capillary Glucose 117 H 98 Calcium 9.5 Magnesium 2.0 Total Bilirubin 0.8 AST 29 ALT 17 Alkaline Phosphatase 72 Total Protein 5.9 L Albumin 3.4 L Theophylline 05/11/25 11:07 WBC RBC Hgb Hct MCV MCH MCHC RDW Plt Count MPV Sodium Potassium Chloride Carbon Dioxide Anion Gap BUN Creatinine Estim Creat Clear Calc Estimated GFR Glucose POC Capillary Glucose 101 Calcium Magnesium Total Bilirubin AST ALT Alkaline Phosphatase Total Protein Albumin Theophylline
--- NOTE | 2025-05-11 18:14 | P.PNIM_ITS ---
Progress Note: A&P Assessment and Plan (1) Hypertension: Code(s): I10 - Essential (primary) hypertension Status: Acute (2) Hypotension: Code(s): I95.9 - Hypotension, unspecified Status: Acute (3) CHF (congestive heart failure): Qualifiers: Heart failure chronicity: unspecified Heart failure type: unspecified Qualified Code(s): I50.9 - Heart failure, unspecified Code(s): I50.9 - Heart failure, unspecified Status: Acute (4) Tachycardia: Code(s): R00.0 - Tachycardia, unspecified Status: Acute (5) Palpitation: Code(s): R00.2 - Palpitations Status: Acute (6) Type 2 diabetes mellitus: Qualifiers: Diabetes mellitus senior living insulin use: without sharepoint developer use Diabetes mellitus complication status: without complication Qualified Code(s): E11.9 - Type 2 diabetes mellitus without complications Code(s): E11.9 - Type 2 diabetes mellitus without complications Status: Acute Plan 69-year-old female with PMH class 3 obesity, diabetes without current long-term use of insulin, COPD, 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 She presents on 05/09/2025 to [facility]. Patient has a pulse ox at home and she noted to have tachycardia. She reported mild leg edema, no shortness of breath, no chest pain. On admission she is noted to have hypotension with systolic blood pressure in the 90s, EKG demonstrated sinus tachycardia with left bundle branch block. ----- Tachycardia/essential hypertension/hypotension: Patient reported to be dehydrated. Suspected to be due to this as well as Entresto. TTE on 05/10/2025 demonstrates left ventricular systolic function 50% estimated, grade 1 diastolic dysfunction, mild mitral valve regurgitation, mild tricuspid valve regurgitation, estimated PASP 35 mmHg. Cardiology recommendations noted. Theophylline discontinued due to adverse effect tachycardia. Borderline reduced ejection fraction heart failure: Mild leg edema, scant crackles. Off of fluids, continue to monitor. Diabetes: Continue Accu-Cheks a.c. HS. Hypokalemia: Replace and recheck. Anxiety disorder: Continue duloxetine ----- Full code. Continue telemetry. Lovenox 40 mg subQ q.day Time Spent With Patient Time with patient: Greater than 35 minutes Subjective Date/time seen: 05/11/25 18:14 Interval history: Patient resting comfortably. She denies any symptoms to report today. Review of Systems Review of Systems: All systems reviewed & are unremarkable except as noted in HPI and below (Subjective) Exam Const: General: comfortable and no acute distress HENMT: Mouth: Yes moist mucous membranes Eyes: Pupils: Equal, round and reactive pupils present Neck: Neck: supple Resp: Effort & Inspection: normal respiratory effort Other: Scant crackles Cardio: Rate: regular rate Rhythm: regular rhythm GI: Inspection: non-distended GI Palp: Yes Soft to palpation Neuro: Motor exam (neuro): 5/5 motor strength present throughout Extrem: General: no edema Objective Data Vital Signs Vital Signs: Vital Signs - 24 hr 05/10/25 20:00 05/10/25 20:00 05/10/25 20:00 Temperature 97.9 F Pulse Rate 71 71 Respiratory Rate 19 Blood Pressure 98/55 L Pulse Oximetry 95 Oxygen Delivery Room Air 05/10/25 20:00 05/10/25 20:01 05/11/25 00:00 Temperature 97.9 F 97.9 F Pulse Rate 70 70 80 Respiratory Rate 22 H 22 H Blood Pressure 114/57 L 114/57 L Pulse Oximetry 95 95 Oxygen Delivery 05/11/25 00:00 05/11/25 00:44 05/11/25 00:50 Temperature Pulse Rate 80 81 83 Respiratory Rate 16 17 15 Blood Pressure 110/54 L Pulse Oximetry 93 Oxygen Delivery 05/11/25 04:00 05/11/25 04:00 05/11/25 07:40 Temperature 97.7 F Pulse Rate 68 68 78 Respiratory Rate 14 16 Blood Pressure 103/71 Pulse Oximetry 92 Oxygen Delivery 05/11/25 08:00 05/11/25 08:00 05/11/25 08:00 Temperature 97.7 F 97.7 F Pulse Rate 70 70 70 Respiratory Rate 16 16 16 Blood Pressure 109/47 L 109/47 L Pulse Oximetry 98 98 97 Oxygen Delivery Room Air 05/11/25 08:00 05/11/25 08:27 05/11/25 08:39 Temperature 97.7 F 97.7 F Pulse Rate 70 70 77 Respiratory Rate 23 H 20 Blood Pressure 144/76 H 137/76 Pulse Oximetry 96 97 Oxygen Delivery 05/11/25 08:44 10/04/25 12:00 05/11/25 16:00 Temperature Pulse Rate 68 68 72 Respiratory Rate Blood Pressure Pulse Oximetry Oxygen Delivery 05/11/25 16:00 Temperature 97.8 F Pulse Rate 72 Respiratory Rate 21 H Blood Pressure 130/80 Pulse Oximetry 96 Oxygen Delivery Intake/Output Intake/Output: Intake & Output 05/08/25 05/09/25 05/10/25 05/11/25 23:59 23:59 23:59 23:59 Intake Total 2500 2150 1210 Output Total 650 1050 Balance 2500 1500 160 Meds/Results Medications: Active Medications Generic Name Dose Route Start Last Admin Trade Name Freq PRN Reason Stop Dose Admin Acetaminophen 1,000 mg 05/09/25 22:41 05/11/25 00:36 Acetaminophen 500 Mg Tablet PO 1,000 mg QID PRN Administration Pain Albuterol/Ipratropium 3 ml 05/10/25 08:35 05/11/25 00:44 Ipratropium 0.5 Mg/Albuterol Sulfate 2.5 Mg (Base) Ampul.Neb 3 Ml INHALATION 3 ml Q6HRT PRN Administration Wheezing Aspirin 81 mg 05/10/25 09:00 05/11/25 08:43 Aspirin 81 Mg Chewable Tablet PO 81 mg DAILY RIZWAN Administration Dextrose 12.5 gm 05/09/25 22:43 Dextrose 50% 25 Gm/50 Ml Syringe IV PUSH PRN PRN Hypoglycemia Protocol Duloxetine HCl 30 mg 05/10/25 09:00 05/11/25 11:33 Duloxetine Hcl 30 Mg Capsule.Dr PO 30 mg DAILY RIZWAN Administration Empagliflozin 10 mg 05/10/25 09:00 05/11/25 08:44 Empagliflozin 10 Mg Tablet PO 10 mg DAILY RIZWAN Administration Enoxaparin Sodium 40 mg 05/10/25 09:00 05/11/25 08:44 Enoxaparin 40 Mg/0.4 Ml Syringe SUB-Q 40 mg DAILY RIZWAN Administration Fluticasone/Umeclidinium/Vilanterol 1 puff 05/10/25 08:00 05/11/25 07:39 Fluticasone/Umeclidin/Vilanter 100-62.5-25 Mcg Ellipta INHALATION 1 puff DAILYRT RIZWAN Administration Glucagon 1 mg 05/09/25 22:43 Glucagon For Inj 1 Mg Vial IM PRN PRN Hypoglycemia Protocol Glucose 15 gm 05/09/25 22:43 Glucose Oral Gel 15 Gm Of Glucse In 37.5 Gm Tube PO PRN PRN Hypoglycemia Protocol Dextrose 1,000 mls @ 100 mls/hr 05/09/25 22:43 Dextrose 5% 1,000 Ml IVPB PRN PRN Hypoglycemia Protocol Insulin Aspart 2 - 5 units 05/10/25 08:00 05/11/25 11:33 Insulin Aspart (*Bkc) 100 Units/Ml SUB-Q Not Given TIDWM RIZWAN Protocol Metoprolol Succinate 25 mg 05/10/25 11:00 05/11/25 08:44 Metoprolol Succinate Ext Rel 25 Mg Tabcr PO 25 mg QAM RIZWAN Administration Montelukast Sodium 10 mg 05/10/25 21:00 05/10/25 20:17 Montelukast Sodium 10 Mg Tablet PO 10 mg HS RIZWAN Administration Pantoprazole Sodium 40 mg 05/10/25 09:00 05/11/25 08:44 Pantoprazole 40 Mg Tablet PO 40 mg QAM RIZWAN Administration Perflutren Lipid Microsphere 0 ml 05/10/25 08:14 Perflutren Lipid Microspheres 1.5 Ml Vial Diluted To 10 Ml Total Volume IV PUSH 05/13/25 08:15 ONCE PRN adequate visualization Protocol Potassium Chloride 10 meq 05/11/25 08:00 05/11/25 08:44 Potassium Chloride 10 Meq Er Tablet PO 10 meq DAILY@0800 RIZWAN Administration Pramipexole Dihydrochloride 0.25 mg 05/10/25 21:00 05/10/25 20:17 Pramipexole 0.25 Mg Tablet PO 0.25 mg QHS RIZWAN Administration Sacubitril/Valsartan 1 tab 05/11/25 21:00 Sacubitril/Valsartan 24-26 Mg Tablet PO Q12HR [facility] Radiology Results: ITS Impressions Chest X-Ray 05/09/25 12:56 IMPRESSION: 1. No acute cardiopulmonary findings. Chest CTA 05/09/25 14:44 IMPRESSION: 1. No pulmonary embolus. Sensitivity is moderately decreased by motion artifact and obesity. 2. Mild emphysema. Venous Doppler Study 05/09/25 15:21 Impression: Negative for DVT. Labs Labs: Laboratory Results - last 24 hr 05/10/25 05/10/25 05/11/25 05:40 20:16 03:42 WBC 4.8 RBC 3.98 L Hgb 13.6 Hct 40.4 MCV 101.5 H MCH 34.2 H MCHC 33.7 RDW 14.0 Plt Count 185 MPV 10.0 Sodium 135 L Potassium 4.1 Chloride 105 Carbon Dioxide 26 Anion Gap 4 BUN 16 Creatinine 0.71 Estim Creat Clear Calc 71 Estimated GFR > 60 Glucose 109 POC Capillary Glucose 117 H Calcium 9.5 Magnesium 2.0 Total Bilirubin 0.8 AST 29 ALT 17 Alkaline Phosphatase 72 Total Protein 5.9 L Albumin 3.4 L Theophylline 11.5 05/11/25 05/11/25 07:22 11:07 WBC RBC Hgb Hct MCV MCH MCHC RDW Plt Count MPV Sodium Potassium Chloride Carbon Dioxide Anion Gap BUN Creatinine Estim Creat Clear Calc Estimated GFR Glucose POC Capillary Glucose 98 101 Calcium Magnesium Total Bilirubin AST ALT Alkaline Phosphatase Total Protein Albumin Theophylline
[2025-05-11] MEDS: PRAMIPEXOLE 0.25 MG TABLET PO (20:26)
[2025-05-11] MEDS: SACUBITRIL/VALSARTAN 24-26 MG TABLET 1 TAB PO (20:26)
[2025-05-11] MEDS: MONTELUKAST SODIUM 10 MG TABLET PO (20:26)
[2025-05-12] VITALS (12 sets, daily range): BP systolic 134–191; BP diastolic 78–113; PULSE 65–90; RESP 13–20; TEMP 36.6; O2SAT 88–100
[2025-05-12] MEDS: ACETAMINOPHEN 500 MG TABLET 1000 MG PO (00:12)
[2025-05-12] MEDS: IPRATROPIUM 0.5 MG/ALBUTEROL SULFATE 2.5 MG (BASE) AMPUL.NEB 3 ML INHALATION (00:20)
[2025-05-12 03:54] LABS: Hematocrit 40.7 % (37.0-47.0); Hemoglobin 13.5 g/dL (12.0-15.0); Mean Corpuscular HGB Conc 33.2 g/dl (32-36); Mean Corpuscular Hemoglobin 34.0 pg (26-34); Mean Corpuscular Volume 102.5 fl (80-100); Platelet Count Result 185 k/mm3 (150-375); Red Blood Count 3.97 M/mm3 (4.2-5.4); White Blood Count 5.8 K/mm3 (4.5-10.0)
[2025-05-12 04:13] LABS: Alanine Aminotransferase 17 U/L (6-35); Albumin Level 3.4 g/dL (3.5-5.1); Alkaline Phosphatase 80 U/L (38-126); Anion Gap 7 mmol/L (4-12); Aspartate Amino Transferase 31 U/L (14-36); Bilirubin,Total 0.7 mg/dL (0.2-1.3); Blood Urea Nitrogen 17 mg/dL (7-17); Calcium 9.4 mg/dL (8.4-10.2); Carbon Dioxide 23 mmol/L (22-30); Chloride 107 mmol/L (98-107); Estimated CRCL calculation 80 ml/min; Estimated Glomerular Filt Rate > 60; Glucose 103 mg/dL (65-110); Magnesium 2.1 mg/dL (1.6-2.3); Potassium 4.5 mmol/L (3.4-5.0); Sodium 137 mmol/L (137-145); Total Protein 6.1 g/dL (6.3-8.2)
[2025-05-12] MEDS: FLUTICASONE/UMECLIDIN/VILANTER 100-62.5-25 MCG ELLIPTA 1 PUFF INHALATION (08:18)
[2025-05-12] MEDS: PANTOPRAZOLE 40 MG TABLET PO (08:32)
[2025-05-12] MEDS: ENOXAPARIN 40 MG/0.4 ML SYRINGE SUB-Q (08:32)
[2025-05-12] MEDS: METOPROLOL SUCCINATE EXT REL 25 MG TABCR PO (08:33)
[2025-05-12] MEDS: SACUBITRIL/VALSARTAN 24-26 MG TABLET 1 TAB PO (08:33)
[2025-05-12] MEDS: POTASSIUM CHLORIDE 10 MEQ ER TABLET PO (08:33)
[2025-05-12] MEDS: ASPIRIN 81 MG CHEWABLE TABLET PO (08:33)
[2025-05-12] MEDS: EMPAGLIFLOZIN 10 MG TABLET PO (08:33)
--- NOTE | 2025-05-12 12:36 | PM.PNCARD ---
Progress Note: A&P Assessment and Plan (1) Nonischemic dilated cardiomyopathy: Code(s): I42.0 - Dilated cardiomyopathy Status: Acute (2) Hypotension: Code(s): I95.9 - Hypotension, unspecified Status: Acute (3) Hypokalemia: Code(s): E87.6 - Hypokalemia Status: Acute (4) Tachycardia: Code(s): R00.0 - Tachycardia, unspecified Status: Acute (5) Hypersomnia: Code(s): G47.10 - Hypersomnia, unspecified Status: Acute (6) Type 2 diabetes mellitus: Qualifiers: Diabetes mellitus group home insulin use: without group home use Diabetes mellitus complication status: without complication Qualified Code(s): E11.9 - Type 2 diabetes mellitus without complications Code(s): E11.9 - Type 2 diabetes mellitus without complications Status: Acute Plan Assessment: 1. Patient known history of a nonischemic dilated cardiomyopathy and mildly reduced systolic function in range of 42% thyroid. Patient is followed by donor center technician at all patient had an echocardiogram in February of 2025 which showed ejection fraction of 42% with normal left ventricular size. There is a mid inferior mid and apical inferior hypokinesis. Left atrium is mildly enlarged with mitral annular calcification and IVC is normal. No suggestion of right-sided chambers enlargement or pulmonary hypertension. Patient is on guideline directed medical therapy and higher doses of Entresto which may be causing hypotension. -previous echocardiogram reviewed from 09/28/2023 which showed normal left ventricular size and reduced systolic function in range of 35-40%. The suggestion of right-sided heart failure IVC enlargement. 2. Cardiac catheterization in November of 2023. Could not find that detail information but who cardiology follow-up report says no coronary artery disease and therefore nonischemic etiology. LVEDP was 31 suggesting significantly increased left ventricular end-diastolic pressure. Patient is on diuretics. 3. Morbid obesity with BMI of 45 without any suggestion for obstructive sleep apnea on sleep study per patient and no suggestion for right-sided enlargement or pulmonary hypertension. 4. Chronic systolic heart failure with reduced ejection fraction in the range of 35-40%, improved on guideline directed medical therapy. Patient also has left bundle-branch block. 5. Chronic obstructive lung disease. Recommendations: 1. Home medications reviewed. Patient is currently on aspirin 81 mg daily, Jardiance 10 mg daily, Entresto 49/51 but b.i.d., spironolactone 25 mg daily and Theophylin. Entresto well tolerated at the dose of 24-25 mg b.i.d.. Blood pressure is 134/78 mm Hg. Continue present dose of Entresto and other medications. No hypotension or bradycardia noted. Patient is tolerating medications well. - Discontinue theophyllin, as that will cause tachycardia for this patient. 2. Echocardiogram reviewed from February of 2025 and new echocardiogram is not needed. 3. Continue with Lasix 40 mg daily. 4. Increase activity to bedside. Check for orthostatic hypotension. Overall improvement with stable blood pressure and heart rate. Blood pressure 137/76 and heart rate 77 per minute. Continue Entresto to 24-25 mg b.i.d.. Potassium is 4.1 now. Patient is on potassium supplement at 10 mEq of potassium. Patient has been ambulated up to chair without problems. Okay to to discharge patient home on current medication. Patient advised to follow-up with her donor center technician. Subjective Date/time seen: 05/12/25 12:36 Interval history: Patient was examined at bedside. Patient is feeling much better without any tachycardia on current medication. Breathing is stable. Blood pressure improved since we cut down on the Entresto per No complaints of chest pain, shortness of breath orthopnea. Tolerating Entresto 24-25 mg b.i.d. blood pressure is 134/78 mm of mercury. Review of Systems Review of Systems: 12 point review of system was completed. Pertinent positive and negative findings per HPI. Constitutional positive for morbid obesity Cardiovascular negative for shortness of breath, chest pain orthopnea Pred Pulmonary negative for shortness of breath cough or hemoptysis Pred Neurovascular intact. Exam Narrative: Patient was examined at the bedside. Patient is awake and alert oriented x3. Head and neck examination is unremarkable. Sclerae nonicteric. ENT examination is negative. Neck is supple. There is no JVD or carotid bruit. Thyroid not enlarged. There is no cervical lymphadenopathy. Lungs are clear to auscultation percussion. There is decreased air entry bilaterally. There is no wheezing or crepitations. Heart sounds reveal normal S1-S2. No significant murmurs S3 or S4 appreciated. Abdomen is obese without any distention or ascites. It is nontender. There is no hepatosplenomegaly. Bowel sounds are present there Extremities reveal minimal leg edema bilaterally. Neurological exam is intact but Skin musculoskeletal is also intact but Objective Data Vital Signs Vital Signs: Vital Signs - 24 hr 05/11/25 16:00 05/11/25 16:00 05/11/25 20:00 Temperature 36.6 C 36.4 C L Pulse Rate 72 72 72 Respiratory Rate 21 H 12 Blood Pressure 130/80 108/82 Pulse Oximetry 96 97 Oxygen Delivery Oxygen Flow Rate 05/11/25 20:00 05/11/25 20:00 05/12/25 00:00 Temperature Pulse Rate 75 88 Respiratory Rate Blood Pressure Pulse Oximetry 97 Oxygen Delivery Room Air Oxygen Flow Rate 05/12/25 00:00 05/12/25 00:02 05/12/25 00:06 Temperature 36.6 C Pulse Rate 75 85 90 Respiratory Rate 19 Blood Pressure 152/81 H 185/113 H 191/102 H Pulse Oximetry 100 94 93 Oxygen Delivery Oxygen Flow Rate 05/12/25 00:09 05/12/25 00:16 05/12/25 00:20 Temperature Pulse Rate 75 69 Respiratory Rate 20 Blood Pressure 186/92 H Pulse Oximetry 88 L 93 Oxygen Delivery Nasal Cannula Oxygen Flow Rate 2 05/12/25 00:29 05/12/25 04:00 05/12/25 08:00 Temperature 36.6 C Pulse Rate 72 67 78 Respiratory Rate 20 13 Blood Pressure 134/78 Pulse Oximetry 96 Oxygen Delivery Oxygen Flow Rate 05/12/25 08:00 05/12/25 08:00 05/12/25 08:18 Temperature Pulse Rate 71 65 67 Respiratory Rate 14 14 Blood Pressure Pulse Oximetry 96 Oxygen Delivery Room Air Oxygen Flow Rate 05/12/25 08:33 Temperature Pulse Rate 71 Respiratory Rate Blood Pressure Pulse Oximetry Oxygen Delivery Oxygen Flow Rate Intake/Output Intake/Output: Intake & Output 05/09/25 05/10/25 05/11/25 05/12/25 23:59 23:59 23:59 23:59 Intake Total 2500 2150 1450 740 Output Total 650 1400 1350 Balance 2500 1500 50 -610 Meds/Results Medications: Active Medications Generic Name Dose Route Start Last Admin Trade Name Freq PRN Reason Stop Dose Admin Acetaminophen 1,000 mg 05/09/25 22:41 05/12/25 00:12 Acetaminophen 500 Mg Tablet PO 1,000 mg QID PRN Administration Pain Albuterol/Ipratropium 3 ml 05/10/25 08:35 05/12/25 00:20 Ipratropium 0.5 Mg/Albuterol Sulfate 2.5 Mg (Base) Ampul.Neb 3 Ml INHALATION 3 ml Q6HRT PRN Administration Wheezing Aspirin 81 mg 05/10/25 09:00 05/12/25 08:33 Aspirin 81 Mg Chewable Tablet PO 81 mg DAILY RIZWAN Administration Dextrose 12.5 gm 05/09/25 22:43 Dextrose 50% 25 Gm/50 Ml Syringe IV PUSH PRN PRN Hypoglycemia Protocol Duloxetine HCl 30 mg 05/10/25 09:00 05/12/25 08:33 Duloxetine Hcl 30 Mg Capsule.Dr PO 30 mg DAILY RIZWAN Administration Empagliflozin 10 mg 05/10/25 09:00 05/12/25 08:33 Empagliflozin 10 Mg Tablet PO 10 mg DAILY RIZWAN Administration Enoxaparin Sodium 40 mg 05/10/25 09:00 05/12/25 08:32 Enoxaparin 40 Mg/0.4 Ml Syringe SUB-Q 40 mg DAILY RIZWAN Administration Fluticasone/Umeclidinium/Vilanterol 1 puff 05/10/25 08:00 05/12/25 08:18 Fluticasone/Umeclidin/Vilanter 100-62.5-25 Mcg Ellipta INHALATION 1 puff DAILYRT RIZWAN Administration Glucagon 1 mg 05/09/25 22:43 Glucagon For Inj 1 Mg Vial IM PRN PRN Hypoglycemia Protocol Glucose 15 gm 05/09/25 22:43 Glucose Oral Gel 15 Gm Of Glucse In 37.5 Gm Tube PO PRN PRN Hypoglycemia Protocol Dextrose 1,000 mls @ 100 mls/hr 05/09/25 22:43 Dextrose 5% 1,000 Ml IVPB PRN PRN Hypoglycemia Protocol Insulin Aspart 2 - 5 units 05/10/25 08:00 05/12/25 11:50 Insulin Aspart (*Bkc) 100 Units/Ml SUB-Q Not Given TIDWM RIZWAN Protocol Metoprolol Succinate 25 mg 05/10/25 11:00 05/12/25 08:33 Metoprolol Succinate Ext Rel 25 Mg Tabcr PO 25 mg QAM RIZWAN Administration Montelukast Sodium 10 mg 05/10/25 21:00 05/11/25 20:26 Montelukast Sodium 10 Mg Tablet PO 10 mg HS RIZWAN Administration Pantoprazole Sodium 40 mg 05/10/25 09:00 05/12/25 08:32 Pantoprazole 40 Mg Tablet PO 40 mg QAM RIZWAN Administration Perflutren Lipid Microsphere 0 ml 05/10/25 08:14 Perflutren Lipid Microspheres 1.5 Ml Vial Diluted To 10 Ml Total Volume IV PUSH 05/13/25 08:15 ONCE PRN adequate visualization Protocol Potassium Chloride 10 meq 05/11/25 08:00 05/12/25 08:33 Potassium Chloride 10 Meq Er Tablet PO 10 meq DAILY@0800 RIZWAN Administration Pramipexole Dihydrochloride 0.25 mg 05/10/25 21:00 05/11/25 20:26 Pramipexole 0.25 Mg Tablet PO 0.25 mg QHS RIZWAN Administration Sacubitril/Valsartan 1 tab 05/11/25 21:00 05/12/25 08:33 Sacubitril/Valsartan 24-26 Mg Tablet PO 1 tab Q12HR RIZWAN Administration Radiology Results: ITS Impressions Chest X-Ray 05/09/25 12:56 IMPRESSION: 1. No acute cardiopulmonary findings. Chest CTA 05/09/25 14:44 IMPRESSION: 1. No pulmonary embolus. Sensitivity is moderately decreased by motion artifact and obesity. 2. Mild emphysema. Venous Doppler Study 05/09/25 15:21 Impression: Negative for DVT. Labs Labs: Laboratory Results - last 24 hr 05/11/25 05/11/25 05/12/25 16:20 20:30 03:45 WBC 5.8 RBC 3.97 L Hgb 13.5 Hct 40.7 MCV 102.5 H MCH 34.0 MCHC 33.2 RDW 13.9 Plt Count 185 MPV 10.3 Sodium 137 Potassium 4.5 Chloride 107 Carbon Dioxide 23 Anion Gap 7 BUN 17 Creatinine 0.63 L Estim Creat Clear Calc 80 Estimated GFR > 60 Glucose 103 POC Capillary Glucose 109 H 122 H Calcium 9.4 Magnesium 2.1 Total Bilirubin 0.7 AST 31 ALT 17 Alkaline Phosphatase 80 Total Protein 6.1 L Albumin 3.4 L 05/12/25 05/12/25 07:16 11:37 WBC RBC Hgb Hct MCV MCH MCHC RDW Plt Count MPV Sodium Potassium Chloride Carbon Dioxide Anion Gap BUN Creatinine Estim Creat Clear Calc Estimated GFR Glucose POC Capillary Glucose 103 67 Calcium Magnesium Total Bilirubin AST ALT Alkaline Phosphatase Total Protein Albumin
--- NOTE | 2025-05-12 14:08 | PM.DS ---
DS: Admitting Diagnosis Discharge Date 05/12/2025 Admitting Diagnosis Tachycardia DS: Discharge Diagnosis Discharge Diagnosis (1) HTN (hypertension): Qualifiers: Hypertension type: primary hypertension Qualified Code(s): I10 - Essential (primary) hypertension Code(s): I10 - Essential (primary) hypertension Status: Acute (2) Hypotension: Code(s): I95.9 - Hypotension, unspecified Status: Acute (3) Nonischemic cardiomyopathy: Code(s): I42.8 - Other cardiomyopathies Status: Acute (4) CHF (congestive heart failure): Qualifiers: Heart failure chronicity: unspecified Heart failure type: unspecified Qualified Code(s): I50.9 - Heart failure, unspecified Code(s): I50.9 - Heart failure, unspecified Status: Acute (5) Tachycardia: Code(s): R00.0 - Tachycardia, unspecified Status: Acute DS: Summary Hospital Course Hospital Course: 69-year-old female with PMH class 3 obesity, diabetes without current long-term use of insulin, COPD, 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 She presents on 05/09/2025 to [facility]. Patient has a pulse ox at home and she noted to have tachycardia. She reported mild leg edema, no shortness of breath, no chest pain. On admission she is noted to have hypotension with systolic blood pressure in the 90s, EKG demonstrated sinus tachycardia with left bundle branch block. ----- Cardiology has seen the patient and adjusted her medications. Entresto has been cut in half to 24-26 mg 1 tab p.o. b.i.d.. Spironolactone discontinued. Metoprolol 25 mg p.o. q.a.m. started. TTE on 05/10/2025 demonstrates left ventricular systolic function 50% estimated, grade 1 diastolic dysfunction, mild mitral valve regurgitation, mild tricuspid valve regurgitation, estimated PASP 35 mmHg. Theophylline discontinued due to adverse effect tachycardia. The patient believe she was dehydrated which caused her hypertension and tachycardia. Prior to admission she was on 40 mg of Lasix daily with 20 mg p.r.n.. She is very concerned about being too dehydrated and is requested to decrease her Lasix to 20 mg p.o. q.day with 20 mg p.r.n.. She is well aware of her volume status. I have allowed her to continue with request with the understanding that if she has uncontrolled symptoms, shortness of breath, tachycardia to defer care to her correctional program officer immediately. She is discharged home in stable condition on 05/12/2025. She is to follow-up with PCP and Cardiology within a week. Adverse effects, risk and benefits of medication discussed. The patient is amenable to close follow-up in the outpatient setting and agrees with the plan. All of her questions and concerns were answered to satisfaction. She was full code during the admission. Advised lifestyle management for obesity class 3. Time Spent with Patient Time attestation: Total time spent providing and/or coordinating discharge services: Time spent: Greater than 30 minutes Exam Const: General: comfortable and no acute distress HENMT: Mouth: Yes moist mucous membranes Eyes: Pupils: Equal, round and reactive pupils present Neck: Neck: supple Resp: Effort & Inspection: normal respiratory effort Auscultation: clear to auscultation bilaterally Cardio: Rate: regular rate Rhythm: regular rhythm GI: Inspection: non-distended GI Palp: Yes Soft to palpation Neuro: Motor exam (neuro): 5/5 motor strength present throughout Extrem: General: no edema DS: Data Data Completed and Pending Labs on day of discharge: Labs from last 24 hours 05/12/25 05/12/25 05/12/25 12:33 11:37 07:16 WBC RBC Hgb Hct MCV MCH MCHC RDW Plt Count MPV Sodium Potassium Chloride Carbon Dioxide Anion Gap BUN Creatinine Estim Creat Clear Calc Estimated GFR Glucose POC Capillary Glucose 140 H 67 103 Calcium Magnesium Total Bilirubin AST ALT Alkaline Phosphatase Total Protein Albumin 05/12/25 05/11/25 05/11/25 03:45 20:30 16:20 WBC 5.8 RBC 3.97 L Hgb 13.5 Hct 40.7 MCV 102.5 H MCH 34.0 MCHC 33.2 RDW 13.9 Plt Count 185 MPV 10.3 Sodium 137 Potassium 4.5 Chloride 107 Carbon Dioxide 23 Anion Gap 7 BUN 17 Creatinine 0.63 L Estim Creat Clear Calc 80 Estimated GFR > 60 Glucose 103 POC Capillary Glucose 122 H 109 H Calcium 9.4 Magnesium 2.1 Total Bilirubin 0.7 AST 31 ALT 17 Alkaline Phosphatase 80 Total Protein 6.1 L Albumin 3.4 L Discharge Plan Discharge Attending physician on discharge: Chongsuwat,Jacy Consulting providers: Valerie Baker; Mayra Martin Discharging Clinician: Jacy Aviles Patient Disposition: Home Activity: may shower Diet: heart healthy Patient Instructions: Heart Failure (DC), Tachycardia (GEN) Patient Language: Lao Stand Alone Forms: General Discharge Information Follow-up/Referrals: Amadeo Schrader MD [Physician, Cardiology] - 05/21/25 Aayush Contreras DO [Primary Care Provider, Internal Medicine] Discharge Medications: New furosemide [Lasix] 20 mg tablet 20 mg PO DAILY Qty: 30 0RF metoprolol succinate [Toprol XL] 25 mg Tablet Extended Release 24 Hr 25 mg PO QAM Qty: 30 0RF sacubitril-valsartan [Entresto] 24-26 mg Tablet 1 tablet PO Q12HR Qty: 60 0RF potassium chloride 10 mEq capsule, extended release 10 meq PO DAILY Qty: 30 0RF Continued acetaminophen [Tylenol Extra Strength] 500 mg Tablet 1,000 mg PO QID PRN (Reason: Pain) Jardiance 10 mg Tablet 10 mg PO DAILY 30 Days Qty: 30 0RF aspirin 81 mg tablet,chewable 81 mg PO DAILY 30 Days Qty: 30 0RF pramipexole 0.125 mg tablet 0.25 mg PO QHS Rx Instructions: Take 2 hours before bedtime. Ok to increase by one tablet at 4-7 days. Please call office before increasing any further. montelukast 10 mg tablet 10 mg PO HS (DME) blood-glucose meter [FreeStyle Lite Meter] Kit See Rx Instructions .Route Qty: 1 0RF Rx Instructions: Use to check BS BID (DME) FreeStyle Lite Strips Strip See Rx Instructions .Route Qty: 100 3RF Rx Instructions: Use to check BS BID (DME) lancets [FreeStyle Lancets] 28 gauge misc See Rx Instructions .Route Qty: 100 3RF Rx Instructions: Use to check BS BID pantoprazole [Protonix] 40 mg tablet,delayed release (DR/EC) 40 mg PO QAM Qty: 90 1RF levalbuterol HCl 1.25 mg/3 mL solution for nebulization 1.25 mg inhalation Q6H PRN (Reason: shortness of breath or wheezing) Qty: 180 3RF Breztri Aerosphere 160-9-4.8 mcg/actuation HFA aerosol inhaler See Rx Instructions .ROUTE .COMPLEX Qty: 10.7 11RF Dose Instruction: INHALE 2 PUFFS EVERY DAY IN THE MORNING AND IN THE EVENING RINSE AND SPIT. Rx Instructions: INHALE 2 PUFFS EVERY DAY IN THE MORNING AND IN THE EVENING RINSE AND SPIT. albuterol sulfate 90 mcg/actuation HFA aerosol inhaler 1 - 2 puff inhalation Q4-6H PRN (Reason: shortness of breath or wheezing) Qty: 8.5 3RF furosemide 20 mg tablet 20 mg PO QAM PRN (Reason: fluid rentention) Qty: 90 1RF Rx Instructions: Take as directed duloxetine 30 mg capsule,delayed release(DR/EC) 30 mg PO DAILY Qty: 90 0RF Discontinued furosemide 40 mg tablet 40 mg PO DAILY Patient Comments: Prescribed by cardiology. sacubitril-valsartan 49-51 mg tablet 1 tablet PO BID spironolactone 25 mg Tablet 25 mg PO QAM 30 Days Qty: 30 0RF theophylline 300 mg tablet extended release 12 hr 300 mg PO Q12H Qty: 180 1RF meloxicam 15 mg tablet 15 mg PO HS Qty: 90 1RF Date of admission: 05/09/25 17:29 Primary Care Provider: Aayush Contreras Admitting Provider: Jc Monteiro Attending physician on admission: Jc Monteiro Condition: Stable Hospitalist MIPS Heart Failure (Exclusion) Patient has history of Heart Transplant or Left Ventricular Assistive Device?: No IF YES, STOP HERE Heart Failure (Qualifier) Patient has current or prior documentation of LVEF less than or equal to 40%, or mod/servere depressed LVSF?: No IF NO, STOP HERE
--- NOTE | 2025-05-13 06:13 | P.CDI_ITS ---
<Statement entered by Jacy Aviles MD - 05/13/25 20:04> This documentation has been reviewed and approved. chronic diastolic heart failure. compensated CDI Query Clarification Request Please clarify type and acuity of heart failure if known. * Acute * Chronic * Acute on Chronic * Unknown * Systolic * Diastolic * Combined Systolic and Diastolic * Unknown Cardiology 05/10 Assessment: 1. Patient known history of a nonischemic dilated cardiomyopathy and mildly reduced systolic function in range of 42% thyroid. Patient is followed by trial paralegal at all patient had an echocardiogram in February of 2025 which showed ejection fraction of 42% with normal left ventricular size. There is a mid inferior mid and apical inferior hypokinesis. Left atrium is mildly enlarged with mitral annular calcification and IVC is normal. No suggestion of right- sided chambers enlargement or pulmonary hypertension. Patient is on guideline directed medical therapy and higher doses of Entresto which may be causing hypotension. -previous echocardiogram reviewed from 09/28/2023 which showed normal left ventricular size and reduced systolic function in range of 35-40%. The suggestion of right-sided heart failure IVC enlargement. 2. Cardiac catheterization in November of 2023. Could not find that detail information but who cardiology follow-up report says no coronary artery disease and therefore nonischemic etiology. LVEDP was 31 suggesting significantly i ncreased left ventricular end-diastolic pressure. Patient is on diuretics. 3. Morbid obesity with BMI of 45 without any suggestion for obstructive sleep apnea on sleep study per patient and no suggestion for right-sided enlargement or pulmonary hypertension. 4. Chronic systolic heart failure with reduced ejection fraction in the range of 35-40%, improved on guideline directed medical therapy. Patient also has left bundle-branch block. 5. Chronic obstructive lung disease D/C summary: Discharge Diagnosis (1) HTN (hypertension): Qualifiers: Hypertension type: primary hypertension Qualified Code(s): I10 - Essential (primary) hypertension Code(s): I10 - Essential (primary) hypertension Status: Acute (2) Hypotension: Code(s): I95.9 - Hypotension, unspecified Status: Acute (3) Nonischemic cardiomyopathy: Code(s): I42.8 - Other cardiomyopathies Status: Acute (4) CHF (congestive heart failure): Qualifiers: Heart failure chronicity: unspecified Heart failure type: unspecified Qualified Code(s): I50.9 - Heart failure, unspecified Code(s): I50.9 - Heart failure, unspecified Status: Acute (5) Tachycardia: Code(s): R00.0 - Tachycardia, unspecified Status: Acute DS: Summary Hospital Course Hospital Course: 69-year-old female with PMH class 3 obesity, diabetes without current long-term use of insulin, COPD, 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 She presents on 05/09/2025 to [facility]. Patient has a pulse ox at home and she noted to have tachycardia. She reported mild leg edema, no shortness of breath, no chest pain. On admission she is noted to have hypotension with systolic blood pressure in the 90s, EKG demonstrated sinus tachycardia with left bundle branch block. ----- Cardiology has seen the patient and adjusted her medications. Entresto has been cut in half to 24-26 mg 1 tab p.o. b.i.d.. Spironolactone discontinued. Metoprolol 25 mg p.o. q.a.m. started. TTE on 05/10/2025 demonstrates left ventricular systolic function 50% estimated, grade 1 diastolic dysfunction, mild mitral valve regurgitation, mild tricuspid valve regurgitation, estimated PASP 35 mmHg. Theophylline discontinued due to adverse effect tachycardia. The patient believe she was dehydrated which caused her hypertension and tachycardia. Prior to admission she was on 40 mg of Lasix daily with 20 mg p.r. n.. She is very concerned about being too dehydrated and is requested to decrease her Lasix to 20 mg p.o. q.day with 20 mg p.r.n.. She is well aware of her volume status. I have allowed her to continue with request with the understanding that if she has uncontrolled symptoms, shortness of breath, tachycardia to defer care to her trial paralegal immediately. ECHO: Summary 1. Complete two-dimensional, color flow and Doppler transthoracic echocardiogram is performed. 2. Left ventricular systolic function is lower end of normal, estimated at 50%. 3. The left ventricular diastolic function is grade I diastolic dysfunction. 4. There is mild mitral valve regurgitation. 5. There is mild tricuspid valve regurgitation. 6. No pulmonary hypertension, estimated pulmonary arterial systolic pressure is 35 mmHg.
== END 2025-05-12 14:48 | disposition home or self-care (01) | DRG 315 ==
LOC: ANHED 17:17 → ANHICU 22:12 → ANH3MEDSUR 05-14 12:08 → ANHICU 05-14 12:08
PROVIDERS: Emergency Medicine; Internal Medicine; Nurse Practitioner; Student in an Organized Health Care Education/Training Program; Admitting Provider Internal Medicine; Emergency Provider Emergency Medicine; PCP Internal Medicine; Visit Provider General Practice
DX: I95.9 Hypotension, unspecified (principal); I42.0 Dilated cardiomyopathy; Z68.42 Body mass index [BMI] 45.0-49.9, adult; I50.22 Chronic systolic (congestive) heart failure; I11.0 Hypertensive heart disease with heart failure; J44.9 Chronic obstructive pulmonary disease, unspecified; T46.5X5A Adverse effect of other antihypertensive drugs, initial encounter; E87.6 Hypokalemia; E11.9 Type 2 diabetes mellitus without complications; E66.813 Obesity, class 3; R00.2 Palpitations; K44.9 Diaphragmatic hernia without obstruction or gangrene; K74.60 Unspecified cirrhosis of liver; M19.90 Unspecified osteoarthritis, unspecified site; Z20.822 Contact with and (suspected) exposure to COVID-19; Z96.653 Presence of artificial knee joint, bilateral; Z86.718 Personal history of other venous thrombosis and embolism; Z79.82 Long term (current) use of aspirin; Z87.891 Personal history of nicotine dependence
CPT/HCPCS: 36415; 71046; 71275; 80048; 80053; 80061; 80198; 80307; 81003; 82533; 82803; 82948; 83036; 83605; 83690; 83735; 83880; 84443; 84484; 85025; 85027; 85610; 85730; 87637; 87641; 93005; 93306; 93970; 94640; 96360; 96361; 99285; A9270; J0616; J1650; J7040; J7120; Q9967

== ENCOUNTER 2025-06-11 08:12 | Outpatient (CLI) | payer OTHER, MEDICAID, SELFPAY ==
--- NOTE | 2025-07-02 16:05 | WPDSLEEPSTUD ---
Sleep Study Date of Study: 06/11/25 Ordering Provider: Valerie Baker APRN Interpreting Physician: Leyda Le MD Sleep Study Type: Polysomnogram Height: 1.52 m Weight: 103.419 kg Body Mass Index: 44.5 Neck Circumference (inches): 17 [place]: 19 Reason for Sleep Study Hypersomnolence * 03/20/2025 PSG showing AHI of 3.5 with desaturation down to 84%, not consistent with sleep-disordered breathing. She had excessive limb movements on this PSG. History is supportive of restless legs syndrome. Recommendation was to have a ferritin drawn, treat iron deficiency if present and retest when symptoms from RLS and periodic limb movement disorder are better to see if the patient could get into deeper levels of sleep and qualify for CPAP. Sleep History This history is from the patient's sleep questionnaire 03/20/2025. The patient is a 69-year-old female that had a sleep study ordered for evaluation of sleep apnea.? The patient frequently awakens from sleep short of breath.? She constantly awakens at night with heartburn, belching or cough.? She occasionally snores and it is occasionally loud enough that others complain.? She frequently has trouble sleeping when she has a cold.? She frequently wakes up gasping for air throughout the night.? She frequently has breathing problems at night observed by herself or others.? She occasionally sweats excessively at night.? She frequently has heart palpitations or irregular heartbeats during the night.? She frequently falls asleep during the day.? She rarely experiences loss of muscle tone when extremely emotional.? She denies having trouble at school or work due to sleepiness.? She occasionally feels unable to move while waking up or falling asleep.? She occasionally experiences vivid dreamlike scenes upon awakening or falling asleep.? She occasionally feels afraid of going to sleep.? She rarely has nightmares.? She occasionally remembers her dreams.? She occasionally has thoughts racing through her mind.? She occasionally feels sad, depressed and anxious.? She occasionally has muscular tension.? She frequently notices parts of her body jerk.? She constantly kicks during the night.? She constantly has crawling and aching feelings in her legs and frequently has leg pain during the night.? She occasionally awakens with jaw pain in the morning.? She is occasionally bothered by pain during the day and occasionally awakened by pain during the night.? She occasionally wakes up feeling stiff in the morning.? She frequently wakes up with sore or achy muscles.? She occasionally wakes up with pain in the neck, spine and other joints. She goes to bed between 9 to 10:30 p.m. on weekdays and weekends.? It takes her 5-15 minutes to fall asleep.? She wakes up 3-4 times throughout the night to urinate.? The amount of time it takes for her to fall back asleep is variable.? She wakes up at 11:00 a.m. on weekdays and between 11:00 a.m. to noon on the weekends.? She will stay in bed for 10-15 minutes after waking up in the morning.? She currently lives with her adult daughter.? She denies consuming any caffeinated beverages within 2 hours of bedtime.? She will watch television before falling asleep.? She will take naps in afternoon or the evening but they are not refreshing.? She has 1 cup of caffeinated beverage per day. ?She quit smoking cigarettes 18 years ago.? She denies alcohol and recreational drug use. [facility] Past Medical History Medical History Tachycardia Tachycardia GERD (gastroesophageal reflux disease) History of gastric ulcer COPD (chronic obstructive pulmonary disease) PLMD (periodic limb movement disorder) Chronic dyspnea Dyspnea Sleep disturbance Hypersomnia Ear itching Nasal folliculitis Screen for colon cancer Post menopausal problems Abnormal mammogram of left breast Skin tear of left forearm without complication Entrapment of left ulnar nerve at wrist Moderate persistent asthma Acute dyspnea Chronic low back pain Rotator cuff tendinitis Adhesive capsulitis Chondrocalcinosis of left wrist Right knee pain Left wrist pain Right hip pain Influenza A Recurrent ventral incisional hernia Hypokalemia Cirrhosis Cirrhosis of liver without ascites Personal history of nicotine dependence Hospital discharge follow-up Encounter to establish care Dizziness Localized swelling, mass and lump, left upper limb Right ankle pain Urinary frequency Abdominal pain, epigastric Morbid obesity with BMI of 50.0-59.9, adult Hyperglycemia Bruising, spontaneous Left bundle branch block Chest pain Elevated troponin Chest pain Heart failure, unspecified Acute exacerbation of congestive heart failure Morbid obesity Chronic obstructive pulmonary disease Heart failure with reduced ejection fraction Echocardiogram in September 2023; moderately reduced LV systolic function with an EF estimated at 35 to 40% and grade 1 diastolic dysfunction. Deep venous thrombosis (1973) Following an ankle fracture. Hiatal hernia Hypertension Aortic atherosclerosis (07/2015) Noted on CT of the abdomen and pelvis. Ventral hernia Arthritis Surgical History Surgical History History of 2 sections History of bilateral knee arthroplasty History of back surgery 1984 and 1985 History of appendectomy History of bladder suspension procedure x2 History of total hysterectomy History of cholecystectomy History of hernia repair Family History Family History Sibling Family history of thyroid disease Lung cancer Mother Family history of lung cancer Family history of cardiovascular disease Father Family history of heart disease in male family member before age 55 Family history of cardiovascular disease Hypertension Grandparent Diabetes mellitus Other Family history of allergic disorder Social History Social History Social History: Caffeine-diet soda/coffee. She is retired from [employer] team. Surrogate medical decision maker: Franchesca Bonilla, daughter. Code status: Full code. Smoking packs per day: 2.0 Smoking cigarettes per day: 40.0 Years smoked: 37 Smoking pack-years: 74.00 Smoking status: Former smoker Tobacco type: cigarettes Second hand tobacco smoke exposure: No Smoking end date: 10/29/16 Alcohol intake: never Substance use: never Substance use type: does not use Do You Feel Safe in your Home?: Yes Lack of Transportation: No Lack of Food: Never True Current Housing: I Have Housing Concerned About Future Housing: No Difficulty Paying Gas/Electric Bills: No Difficulty Paying for Meds: No Currently Unemployed: No Education: High School Diploma/GED Difficulty w/ Childcare or Family Care: No Living arrangements: with family Occupation/Education: retired Spiritual care concerns: No Agree to blood products: Yes Medications Home Medications ?Medication ?Instructions ?Recorded ?Confirmed ?Type acetaminophen 500 mg tablet 1,000 mg PO QID PRN Pain 10/12/23 06/26/25 History (Tylenol Extra Strength) aspirin 81 mg chewable tablet 81 mg PO DAILY 30 days #30 tabs 10/15/23 06/26/25 Rx empagliflozin 10 mg tablet 10 mg PO DAILY CHrEF 35% 30 days 10/15/23 06/26/25 Rx (Jardiance) #30 tabs blood sugar diagnostic (FreeStyle #100 ea 08/24/24 06/20/25 Rx Lite Strips) blood-glucose meter (FreeStyle #1 ea 08/24/24 06/20/25 Rx Lite Meter kit) lancets 28 gauge (FreeStyle #100 ea 08/24/24 06/20/25 Rx Lancets) pantoprazole 40 mg tablet,delayed 40 mg PO QAM #90 tabs 01/15/25 06/26/25 Rx release (Protonix) albuterol sulfate 90 mcg/actuation 1 - 2 puff inhalation Q4-6H PRN 02/18/25 06/26/25 Rx aerosol inhaler shortness of breath or wheezing #8.5 grams budesonide 160 mcg-glycopyr 9 See Rx Instructions .Route 02/18/25 06/26/25 Rx mcg-formot 4.8 mcg/actuation HFA .COMPLEX #10.7 ea inhaler (Breztri Aerosphere) levalbuterol HCl 1.25 mg/3 mL 1.25 mg (3 mL) inhalation Q6H PRN 02/18/25 06/26/25 Rx solution for nebulization shortness of breath or wheezing #180 mL furosemide 20 mg tablet 20 mg PO QAM PRN fluid rentention 04/09/25 06/26/25 Rx #90 tabs duloxetine 30 mg capsule,delayed 30 mg PO DAILY #90 caps 04/24/25 06/26/25 Rx release montelukast 10 mg tablet 10 mg PO HS 05/09/25 06/26/25 History metoprolol succinate 25 mg 25 mg PO QAM #30 tabs 05/12/25 06/26/25 Rx tablet,extended release 24 hr (Toprol XL) potassium chloride 10 mEq 10 meq PO DAILY #30 caps 05/12/25 06/26/25 Rx capsule,extended release sacubitril 24 mg-valsartan 26 mg 1 tablet PO Q12HR #60 tabs 05/12/25 06/26/25 Rx tablet (Entresto) pramipexole 0.25 mg tablet 0.25 mg PO QHS #90 tabs 05/14/25 06/26/25 Rx clobetasol 0.025 % topical cream 1 applic topical .qd-bid #15 grams 06/20/25 06/26/25 Rx mupirocin 2 % topical ointment 1 applic topical BID #22 grams 06/20/25 06/26/25 Rx (Centany) Sleep Procedure A full night polysomnogram using the [employer] multi-channel system recorded the standard physiologic parameters including EEG, EOG, submentalis EMG, anterior tibialis EMG, EKG, body position, nasal and oral airflow using nasal pressure sensor and thermistor.? Respiratory parameters of chest and abdominal movements were recorded with Respiratory Inductance Plethysmography belts. Oxygen saturation was recorded by pulse oximetry. Video monitoring was also performed. Sleep stages, periodic limb movements, and EEG arousals were scored in 30 second epochs according to the criteria of the AASM Scoring Manual. The Apnea-Hypopnea Index was calculated using [facility] guidelines for definition of hypopnea with 4% O2 desaturations while scoring respiratory events. Patient self-administered Lunesta 2 mg at the beginning of the study. She did not meet criteria for a split night study so this was conducted as a basic polysomnogram. She took her dentures out for the study. Sleep Architecture The total recording time was 500.7 minutes. The total sleep time was 334.5 minutes. Sleep latency was 134.0 minutes. REM latency was - minutes. Sleep efficiency was 66.8%. The patient had 28 awakenings for an awakening index of 5.0. Wake after sleep onset time was 32.0 minutes. The patient spent 6.5 minutes, 1.9% of total sleep time in Stage N1. The patient spent 212.5 minutes, 63.5% in Stage N2. The patient spent 115.5 minutes, 34.5% in Stage N3. The patient spent no time in Stage REM sleep. Respiratory Analysis The patient had 10 hypopneas, no obstructive, mixed, or central apneas for an overall Apnea Hypopnea Index of 1.8. The REM Apnea Hypopnea Index was 0, as there was no REM. The NREM Apnea Hypopnea Index was 1.8. The patient had a Central Apnea Hypopnea Index of 0. There were no Respiratory Effort Related Arousals. The Respiratory Disturbance Index is 2.9 events per hour. There was no evidence of Gerry-Wolfe Respirations. Arousals There were 245 total arousals for an arousal index of 43.9. There were 29 spontaneous arousals for an index of 5.2. There were 4 arousals due to respiratory events for an index of 0.7. There were 210 arousals due to periodic limb movements for an index of 37.7. There were 4 arousals due to isolated limb movements for an index of 0.7. Periodic Limb Movements The patient had 8 isolated limb movements with an index of 1.4. The patient had 493 periodic limb movements with an index of 88.4. Patient had a total of 501 limb movements with a total limb movement index of 89.9. Oximetry Data The patient had an average oxygen saturation of 90.6% in sleep with a minimum oxygen saturation of 81% and a maximum oxygen saturation of 95%. The patient had 12 oxygen desaturations that were 4% or greater resulting in an Oxygen Desaturation Index of 2.2. The patient spent 1.6 minutes, 0.3% of total sleep time with an oxygen saturation below 88%. Snoring Profile Snoring was mild. Cardiac Profile The EKG showed normal sinus rhythm, average pulse rate of 63 bpm with a minimum pulse of rate of 52 bpm and a maximum pulse rate of 83 bpm. No arrhythmias noted. EEG Profile No signs of seizure activity seen. Assessment and Plan Assessment and Plan (1) PLMD (periodic limb movement disorder): Code(s): G47.61 - Periodic limb movement disorder Status: Acute Assessment and Plan: This basic nocturnal polysomnogram on 06/11/2025 does not show sleep disordered breathing. The apnea-hypopnea index is 1.8 minimum saturation 81% however only 1.6 minutes spent below 88%. The patient took a sleep aid Lunesta 2 mg at the beginning of the night however had a prolonged sleep latency 134 minutes before falling asleep. There was no REM. She had 501 limb movements for a limb movement index of 89.9, a periodic limb movement arousal index of 37.7. On 04/23/2025 her ferritin level was 80 indicating adequate iron reserves, iron deficiency is not contributing to her periodic limb movements which are causing excessive arousals at night. Her periodic limb movements are contributing to her daytime hypersomnolence. Her periodic limb movements may be related to diabetes mellitus type 2 as well as one of her medications, duloxetine. She is on a medium dose of pramipexole, 0.25 mg. I recommend increasing this to 0.375 mg for a week to see if she has benefit. If needed, increase pramipexole to 0.5 mg. This dose benefits most patients taking it for PLM disorder. The pramipexole should be taken 2 hours before bed to be effective, not at bedtime. There are nonpharmacologic methods to treat limb movements including daily exercise, stretching calf muscles before bed, avoiding excessive amounts of caffeine and alcohol, vitamin B supplementation, magnesium lotion massaged into legs before bed, and use of a weighted blanket. Data The data obtained during this sleep study is adequate for interpretation. Certification This sleep study has been reviewed by a board certified sleep medicine physician.
[2025-07-02 16:29] VITALS: BMI 44.5
== END 2025-06-12 06:45 | disposition home or self-care (01) ==
PROVIDERS: PCP Clinical Nurse Specialist; Visit Provider Clinical Nurse Specialist
DX: G47.10 Hypersomnia, unspecified (principal); G47.61 Periodic limb movement disorder; I10 Essential (primary) hypertension; F39 Unspecified mood [affective] disorder
CPT/HCPCS: 95810